=== PATIENT | female | born 1950 | race Caucasian/White ===

== ENCOUNTER → 2016-12-16 | Outpatient (CLI) | payer MEDICAID ==
[2016-12-16 14:07] LABS: ALT 45 U/L (9-52); AST 33 U/L (14-36)
== END | disposition home or self-care (01) ==
LOC: LABWHC1 13:20
PROVIDERS: ATTEND Podiatrist Foot & Ankle Surgery
DX: K74.60 Unspecified cirrhosis of liver (principal)
CPT/HCPCS: 36415; 84450; 84460

== ENCOUNTER → 2016-12-27 | Outpatient (CLI) | payer MEDICAID ==
--- NOTE | 2016-12-27 22:56 | MR ---
EXAMINATION TYPE: MR knee RT wo con DATE OF EXAM: 12/27/2016 10:01 PM COMPARISON: Outside right knee x-ray December 06, 2016. HISTORY: Knee pain with swelling and locking for several years TECHNIQUE: Multiplanar, multisequence images of the knee is performed without IV contrast. FINDINGS: MEDIAL MENISCUS: Anterior and posterior horns are intact without tear. LATERAL MENISCUS: Focus of increased signal inferiorly posterior horn of medial meniscus appears to e xtend to articular surface seen best coronal image 22. There is marked deformity with abnormal signal anterior horn of lateral meniscus consistent with complex full-thickness tear. Some lateral extrusio n of lateral meniscus is present. CRUCIATE LIGAMENTS: The anterior and posterior cruciate ligaments are intact. Intermediate signal is seen in distal anterior cruciate ligament near its tibial attachment. COLLATERAL LIGAMENTS: The medial collateral ligament and lateral collateral ligament complex are inta ct and unremarkable. EXTENSOR MECHANISM: Visualized quadriceps and patellar tendons are intact. EFFUSION: There are small to moderate suprapatellar joint effusion extending laterally. POPLITEAL CYST: There is a small to moderate size popliteal/villanueva cyst somewhat ill-defined suggestin g leak measuring 4.8 cm on long axis on sagittal image 9. TRICOMPARTMENT SPACES: There is mild to moderate tricompartment joint space loss and mild tricompartm ent joint space spurring. CARTILAGE: There is chondromalacia patella with near full-thickness cartilaginous loss along the cinthya rity of posterior patellar pole. Some full-thickness loss along lateral patellar pole is suspected in feriorly. Fissuring of articular cartilage lateral and medial tibiofemoral compartments is also prese nt. BONE MARROW SIGNAL: There is heterogeneous increased T2 signal involving the posterior patella at se veral levels. Suspect heterogeneous increased signal seen in the posterior distal femoral metaphysis as well as in the medial femoral condyle where there is low T1 signal suggesting osteochondral injury that measures 11 mm in AP diameter on sagittal image 9. More focal increased signal is seen in the posterior lateral tibial plateau with diminished T1 signal . Additional areas of involvement in the fibular head are identified. OTHER: No additional significant abnormality is appreciated. IMPRESSION: 1. Complex full-thickness tear anterior horn of lateral meniscus. 2. Additional more focal full-thickness tear posterior horn of lateral meniscus. 3. Fairly moderate tricompartment degenerative changes with tricompartment cartilaginous loss. Full-t hickness chondromalacia patella is present. Osteochondral injury distal medial femoral condyle is not ed. 4. Focus of significant osseous contusion and injury or bone marrow edema in the posterior lateral ti bial plateau and fibular head. 5. Small to moderate suprapatellar joint effusion. 6. Small to moderate size leaking popliteal cyst.
== END | disposition home or self-care (01) ==
LOC: RADMRIMAIN 20:59
PROVIDERS: ATTEND Orthopaedic Surgery
DX: S83.271A Complex tear of lateral meniscus, current injury, right knee, initial encounter (principal); M17.11 Unilateral primary osteoarthritis, right knee; M71.21 Synovial cyst of popliteal space [Baker], right knee

== ENCOUNTER → 2017-02-06 | Outpatient (CLI) | payer MEDICAID ==
[2017-02-06 12:22] LABS: ALT 41 U/L (9-52); AST 28 U/L (14-36)
== END | disposition home or self-care (01) ==
LOC: LABWHC1 11:55
PROVIDERS: ATTEND Podiatrist Foot & Ankle Surgery
DX: K74.60 Unspecified cirrhosis of liver (principal)
CPT/HCPCS: 36415; 84450; 84460

== ENCOUNTER 2017-02-09 06:28 | Day surgery (SDC) | payer MEDICAID ==
[2017-02-07 16:09] VITALS: BMI 29.9
--- NOTE | 2017-02-08 15:33 | HP ---
DATE OF ADMISSION: Jennifer Curry is a 66-year-old patient seen with progressive right knee pain. After having options regarding treatment discussed, she elected to proceed with right knee arthroscopy. Consent regarding the procedure was obtained. Medical clearance was provided Dr. Gary Mosquera. Past medical history is hypertension and emphysema. Past surgical history is appendectomy, total abdominal hysterectomy, cholecystectomy, sinus surgery. Daily medications are: 1. Lisinopril. 2. Xanax. ALLERGIES: None reported. SOCIAL HISTORY: Patient denies current tobacco use. Physical evaluation of the right knee: Range of motion is 0 to 120 degrees. There is tenderness along the lateral joint line. There is a positive lateral Kinsey's. Ligaments are stable. Hip rotation is without pain. Distal neurovascular exam is intact. Right knee radiographs revealed moderate lateral compartment osteoarthritis. An MRI of the right knee revealed a lateral meniscal tear as well as osteoarthritis and joint effusion. IMPRESSION: Internal derangement of right knee with meniscal tear. PLAN: Right knee arthroscopy with partial meniscectomy and debridement.
[~2017-02-09 06:28] MED LIST: DEXAMETHASONE SOD PHOSPHATE 10 MG/ML 1 ML VIAL IV ONE; HYDROmorphone 1 MG/ML 1 ML SYRINGE IVP PRN; LACTATED RINGERS 1,000 ML IV SCH; LIDOCAINE 1% 20 ML VIAL (10MG/ML) FOR IV START INTRADERMA PRN; MIDAZOLAM 2 MG/2 ML VIAL IV PRN; SCOPOLAMINE 1.5MG/72HR PATCH TRANSDERM ONE
[2017-02-09 06:52] VITALS: RESP 16
[2017-02-09] MEDS: ONDANSETRON 4 MG/2 ML VIAL IVP ONE ×2 (07:00→09:31)
[2017-02-09] MEDS ORDERED: BUPIVACAIN-EPI 0.25%-1:200,000 30 ML VIAL INTRAARTIC ONE (07:26)
[2017-02-09] MEDS ORDERED: LIDOCAINE 1% INJ 10MG/ML (20 ML MDV) ONE (07:26)
[2017-02-09] MEDS ORDERED: fentaNYL (PF) 50 MCG/ML 2 ML AMP ONE (07:26)
[2017-02-09] MEDS ORDERED: MIDAZOLAM 2 MG/2 ML VIAL ONE (07:26)
[2017-02-09] MEDS ORDERED: SUCCINYLCHOLINE CHLORIDE 100 MG/5 ML SYR IV ONE (07:26)
[2017-02-09] MEDS ORDERED: PROPOFOL 10 MG/ML 20 ML VIAL IV ONE (07:26)
[2017-02-09] MEDS: ceFAZolin 2 GM in SODIUM CHLORIDE 0.9% 100 ML IVPB ONE ×2 (07:39→07:40)
[2017-02-09 08:34] VITALS: TEMP 97.6
--- NOTE | 2017-02-09 08:41 | P.OP ---
Date of Procedure: 02/09/17 Preoperative Diagnosis: Internal derangement right knee Postoperative Diagnosis: 1. Tear medial and lateral meniscus right knee 2. Grade 2/3 chondromalacia medial femoral condyle right knee 3. Grade 2 chondral malacia lateral femoral condyle right knee 4. Grade 4 chondromalacia lateral tibial plateau right knee 5. Grade 3 chondromalacia patella right knee 6. Reactive synovitis medial and suprapatellar compartments right knee Procedure(s) Performed: 1. Arthroscopic partial medial and lateral meniscectomy right knee 2. Arthroscopic chondroplasty medial femoral condyle right knee 3. Arthroscopic chondroplasty lateral femoral condyle right knee 4. Arthroscopic chondroplasty patella right knee 5. Arthroscopic partial synovectomy medial and suprapatellar compartments right knee Anesthesia: TERAA, local Surgeon: Isaac Casas Estimated Blood Loss (ml): 10 Pathology: none sent Condition: stable Disposition: PACU Indications for Procedure: 66-year-old patient seen with progressive right knee pain. After having treatment options discussed, she elected to proceed with right knee arthroscopy. Operative Findings: See description of procedure Description of Procedure: Patient was taken to the operative suite. Patient underwent a general anesthetic by the department of anesthesia. Patient was given preoperative antibiotics. The right lower extremity was placed in a well-padded arthroscopic leg shafer. The right leg was prepped and draped in the normal sterile orthopedic fashion. A lateral parapatellar and suprapatellar incision was made. Trochars were inserted. Arthroscopy was initiated. Suprapatellar pouch revealed thick reactive synovitis. The patellofemoral joint appeared to articulate congruently. There was grade 3 chondromalacia with osteochondral tears present. The scope was guided into the medial gutter. No loose bodies or plica were identified. The scope was then guided into the medial compartment. A medial parapatellar incision was made. Trocar inserted followed by probe. There was a radial tear posterior horn medial meniscus. Grade 3 chondromalacia medial femoral condyle with some osteochondral tears. Reactive synovitis anteriorly. A partial medial meniscectomy was performed down to stable tissue. I performed a chondroplasty of the medial femoral condyle and partial synovectomy. The residual meniscus was found to be stable as was the residual osteochondral surface of medial femoral condyle. Scope and probe were then guided into the intercondylar notch. Cruciates were identified, probed and found to be stable. The scope and probe were then guided into lateral compartment. There was a tear involving the anterior horn and midbody medial meniscus. There were grade 2 chondromalacia changes of the lateral femoral condyle and grade 4, she changes of the tibial plateau with an area of bony exposure. No synovitis or loose bodies. A partial lateral meniscectomy was performed on a stable tissue. I performed a chondroplasty lateral femoral condyle down to stable tissue. The residual meniscus was probed and found to be stable as was the residual osteochondral surface lateral femoral condyle. The scope was in guided back into the suprapatellar compartment. A motorized shaver was introduced into the super patellar compartment. I debrided some piecemeal fragments of meniscus. I performed a chondroplasty of patella. I performed a partial synovectomy. Shaver was removed. I took one more look around the entire knee, no residual debris. Instruments were now removed from the joint. The joint was infiltrated with .25 % Marcaine. Steri-Strips were applied to the portal sites. Sterile dressings were applied. The patient was placed into a SOL hose. No tourniquet was utilized. The patient was awakened, transferred to a bed and taken to recovery stable satisfactory condition.
[2017-02-09 11:10] VITALS: BP 160/80; PULSE 59
== END 2017-02-09 11:37 | disposition home or self-care (01) ==
LOC: OR 06:28
PROVIDERS: ATTEND Orthopaedic Surgery
DX: M23.241 Derangement of anterior horn of lateral meniscus due to old tear or injury, right knee (principal); M23.221 Derangement of posterior horn of medial meniscus due to old tear or injury, right knee; M22.41 Chondromalacia patellae, right knee; M65.861 Other synovitis and tenosynovitis, right lower leg; I10 Essential (primary) hypertension; J44.9 Chronic obstructive pulmonary disease, unspecified; J45.909 Unspecified asthma, uncomplicated; K21.9 Gastro-esophageal reflux disease without esophagitis; Z79.899 Other long term (current) drug therapy
CPT/HCPCS: 29880; J2250; J1100; J0690; J2405; J2001; J3010; J1170; J0330; J2704

== ENCOUNTER 2017-02-27 08:51 | Day surgery (SDC) | payer MEDICAID ==
[2017-02-22 11:33] VITALS: BMI 29.7
[~2017-02-27 08:51] MED LIST changes: +HEPARIN SODIUM,PORCINE 5,000 UNIT/ML 1 ML VIAL SQ ONE; -HYDROmorphone 1 MG/ML 1 ML SYRINGE IVP PRN; -LIDOCAINE 1% 20 ML VIAL (10MG/ML) FOR IV START INTRADERMA PRN; +ONDANSETRON 4 MG/2 ML VIAL IVP ONE; -SCOPOLAMINE 1.5MG/72HR PATCH TRANSDERM ONE; +ceFAZolin 2 GM in SODIUM CHLORIDE 0.9% 100 ML IVPB ONE
[2017-02-27 09:25] VITALS: RESP 16
[2017-02-27] MEDS ORDERED: LIDOCAINE 1% 20 ML VIAL (10MG/ML) FOR IV START INTRADERMA ONE (09:31)
[2017-02-27] MEDS ORDERED: SCOPOLAMINE 1.5MG/72HR PATCH TRANSDERM ONE (10:40)
[2017-02-27] MEDS ORDERED: LIDOCAINE 1% INJ 10MG/ML (20 ML MDV) ONE (10:49)
[2017-02-27] MEDS ORDERED: fentaNYL (PF) 50 MCG/ML 2 ML AMP ONE (10:49)
[2017-02-27] MEDS ORDERED: GLYCOPYRROLATE 0.2 MG/ML 2 ML VIAL ONE (10:49)
[2017-02-27] MEDS ORDERED: PROPOFOL 10 MG/ML 20 ML VIAL IV ONE (10:49)
[2017-02-27] MEDS ORDERED: KETOROLAC 30 MG/ML 1 ML VIAL ONE (10:49)
[2017-02-27] MEDS ORDERED: VECURONIUM 10 MG VIAL IV ONE (10:49)
[2017-02-27] MEDS ORDERED: MIDAZOLAM 2 MG/2 ML VIAL ONE (10:49)
[2017-02-27] MEDS ORDERED: SUCCINYLCHOLINE CHLORIDE 100 MG/5 ML SYR IV ONE (10:49)
[2017-02-27] MEDS ORDERED: NEOSTIGMINE 1 MG/ML 10 ML VIAL ONE (10:49)
--- NOTE | 2017-02-27 10:52 | P.GSHP ---
History of Present Illness H&P Date: 02/27/17 Chief Complaint: Incisional hernia Patient here today for incisional hernia repair. She has had a previous cholecystectomy. She has a bulge now above the umbilicus with some generalized laxity of the abdominal wall at the site of the umbilicus. Mild abdominal pain at times at that location. No nausea or vomiting. No change in bowel habits. Past Medical History Past Medical History: GERD/Reflux, Hypertension, Osteoarthritis (OA) Additional Past Medical History / Comment(s): emphysema History of Any Multi-Drug Resistant Organisms: None Reported Past Surgical History: Appendectomy, Bladder Surgery, Cholecystectomy, Hernia Repair, Orthopedic Surgery Additional Past Surgical History / Comment(s): RT KNEE ARTHROSCOPY 02-09-17, corrective eye surg, sinus surg, jaw surg, foot surg. Past Anesthesia/Blood Transfusion Reactions: Motion Sickness, Postoperative Nausea & Vomiting (PONV) Past Psychological History: No Psychological Hx Reported Smoking Status: Never smoker Past Alcohol Use History: None Reported Past Drug Use History: None Reported - Past Family History Mother Family Medical History: Diabetes Mellitus Medications and Allergies Home Medications Medication Instructions Recorded Confirmed Type Albuterol Inhaler [Ventolin Hfa 1 - 2 puff INHALATION Q4H PRN 06/30/15 02/27/17 History Inhaler] Calcium Carbonate/Vitamin D3 1 each PO DAILY 06/30/15 02/27/17 History [Calcium 600-Vit D3 400 Tablet] Multivitamins, Thera [Multivitamin 1 each PO DAILY 06/30/15 02/27/17 History (formulary)] Lisinopril-Hctz 20-12.5 mg 1 tab PO HS 02/07/17 02/27/17 History [Zestoretic 20-12.5] Terbinafine [LamISIL] 250 mg PO DAILY 02/07/17 02/27/17 History ALPRAZolam [Xanax] 0.25 mg PO Q8HR PRN 02/08/17 02/27/17 History Allergies Allergy/AdvReac Type Severity Reaction Status Date / Time No Known Allergies Allergy Verified 02/22/17 11:28 Surgical - Exam Vital Signs Temp Pulse Resp BP Pulse Ox 97.2 F L 66 16 180/91 94 L 02/27/17 09:19 02/27/17 09:19 02/27/17 09:19 02/27/17 09:19 02/27/17 09:19 Physical exam: General: Well-developed, well-nourished HEENT: Normocephalic, sclerae nonicteric Abdomen: Nontender, nondistended, small infra umbilical incision noted, reducible hernia present just above the umbilicus with diastases Extremities: No edema Neuro: Alert and oriented Assessment and Plan (1) Incisional hernia Narrative/Plan: Will proceed with operative repair at this time. The patient I discussed the options of open versus laparoscopic approach. Given the generalized laxity and the suspicion that there may be other fascial defects we decided to proceed with a laparoscopic approach. The da Beata robot will be utilized in this case to assist with closure and suturing. The risks of bleeding, infection, recurrence, pain, mesh-related complications, bowel injury were discussed. She understands and wishes to proceed. Status: Acute
[2017-02-27] MEDS ORDERED: BUPIVACAIN-EPI 0.25%-1:200,000 30 ML VIAL SQ ONE ×2 (11:16)
[2017-02-27] MEDS ORDERED: HYDROcodone/APAP 5-325MG 1 EACH TAB PO PRN (13:07)
[2017-02-27] MEDS ORDERED: HYDROmorphone 1 MG/ML 1 ML SYRINGE IVP PRN (13:07)
[2017-02-27] MEDS ORDERED: NALOXONE 0.4 MG/ML 1 ML VIAL IV PRN (13:07)
[2017-02-27 13:17] VITALS: TEMP 98.2
--- NOTE | 2017-02-27 13:25 | P.PCN ---
Date of Procedure: 02/27/17 Procedure(s) Performed: PREOPERATIVE DIAGNOSIS: Incisional hernia POSTOPERATIVE DIAGNOSIS: Same PROCEDURE: Laparoscopic repair incisional hernia with da Beata robotic assistance with mesh SURGEON: Yojana EBL: Macrina Aggarwal ANESTHESIA: Gen. COMPLICATIONS: None OPERATIVE PROCEDURE: Patient was placed on the operating room table in the supine position. Patient was then placed under general anesthesia. The abdomen was prepped and draped in usual sterile fashion. A 5 mm optical trocar was used to enter the abdominal cavity in the left subcostal location and laterally. Insufflation took place fully to 15 mm of mercury. At that point a 12 mm trocar was placed laterally in the mid abdomen. An 8 mm trocar was placed in the left lower quadrant. The initial 5 was then switched to an 8 mm trocar as well. All of these were placed under direct visualization. The trochars were placed so that the neutral center of the trocar was within the abdominal wall. The da Beata robot was then docked after placing the patient in a slight left decubitus position. I then left the bedside and moved to the da Beata console. The patient's hernia was inspected. In this particular case the patient had 2 defects in a [id number] fashion. Each of these defects was about 2-3 cm in diameter. I removed some of the fatty tissue of the peritoneum and preperitoneal space and swept this cephalad. This included some of the fat that was present within the hernia itself. This also mobilized the falciform ligament. Once I had adequate visualization of the fascia I reapproximated the 2 defects horizontally using a running 12 inch O v lock suture. An 11 cm circular mesh was then utilized. This was a ventral light ST mesh. This was sutured circumferentially using 2-0 V lock sutures. This was performed in a running fashion using 3 separate sutures. The middle portion of the mesh was also sutured to the abdominal wall. This provided excellent coverage of our fascial closure. We then switched to a traditional laparoscopic approach. The 4 needles were removed at that point. The defect at the 12 mm trocar site was closed using an 0 Vicryl suture and the Morro Zendejas technique. The skin at all 3 sites were closed using interrupted 4-0 Monocryl sutures. Steri-Strips and sterile dressings were applied. DISPOSITION: Stable to recovery room
[2017-02-27] MEDS: HYDROmorphone 1 MG/ML 1 ML SYRINGE IVP PRN ×2 (13:41→13:52)
[2017-02-27] MEDS ORDERED: HYDROcodone/APAP 5-325MG 1 EACH TAB PO ONE (14:34)
[2017-02-27 16:02] VITALS: BP 145/80; PULSE 59
== END 2017-02-27 16:46 | disposition home or self-care (01) ==
LOC: OR 08:51
PROVIDERS: ATTEND Surgery
DX: K43.2 Incisional hernia without obstruction or gangrene (principal); I10 Essential (primary) hypertension; J44.9 Chronic obstructive pulmonary disease, unspecified; J45.909 Unspecified asthma, uncomplicated; M19.90 Unspecified osteoarthritis, unspecified site; F41.9 Anxiety disorder, unspecified; Z79.899 Other long term (current) drug therapy
CPT/HCPCS: 49654; S2900

== ENCOUNTER → 2018-12-12 | Outpatient (CLI) | payer MEDICARE ==
--- NOTE | 2018-12-16 14:41 | MM ---
Reason for exam: screening (asymptomatic). Last mammogram was performed 6 years and 1 month ago. History: Patient is postmenopausal. MG 3D Screening Mammo W/Cad Bilateral CC and MLO view(s) were taken. Prior study comparison: November 08, 2012, bilateral digital screening mammo w/CAD. August 26, 2011, bilateral digital screening mammo w/CAD. The breast tissue is extremely dense which could obscure a lesion on mammography. No significant changes when compared with prior studies. ASSESSMENT: Benign, BI-RAD 2 RECOMMENDATION: Routine screening mammogram of both breasts in 1 year.
== END ==
LOC: RADMAMWWP 15:27
PROVIDERS: ATTEND Family Medicine
DX: Z12.31 Encounter for screening mammogram for malignant neoplasm of breast (principal)
CPT/HCPCS: 77063; 77067

== ENCOUNTER → 2020-05-01 | Outpatient (CLI) | payer MEDICARE ==
--- NOTE | 2020-05-05 11:52 | MM ---
Reason for exam: screening (asymptomatic). Last mammogram was performed 1 year and 5 months ago. History: Patient is postmenopausal. Physical Findings: A clinical breast exam by your physician is recommended on an annual basis and results should be correlated with mammographic findings. MG 3D Screening Mammo W/Cad Bilateral CC and MLO view(s) were taken. Prior study comparison: December 12, 2018, bilateral MG 3d screening mammo w/cad. The breast tissue is heterogeneously dense. This may lower the sensitivity of mammography. Lateral asymmetric density left CC view at a middle depth incompletely disperses on 3D. ASSESSMENT: Incomplete: need additional imaging evaluation, BI-RAD 0 RECOMMENDATION: Special view mammogram of the left breast. (3D) If lesion persists on supplemental views, image directed ultrasound is recommended. [facility] will attempt to contact patient to return for supplemental views and ultrasound if indicated.
== END | disposition home or self-care (01) ==
LOC: RADMAMWWP 15:08
PROVIDERS: ATTEND Family Medicine
DX: Z12.31 Encounter for screening mammogram for malignant neoplasm of breast (principal)
CPT/HCPCS: 77063; 77067

== ENCOUNTER → 2020-05-20 | Outpatient (CLI) | payer MEDICARE ==
--- NOTE | 2020-05-20 14:16 | MM ---
Reason for exam: additional evaluation requested from abnormal screening. Last mammogram was performed 1 month ago. History: Patient is postmenopausal. Physical Findings: Nurse did not find any significant physical abnormalities on exam. MG 3D Work Up W/Cad LT Spot compression CC and LM view(s) were taken of the left breast. Prior study comparison: May 01, 2020, bilateral MG 3d screening mammo w/cad. December 12, 2018, bilateral MG 3d screening mammo w/cad. There is no discrete abnormality including area of concern. These results were verbally communicated with the patient and result sheet given to the patient on 05/20/20. ASSESSMENT: Negative, BI-RAD 1 RECOMMENDATION: Return to routine screening mammogram schedule for both breasts.
== END | disposition home or self-care (01) ==
LOC: RADMAMWWP 13:32
PROVIDERS: ATTEND Family Medicine
DX: R92.8 Other abnormal and inconclusive findings on diagnostic imaging of breast (principal)
CPT/HCPCS: 77065; G0279; 77061

== ENCOUNTER → 2020-06-25 | Outpatient (CLI) | payer MEDICARE ==
--- NOTE | 2020-06-25 16:02 | US ---
EXAMINATION TYPE: US kidneys/renal and bladder DATE OF EXAM: 06/25/2020 COMPARISON: MRI 2012. CT 2011. CLINICAL HISTORY: N20.0 RENAL LITHIASIS. Intermittent abdomen pain x 2 months EXAM MEASUREMENTS: Right Kidney: 11.4 x 5.1 x 5.0 cm Left Kidney: 11.7 x 5.0 x 5.5 cm Right Kidney: 1.8 x 1.5 x 1.7cm hyperechoic area sup pole Left Kidney: 2 hypoechoic areas inferior pole measuring 1.8cm and 1.4cm, 2.9 x 1.9 x 2.0cm hyperechoi c area inferior pole Bladder: not fully distended Suboptimal evaluation of bladder due to poor distention. IMPRESSION: Fairly large hyperechoic lesions in both kidneys new from prior studies. Follow-up advise d. New solid masses need to be considered. Renal protocol contrast-enhanced CT or MRI follow-up recom mended.
== END | disposition home or self-care (01) ==
LOC: RADUSWWP 15:18
PROVIDERS: ATTEND Family Medicine
DX: N28.1 Cyst of kidney, acquired (principal)
CPT/HCPCS: 76770

== ENCOUNTER 2020-07-06 11:32 | Emergency (ER) | payer MEDICARE ==
[2020-07-06 11:37] VITALS: TEMP 97.8
[2020-07-06 12:24] LABS: Basophils # (A) 0.1 k/uL (0-0.2); Basophils % (A) 1 %; Eosinophils # (A) 0.2 k/uL (0-0.7); Eosinophils % (A) 3 %; HCT 45.3 % (34.0-46.0); HGB 14.8 gm/dL (11.4-16.0); Lymphocytes # (A) 2.3 k/uL (1.0-4.8); Lymphocytes % (A) 33 %; MCH 30.2 pg (25.0-35.0); MCHC 32.6 g/dL (31.0-37.0); MCV 92.6 fL (80.0-100.0); Monocytes # (A) 0.2 k/uL (0-1.0); Monocytes % (A) 3 %; Neutrophils % (A) 58 %; Platelet Count 218 k/uL (150-450); RBC 4.89 m/uL (3.80-5.40); RDW 13.1 % (11.5-15.5); WBC 6.9 k/uL (3.8-10.6)
[2020-07-06 12:44] LABS: Appearance,Urine Clear (Clear); Color,Urine Yellow
[2020-07-06 12:45] LABS: Glucose,Urine (UA) Negative (Negative); Protein,Urine 1+ (Negative); Specific Gravity,Urine 1.015 (1.001-1.035)
[2020-07-06 12:46] LABS: Bilirubin,Urine Negative (Negative); Blood,Urine Negative (Negative); Ketones,Urine Negative (Negative); Leukocyte Esterase,Urine Large (Negative); Nitrite,Urine Negative (Negative)
[2020-07-06 12:50] LABS: Bacteria,Urine Many /hpf; Hyaline Casts,Urine 5 /lpf (0-2); Mucus,Urine Many /hpf; RBC,Urine 5 /hpf (0-5); Squamous Epithelial Cell,Urine 18 /hpf (0-4); WBC,Urine 46 /hpf (0-5)
--- NOTE | 2020-07-06 12:56 | CT ---
EXAMINATION TYPE: CT abdomen pelvis wo con DATE OF EXAM: 07/06/2020 COMPARISON: 10/01/2012 HISTORY: Bilateral flank pain. CT DLP: 805.3 mGycm Examination of the solid and hollow viscera is limited given the lack of contrast. FINDINGS: LUNG BASES: No evidence for nodule. No evidence for infiltrate. LIVER/GB: The gallbladder is surgically absent. No space-occupying hepatic lesion. PANCREAS: No pancreatic mass identified. No inflammatory process seen. SPLEEN: No evidence for splenomegaly. No intrasplenic lesions seen. ADRENALS: No adrenal nodules identified. No evidence for thickening. KIDNEYS: Stable angiomyolipoma left kidney. Nonobstructing nephrolithiasis lower pole left kidney and midpole left kidney measuring up to 3 mm. No obstructing calculus is seen. No evidence for hydroneph rosis at this time. BOWEL: Appendix has a normal appearance. No evidence of bowel obstruction. No inflammatory process. Lymph nodes: No evidence for adenopathy greater than 1 cm. Abdominal aorta: Atheromatous changes seen. No evidence for aneurysm. Genital organs: No significant abnormality. Other: No significant abnormality. IMPRESSION: 1. Nonobstructing nephrolithiasis seen in left kidney. 2. Stable angiomyolipoma left kidney.
[2020-07-06] MEDS ORDERED: KETOROLAC 15 MG/ML 1 ML VIAL IVP STA (13:19)
[2020-07-06] MEDS ORDERED: ACET/COD 300 MG/30 MG STARTER PACK 6 TAB BTL PO STA (13:19)
[2020-07-06 13:28] LABS: ALT 28 U/L (4-34); AST 28 U/L (14-36); African American GFR (CKD) >90 (>60 ml/min/1.73 sqM); Albumin 4.2 g/dL (3.5-5.0); Alkaline Phosphatase 71 U/L (38-126); Anion Gap 9 mmol/L; Blood Urea Nitrogen 11 mg/dL (7-17); Calcium 9.7 mg/dL (8.4-10.2); Carbon Dioxide 29 mmol/L (22-30); Chloride 103 mmol/L (98-107); Glucose 99 mg/dL (74-99); Non-African American GFR(CKD) >90 (>60 ml/min/1.73 sqM); Potassium 3.1 mmol/L (3.5-5.1); Sodium 141 mmol/L (137-145); Total Protein 6.7 g/dL (6.3-8.2)
[2020-07-06] MEDS ORDERED: POTASSIUM CHLORIDE ER 20 MEQ TAB.ER PO STA (13:39)
--- NOTE | 2020-07-06 13:41 | ED ---
Abdominal Pain HPI <Oneil John - Last Filed: 07/06/20 13:47> - General Source: patient Mode of arrival: ambulatory Limitations: no limitations <Sonam Florentino - Last Filed: 07/06/20 17:30> - General Chief Complaint: Abdominal Pain Stated Complaint: kidney pain Time Seen by Provider: 07/06/20 11:43 - History of Present Illness Initial Comments: 69-year-old feel presenting today for chief complaint of bilateral mid back pain. Patient states that she's had back pain ever since she had diagnosis of a kidney mass she states she does not know much with the mass she states she was not told his cancerous or not but has an MRI scheduled in 5 days. Patient denies any hematuria. She denies any fevers denies unilateral pain. Patient denies a direct injury or trauma to the back denies a loss of bowel bladder control urinary retention. Patient states it feels like the pain is in her kidneys. She states the pain is actually been going on for 6 months. Patient denies any changes she states she just came today simply for pain management. Patient states that she knows what is going on and is outpatient follow-up. Patient denies any additional complaints denies abdominal pain chest pain angel rtness of breath or leg swelling. Remaining review of systems negative upon arrival patient does appear well nontoxic in no acute distress sitting up in a chair next to guest in room. (Sonam Florentino) - Related Data Home Medications Medication Instructions Recorded Confirmed Calcium Carbonate/Vitamin D3 1 each PO DAILY 06/30/15 07/06/20 [Calcium 600-Vit D3 400 Tablet] Multivitamins, Thera [Multivitamin 1 tab PO DAILY 06/30/15 07/06/20 (formulary)] Lisinopril-Hctz 20-12.5 mg 1 tab PO HS 02/07/17 07/06/20 [Zestoretic 20-12.5] Atorvastatin [Lipitor] 10 mg PO HS 07/06/20 07/06/20 Ferrous Sulfate [Feosol] 325 mg PO Q48H 07/06/20 07/06/20 Fluticasone Nasal [place] [Flonase 1 spray EA NOSTRIL DAILY 07/06/20 07/06/20 Nasal [place]] Ibuprofen 800 mg PO Q8H PRN 07/06/20 07/06/20 L.acidoph,Paracasei, B.lactis 1 each PO DAILY 07/06/20 07/06/20 [Probiotic] Loratadine [Claritin] 10 mg PO DAILY 07/06/20 07/06/20 Allergies Allergy/AdvReac Type Severity Reaction Status Date / Time No Known Allergies Allergy Verified 07/06/20 12:59 Review of Systems ROS Other: All systems not noted in ROS Statement are negative. <Oneil John - Last Filed: 07/06/20 13:47> ROS Other: All systems not noted in ROS Statement are negative. <Michelle Florentinomary Mirza - Last Filed: 07/06/20 17:30> ROS Statement: Those systems with pertinent positive or pertinent negative responses have been documented in the HPI. Past Medical History Past Medical History: GERD/Reflux, Hypertension, Osteoarthritis (OA) Additional Past Medical History / Comment(s): emphysema, lesion on kidneys. History of Any Multi-Drug Resistant Organisms: None Reported Past Surgical History: Appendectomy, Bladder Surgery, Cholecystectomy, Hernia Repair, Orthopedic Surgery Additional Past Surgical History / Comment(s): corrective eye surg., sinus surg., jaw surg., foot surg. Past Anesthesia/Blood Transfusion Reactions: Motion Sickness, Postoperative Nausea & Vomiting (PONV) Past Psychological History: No Psychological Hx Reported Smoking Status: Never smoker Past Alcohol Use History: None Reported Past Drug Use History: None Reported - Past Family History Mother Family Medical History: Diabetes Mellitus <MiteshrefugioMichelleSonam Hermes - Last Filed: 07/06/20 17:30> General Exam Limitations: no limitations <Michelle Florentinomary Mirza - Last Filed: 07/06/20 17:30> - General Exam Comments Initial Comments: General: The patient is awake and alert, in no distress, and does not appear acutely ill. Eye: Pupils are equal, round and reactive to light, extra-ocular movements are intact. No nystagmus. There is normal conjunctiva bilaterally. No signs of icterus. Cardiovascular: There is a regular rate and rhythm. No murmur, rub or gallop is appreciated. Respiratory: Lungs are clear to auscultation, respirations are non-labored, breath sounds are equal. No wheezes, stridor, rales, or rhonchi. Gastrointestinal: Soft, non-distended, non-tender abdomen without masses or organomegaly noted. There is no rebound or guarding present. No CVA tenderness. Musculoskeletal: Normal ROM, no tenderness. Strength 5/5. Sensation intact. R adial pulses equal bilaterally 2+. Neurological: A&O x 3. CN II-XII intact grossly, There are no obvious motor or sensory deficits. Coordination appears grossly intact. Speech is normal. Skin: Skin is warm and dry and no rashes or lesions are noted. Psychiatric: Cooperative, appropriate mood & affect, normal judgment. (Sonam Florentino) Course <Oneil John - Last Filed: 07/06/20 13:47> Vital Signs 07/06/20 07/06/20 11:33 13:30 Temperature 97.8 F Pulse Rate 63 86 Respiratory 18 16 Rate Blood Pressure 138/77 132/76 O2 Sat by Pulse 98 99 Oximetry - Reevaluation(s) Reevaluation #1: 07/06/20 13:47 PA supervision: I did proceed a [id number] evaluation the patient. She did present with complaints of abdominal discomfort. She did have a computed tomography scan which showed evidence of a angiolipoma kidney no evidence of kidney stones in the standard is evidence however of UTI and lab work. She also does demonstrate hypo-ketonemia with a potassium 3.1. She'll be given supplementation she is a keep her follow-up with her doctor as planned she is in agreement with this. (Oneil John) Medical Decision Making - Lab Data Result diagrams: 07/06/20 12:13 07/06/20 12:57 <Oneil John - Last Filed: 07/06/20 13:47> - Lab Data Result diagrams: 07/06/20 12:13 07/06/20 12:57 <Sonam Florentino - Last Filed: 07/06/20 17:30> - Lab Data Lab Results 07/06/20 07/06/20 07/06/20 Range/Units 12:13 12:13 12:57 WBC 6.9 (3.8-10.6) k/uL RBC 4.89 (3.80-5.40) m/uL Hgb 14.8 (11.4-16.0) gm/dL Hct 45.3 (34.0-46.0) % MCV 92.6 (80.0-100.0) fL MCH 30.2 (25.0-35.0) pg MCHC 32.6 (31.0-37.0) g/dL RDW 13.1 (11.5-15.5) % Plt Count 218 (150-450) k/uL Neutrophils % 58 % Lymphocytes % 33 % Monocytes % 3 % Eosinophils % 3 % Basophils % 1 % Neutrophils # 4.0 (1.3-7.7) k/uL Lymphocytes # 2.3 (1.0-4.8) k/uL Monocytes # 0.2 (0-1.0) k/uL Eosinophils # 0.2 (0-0.7) k/uL Basophils # 0.1 (0-0.2) k/uL Sodium 141 (137-145) mmol/L Potassium 3.1 L (3.5-5.1) mmol/L Chloride 103 (98-107) mmol/L Carbon Dioxide 29 (22-30) mmol/L Anion Gap 9 mmol/L BUN 11 (7-17) mg/dL Creatinine 0.43 L (0.52-1.04) mg/dL Est GFR (CKD-EPI)AfAm >90 (>60 ml/min/1.73 sqM) Est GFR (CKD-EPI)NonAf >90 (>60 ml/min/1.73 sqM) Glucose 99 (74-99) mg/dL Calcium 9.7 (8.4-10.2) mg/dL Total Bilirubin 1.0 (0.2-1.3) mg/dL AST 28 (14-36) U/L ALT 28 (4-34) U/L Alkaline Phosphatase 71 (38-126) U/L Total Protein 6.7 (6.3-8.2) g/dL Albumin 4.2 (3.5-5.0) g/dL Urine Color Yellow Urine Appearance Clear (Clear) Urine pH 6.0 (5.0-8.0) Ur Specific [place] 1.015 (1.001-1.035) Urine Protein 1+ H (Negative) Urine Glucose (UA) Negative (Negative) Urine Ketones Negative (Negative) Urine Blood Negative (Negative) Urine Nitrite Negative (Negative) Urine Bilirubin Negative (Negative) Urine Urobilinogen 2.0 (<2.0) mg/dL Ur Leukocyte Esterase Large (Negative) Urine RBC 5 (0-5) /hpf Urine WBC 46 H (0-5) /hpf Ur Squamous Epith Cells 18 H (0-4) /hpf Urine Bacteria Many H (None) /hpf Hyaline Casts 5 H (0-2) /lpf Urine Mucus Many H (None) /hpf Disposition <Oneli John - Last Filed: 07/06/20 13:47> Is patient prescribed a controlled substance at d/c from ED?: No Time of Disposition: 13:41 <Sonam Florentino - Last Filed: 07/06/20 17:30> Clinical Impression: Angiomyolipoma, Flank pain, Bacteria in urine Disposition: HOME SELF-CARE Condition: Good Instructions (If sedation given, give patient instructions): Flank Pain (ED) Additional Instructions: Please use medication as discussed. Please follow-up with family doctor in the next 2 days. Please return to emergency room if the symptoms increase or worsen or for any other concerns. Referrals: Gary Mosquera DO [Primary Care Provider] - 1-2 days
[2020-07-06 14:07] VITALS: BP 132/76; PULSE 86; RESP 16
== END 2020-07-06 14:07 | disposition home or self-care (01) ==
LOC: EC 11:32
DX: D17.71 Benign lipomatous neoplasm of kidney (principal); E78.5 Hyperlipidemia, unspecified; I10 Essential (primary) hypertension; M19.90 Unspecified osteoarthritis, unspecified site; J43.9 Emphysema, unspecified; Z79.51 Long term (current) use of inhaled steroids; Z79.899 Other long term (current) drug therapy
CPT/HCPCS: 36415; 80053; 85025; 81001; 74176; 99284; 96374; J1885

== ENCOUNTER 2020-07-17 20:17 | Emergency (ER) | payer MEDICARE ==
[2020-07-17] MEDS ORDERED: MORPHINE SULFATE 4 MG/ML SYRINGE IM STA (20:44)
--- NOTE | 2020-07-17 21:24 | ED ---
General Adult HPI - General Chief complaint: Back Pain/Injury Stated complaint: Back Pain Time Seen by Provider: 07/17/20 20:26 Source: patient, RN notes reviewed, old records reviewed Mode of arrival: ambulatory Limitations: no limitations - History of Present Illness Initial comments: 69-year-old female patient proceeded for chief complaint of pain control. Patient reports that she has been having chronic flank pain which has been getting worked up. His has been ongoing for the last 6 months. Patient was seen emergency department 11 days ago where she had a CAT scan which did not display any acute pathology. Patient reports that she was just at a MRI of her kidneys currently on her back is made the pain worse. She has a chest pain shortness of breath. Denies any acute complaints. Patient is just requesting pain control and does not want any further workup. Systemic: Pt denies fatigue, fever/chills, rash. Pt denies weakness, night sweats, weight loss. Neuro: Pt denies headache, visual disturbances, syncope or pre-syncope. HEENT: Pt denies ocular discharge or irritation, otalgia, rhinorrhea, pharyngitis or notable lymphadenopathy. Cardiopulmonary: Pt denies chest pain, SOB, heart palpitations, dyspnea on exertion. Abdominal/GI: Pt denies abdominal pain, n/v/d. : Pt denies dysuria, burning w/ urination, frequency/urgency. Denies new onset urinary or bowel incontinence. MSK: Pt denies myalgia, loss of strength or function in extremities. Neuro: Pt denies new onset weakness, paresthesias. - Related Data Home Medications Medication Instructions Recorded Confirmed Calcium Carbonate/Vitamin D3 1 each PO DAILY 06/30/15 07/06/20 [Calcium 600-Vit D3 400 Tablet] Multivitamins, Thera [Multivitamin 1 tab PO DAILY 06/30/15 07/06/20 (formulary)] Lisinopril-Hctz 20-12.5 mg 1 tab PO HS 02/07/17 07/06/20 [Zestoretic 20-12.5] Atorvastatin [Lipitor] 10 mg PO HS 07/06/20 07/06/20 Ferrous Sulfate [Feosol] 325 mg PO Q48H 07/06/20 07/06/20 Fluticasone Nasal [place] [Flonase 1 spray EA NOSTRIL DAILY 07/06/20 07/06/20 Nasal [place]] Ibuprofen 800 mg PO Q8H PRN 07/06/20 07/06/20 L.acidoph,Paracasei, B.lactis 1 each PO DAILY 07/06/20 07/06/20 [Probiotic] Loratadine [Claritin] 10 mg PO DAILY 07/06/20 07/06/20 Previous Rx's Medication Instructions Recorded Hydrocodone/Acetaminophen [[place] 1 each PO Q6HR PRN 3 Days #12 tab 07/17/20 5-325] Allergies Allergy/AdvReac Type Severity Reaction Status Date / Time No Known Allergies Allergy Verified 07/06/20 12:59 Review of Systems ROS Statement: Those systems with pertinent positive or pertinent negative responses have been documented in the HPI. ROS Other: All systems not noted in ROS Statement are negative. Past Medical History Past Medical History: GERD/Reflux, Hypertension, Osteoarthritis (OA) Additional Past Medical History / Comment(s): emphysema, lesion on kidneys. History of Any Multi-Drug Resistant Organisms: None Reported Past Surgical History: Appendectomy, Bladder Surgery, Cholecystectomy, Hernia Repair, Orthopedic Surgery Additional Past Surgical History / Comment(s): corrective eye surg., sinus surg., jaw surg., foot surg. Past Anesthesia/Blood Transfusion Reactions: Motion Sickness, Postoperative Nausea & Vomiting (PONV) Past Psychological History: No Psychological Hx Reported Smoking Status: Never smoker Past Alcohol Use History: None Reported Past Drug Use History: None Reported - Past Family History Mother Family Medical History: Diabetes Mellitus General Exam - General Exam Comments Initial Comments: Constitutional: NAD, AOX3, Pt has pleasant affect. HEENT: NC/AT, trachea midline, neck supple, no lymphadenopathy. External ears appear normal, without discharge. Mucous membranes moist. EOM intact. There is no scleral icterus. No pallor noted. Cardiopulmonary: RRR, no murmurs, rubs or gallops, no JVD noted. Lungs CTAB in anterior and posterior mondragon. No peripheral edema. Abdominal exam: Abdomen soft and non-distended. Abdomen non-tender to palpation in all 4 quadrants. Bowel sounds active in LLQ. No hepatosplenomegaly. No ecchymosis flanks mildly tender. Neuro: CN II-XII grossly intact. No nuchal rigidity. No raccon eyes, no mills sign, no hemotympanum. No cervical spinal tenderness. MSK: No posterior calf tenderness bilaterally, homans sign negative bilaterally. Posterior tibialis and radial pulse +2 bilaterally. Sensation intact in upper and lower extremities. Full active ROM in upper and lower extremities, 5/5 stregnth. Limitations: no limitations Course Vital Signs 07/17/20 20:17 Temperature 98.0 F Pulse Rate 76 Respiratory 16 Rate Blood Pressure 173/82 O2 Sat by Pulse 95 Oximetry Medical Decision Making - Medical Decision Making 69-year-old female presents ED for requested pain control for chronic flank pain. Patient pain well-controlled number to permanent patient's declining any other workup. Patient will be prescribed a short course of Ángel. Will turn urine any worsening symptoms. Csae discussed and pt seen by Dr. Richards. Disposition Clinical Impression: Chronic pain Disposition: HOME SELF-CARE Condition: Stable Instructions (If sedation given, give patient instructions): Flank Pain (ED) Additional Instructions: follow-up with primary care provider tomorrow. Return to ER if any worsening symptoms. Prescriptions: Hydrocodone/Acetaminophen [[place] 5-325] 1 each PO Q6HR PRN 3 Days #12 tab PRN Reason: Pain Is patient prescribed a controlled substance at d/c from ED?: Yes When asked, does pt state using other controlled substances?: No If prescribed controlled substance>3 days was MAPS reviewed?: Prescribed <3 Days If opioid is for acute pain is fill amount 7 days or less?: Yes If Rx opioid, was Start Talking consent form obtained?: Yes Referrals: Gary Mosquera DO [Primary Care Provider] - 1-2 days
[2020-07-17 21:46] VITALS: BP 159/80; PULSE 81; RESP 21; TEMP 98.6
== END 2020-07-17 21:45 | disposition home or self-care (01) ==
LOC: EC 20:17
DX: G89.29 Other chronic pain (principal); R10.9 Unspecified abdominal pain; I10 Essential (primary) hypertension; M54.9 Dorsalgia, unspecified; R07.9 Chest pain, unspecified; R06.02 Shortness of breath; Z90.49 Acquired absence of other specified parts of digestive tract; Z79.899 Other long term (current) drug therapy
CPT/HCPCS: 96374 ×2; 99283; 99284; 74183; J2270; A9585

== ENCOUNTER → 2020-07-17 | Outpatient (CLI) | payer MEDICARE ==
--- NOTE | 2020-07-18 05:37 | MR ---
EXAMINATION TYPE: MR kidney wo/w con DATE OF EXAM: 07/17/2020 COMPARISON: 07/06/2020 HISTORY: Mid back pain, abnormal CT CONTRAST: Standard multiplanar, multisequence MRI departmental protocol utilizing 9 mL intravenous Gadavist rene olinium contrast. The kidneys have normal size. There are left renal parapelvic cysts. There is a mixed signal mass inv olving the lower pole cortex left kidney. This measures 2.3 cm in diameter and measures larger than t he CT scan of 07/06/2020. There is decreased signal in the lesion on the out of phase images that sugg ests fat. Lesion has peripheral enhancement. There is no retroperitoneal adenopathy. Right kidney estefany ears normal without evidence of mass or obstruction. There is no ascites. Liver shows no focal defect. Spleen is intact. There is no pleural effusion. The re is no evidence of pancreatic mass. The bile ducts are not dilated. IMPRESSION: Sharply marginated mixed signal mass lower pole left kidney has features of angiomyolipoma. There is sufficient fat signal consistent with angiomyolipoma. Left renal parapelvic multiple cysts.
== END | disposition home or self-care (01) ==
LOC: RADMRIMAIN 19:26
PROVIDERS: ATTEND Family Medicine
DX: N28.1 Cyst of kidney, acquired (principal)
CPT/HCPCS: 74183; A9585

== ENCOUNTER → 2020-08-06 | Outpatient (CLI) | payer MEDICARE ==
[2020-08-06 14:36] LABS: Basophils # (A) 0.1 k/uL (0-0.2); Basophils % (A) 1 %; Eosinophils # (A) 0.3 k/uL (0-0.7); Eosinophils % (A) 3 %; HCT 48.8 % (34.0-46.0); HGB 15.6 gm/dL (11.4-16.0); Lymphocytes # (A) 2.7 k/uL (1.0-4.8); Lymphocytes % (A) 30 %; MCV 93.8 fL (80.0-100.0); Mean Platelet Volume 9.2; Monocytes # (A) 0.3 k/uL (0-1.0); Monocytes % (A) 4 %; Neutrophils # (A) 5.3 k/uL (1.3-7.7); Neutrophils % (A) 61 %; Platelet Count 232 k/uL (150-450); RBC 5.21 m/uL (3.80-5.40); RDW 12.8 % (11.5-15.5); WBC 8.7 k/uL (3.8-10.6)
[2020-08-06 14:38] LABS: African American GFR (CKD) >90 (>60 ml/min/1.73 sqM); Anion Gap 10 mmol/L; Blood Urea Nitrogen 16 mg/dL (7-17); Calcium 9.8 mg/dL (8.4-10.2); Carbon Dioxide 26 mmol/L (22-30); Chloride 103 mmol/L (98-107); Glucose 99 mg/dL (74-99); Non-African American GFR(CKD) >90 (>60 ml/min/1.73 sqM); Potassium 3.7 mmol/L (3.5-5.1); Sodium 139 mmol/L (137-145)
== END | disposition home or self-care (01) ==
LOC: LABPAT 13:13
PROVIDERS: ATTEND Urology
DX: Z01.818 Encounter for other preprocedural examination (principal); N20.0 Calculus of kidney; R31.29 Other microscopic hematuria; I10 Essential (primary) hypertension
CPT/HCPCS: 36415; 80048; 85025; 87086

== ENCOUNTER 2020-08-10 19:12 | Emergency (ER) | payer MEDICARE ==
[2020-08-10 19:17] VITALS: TEMP 97.2
[2020-08-10] MEDS ORDERED: SODIUM CHLORIDE 0.9% 1,000 ML IV STA ×2 (20:00)
[2020-08-10] MEDS ORDERED: MORPHINE SULFATE 4 MG/ML SYRINGE IV STA (20:00)
[2020-08-10] MEDS ORDERED: KETOROLAC 15 MG/ML 1 ML VIAL IVP STA (20:00)
[2020-08-10] MEDS ORDERED: ONDANSETRON 4 MG/2 ML VIAL IVP STA (20:01)
--- NOTE | 2020-08-10 20:06 | ED ---
Back Pain HPI - General Chief Complaint: Back Pain/Injury Stated Complaint: low back pain Time Seen by Provider: 08/10/20 19:21 Source: patient, RN notes reviewed, old records reviewed Limitations: no limitations - History of Present Illness Initial Comments: Patient is [id number] female who presents emergency room for lower back pain consistent with retained renal stones. Patient states that she is scheduled to have lithotripsy and stenting procedure by Dr. Fink on . She's been taking tramadol for pain. She states that she has been out of her [place]. Patient reports that she has no significant dysuria. Denies any recent vomiting but does feel somewhat nauseated. She's had a poor appetite. - Related Data Home Medications Medication Instructions Recorded Confirmed Calcium Carbonate/Vitamin D3 1 each PO DAILY 06/30/15 07/17/20 [Calcium 600-Vit D3 400 Tablet] Multivitamins, Thera [Multivitamin 1 tab PO DAILY 06/30/15 07/17/20 (formulary)] Lisinopril-Hctz 20-12.5 mg 1 tab PO HS 02/07/17 07/17/20 [Zestoretic 20-12.5] Atorvastatin [Lipitor] 10 mg PO HS 07/06/20 07/17/20 Ferrous Sulfate [Feosol] 325 mg PO Q48H 07/06/20 07/17/20 Fluticasone Nasal [place] [Flonase 1 spray EA NOSTRIL DAILY 07/06/20 07/17/20 Nasal [place]] Ibuprofen 800 mg PO Q8H PRN 07/06/20 07/17/20 L.acidoph,Paracasei, B.lactis 1 each PO DAILY 07/06/20 07/17/20 [Probiotic] Loratadine [Claritin] 10 mg PO DAILY 07/06/20 07/17/20 Previous Rx's Medication Instructions Recorded Hydrocodone/Acetaminophen [[place] 1 each PO Q6HR PRN 3 Days #12 tab 07/17/20 5-325] HYDROcodone/APAP 5-325MG [[place] 1 tab PO Q6HR PRN #10 tab 08/10/20 5-325] Ondansetron Odt [Zofran Odt] 4 mg PO Q8HR PRN #12 tab 08/10/20 Allergies Allergy/AdvReac Type Severity Reaction Status Date / Time No Known Allergies Allergy Verified 08/10/20 19:17 Review of Systems ROS Statement: Those systems with pertinent positive or pertinent negative responses have been documented in the HPI. ROS Other: All systems not noted in ROS Statement are negative. Past Medical History Past Medical History: GERD/Reflux, Hypertension, Osteoarthritis (OA) Additional Past Medical History / Comment(s): emphysema, lesion on kidneys. kidney stones. History of Any Multi-Drug Resistant Organisms: None Reported Past Surgical History: Appendectomy, Bladder Surgery, Cholecystectomy, Hernia Repair, Orthopedic Surgery Additional Past Surgical History / Comment(s): corrective eye surg., sinus surg., jaw surg., foot surg. Past Anesthesia/Blood Transfusion Reactions: Motion Sickness, Postoperative Nausea & Vomiting (PONV) Past Psychological History: No Psychological Hx Reported Smoking Status: Never smoker Past Alcohol Use History: None Reported Past Drug Use History: None Reported - Past Family History Mother Family Medical History: Diabetes Mellitus General Exam - General Exam Comments Initial Comments: 69-year-old female. Limitations: no limitations Head exam: Present: atraumatic, normocephalic, normal inspection Eye exam: Present: normal appearance, PERRL, EOMI. Absent: scleral icterus, conjunctival injection, periorbital swelling ENT exam: Present: normal exam, mucous membranes moist Neck exam: Present: normal inspection. Absent: tenderness, meningismus, lymphadenopathy Respiratory exam: Present: normal lung sounds bilaterally. Absent: respiratory distress, wheezes, rales, rhonchi, stridor Cardiovascular Exam: Present: regular rate, normal rhythm, normal heart sounds. Absent: systolic murmur, diastolic murmur, rubs, gallop, clicks GI/Abdominal exam: Present: soft, normal bowel sounds, other (Patient had left CVA tenderness.). Absent: distended, tenderness, guarding, rebound, rigid Extremities exam: Present: normal inspection, full ROM, normal capillary refill. Absent: tenderness, pedal edema, joint swelling, calf tenderness Back exam: Present: normal inspection Neurological exam: Present: alert, oriented X3, CN II-XII intact Psychiatric exam: Present: normal affect, normal mood Skin exam: Present: warm, dry, intact, normal color. Absent: rash Course Vital Signs 08/10/20 08/10/20 08/10/20 19:13 21:08 22:55 Temperature 97.2 F L Pulse Rate 80 74 64 Respiratory 18 18 16 Rate Blood Pressure 175/73 174/90 163/91 O2 Sat by Pulse 98 96 94 L Oximetry Medical Decision Making - Medical Decision Making 61-year-old female with history of kidney stones, for stenting procedure on with Dr. Baker presents with increased pain, and is out of [place]. He has been taking Toradol and Ultram for pain. Patient denies fever dysuria. Pat keri was treated for urinary tract infection not long ago. At this time labs reviewed and unremarkable. Kidney function stable. No signs of UTI. Patient KUB was unremarkable. Had multiple CTs and ultrasounds past month. Discussed avoiding assay Patient is agreeable plan. Patient was managed with her pain emergency department with IV analgesia. I discussed that showed Patient with a short course of pain medicine to bridge her until she has her follow-up with Dr. Fink. Patient states that this pain is consistent with flank pain she's been dealing with the past few weeks and is agreeable to this plan and will be discharged home. Discussed strict return parameters. - Lab Data Result diagrams: 08/10/20 20:30 08/10/20 20:30 Lab Results 08/10/20 08/10/20 08/10/20 Range/Units 20:30 20:30 20:30 WBC 8.1 (3.8-10.6) k/uL RBC 5.23 (3.80-5.40) m/uL Hgb 15.4 (11.4-16.0) gm/dL Hct 48.1 H (34.0-46.0) % MCV 92.0 (80.0-100.0) fL MCH 29.5 (25.0-35.0) pg MCHC 32.0 (31.0-37.0) g/dL RDW 12.7 (11.5-15.5) % Plt Count 271 (150-450) k/uL Neutrophils % 56 % Lymphocytes % 35 % Monocytes % 4 % Eosinophils % 2 % Basophils % 1 % Neutrophils # 4.5 (1.3-7.7) k/uL Lymphocytes # 2.8 (1.0-4.8) k/uL Monocytes # 0.4 (0-1.0) k/uL Eosinophils # 0.2 (0-0.7) k/uL Basophils # 0.1 (0-0.2) k/uL PT 10.5 (9.0-12.0) sec INR 1.0 (<1.2) APTT 21.6 L (22.0-30.0) sec Sodium (137-145) mmol/L Potassium (3.5-5.1) mmol/L Chloride (98-107) mmol/L Carbon Dioxide (22-30) mmol/L Anion Gap mmol/L BUN (7-17) mg/dL Creatinine (0.52-1.04) mg/dL Est GFR (CKD-EPI)AfAm (>60 ml/min/1.73 sqM) Est GFR (CKD-EPI)NonAf (>60 ml/min/1.73 sqM) Glucose (74-99) mg/dL Calcium (8.4-10.2) mg/dL Total Bilirubin (0.2-1.3) mg/dL AST (14-36) U/L ALT (4-34) U/L Alkaline Phosphatase (38-126) U/L Total Protein (6.3-8.2) g/dL Albumin (3.5-5.0) g/dL Amylase (30-110) U/L Lipase (23-300) U/L Urine Color Yellow Urine Appearance Clear (Clear) Urine pH 6.5 (5.0-8.0) Ur Specific [place] 1.017 (1.001-1.035) Urine Protein Trace H (Negative) Urine Glucose (UA) Negative (Negative) Urine Ketones Negative (Negative) Urine Blood Negative (Negative) Urine Nitrite Negative (Negative) Urine Bilirubin Negative (Negative) Urine Urobilinogen <2.0 (<2.0) mg/dL Ur Leukocyte Esterase Moderate H (Negative) Urine RBC 2 (0-5) /hpf Urine WBC 6 H (0-5) /hpf Ur Squamous Epith Cells 5 H (0-4) /hpf Urine Bacteria Rare H (None) /hpf Urine Mucus Many H (None) /hpf 08/10/20 Range/Units 20:30 WBC (3.8-10.6) k/uL RBC (3.80-5.40) m/uL Hgb (11.4-16.0) gm/dL Hct (34.0-46.0) % MCV (80.0-100.0) fL MCH (25.0-35.0) pg MCHC (31.0-37.0) g/dL RDW (11.5-15.5) % Plt Count (150-450) k/uL Neutrophils % % Lymphocytes % % Monocytes % % Eosinophils % % Basophils % % Neutrophils # (1.3-7.7) k/uL Lymphocytes # (1.0-4.8) k/uL Monocytes # (0-1.0) k/uL Eosinophils # (0-0.7) k/uL Basophils # (0-0.2) k/uL PT (9.0-12.0) sec INR (<1.2) APTT (22.0-30.0) sec Sodium 139 (137-145) mmol/L Potassium 3.5 (3.5-5.1) mmol/L Chloride 101 (98-107) mmol/L Carbon Dioxide 27 (22-30) mmol/L Anion Gap 11 mmol/L BUN 11 (7-17) mg/dL Creatinine 0.49 L (0.52-1.04) mg/dL Est GFR (CKD-EPI)AfAm >90 (>60 ml/min/1.73 sqM) Est GFR (CKD-EPI)NonAf >90 (>60 ml/min/1.73 sqM) Glucose 118 H (74-99) mg/dL Calcium 10.5 H (8.4-10.2) mg/dL Total Bilirubin 0.9 (0.2-1.3) mg/dL AST 30 (14-36) U/L ALT 31 (4-34) U/L Alkaline Phosphatase 69 (38-126) U/L Total Protein 7.4 (6.3-8.2) g/dL Albumin 4.8 (3.5-5.0) g/dL Amylase 38 (30-110) U/L Lipase 55 (23-300) U/L Urine Color Urine Appearance (Clear) Urine pH (5.0-8.0) Ur Specific [place] (1.001-1.035) Urine Protein (Negative) Urine Glucose (UA) (Negative) Urine Ketones (Negative) Urine Blood (Negative) Urine Nitrite (Negative) Urine Bilirubin (Negative) Urine Urobilinogen (<2.0) mg/dL Ur Leukocyte Esterase (Negative) Urine RBC (0-5) /hpf Urine WBC (0-5) /hpf Ur Squamous Epith Cells (0-4) /hpf Urine Bacteria (None) /hpf Urine Mucus (None) /hpf 08/10/20 22:51 EKG shows normal sinus rhythm minimal voltage criteria for LVH. Septal infarct Patient to repair ventricular rate of 67 bpm. Verbal 120 ms. Frustration is 96 ms. QT QTc is 480/507 ms. - Radiology Data Radiology results: report reviewed Nonacute abdomen. No change. Disposition Clinical Impression: Back pain, History of kidney stones Disposition: HOME SELF-CARE Condition: Good Instructions (If sedation given, give patient instructions): Acute Low Back Pain (ED) Additional Instructions: Please use medication as discussed. Please follow up with family doctor if symptoms have not improved over the next two days. Please return to the emergency room if your symptoms increase or worsen or for any other concerns. Prescriptions: HYDROcodone/APAP 5-325MG [[place] 5-325] 1 tab PO Q6HR PRN #10 tab PRN Reason: Pain Ondansetron Odt [Zofran Odt] 4 mg PO Q8HR PRN #12 tab PRN Reason: Nausea Is patient prescribed a controlled substance at d/c from ED?: Yes If prescribed controlled substance>3 days was MAPS reviewed?: Prescribed <3 Days If opioid is for acute pain is fill amount 7 days or less?: Yes If Rx opioid, was Start Talking consent form obtained?: Yes Referrals: Gary Mosquera DO [Primary Care Provider] - 1-2 days Time of Disposition: 22:30
[2020-08-10 20:39] LABS: Basophils # (A) 0.1 k/uL (0-0.2); Basophils % (A) 1 %; Eosinophils # (A) 0.2 k/uL (0-0.7); Eosinophils % (A) 2 %; HCT 48.1 % (34.0-46.0); HGB 15.4 gm/dL (11.4-16.0); Lymphocytes # (A) 2.8 k/uL (1.0-4.8); Lymphocytes % (A) 35 %; MCH 29.5 pg (25.0-35.0); Monocytes # (A) 0.4 k/uL (0-1.0); Monocytes % (A) 4 %; Neutrophils # (A) 4.5 k/uL (1.3-7.7); Neutrophils % (A) 56 %; Platelet Count 271 k/uL (150-450); RBC 5.23 m/uL (3.80-5.40); RDW 12.7 % (11.5-15.5); WBC 8.1 k/uL (3.8-10.6)
[2020-08-10 20:45] LABS: ALT 31 U/L (4-34); AST 30 U/L (14-36); African American GFR (CKD) >90 (>60 ml/min/1.73 sqM); Albumin 4.8 g/dL (3.5-5.0); Alkaline Phosphatase 69 U/L (38-126); Amylase 38 U/L (30-110); Anion Gap 11 mmol/L; Blood Urea Nitrogen 11 mg/dL (7-17); Calcium 10.5 mg/dL (8.4-10.2); Carbon Dioxide 27 mmol/L (22-30); Chloride 101 mmol/L (98-107); Glucose 118 mg/dL (74-99); Lipase 55 U/L (23-300); Non-African American GFR(CKD) >90 (>60 ml/min/1.73 sqM); Potassium 3.5 mmol/L (3.5-5.1); Sodium 139 mmol/L (137-145); Total Bilirubin 0.9 mg/dL (0.2-1.3); Total Protein 7.4 g/dL (6.3-8.2)
[2020-08-10 21:03] LABS: Prothrombin Time 10.5 sec (9.0-12.0)
--- NOTE | 2020-08-10 21:07 | XR ---
EXAMINATION TYPE: XR KUB DATE OF EXAM: 08/10/2020 COMPARISON: 07/07/2015 HISTORY: Low back pain TECHNIQUE: 2 views upright FINDINGS: There is no sign of intestinal obstruction or pneumoperitoneum. There are clips from cholec ystectomy. There is no evidence of a mass. Fecal pattern is normal. I see no definite calcifications over the kidneys. There is mild lumbar dextroscoliosis. IMPRESSION: Nonacute abdomen. No change.
[2020-08-10 21:14] LABS: Partial Thromboplastin Time 21.6 sec (22.0-30.0)
[2020-08-10 21:24] LABS: Appearance,Urine Clear (Clear); Bacteria,Urine Rare /hpf; Bilirubin,Urine Negative (Negative); Blood,Urine Negative (Negative); Color,Urine Yellow; Glucose,Urine (UA) Negative (Negative); Ketones,Urine Negative (Negative); Leukocyte Esterase,Urine Moderate (Negative); Mucus,Urine Many /hpf; Nitrite,Urine Negative (Negative); PH, Urine 6.5 (5.0-8.0); Protein,Urine Trace (Negative); RBC,Urine 2 /hpf (0-5); Specific Gravity,Urine 1.017 (1.001-1.035); Squamous Epithelial Cell,Urine 5 /hpf (0-4); Urobilinogen,Urine <2.0 mg/dL (<2.0); WBC,Urine 6 /hpf (0-5)
[2020-08-10] MEDS ORDERED: HYDROmorphone 1 MG/ML 1 ML SYRINGE IVP STA (22:14)
[2020-08-10 22:56] VITALS: BP 163/91; PULSE 64; RESP 16
== END 2020-08-10 22:57 | disposition home or self-care (01) ==
LOC: EC 19:12
DX: M54.5 Low back pain (principal); Z87.442 Personal history of urinary calculi; I10 Essential (primary) hypertension; J43.9 Emphysema, unspecified; Z79.899 Other long term (current) drug therapy; Z79.51 Long term (current) use of inhaled steroids
CPT/HCPCS: 36415; 93005; 80053; 82150; 83690; 85025; 85610; 85730; 81001; 74018; 99284; 96374; 96375 ×3; J2270; J2405; J1170; J1885

== ENCOUNTER → 2020-08-13 | Day surgery (SDC) | payer MEDICARE ==
--- NOTE | 2020-08-06 20:19 | P.GSHP ---
History of Present Illness H&P Date: 08/06/20 Chief Complaint: Flank pain The patient is a 65-year-old white female with a several month history of bilateral flank and upper abdominal discomfort, which increases with sitting. The pain is predominantly left-sided. 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 She denies any prior history of urolithiasis. - Constitutional Constitutional: Denies chills, Denies fever - Gastrointestinal Gastrointestinal: Denies nausea, Denies vomiting - Genitourinary (Female) Genitourinary: Reports flank pain, Denies dysuria, Denies hematuria Past Medical History Past Medical History: GERD/Reflux, Hypertension, Osteoarthritis (OA) Additional Past Medical History / Comment(s): emphysema, lesion on kidneys. History of Any Multi-Drug Resistant Organisms: None Reported Past Surgical History: Appendectomy, Bladder Surgery, Cholecystectomy, Hernia Repair, Orthopedic Surgery Additional Past Surgical History / Comment(s): corrective eye surg., sinus surg., jaw surg., foot surg. Past Anesthesia/Blood Transfusion Reactions: Motion Sickness, Postoperative Nausea & Vomiting (PONV) Past Psychological History: No Psychological Hx Reported Smoking Status: Never smoker Past Alcohol Use History: None Reported Past Drug Use History: None Reported - Past Family History Mother Family Medical History: Diabetes Mellitus Medications and Allergies Home Medications Medication Instructions Recorded Confirmed Type Calcium Carbonate/Vitamin D3 1 each PO DAILY 06/30/15 07/17/20 History [Calcium 600-Vit D3 400 Tablet] Multivitamins, Thera [Multivitamin 1 tab PO DAILY 06/30/15 07/17/20 History (formulary)] Lisinopril-Hctz 20-12.5 mg 1 tab PO HS 02/07/17 07/17/20 History [Zestoretic 20-12.5] Atorvastatin [Lipitor] 10 mg PO HS 07/06/20 07/17/20 History Ferrous Sulfate [Feosol] 325 mg PO Q48H 07/06/20 07/17/20 History Fluticasone Nasal [place] [Flonase 1 spray EA NOSTRIL DAILY 07/06/20 07/17/20 His tory Nasal [place]] Ibuprofen 800 mg PO Q8H PRN 07/06/20 07/17/20 History L.acidoph,Paracasei, B.lactis 1 each PO DAILY 07/06/20 07/17/20 History [Probiotic] Loratadine [Claritin] 10 mg PO DAILY 07/06/20 07/17/20 History Hydrocodone/Acetaminophen [[place] 1 each PO Q6HR PRN 3 Days #12 tab 07/17/20 Rx 5-325] Allergies Allergy/AdvReac Type Severity Reaction Status Date / Time No Known Allergies Allergy Verified 07/17/20 21:38 Surgical - Exam - General well developed, well nourished, no distress - Neck no masses, trachea midline - Respiratory normal respiratory effort, clear to auscultation - Cardiovascular Rhythm: regular Abnormal Heart Sounds: no systolic murmur, no diastolic murmur, no rub, no S3 Gallop, no S4 Gallop, no click, no other - Abdomen Abdomen: soft, non tender, no guarding, no rigid, no rebound - Psychiatric oriented to time, oriented to person, oriented to place, speech is normal, m efraín intact Results - Imaging CT scan - abdomen: report reviewed, image reviewed Assessment and Plan (1) Calculus of kidney Status: Acute Code(s): N20.0 - CALCULUS OF KIDNEY SNOMED Code(s): 32357929 Plan: Cystoscopy, left ureteroscopy with Holmium laser lithotripsy and/or stone basketing, left ureteral stent insertion. The procedure has been reviewed in detail with the patient. She is aware of potential risks, which include anesthesia, bleeding, infection, and ureteral injury. She was made aware of the fact that her pain may be musculoskeletal in origin, and thus may fail to improve following successful removal of her renal calculi.
[2020-08-12 12:30] VITALS: BMI 27.2
[~2020-08-13] MED LIST changes: +GLYCOPYRROLATE 0.2 MG/ML 2 ML VIAL ONE; -HEPARIN SODIUM,PORCINE 5,000 UNIT/ML 1 ML VIAL SQ ONE; +HYDROmorphone 0.5 MG/0.5 ML SYRINGE IVP PRN; +LIDOCAINE 1% (10MG/ML) FOR IV START INTRADERMA PRN; +LIDOCAINE 1% INJ 10MG/ML (20 ML MDV) ONE; -MIDAZOLAM 2 MG/2 ML VIAL IV PRN; +MIDAZOLAM 2 MG/2 ML VIAL ONE; +NEOSTIGMINE 1 MG/ML 10 ML VIAL ONE; -ONDANSETRON 4 MG/2 ML VIAL IVP ONE; +ONDANSETRON 4 MG/2 ML VIAL IVP PRN; +PROPOFOL 10 MG/ML 20 ML VIAL IV ONE; +ROCURONIUM BROMIDE 10 MG/ML 5 ML VIAL IV ONE; +SUCCINYLCHOLINE CHLORIDE 100 MG/5 ML SYR IV ONE; -ceFAZolin 2 GM in SODIUM CHLORIDE 0.9% 100 ML IVPB ONE; +fentaNYL (PF) 50 MCG/ML 2 ML AMP ONE; +hydrALAZINE HCL 20 MG/ML 1 ML VIAL IV ONE
[2020-08-13 12:37] VITALS: TEMP 96.9
--- NOTE | 2020-08-13 12:39 | P.OP ---
Date of Procedure: 08/13/20 Preoperative Diagnosis: Left renal calculi Postoperative Diagnosis: Same Procedure(s) Performed: Cystoscopy, left ureteroscopy with Holmium laser lithotripsy, left ureteral stent insertion Anesthesia: TERAA Surgeon: Nelson Baker Estimated Blood Loss (ml): 0 IV fluids (ml): 900 Pathology: none sent Condition: stable Disposition: PACU Indications for Procedure: The patient is a 65-year-old white female with a several month history of bilateral flank and upper abdominal discomfort, which increases with sitting. The pain is predominantly left-sided. 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 She denies any prior history of urolithiasis. Operative Findings: Small mid pole calculus. 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 Description of Procedure: The patient was taken to the operating room and placed in the dorsolithotomy position, with legs supported in Vinicio stirrups. The external genitalia was prepped and draped sterilely. The 30 lens was used to introduce the 21-[place] De cystoscopic sheath through the urethra and into the bladder under direct vision. The bladder was examined in its entirety. Both ureteral orifices were normal anatomic location and configuration, and clear urine effluxed from both. No tumors or foreign bodies were seen. A 0.038 inch Glidewire was passed through the cystoscope. The left ureteral orifice was cannulated, and the Glidewire was advanced up to the left renal pelvis. An 11/13-[place] ureteral access catheter was passed over the wire, up to the proximal ureter. The [place] flexible ureteroscope was passed through the ureteral access catheter sheath and advanced under direct vision into the left renal pelvis. Each calyx was examined. A 2 mm calculus was seen within a mid pole calyx. The irrigant flushed that calculus away and it could not subsequently be located. Within a lower pole calyx were multiple Willis's plaques. The 200 micron Holmium laser probe was passed through the ureteroscope, and lithotripsy was performed. All of the Willis's plaques, which measured up to 2-3 mm in size, were lasered and detached from the mucosa. Several additional Willis plaques were similarly treated with an adjacent calyx. A final inspection of each calyx revealed no residual calculi. The Glidewire was passed through the ureteral access catheter sheath, which was removed. The Glidewire was backloaded into the cystoscope, which was passed into the bladder. A 24 cm, 4.8-[place] double-J ureteral stent was placed over the wire. Proper stent positioning was verified fluoroscopically and endoscopically. The bladder was emptied and the cystoscope removed. The patient tolerated the procedure well and was taken to the recovery room in stable condition. [facility] [place] [facility] Report: Procedure Acuity: Elective Stone Size and Location: 3 mm, lower pole calyx Ureteral Dilation: No Ureteral Access Sheath Used: Yes Stone Sent for Analysis: No All Stones/Fragments Were Removed with a Basket: No Complications: No Preoperative Antibiotics Given: Yes Stent Placed: Yes If Stent Placed, Was String Left Attached: No If Stent Placed, When is it to be Removed: 1 week Discharge Medications: None
--- NOTE | 2020-08-13 12:42 | FL ---
EXAMINATION TYPE: FL guidance operating room DATE OF EXAM: 08/13/2020 CLINICAL HISTORY: Left-sided kidney stone. TECHNIQUE: Fluoroscopy. COMPARISON: Abdominal x-ray 3 days earlier.. FINDINGS: Fluoroscopic guidance was provided during lithotripsy procedure performed by Dr. Baker. A total of 11 seconds of fluoroscopic time was utilized during the procedure and two spot intraoperat marni images are acquired. Images acquired show advancement of guidewire and subsequent placement of a ureter stent into left-sided collecting system. IMPRESSION: As Above.
[2020-08-13 13:38] VITALS: BP 142/85; PULSE 110; RESP 16
== END | disposition home or self-care (01) ==
LOC: OR 09:04
PROVIDERS: ATTEND Urology
DX: N20.0 Calculus of kidney (principal); D17.71 Benign lipomatous neoplasm of kidney; I10 Essential (primary) hypertension; E78.5 Hyperlipidemia, unspecified; M19.90 Unspecified osteoarthritis, unspecified site; K21.9 Gastro-esophageal reflux disease without esophagitis; J43.9 Emphysema, unspecified; Z79.899 Other long term (current) drug therapy; Z90.49 Acquired absence of other specified parts of digestive tract; Z98.890 Other specified postprocedural states; Z83.3 Family history of diabetes mellitus
CPT/HCPCS: 52356; C2625; C1769; J2250; J0360; J1100; J2710; J2405; J0690; J2001; J3010; J0330; J2704

== ENCOUNTER 2020-08-29 13:10 | Emergency (ER) | payer MEDICARE ==
[2020-08-29] MEDS ORDERED: SODIUM CHLORIDE 0.9% 1,000 ML IV STA (13:51)
[2020-08-29] MEDS ORDERED: KETOROLAC 15 MG/ML 1 ML VIAL IVP STA (13:51)
[2020-08-29] MEDS ORDERED: PANTOPRAZOLE 40 MG/10 ML VIAL IVP STA (13:51)
[2020-08-29] MEDS ORDERED: METOCLOPRAMIDE 5 MG/ML 2 ML VIAL IVP STA (13:51)
--- NOTE | 2020-08-29 13:54 | ED ---
General Adult HPI - General Source: patient, RN notes reviewed Mode of arrival: ambulatory Limitations: no limitations <Rasta Ramos - Last Filed: 08/29/20 13:52> <Ye Hu - Last Filed: 08/29/20 18:10> - General Chief complaint: Back Pain/Injury Stated complaint: Back Pain Time Seen by Provider: 08/29/20 13:28 - History of Present Illness Initial comments: Patient is a pleasant 7-year-old female presenting to the emergency Department with left-sided kidney pain. Patient states she did have kidney stones removed around 2 and half weeks ago. Patient then had stent removed around 1 week ago. Patient had continued discomfort of the left flank/CVA region. Discomfort has been severe and persistent. Patient does have associated nausea. No fevers. No dysuria or hematuria. Patient does have history of similar symptoms previously associated with kidney stones. Patient has recently had ultrasound, computed tomography scan, and MRI. (Rasta Ramos) - Related Data Home Medications Medication Instructions Recorded Confirmed Calcium Carbonate/Vitamin D3 1 each PO DAILY 06/30/15 08/13/20 [Calcium 600-Vit D3 400 Tablet] Multivitamins, Thera [Multivitamin 1 tab PO DAILY 06/30/15 08/13/20 (formulary)] Lisinopril-Hctz 20-12.5 mg 1 tab PO QAM 02/07/17 08/13/20 [Zestoretic 20-12.5] Atorvastatin [Lipitor] 10 mg PO HS 07/06/20 08/13/20 Ferrous Sulfate [Feosol] 325 mg PO Q48H 07/06/20 08/13/20 Fluticasone Nasal [place] [Flonase 1 spray EA NOSTRIL DAILY 07/06/20 08/13/20 Nasal [place]] Ibuprofen 800 mg PO Q8H PRN 07/06/20 08/13/20 L.acidoph,Paracasei, B.lactis 1 each PO DAILY 07/06/20 08/13/20 [Probiotic] Loratadine [Claritin] 10 mg PO DAILY 07/06/20 08/13/20 Previous Rx's Medication Instructions Recorded HYDROcodone/APAP 5-325MG [[place] 1 tab PO Q6HR PRN #10 tab 08/10/20 5-325] Ondansetron Odt [Zofran Odt] 4 mg PO Q8HR PRN #12 tab 08/10/20 Allergies Allergy/AdvReac Type Severity Reaction Status Date / Time No Known Allergies Allergy Verified 08/29/20 13:18 Review of Systems ROS Other: All systems not noted in ROS Statement are negative. Constitutional: Denies: fever Eyes: Denies: eye pain ENT: Denies: ear pain Respiratory: Denies: cough Cardiovascular: Denies: chest pain Endocrine: Denies: fatigue Gastrointestinal: Reports: nausea Musculoskeletal: Reports: back pain (Left flank/CVA) <Rasta Ramos - Last Filed: 08/29/20 13:52> ROS Other: All systems not noted in ROS Statement are negative. <Ye Hu - Last Filed: 08/29/20 18:10> ROS Statement: Those systems with pertinent positive or pertinent negative responses have been documented in the HPI. Past Medical History Past Medical History: GERD/Reflux, Hypertension, Osteoarthritis (OA) Additional Past Medical History / Comment(s): emphysema, lesion on kidneys. kidney stones. History of Any Multi-Drug Resistant Organisms: None Reported Past Surgical History: Appendectomy, Bladder Surgery, Cholecystectomy, Hernia Repair, Orthopedic Surgery Additional Past Surgical History / Comment(s): corrective eye surg., sinus surg., jaw surg., foot surg. Past Anesthesia/Blood Transfusion Reactions: Motion Sickness, Postoperative Nausea & Vomiting (PONV) Past Psychological History: No Psychological Hx Reported Smoking Status: Never smoker Past Alcohol Use History: None Reported Past Drug Use History: None Reported - Past Family History Mother Family Medical History: Diabetes Mellitus <Rasta Ramos - Last Filed: 08/29/20 13:52> General Exam Limitations: no limitations General appearance: alert, in no apparent distress Head exam: Present: normocephalic Eye exam: Present: normal appearance Neck exam: Present: normal inspection Respiratory exam: Present: normal lung sounds bilaterally Cardiovascular Exam: Present: regular rate, normal rhythm Expanded Peripheral pulses: 2+: Dorsalis Pedis (R), Dorsalis Pedis (L) GI/Abdominal exam: Present: soft. Absent: distended, tenderness, guarding, rebound, rigid Extremities exam: Present: normal inspection Back exam: Present: CVA tenderness (L) Neurological exam: Present: alert Psychiatric exam: Present: normal affect, normal mood Skin exam: Present: normal color <Rasta Ramos - Last Filed: 08/29/20 13:52> Course <Ye Hu - Last Filed: 08/29/20 18:10> Vital Signs 08/29/20 08/29/20 13:14 18:00 Temperature 98.0 F 97.7 F Pulse Rate 73 72 Respiratory 16 17 Rate Blood Pressure 126/71 155/93 O2 Sat by Pulse 97 98 Oximetry - Reevaluation(s) Reevaluation #1: 08/29/20 16:55 Case, H&P and test results thus far were discussed with Dr. Crane (urology). He recommends obtaining a noncontrast CT abdomen/pelvis at this time for further evaluation. He has no further recommendations at this time. 08/29/20 17:45 CT abdomen/pelvis report was discussed with Dr. Crane (urology). He agrees with plan to discharge the patient home, and he agrees that the patient does not have any findings requiring admission at this time. 08/29/20 18:00 Patient states that her pain has improved with ED treatment, and she denies development of any new symptoms while in the ED. Patient and daughter are aware of the patient's test results and my discussion with Dr. Crane as above. Patient feels comfortable going home with her daughter at this time. She was counseled about flank pain, and she was clearly explained return and follow-up instructions. She feels comfortable with this plan. (Ye Hu) Medical Decision Making - Lab Data Result diagrams: 08/29/20 14:06 08/29/20 14:06 - Radiology Data Radiology results: report reviewed (Renal ultrasound report: Small cortical cyst in the lower pole of left kidney, bilateral renal masses consistent with angiomyolipoma; CT abdomen/pelvis without contrast report: Nonobstructing left renal calculi, left renal angiomyolipoma, no change, no acute abnormality of the abdomen and pelvis) <Ye Hu - Last Filed: 08/29/20 18:10> - Medical Decision Making Patient was endorsed to me by Dr. Ramos (secondary to shift change) with the patient's renal ultrasound still pending. Patient's labs, renal ultrasound report and CT abdomen/pelvis report are all fairly unremarkable, and do not provide a definite explanation for the patient's pain. Patient is afebrile and without leukocytosis or UA findings of infection. Case was discussed with Dr. Crane (urology), and he agreed with plan to discharge the patient home. (Ye Hu) - Lab Data Lab Results 08/29/20 08/29/20 08/29/20 Range/Units 14:06 14:06 14:06 WBC 9.6 (3.8-10.6) k/uL RBC 4.82 (3.80-5.40) m/uL Hgb 15.3 (11.4-16.0) gm/dL Hct 46.0 (34.0-46.0) % MCV 95.5 (80.0-100.0) fL MCH 31.7 (25.0-35.0) pg MCHC 33.2 (31.0-37.0) g/dL RDW 12.8 (11.5-15.5) % Plt Count 256 (150-450) k/uL Neutrophils % 75 % Lymphocytes % 19 % Monocytes % 3 % Eosinophils % 2 % Basophils % 1 % Neutrophils # 7.2 (1.3-7.7) k/uL Lymphocytes # 1.8 (1.0-4.8) k/uL Monocytes # 0.3 (0-1.0) k/uL Eosinophils # 0.1 (0-0.7) k/uL Basophils # 0.1 (0-0.2) k/uL PT 10.5 (9.0-12.0) sec INR 1.0 (<1.2) APTT 21.2 L (22.0-30.0) sec Sodium (137-145) mmol/L Potassium (3.5-5.1) mmol/L Chloride (98-107) mmol/L Carbon Dioxide (22-30) mmol/L Anion Gap mmol/L BUN (7-17) mg/dL Creatinine (0.52-1.04) mg/dL Est GFR (CKD-EPI)AfAm (>60 ml/min/1.73 sqM) Est GFR (CKD-EPI)NonAf (>60 ml/min/1.73 sqM) Glucose (74-99) mg/dL Calcium (8.4-10.2) mg/dL Total Bilirubin (0.2-1.3) mg/dL AST (14-36) U/L ALT (4-34) U/L Alkaline Phosphatase (38-126) U/L Total Protein (6.3-8.2) g/dL Albumin (3.5-5.0) g/dL Amylase (30-110) U/L Lipase (23-300) U/L Urine Color Yellow Urine Appearance Cloudy H (Clear) Urine pH 6.0 (5.0-8.0) Ur Specific [place] 1.030 (1.001-1.035) Urine Protein Trace H (Negative) Urine Glucose (UA) Negative (Negative) Urine Ketones Negative (Negative) Urine Blood Negative (Negative) Urine Nitrite Negative (Negative) Urine Bilirubin Negative (Negative) Urine Urobilinogen 6.0 (<2.0) mg/dL Ur Leukocyte Esterase Trace H (Negative) Urine RBC 2 (0-5) /hpf Urine WBC 2 (0-5) /hpf Ur Squamous Epith Cells 4 (0-4) /hpf Calcium Oxalate Crystal Moderate H (None) /hpf Hyaline Casts 1 (0-2) /lpf Urine Mucus Rare H (None) /hpf 08/29/20 Range/Units 14:06 WBC (3.8-10.6) k/uL RBC (3.80-5.40) m/uL Hgb (11.4-16.0) gm/dL Hct (34.0-46.0) % MCV (80.0-100.0) fL MCH (25.0-35.0) pg MCHC (31.0-37.0) g/dL RDW (11.5-15.5) % Plt Count (150-450) k/uL Neutrophils % % Lymphocytes % % Monocytes % % Eosinophils % % Basophils % % Neutrophils # (1.3-7.7) k/uL Lymphocytes # (1.0-4.8) k/uL Monocytes # (0-1.0) k/uL Eosinophils # (0-0.7) k/uL Basophils # (0-0.2) k/uL PT (9.0-12.0) sec INR (<1.2) APTT (22.0-30.0) sec Sodium 138 (137-145) mmol/L Potassium 3.5 (3.5-5.1) mmol/L Chloride 102 (98-107) mmol/L Carbon Dioxide 28 (22-30) mmol/L Anion Gap 8 mmol/L BUN 14 (7-17) mg/dL Creatinine 0.50 L (0.52-1.04) mg/dL Est GFR (CKD-EPI)AfAm >90 (>60 ml/min/1.73 sqM) Est GFR (CKD-EPI)NonAf >90 (>60 ml/min/1.73 sqM) Glucose 124 H (74-99) mg/dL Calcium 9.9 (8.4-10.2) mg/dL Total Bilirubin 0.7 (0.2-1.3) mg/dL AST 29 (14-36) U/L ALT 29 (4-34) U/L Alkaline Phosphatase 65 (38-126) U/L Total Protein 6.7 (6.3-8.2) g/dL Albumin 4.2 (3.5-5.0) g/dL Amylase 39 (30-110) U/L Lipase 58 (23-300) U/L Urine Color Urine Appearance (Clear) Urine pH (5.0-8.0) Ur Specific [place] (1.001-1.035) Urine Protein (Negative) Urine Glucose (UA) (Negative) Urine Ketones (Negative) Urine Blood (Negative) Urine Nitrite (Negative) Urine Bilirubin (Negative) Urine Urobilinogen (<2.0) mg/dL Ur Leukocyte Esterase (Negative) Urine RBC (0-5) /hpf Urine WBC (0-5) /hpf Ur Squamous Epith Cells (0-4) /hpf Calcium Oxalate Crystal (None) /hpf Hyaline Casts (0-2) /lpf Urine Mucus (None) /hpf Disposition <Rasta Ramos - Last Filed: 08/29/20 13:52> Is patient prescribed a controlled substance at d/c from ED?: No Time of Disposition: 18:06 <Ye Hu - Last Filed: 08/29/20 18:10> Clinical Impression: Left flank pain Disposition: HOME SELF-CARE Condition: Stable Instructions (If sedation given, give patient instructions): Flank Pain (ED) Additional Instructions: Return to the ER immediately should you develop new or worsening pain, a fever, vomiting, shortness of breath, feeling dizzy or faint, or new or worsening symptoms. Follow up closely with your primary care provider, as well as your urologist. Referrals: Gary Mosquera DO [Primary Care Provider] - 1-2 days Nelson Baker MD [STAFF PHYSICIAN] - 1-2 days
--- NOTE | 2020-08-29 14:32 | XR ---
EXAMINATION TYPE: XR KUB DATE OF EXAM: 08/29/2020 COMPARISON: 08/10/2020 HISTORY: Abdominal pain TECHNIQUE: Single view upright FINDINGS: There is no sign of intestinal obstruction or pneumoperitoneum. Fecal pattern is normal. Th ere is mild lumbar dextroscoliosis. There are clips from cholecystectomy. Lung bases are clear. There is no evidence of a mass. There are no calcifications over the kidneys. IMPRESSION: Nonacute abdomen. No change.
[2020-08-29 14:40] LABS: Basophils # (A) 0.1 k/uL (0-0.2); Basophils % (A) 1 %; Eosinophils # (A) 0.1 k/uL (0-0.7); Eosinophils % (A) 2 %; HGB 15.3 gm/dL (11.4-16.0); Lymphocytes # (A) 1.8 k/uL (1.0-4.8); Lymphocytes % (A) 19 %; MCH 31.7 pg (25.0-35.0); MCHC 33.2 g/dL (31.0-37.0); MCV 95.5 fL (80.0-100.0); Mean Platelet Volume 8.9; Monocytes # (A) 0.3 k/uL (0-1.0); Monocytes % (A) 3 %; Neutrophils # (A) 7.2 k/uL (1.3-7.7); Neutrophils % (A) 75 %; Platelet Count 256 k/uL (150-450); RBC 4.82 m/uL (3.80-5.40); RDW 12.8 % (11.5-15.5); WBC 9.6 k/uL (3.8-10.6)
[2020-08-29 14:48] LABS: Appearance,Urine Cloudy (Clear); Bilirubin,Urine Negative (Negative); Blood,Urine Negative (Negative); Calcium Oxalate Crystals,Urine Moderate /hpf; Color,Urine Yellow; Glucose,Urine (UA) Negative (Negative); Hyaline Casts,Urine 1 /lpf (0-2); Ketones,Urine Negative (Negative); Leukocyte Esterase,Urine Trace (Negative); Mucus,Urine Rare /hpf; Nitrite,Urine Negative (Negative); Protein,Urine Trace (Negative); RBC,Urine 2 /hpf (0-5); Squamous Epithelial Cell,Urine 4 /hpf (0-4); WBC,Urine 2 /hpf (0-5)
[2020-08-29 14:59] LABS: Partial Thromboplastin Time 21.2 sec (22.0-30.0); Prothrombin Time 10.5 sec (9.0-12.0)
[2020-08-29 15:01] LABS: ALT 29 U/L (4-34); AST 29 U/L (14-36); African American GFR (CKD) >90 (>60 ml/min/1.73 sqM); Albumin 4.2 g/dL (3.5-5.0); Alkaline Phosphatase 65 U/L (38-126); Amylase 39 U/L (30-110); Anion Gap 8 mmol/L; Blood Urea Nitrogen 14 mg/dL (7-17); Calcium 9.9 mg/dL (8.4-10.2); Carbon Dioxide 28 mmol/L (22-30); Chloride 102 mmol/L (98-107); Glucose 124 mg/dL (74-99); Non-African American GFR(CKD) >90 (>60 ml/min/1.73 sqM); Potassium 3.5 mmol/L (3.5-5.1); Sodium 138 mmol/L (137-145); Total Bilirubin 0.7 mg/dL (0.2-1.3); Total Protein 6.7 g/dL (6.3-8.2)
[2020-08-29] MEDS ORDERED: HYDROmorphone 0.5 MG/0.5 ML SYRINGE IVP STA ×2 (15:21→18:10)
--- NOTE | 2020-08-29 16:24 | US ---
EXAMINATION TYPE: US kidneys/renal and bladder DATE OF EXAM: 08/29/2020 COMPARISON: US, CT, & MRI CLINICAL HISTORY: Renal colic. patient states recent stone removal from left kidney. EXAM MEASUREMENTS: Right Kidney: 12.3 x 4.4 x 5.8 cm Left Kidney: 12.6 x 5.6 x 5.2 cm Right Kidney: upper/medial echogenic lesion measures 1.6 x 1.9 x 2.1 cm Left Kidney: lower pole echogenic lesion measures 2.9 x 2.3 x 3.2 cm. Two parapelvic cysts. Bladder: not well distended Bilateral Jets seen: No IMPRESSION: There are small cortical cyst lower pole left kidney. There is hyperechoic solid 2.8 cm x 3 cm mass which is somewhat exophytic on the lower pole left kidney. This is is consistent with he omyolipoma that is suggested by the CT scan of 07/06/2020. This mass has increased in size from 2 cm t o 3 cm compared to old exam. The mass contains fat on the recent CT scan. There is solid 2 x 1.6 cm mass upper pole right kidney also consistent with angiomyolipoma that is in creased compared to old CT scan as well. Bladder not well evaluated on this exam. No evidence of bladder mass.
--- NOTE | 2020-08-29 17:26 | CT ---
EXAMINATION TYPE: CT abdomen pelvis wo con DATE OF EXAM: 08/29/2020 COMPARISON: 07/06/2020 HISTORY: FLANK PAIN CT DLP: 704.7 mGycm Automated exposure control for dose reduction was used. Lung bases are clear of infiltrate. There is no pleural effusion. Liver spleen stomach pancreas appea r normal. Bile ducts are not dilated. There are clips from cholecystectomy. There is no adrenal mass. Kidneys have normal size. There are left renal parapelvic cysts. There is 2 cm fat-containing mass posterior medial left kidney consistent with angiomyolipoma. There is no hydronephrosis. There is no retroperitoneal adenopathy. Bladder distends smoothly. There is no inguinal hernia. There is no free fluid in the pelvis. There is no mesenteric edema. There is no ascites or free air. There is no bowel obstruction. There a re 2 calculi lower pole left kidney that measure up to 3 mm. Lumbar vertebra show multilevel spondylotic changes. There is no compression fracture. The bony pelvi s is intact. Hip joints are intact. IMPRESSION: Nonobstructing left renal calculi. Left renal angiomyolipoma. No change. Appendix not seen. No sign of appendicitis. No acute abnormality of the abdomen pelvis.
[2020-08-29] MEDS ORDERED: ACET/COD 300 MG/30 MG STARTER PACK 6 TAB BTL PO STA (18:00)
[2020-08-29 18:01] VITALS: BP 155/93; PULSE 72; RESP 17; TEMP 97.7
== END 2020-08-29 18:55 | disposition home or self-care (01) ==
LOC: EC 13:10
DX: R10.9 Unspecified abdominal pain (principal); R11.0 Nausea; I10 Essential (primary) hypertension; M19.90 Unspecified osteoarthritis, unspecified site; Z79.899 Other long term (current) drug therapy; Z90.49 Acquired absence of other specified parts of digestive tract
CPT/HCPCS: 36415; 80053; 82150; 83690; 85025; 85610; 85730; 81001; 74018; 76770; 74176; 99284; 96374; 96375 ×3; 96376; 96361 ×4; J2765; J1885; C9113; J1170

== ENCOUNTER 2020-09-03 15:49 | Emergency (ER) | payer MEDICARE ==
[2020-09-03 16:16] VITALS: PULSE 69; RESP 18
[2020-09-03] MEDS ORDERED: KETOROLAC 15 MG/ML 1 ML VIAL IVP STA (17:05)
[2020-09-03] MEDS ORDERED: SODIUM CHLORIDE 0.9% 1,000 ML IV STA (17:05)
[2020-09-03] MEDS ORDERED: ONDANSETRON 4 MG/2 ML VIAL IVP STA (17:05)
[2020-09-03 17:25] LABS: Basophils # (A) 0.1 k/uL (0-0.2); Basophils % (A) 1 %; Eosinophils # (A) 0.1 k/uL (0-0.7); Eosinophils % (A) 2 %; HCT 44.4 % (34.0-46.0); HGB 14.9 gm/dL (11.4-16.0); Lymphocytes % (A) 30 %; MCH 31.8 pg (25.0-35.0); MCHC 33.4 g/dL (31.0-37.0); Mean Platelet Volume 9.2; Monocytes # (A) 0.3 k/uL (0-1.0); Monocytes % (A) 4 %; Neutrophils # (A) 4.1 k/uL (1.3-7.7); Neutrophils % (A) 62 %; Platelet Count 208 k/uL (150-450); RBC 4.68 m/uL (3.80-5.40); RDW 12.7 % (11.5-15.5); WBC 6.7 k/uL (3.8-10.6)
[2020-09-03 17:36] LABS: ALT 29 U/L (4-34); AST 38 U/L (14-36); African American GFR (CKD) >90 (>60 ml/min/1.73 sqM); Albumin 4.3 g/dL (3.5-5.0); Alkaline Phosphatase 52 U/L (38-126); Amylase <30 U/L (30-110); Anion Gap 10 mmol/L; Appearance,Urine Cloudy (Clear); Bilirubin,Urine Negative (Negative); Blood Urea Nitrogen 13 mg/dL (7-17); Blood,Urine Negative (Negative); Calcium 9.6 mg/dL (8.4-10.2); Carbon Dioxide 24 mmol/L (22-30); Chloride 104 mmol/L (98-107); Color,Urine Yellow; Glucose 90 mg/dL (74-99); Glucose,Urine (UA) Negative (Negative); Hyaline Casts,Urine 4 /lpf (0-2); Ketones,Urine 3+ (Negative); Leukocyte Esterase,Urine Small (Negative); Lipase 43 U/L (23-300); Mucus,Urine Few /hpf; Nitrite,Urine Negative (Negative); Non-African American GFR(CKD) >90 (>60 ml/min/1.73 sqM); PH, Urine 6.5 (5.0-8.0); Protein,Urine Trace (Negative); RBC,Urine 1 /hpf (0-5); Sodium 138 mmol/L (137-145); Squamous Epithelial Cell,Urine 6 /hpf (0-4); Total Bilirubin 1.2 mg/dL (0.2-1.3); Total Protein 6.9 g/dL (6.3-8.2); Urobilinogen,Urine <2.0 mg/dL (<2.0); WBC,Urine 12 /hpf (0-5)
[2020-09-03 17:41] LABS: Potassium 4.6 mmol/L (3.5-5.1)
[2020-09-03] MEDS ORDERED: HYDROmorphone 0.5 MG/0.5 ML SYRINGE IVP STA (18:02)
[2020-09-03] MEDS ORDERED: FAMOTIDINE 20 MG/2 ML VIAL IV STA (18:03)
--- NOTE | 2020-09-03 18:07 | ED ---
General Adult HPI <AlvaroOneil - Last Filed: 09/03/20 18:54> - General Source: patient, RN notes reviewed Mode of arrival: ambulatory Limitations: no limitations <Darrell Mckeon - Last Filed: 09/03/20 19:02> - General Chief complaint: Abdominal Pain Stated complaint: Abd Pain Time Seen by Provider: 09/03/20 16:22 - History of Present Illness Initial comments: 69-year-old female with a past medical history of GERD, hypertension, COPD, kidney stones presents to the emergency room for a chief complaint of abdominal pain 2 months. Patient reports this pain has been constant and consistent for 2 months. States it is more in the upper abdomen and right side of the abdomen. Patient has a history of cholecystectomy. Patient admits to nausea, denies vomiting or diarrhea. Denies melena or hematochezia Patient has no other complaints at this time including shortness of breath, chest pain, vomiting, headache, or visual changes. (Darrell Mckeon) - Related Data Home Medications Medication Instructions Recorded Confirmed Lisinopril-Hctz 20-12.5 mg 1 tab PO QAM 02/07/17 09/03/20 [Zestoretic 20-12.5] Atorvastatin [Lipitor] 10 mg PO HS 07/06/20 09/03/20 Allergies Allergy/AdvReac Type Severity Reaction Status Date / Time No Known Allergies Allergy Verified 09/03/20 17:40 Review of Systems ROS Other: All systems not noted in ROS Statement are negative. <Oneil John - Last Filed: 09/03/20 18:54> ROS Other: All systems not noted in ROS Statement are negative. <Darrell Mckeon - Last Filed: 09/03/20 19:02> ROS Statement: Those systems with pertinent positive or pertinent negative responses have been documented in the HPI. Past Medical History Past Medical History: COPD, GERD/Reflux, Hypertension, Osteoarthritis (OA) Additional Past Medical History / Comment(s): emphysema, lesion on kidneys. ki dney stones. History of Any Multi-Drug Resistant Organisms: None Reported Past Surgical History: Appendectomy, Bladder Surgery, Cholecystectomy, Hernia Repair, Orthopedic Surgery Additional Past Surgical History / Comment(s): corrective eye surg., sinus surg., jaw surg., foot surg. Past Anesthesia/Blood Transfusion Reactions: Motion Sickness, Postoperative Nausea & Vomiting (PONV) Past Psychological History: No Psychological Hx Reported Smoking Status: Never smoker Past Alcohol Use History: None Reported Past Drug Use History: None Reported - Past Family History Mother Family Medical History: Diabetes Mellitus <Darrell Mckeon - Last Filed: 09/03/20 19:02> General Exam Limitations: no limitations General appearance: alert, in no apparent distress Head exam: Present: atraumatic, normocephalic, normal inspection Eye exam: Present: normal appearance, PERRL, EOMI. Absent: scleral icterus, conjunctival injection, periorbital swelling ENT exam: Present: normal exam, mucous membranes moist Neck exam: Present: normal inspection, full ROM. Absent: tenderness, meningismus, lymphadenopathy Respiratory exam: Present: normal lung sounds bilaterally. Absent: respiratory distress, wheezes, rales, rhonchi, stridor Cardiovascular Exam: Present: regular rate, normal rhythm, normal heart sounds. Absent: systolic murmur, diastolic murmur, rubs, gallop, clicks GI/Abdominal exam: Present: soft, tenderness (Mild epigastric and right upper quadrant tenderness.), normal bowel sounds. Absent: distended, guarding, rebound, rigid Neurological exam: Present: alert <Darrell Mckeon - Last Filed: 09/03/20 19:02> Course <Oneil John - Last Filed: 09/03/20 18:54> Vital Signs 09/03/20 16:14 Temperature 98.1 F Pulse Rate 69 Respiratory 18 Rate Blood Pressure 133/65 O2 Sat by Pulse 99 Oximetry - Reevaluation(s) Reevaluation #1: 09/03/20 18:55 PA supervision: I did personally evaluate this case patient will be discharged to keep follow-up as planned. (Oneil John) Medical Decision Making - Lab Data Result diagrams: 09/03/20 17:17 09/03/20 17:17 <Oneil John - Last Filed: 09/03/20 18:54> - Lab Data Result diagrams: 09/03/20 17:17 09/03/20 17:17 <Darrell Mckeon - Last Filed: 09/03/20 19:02> - Medical Decision Making CT abdomen and pelvis without contrast performed 2 days ago shows a nonobstructing left renal calculi with renal angiomyolipoma, no change. Appendix is not seen but there is no sign of appendicitis. No acute abnormality of the abdomen or pelvis. Today patient is presented for abdominal pain 2 months. vitals are stable. Patient is afebrile. She does have mild epigastric and right upper quadrant tenderness. No significant lower abdominal tenderness. She does have a history of cholecystectomy. CBC CMP is unremarkable. Amylase and lipase are normal. Urinalysis does show 3+ ketones, patient was given fluids. Patient has an appointment with Dr. Delatorre in 4 days. Patient was given pain medication and had significant improvement in pain. She will be discharged home to follow up with her surgeon at her scheduled appointment as this pain has been persistent for 2 months. She will return here for any worsening symptoms. (Darrell Mckeon) - Lab Data Lab Results 09/03/20 09/03/20 09/03/20 Range/Units 17:17 17:17 17:17 WBC 6.7 (3.8-10.6) k/uL RBC 4.68 (3.80-5.40) m/uL Hgb 14.9 (11.4-16.0) gm/dL Hct 44.4 (34.0-46.0) % MCV 95.0 (80.0-100.0) fL MCH 31.8 (25.0-35.0) pg MCHC 33.4 (31.0-37.0) g/dL RDW 12.7 (11.5-15.5) % Plt Count 208 (150-450) k/uL Neutrophils % 62 % Lymphocytes % 30 % Monocytes % 4 % Eosinophils % 2 % Basophils % 1 % Neutrophils # 4.1 (1.3-7.7) k/uL Lymphocytes # 2.0 (1.0-4.8) k/uL Monocytes # 0.3 (0-1.0) k/uL Eosinophils # 0.1 (0-0.7) k/uL Basophils # 0.1 (0-0.2) k/uL Sodium 138 (137-145) mmol/L Potassium 4.6 (3.5-5.1) mmol/L Chloride 104 (98-107) mmol/L Carbon Dioxide 24 (22-30) mmol/L Anion Gap 10 mmol/L BUN 13 (7-17) mg/dL Creatinine 0.43 L (0.52-1.04) mg/dL Est GFR (CKD-EPI)AfAm >90 (>60 ml/min/1.73 sqM) Est GFR (CKD-EPI)NonAf >90 (>60 ml/min/1.73 sqM) Glucose 90 (74-99) mg/dL Calcium 9.6 (8.4-10.2) mg/dL Total Bilirubin 1.2 (0.2-1.3) mg/dL AST 38 H (14-36) U/L ALT 29 (4-34) U/L Alkaline Phosphatase 52 (38-126) U/L Total Protein 6.9 (6.3-8.2) g/dL Albumin 4.3 (3.5-5.0) g/dL Amylase <30 L (30-110) U/L Lipase 43 (23-300) U/L Urine Color Yellow Urine Appearance Cloudy H (Clear) Urine pH 6.5 (5.0-8.0) Ur Specific [place] 1.020 (1.001-1.035) Urine Protein Trace H (Negative) Urine Glucose (UA) Negative (Negative) Urine Ketones 3+ H (Negative) Urine Blood Negative (Negative) Urine Nitrite Negative (Negative) Urine Bilirubin Negative (Negative) Urine Urobilinogen <2.0 (<2.0) mg/dL Ur Leukocyte Esterase Small H (Negative) Urine RBC 1 (0-5) /hpf Urine WBC 12 H (0-5) /hpf Ur Squamous Epith Cells 6 H (0-4) /hpf Hyaline Casts 4 H (0-2) /lpf Urine Mucus Few H (None) /hpf Disposition <Oneil John - Last Filed: 09/03/20 18:54> Is patient prescribed a controlled substance at d/c from ED?: No Time of Disposition: 19:00 <Darrell Mckeon - Last Filed: 09/03/20 19:02> Clinical Impression: Abdominal pain Disposition: HOME SELF-CARE Condition: Good Instructions (If sedation given, give patient instructions): Abdominal Pain (ED) Additional Instructions: Please follow up with your surgeon in 1-2 days. Return to the emergency room for any worsening symptoms or fevers. Referrals: Gary Mosquera DO [Primary Care Provider] - 1-2 days Ryan Delatorre MD [STAFF PHYSICIAN] - 1-2 days
[2020-09-03] MEDS ORDERED: ACET/COD 300 MG/30 MG STARTER PACK 6 TAB BTL PO STA (19:17)
[2020-09-03 19:18] VITALS: BP 135/71; TEMP 98.4
== END 2020-09-03 19:25 | disposition home or self-care (01) ==
LOC: EC 15:49
DX: R10.11 Right upper quadrant pain (principal); R10.13 Epigastric pain; R11.0 Nausea; I10 Essential (primary) hypertension; Z79.899 Other long term (current) drug therapy; Z90.49 Acquired absence of other specified parts of digestive tract
CPT/HCPCS: 36415; 80053; 82150; 83690; 85025; 81001; 87086; 99284; 96374; 96375 ×3; 96361; J2405; J1885; J1170

== ENCOUNTER 2020-09-09 21:07 | Emergency (ER) | payer MEDICARE ==
[2020-09-09] MEDS ORDERED: MORPHINE SULFATE 4 MG/ML SYRINGE IV STA (21:53)
[2020-09-09] MEDS ORDERED: ONDANSETRON 4 MG/2 ML VIAL IVP STA (21:53)
[2020-09-09] MEDS ORDERED: SODIUM CHLORIDE 0.9% 1,000 ML IV STA (21:53)
--- NOTE | 2020-09-09 22:22 | ED ---
Abdominal Pain HPI - General Chief Complaint: Abdominal Pain Stated Complaint: back & abd pain Time Seen by Provider: 09/09/20 21:25 Source: patient, family Mode of arrival: ambulatory Limitations: no limitations - History of Present Illness Initial Comments: 69-year-old female patient presents to the emergency department today for evaluation of upper abdominal pain. Patient states the pain has been going on for the last 2 months. Patient states she has pain on a daily basis and never resolves. Patient states she feels like the pain is getting worse. States his been a long-time stitches had a normal bowel movement. States she did take stool softeners and give herself an enema today and got very minimal output. She denies any fever or chills. States that she has had some nausea and no vomiting. States she has been able to eat and drink. She has been in the emergency department several times for this. She has had KUB abdomen, CT of the abdomen, ultrasound of the abdomen which of all been nondiagnostic for her pain. She did see Dr. Delatorre on Monday and has a colonoscopy scheduled for 10/01/20. Patient does report multiple hernia repairs in the past no other abdominal surgeries. States that she has a few episodes of chest pain. Has history of HTN. Patient denies any recent rash, cough, shortness of breath, back pain, numbness, tingling, dizziness, weakness, hematuria, dysuria, urinary urgency, urinary frequency, headache, visual changes, or any other complaints. - Related Data Home Medications Medication Instructions Recorded Confirmed Lisinopril-Hctz 20-12.5 mg 1 tab PO HS 02/07/17 09/09/20 [Zestoretic 20-12.5] Atorvastatin [Lipitor] 10 mg PO DAILY 07/06/20 09/09/20 Multivitamins, Thera [Multivitamin 1 tab PO DAILY 09/09/20 09/09/20 (formulary)] Allergies Allergy/AdvReac Type Severity Reaction Status Date / Time No Known Allergies Allergy Verified 09/09/20 21:50 Review of Systems ROS Statement: Those systems with pertinent positive or pertinent negative responses have been documented in the HPI. ROS Other: All systems not noted in ROS Statement are negative. Past Medical History Past Medical History: COPD, GERD/Reflux, Hypertension, Osteoarthritis (OA) Additional Past Medical History / Comment(s): emphysema, lesion on kidneys. kidney stones. History of Any Multi-Drug Resistant Organisms: None Reported Past Surgical History: Appendectomy, Bladder Surgery, Cholecystectomy, Hernia Repair, Orthopedic Surgery Additional Past Surgical History / Comment(s): corrective eye surg., sinus surg., jaw surg., foot surg. Past Anesthesia/Blood Transfusion Reactions: Motion Sickness, Postoperative Nausea & Vomiting (PONV) Past Psychological History: No Psychological Hx Reported Smoking Status: Never smoker Past Alcohol Use History: None Reported Past Drug Use History: None Reported - Past Family History Mother Family Medical History: Diabetes Mellitus General Exam Limitations: no limitations General appearance: alert, in no apparent distress, other (This is a well-d eveloped, well-nourished adult female patient in no acute distress. Vital signs upon presentation are temperature 98.1F, pulse 100, respirations 20, blood pressure 143/82, pulse ox 99% on room air.) Eye exam: Present: normal appearance, PERRL, EOMI. Absent: scleral icterus, conjunctival injection, periorbital swelling ENT exam: Present: normal exam, normal oropharynx, mucous membranes moist Respiratory exam: Present: normal lung sounds bilaterally. Absent: respiratory distress, wheezes, rales, rhonchi, stridor Cardiovascular Exam: Present: regular rate, normal rhythm, normal heart sounds. Absent: systolic murmur, diastolic murmur, rubs, gallop, clicks GI/Abdominal exam: Present: soft, tenderness (Upper abdominal ), normal bowel sounds. Absent: distended, guarding, rebound, rigid Neurological exam: Present: alert, oriented X3, CN II-XII intact Psychiatric exam: Present: normal affect, normal mood Skin exam: Present: warm, dry, intact, normal color. Absent: rash Course Vital Signs 09/09/20 09/09/20 09/09/20 21:10 22:41 23:58 Temperature 98.1 F 97.7 F 97.8 F Pulse Rate 100 80 72 Respiratory 20 19 19 Rate Blood Pressure 143/82 142/72 143/71 O2 Sat by Pulse 99 95 96 Oximetry Medical Decision Making - Medical Decision Making 69-year-old female patient presents to the emergency department today for evaluation of upper abdominal pain. Pain has been present for the last couple of months. She has had computed tomography scan, x-rays, ultrasound, and has been evaluated by her general surgeon. She does have a colonoscopy coming up on October 01. Physical examination did reveal upper abdominal tenderness. Labs reviewed and did reveal decreased potassium at 3.3. Remainder of labs are unremarkable. KUB x-ray was unremarkable. Patient was given IV fluids, pain medication. Upon reevaluation she is resting comfortably in bed. She will be discharged at this time to follow-up with her general surgeon and primary care physician as discussed. She does have tramadol at home, states this does not work, she is urged to discuss pain management with her primary care physician. Return parameters were discussed in detail. She verbalizes understanding and agrees with this plan. - Lab Data Result diagrams: 09/09/20 22:02 09/09/20 22:02 Lab Results 09/09/20 09/09/20 09/09/20 Range/Units 22:02 22:02 22:02 WBC 8.0 (3.8-10.6) k/uL RBC 4.97 (3.80-5.40) m/uL Hgb 15.9 (11.4-16.0) gm/dL Hct 47.6 H (34.0-46.0) % MCV 95.6 (80.0-100.0) fL MCH 31.9 (25.0-35.0) pg MCHC 33.4 (31.0-37.0) g/dL RDW 13.1 (11.5-15.5) % Plt Count 232 (150-450) k/uL Neutrophils % 66 % Lymphocytes % 26 % Monocytes % 4 % Eosinophils % 2 % Basophils % 1 % Neutrophils # 5.3 (1.3-7.7) k/uL Lymphocytes # 2.1 (1.0-4.8) k/uL Monocytes # 0.3 (0-1.0) k/uL Eosinophils # 0.1 (0-0.7) k/uL Basophils # 0.1 (0-0.2) k/uL Sodium 137 (137-145) mmol/L Potassium 3.3 L (3.5-5.1) mmol/L Chloride 100 (98-107) mmol/L Carbon Dioxide 29 (22-30) mmol/L Anion Gap 8 mmol/L BUN 13 (7-17) mg/dL Creatinine 0.52 (0.52-1.04) mg/dL Est GFR (CKD-EPI)AfAm >90 (>60 ml/min/1.73 sqM) Est GFR (CKD-EPI)NonAf >90 (>60 ml/min/1.73 sqM) Glucose 125 H (74-99) mg/dL Plasma Lactic Acid Papito (0.7-2.0) mmol/L Calcium 10.5 H (8.4-10.2) mg/dL Total Bilirubin 1.2 (0.2-1.3) mg/dL AST 32 (14-36) U/L ALT 26 (4-34) U/L Alkaline Phosphatase 66 (38-126) U/L Troponin I (0.000-0.034) ng/mL Total Protein 7.4 (6.3-8.2) g/dL Albumin 4.6 (3.5-5.0) g/dL Amylase 38 (30-110) U/L Lipase 65 (23-300) U/L Urine Color Yellow Urine Appearance Clear (Clear) Urine pH 7.0 (5.0-8.0) Ur Specific [place] 1.007 (1.001-1.035) Urine Protein Negative (Negative) Urine Glucose (UA) Negative (Negative) Urine Ketones 1+ H (Negative) Urine Blood Negative (Negative) Urine Nitrite Negative (Negative) Urine Bilirubin Negative (Negative) Urine Urobilinogen <2.0 (<2.0) mg/dL Ur Leukocyte Esterase Negative (Negative) 09/09/20 09/09/20 Range/Units 22:02 22:02 WBC (3.8-10.6) k/uL RBC (3.80-5.40) m/uL Hgb (11.4-16.0) gm/dL Hct (34.0-46.0) % MCV (80.0-100.0) fL MCH (25.0-35.0) pg MCHC (31.0-37.0) g/dL RDW (11.5-15.5) % Plt Count (150-450) k/uL Neutrophils % % Lymphocytes % % Monocytes % % Eosinophils % % Basophils % % Neutrophils # (1.3-7.7) k/uL Lymphocytes # (1.0-4.8) k/uL Monocytes # (0-1.0) k/uL Eosinophils # (0-0.7) k/uL Basophils # (0-0.2) k/uL Sodium (137-145) mmol/L Potassium (3.5-5.1) mmol/L Chloride (98-107) mmol/L Carbon Dioxide (22-30) mmol/L Anion Gap mmol/L BUN (7-17) mg/dL Creatinine (0.52-1.04) mg/dL Est GFR (CKD-EPI)AfAm (>60 ml/min/1.73 sqM) Est GFR (CKD-EPI)NonAf (>60 ml/min/1.73 sqM) Glucose (74-99) mg/dL Plasma Lactic Acid Papito 1.9 (0.7-2.0) mmol/L Calcium (8.4-10.2) mg/dL Total Bilirubin (0.2-1.3) mg/dL AST (14-36) U/L ALT (4-34) U/L Alkaline Phosphatase (38-126) U/L Troponin I <0.012 (0.000-0.034) ng/mL Total Protein (6.3-8.2) g/dL Albumin (3.5-5.0) g/dL Amylase (30-110) U/L Lipase (23-300) U/L Urine Color Urine Appearance (Clear) Urine pH (5.0-8.0) Ur Specific [place] (1.001-1.035) Urine Protein (Negative) Urine Glucose (UA) (Negative) Urine Ketones (Negative) Urine Blood (Negative) Urine Nitrite (Negative) Urine Bilirubin (Negative) Urine Urobilinogen (<2.0) mg/dL Ur Leukocyte Esterase (Negative) - EKG Data -: EKG Interpreted by Tx EKG Comments: EKG obtained at 2206 shows normal sinus rhythm with a ventricular rate of 76, ID interval 128, QRS duration 94, QT 390, QTC 438. No evidence of ST elevation or depression. - Radiology Data Radiology results: report reviewed, image reviewed 2 views of the abdomen are obtained. Report reviewed in its entirety. Impression by Dr. Skaggs shows nonacute abdomen. No adverse change. Disposition Clinical Impression: Abdominal pain Disposition: HOME SELF-CARE Condition: Good Instructions (If sedation given, give patient instructions): Abdominal Pain (ED) Additional Instructions: Follow-up with your primary care physician for recheck in 1-2 days. Follow up with your general surgeon as you have planned. Discuss pain medication switch with your primary care doctor. Return to the emergency department immediately for any new, worsening, or concerning symptoms. Is patient prescribed a controlled substance at d/c from ED?: No Referrals: Gary Mosquera DO [Primary Care Provider] - 1-2 days Ryan Delatorre MD [STAFF PHYSICIAN] - 1-2 days Time of Disposition: 23:53
[2020-09-09 22:27] LABS: Basophils # (A) 0.1 k/uL (0-0.2); Basophils % (A) 1 %; Eosinophils # (A) 0.1 k/uL (0-0.7); Eosinophils % (A) 2 %; HCT 47.6 % (34.0-46.0); HGB 15.9 gm/dL (11.4-16.0); Lymphocytes # (A) 2.1 k/uL (1.0-4.8); Lymphocytes % (A) 26 %; MCH 31.9 pg (25.0-35.0); MCHC 33.4 g/dL (31.0-37.0); MCV 95.6 fL (80.0-100.0); Mean Platelet Volume 9.1; Monocytes # (A) 0.3 k/uL (0-1.0); Monocytes % (A) 4 %; Neutrophils # (A) 5.3 k/uL (1.3-7.7); Neutrophils % (A) 66 %; Platelet Count 232 k/uL (150-450); RBC 4.97 m/uL (3.80-5.40); RDW 13.1 % (11.5-15.5)
--- NOTE | 2020-09-09 22:38 | XR ---
EXAMINATION TYPE: XR KUB DATE OF EXAM: 09/09/2020 COMPARISON: 08/29/2020 HISTORY: Abdominal pain TECHNIQUE: 2 views FINDINGS: 2 views upright show no sign of intestinal obstruction or pneumoperitoneum. Fecal pattern i s normal. There is mild thoracolumbar dextroscoliosis. Lung bases are clear. There are clips from cho lecystectomy. There are no definite calcifications over the kidneys. Bowel gas pattern appears normal . IMPRESSION: Nonacute abdomen. No adverse change.
[2020-09-09 22:44] LABS: ALT 26 U/L (4-34); AST 32 U/L (14-36); African American GFR (CKD) >90 (>60 ml/min/1.73 sqM); Albumin 4.6 g/dL (3.5-5.0); Alkaline Phosphatase 66 U/L (38-126); Amylase 38 U/L (30-110); Anion Gap 8 mmol/L; Blood Urea Nitrogen 13 mg/dL (7-17); Calcium 10.5 mg/dL (8.4-10.2); Carbon Dioxide 29 mmol/L (22-30); Chloride 100 mmol/L (98-107); Glucose 125 mg/dL (74-99); Non-African American GFR(CKD) >90 (>60 ml/min/1.73 sqM); Potassium 3.3 mmol/L (3.5-5.1); Sodium 137 mmol/L (137-145); Total Bilirubin 1.2 mg/dL (0.2-1.3); Total Protein 7.4 g/dL (6.3-8.2)
[2020-09-09 22:45] VITALS: RESP 19
[2020-09-09 23:41] LABS: Appearance,Urine Clear (Clear); Bilirubin,Urine Negative (Negative); Blood,Urine Negative (Negative); Color,Urine Yellow; Glucose,Urine (UA) Negative (Negative); Ketones,Urine 1+ (Negative); Leukocyte Esterase,Urine Negative (Negative); Nitrite,Urine Negative (Negative); Protein,Urine Negative (Negative); Specific Gravity,Urine 1.007 (1.001-1.035); Urobilinogen,Urine <2.0 mg/dL (<2.0)
[2020-09-09] MEDS ORDERED: POTASSIUM CHLORIDE ER 20 MEQ TAB.ER PO STA (23:52)
[2020-09-09] MEDS ORDERED: MORPHINE SULFATE 4 MG/ML SYRINGE IVP STA (23:52)
[2020-09-10 00:10] VITALS: BP 143/71; PULSE 72; TEMP 97.8
== END 2020-09-10 00:08 | disposition home or self-care (01) ==
LOC: EC 21:07
DX: R10.10 Upper abdominal pain, unspecified (principal); R07.9 Chest pain, unspecified; R11.0 Nausea; I10 Essential (primary) hypertension; Z79.899 Other long term (current) drug therapy; Z90.49 Acquired absence of other specified parts of digestive tract; Z90.89 Acquired absence of other organs
CPT/HCPCS: 36415; 93005; 80053; 82150; 83605; 83690; 84484; 85025; 81003; 74018; 99284; 96374; 96375; 96376; 96361; J2270 ×2; J2405

== ENCOUNTER 2020-09-15 01:30 | Emergency (ER) | payer MEDICARE ==
[2020-09-15 01:40] VITALS: BP 131/84; PULSE 70; RESP 18; TEMP 97.6
[2020-09-15] MEDS ORDERED: CYCLOBENZAPRINE 10MG STARTER 3 TAB BTL PO STA (01:51)
[2020-09-15] MEDS ORDERED: LIDOCAINE 5% PATCH TOPICAL STA (01:51)
[2020-09-15] MEDS ORDERED: KETOROLAC 15 MG/ML 1 ML VIAL IM STA (01:51)
--- NOTE | 2020-09-15 01:53 | ED ---
Back Pain HPI - General Chief Complaint: Back Pain/Injury Stated Complaint: Back pain Time Seen by Provider: 09/15/20 01:44 Source: patient Limitations: no limitations - History of Present Illness Initial Comments: 69-year-old female patient presents to the emergency department today for evaluation of mid lower back pain. Patient states that she has chronic low back pain but the pain started to worsen over the last day or 2. Denies any injury or increase in physical activity. Patient states today she started to have some tingling in the bilateral great toes. Patient states this is new for her. Denies any alleviating factors. Denies any saddle anesthesia or loss of bowel or bladder control. States she is able to ambulate. Denies any abdominal pain. Denies nausea or vomiting. States she did take a Neversink around 7 PM this evening, states it has not helped. States she did apply muscle rub which also did not help. Denies taking any other medications for her symptoms. Denies any hematuria, dysuria, urinary frequency, urinary urgency. - Related Data Home Medications Medication Instructions Recorded Confirmed Lisinopril-Hctz 20-12.5 mg 1 tab PO HS 02/07/17 09/09/20 [Zestoretic 20-12.5] Atorvastatin [Lipitor] 10 mg PO DAILY 07/06/20 09/09/20 Multivitamins, Thera [Multivitamin 1 tab PO DAILY 09/09/20 09/09/20 (formulary)] Previous Rx's Medication Instructions Recorded Cyclobenzaprine [Flexeril] 10 mg PO TID #15 tab 09/15/20 Ibuprofen [Motrin] 600 mg PO Q8HR PRN #30 tab 09/15/20 Lidocaine 5% Patch [Lidoderm] 1 patch TOPICAL DAILY #30 patch 09/15/20 Allergies Allergy/AdvReac Type Severity Reaction Status Date / Time No Known Allergies Allergy Verified 09/15/20 01:40 Review of Systems ROS Statement: Those systems with pertinent positive or pertinent negative responses have been documented in the HPI. ROS Other: All systems not noted in ROS Statement are negative. Past Medical History Past Medical History: COPD, GERD/Reflux, Hypertension, Osteoarthritis (OA) Additional Past Medical History / Comment(s): emphysema, lesion on kidneys. kidney stones. History of Any Multi-Drug Resistant Organisms: None Reported Past Surgical History: Appendectomy, Bladder Surgery, Cholecystectomy, Hernia Repair, Orthopedic Surgery Additional Past Surgical History / Comment(s): corrective eye surg., sinus surg., jaw surg., foot surg. Past Anesthesia/Blood Transfusion Reactions: Motion Sickness, Postoperative Nausea & Vomiting (PONV) Past Psychological History: No Psychological Hx Reported Smoking Status: Never smoker Past Alcohol Use History: None Reported Past Drug Use History: None Reported - Past Family History Mother Family Medical History: Diabetes Mellitus General Exam Limitations: no limitations General appearance: alert, in no apparent distress, other (This is a well d eveloped, well nourished adult female patient, in no acute distress. Vital signs upon presentation are Tempertaure 97.6F well pulse 70, respirations 18, blood pressure 131/84, pulse ox 99% on room air.) ENT exam: Present: normal exam, normal oropharynx, mucous membranes moist Respiratory exam: Present: normal lung sounds bilaterally. Absent: respiratory distress, wheezes, rales, rhonchi, stridor Cardiovascular Exam: Present: regular rate, normal rhythm, normal heart sounds. Absent: systolic murmur, diastolic murmur, rubs, gallop, clicks GI/Abdominal exam: Present: soft, normal bowel sounds. Absent: distended, tenderness, guarding, rebound, rigid Extremities exam: Present: normal inspection, full ROM, normal capillary refill, other (skin to the lower extremities is pink, warm, dry. Cap refills less than 3 seconds. Pedal and posttibial pulses are 2+ and equal bilaterally.). Absent: tenderness, pedal edema, joint swelling, calf tenderness Back exam: Present: normal inspection. Absent: paraspinal tenderness, vertebral tenderness Neurological exam: Present: alert, oriented X3, CN II-XII intact, other (strength in all 4 extremities is 5/5.) Psychiatric exam: Present: normal affect, normal mood Skin exam: Present: warm, dry, intact, normal color. Absent: rash Course Vital Signs 09/15/20 01:35 Temperature 97.6 F Pulse Rate 70 Respiratory 18 Rate Blood Pressure 131/84 O2 Sat by Pulse 99 Oximetry Medical Decision Making - Medical Decision Making 69-year-old female patient presents to the emergency department today reporting acute on chronic low back pain. Worsening over the last couple of days. New- onset tingling to the bilateral great toes. Physical examination is unremarkable. She is neurologically intact with no focal deficits. She has no concerning symptoms for cauda equina. She did take a Neversink tonight at 7 PM. We'll add an anti-inflammatory medication, Lidoderm patch, and muscle relaxer. She'll be discharged follow up with her primary care physician for recheck in 1- 2 days. She is instructed to follow-up with back specialty if her symptoms do not improve. Return parameters were discussed in detail. She verbalizes understanding and agrees with this plan. Disposition Clinical Impression: Acute exacerbation of chronic low back pain Disposition: HOME SELF-CARE Condition: Good Instructions (If sedation given, give patient instructions): Acute Low Back Pain (ED), Chronic Back Pain (DC) Additional Instructions: Take muscle relaxer as soon as you get home. Take medications as directed. Follow up with the primary care physician for recheck in 1-2 days. Follow up with back specialist for further evaluation of your pain. Return to the emergency room immediately for any new, worsening, or concerning symptoms. Prescriptions: Cyclobenzaprine [Flexeril] 10 mg PO TID #15 tab Lidocaine 5% Patch [Lidoderm] 1 patch TOPICAL DAILY #30 patch Ibuprofen [Motrin] 600 mg PO Q8HR PRN #30 tab PRN Reason: Pain Is patient prescribed a controlled substance at d/c from ED?: No Referrals: Gary Mosquera DO [Primary Care Provider] - 1-2 days Jan Gavin DO [Doctor of Osteopathic Medicine] - 1-2 days Time of Disposition: 01:53
== END 2020-09-15 02:02 | disposition home or self-care (01) ==
LOC: EC 01:30
DX: G89.29 Other chronic pain (principal); M54.5 Low back pain; R20.2 Paresthesia of skin; I10 Essential (primary) hypertension; Z79.899 Other long term (current) drug therapy; Z87.442 Personal history of urinary calculi
CPT/HCPCS: 99283 ×2; 96372 ×2; J1885

== ENCOUNTER 2020-09-23 17:28 | Observation (INO) | payer MEDICARE ==
--- NOTE | 2020-09-23 17:58 | ED ---
Recheck HPI - General Chief Complaint: Chest Pain Stated Complaint: ABD AND CHEST PAIN Time Seen by Provider: 09/23/20 17:46 Source: patient, RN notes reviewed, old records reviewed Mode of arrival: ambulatory Limitations: no limitations - History of Present Illness Initial Comments: this is a 61-year-old female presents today for evaluation regards to concern for heart some chest discomfort weakness shortness of breathoverall does not feeling well. She had no swelling but again she has no shortness of breath today feels like her respiratory rate is increased normal. No travel history no sick contacts symptoms began this morning after patient awoke.isn't does have history of COPD high blood pressure MD Complaint: other (shortness of breath weakness not feeling well) -: hour(s) Returns Today for: persistent/worsening pain related to initial visit, other (overall not feeling well) Symptoms Since Prior Visit: worsening pain Associated Symptoms: none - Related Data Home Medications Medication Instructions Recorded Confirmed Lisinopril-Hctz 20-12.5 mg 1 tab PO HS 02/07/17 09/09/20 [Zestoretic 20-12.5] Atorvastatin [Lipitor] 10 mg PO DAILY 07/06/20 09/09/20 Multivitamins, Thera [Multivitamin 1 tab PO DAILY 09/09/20 09/09/20 (formulary)] Previous Rx's Medication Instructions Recorded Cyclobenzaprine [Flexeril] 10 mg PO TID #15 tab 09/15/20 Ibuprofen [Motrin] 600 mg PO Q8HR PRN #30 tab 09/15/20 Lidocaine 5% Patch [Lidoderm] 1 patch TOPICAL DAILY #30 patch 09/15/20 Allergies Allergy/AdvReac Type Severity Reaction Status Date / Time No Known Allergies Allergy Verified 09/23/20 17:36 Review of Systems ROS Statement: Those systems with pertinent positive or pertinent negative responses have been documented in the HPI. ROS Other: All systems not noted in ROS Statement are negative. Past Medical History Past Medical History: COPD, GERD/Reflux, Hypertension, Osteoarthritis (OA) Additional Past Medical History / Comment(s): emphysema, lesion on kidneys. kidney stones. History of Any Multi-Drug Resistant Organisms: None Reported Past Surgical History: Appendectomy, Bladder Surgery, Cholecystectomy, Hernia Repair, Orthopedic Surgery Additional Past Surgical History / Comment(s): corrective eye surg., sinus surg., jaw surg., foot surg. Past Anesthesia/Blood Transfusion Reactions: Motion Sickness, Postoperative Nausea & Vomiting (PONV) Past Psychological History: No Psychological Hx Reported Smoking Status: Never smoker Past Alcohol Use History: None Reported Past Drug Use History: None Reported - Past Family History Mother Family Medical History: Diabetes Mellitus General Exam Limitations: no limitations General appearance: alert, in no apparent distress Head exam: Present: atraumatic, normocephalic, normal inspection Eye exam: Present: normal appearance, PERRL, EOMI. Absent: scleral icterus, conjunctival injection, periorbital swelling ENT exam: Present: normal exam, mucous membranes moist Neck exam: Present: normal inspection. Absent: tenderness, meningismus, lymphadenopathy Respiratory exam: Present: normal lung sounds bilaterally. Absent: respiratory distress, wheezes, rales, rhonchi, stridor Cardiovascular Exam: Present: regular rate, normal rhythm, normal heart sounds. Absent: systolic murmur, diastolic murmur, rubs, gallop, clicks GI/Abdominal exam: Present: soft, normal bowel sounds. Absent: distended, tenderness, guarding, rebound, rigid Extremities exam: Present: normal inspection, full ROM, normal capillary refill. Absent: tenderness, pedal edema, joint swelling, calf tenderness Back exam: Present: normal inspection Neurological exam: Present: alert, oriented X3, CN II-XII intact Psychiatric exam: Present: normal affect, normal mood Skin exam: Present: warm, dry, intact, normal color. Absent: rash Course Vital Signs 09/23/20 17:36 Temperature 97.9 F Pulse Rate 98 Respiratory 18 Rate Blood Pressure 135/93 O2 Sat by Pulse 99 Oximetry - Reevaluation(s) Reevaluation #1: 09/23/20 19:15 medical records reviewed Reevaluation #2: 09/23/20 19:15 no change in symptoms Reevaluation #3: 09/23/20 19:15 patient informed of results, questions answered - Consultations Consultation #1: spoke with Dr. Mosquera regarding admission he agrees to admit Medical Decision Making - Medical Decision Making 61 female high blood pressure COPD history with shortness of breath. Patient feels not well some chest pain or shortness of breath patient be admitted for cardiac observation - Lab Data Result diagrams: 09/23/20 18:40 Lab Results 09/23/20 Range/Units 18:40 WBC 5.7 (3.8-10.6) k/uL RBC 4.89 (3.80-5.40) m/uL Hgb 15.3 (11.4-16.0) gm/dL Hct 46.5 H (34.0-46.0) % MCV 95.1 (80.0-100.0) fL MCH 31.3 (25.0-35.0) pg MCHC 32.9 (31.0-37.0) g/dL RDW 12.5 (11.5-15.5) % Plt Count 188 (150-450) k/uL Neutrophils % 63 % Lymphocytes % 28 % Monocytes % 5 % Eosinophils % 2 % Basophils % 1 % Neutrophils # 3.6 (1.3-7.7) k/uL Lymphocytes # 1.6 (1.0-4.8) k/uL Monocytes # 0.3 (0-1.0) k/uL Eosinophils # 0.1 (0-0.7) k/uL Basophils # 0.1 (0-0.2) k/uL - EKG Data -: EKG Interpreted by Me (EKG shows sinus rhythm 85 [place] 1:30 QRS 92 QTC 418) When compared to previous EKG there are: no significant change, changes noted (EKG showssinus rhythm 77. 140 QRS 94 QTC 549) - Radiology Data Radiology results: report reviewed (chest x-rays negative for acute disease), image reviewed Disposition Clinical Impression: Chest pain Disposition: ADMITTED IP TO THIS [facility] Condition: Undetermined Instructions (If sedation given, give patient instructions): Chest Pain (ED) Is patient prescribed a controlled substance at d/c from ED?: No Referrals: Gary Mosquera DO [Primary Care Provider] - 1-2 days
[2020-09-23] MEDS ORDERED: SODIUM CHLORIDE 0.9% 1,000 ML IV STA (18:32)
[2020-09-23 18:48] LABS: Basophils # (A) 0.1 k/uL (0-0.2); Basophils % (A) 1 %; Eosinophils # (A) 0.1 k/uL (0-0.7); Eosinophils % (A) 2 %; HCT 46.5 % (34.0-46.0); HGB 15.3 gm/dL (11.4-16.0); Lymphocytes # (A) 1.6 k/uL (1.0-4.8); Lymphocytes % (A) 28 %; MCH 31.3 pg (25.0-35.0); MCHC 32.9 g/dL (31.0-37.0); MCV 95.1 fL (80.0-100.0); Mean Platelet Volume 9.6; Monocytes # (A) 0.3 k/uL (0-1.0); Monocytes % (A) 5 %; Neutrophils # (A) 3.6 k/uL (1.3-7.7); Neutrophils % (A) 63 %; Platelet Count 188 k/uL (150-450); RBC 4.89 m/uL (3.80-5.40); RDW 12.5 % (11.5-15.5); WBC 5.7 k/uL (3.8-10.6)
[2020-09-23 19:11] LABS: ALT 29 U/L (4-34); AST 28 U/L (14-36); African American GFR (CKD) >90 (>60 ml/min/1.73 sqM); Albumin 4.2 g/dL (3.5-5.0); Alkaline Phosphatase 78 U/L (38-126); Anion Gap 8 mmol/L; C Reactive Protein 5.8 mg/L (<10.0); Calcium 10.2 mg/dL (8.4-10.2); Carbon Dioxide 26 mmol/L (22-30); Chloride 100 mmol/L (98-107); Creatine Kinase 44 U/L (30-135); Glucose 146 mg/dL (74-99); Magnesium 1.5 mg/dL (1.6-2.3); Non-African American GFR(CKD) >90 (>60 ml/min/1.73 sqM); Phosphorus 2.4 mg/dL (2.5-4.5); Potassium 3.2 mmol/L (3.5-5.1); Sodium 134 mmol/L (137-145); Total Protein 6.8 g/dL (6.3-8.2)
[2020-09-23 19:12] LABS: Partial Thromboplastin Time 21.4 sec (22.0-30.0); Prothrombin Time 10.3 sec (9.0-12.0)
[2020-09-23] MEDS ORDERED: NITROGLYCERIN SL TABS 0.4 MG TAB SUBLINGUAL PRN (19:12)
[2020-09-23] MEDS ORDERED: ASPIRIN 81 MG PO STA (19:12)
[2020-09-23] MEDS ORDERED: HEPARIN SODIUM,PORCINE 5,000 UNIT/ML 1 ML VIAL IV PRN (19:12)
[2020-09-23] MEDS ORDERED: HEPARIN SODIUM,PORCINE 5,000 UNIT/ML 1 ML VIAL IV ONE (19:12)
--- NOTE | 2020-09-23 19:13 | XR ---
EXAMINATION TYPE: XR chest 2V DATE OF EXAM: 09/23/2020 COMPARISON: 11/24/2014 INDICATION: Weakness short of breath TECHNIQUE: Frontal and lateral views of the chest are obtained. FINDINGS: The heart size is normal. The pulmonary vasculature is normal. The lungs are clear. IMPRESSION: 1. No acute pulmonary process.
[2020-09-23] MEDS ORDERED: HEPARIN SOD,PORK IN 0.45% NACL 25,000 UNIT in 0.45% NACL 1 250ML.BAG IV SCH (19:15)
[2020-09-23 19:30] LABS: Blood Urea Nitrogen 9 mg/dL (7-17)
[2020-09-23] MEDS ORDERED: MORPHINE SULFATE 4 MG/ML SYRINGE IVP STA (20:22)
[2020-09-23] MEDS ORDERED: MAGNESIUM OXIDE 400 MG TAB PO STA (20:22)
[2020-09-23] MEDS ORDERED: MORPHINE SULFATE 4 MG/ML SYRINGE IVP PRN (20:22)
[2020-09-23] MEDS ORDERED: POTASSIUM BICARBONATE/CIT AC 20 MEQ TABLET.EFF PO ONE (20:22)
[2020-09-23] MEDS ORDERED: MAGNESIUM SULFATE-D5W PMX 1 GM in DEXTROSE/WATER 1 100ML.BAG IVPB ONE (20:22)
[2020-09-23 20:34] LABS: Appearance,Urine Cloudy (Clear); Bilirubin,Urine Negative (Negative); Blood,Urine Negative (Negative); Color,Urine Yellow; Glucose,Urine (UA) Negative (Negative); Hyaline Casts,Urine 1 /lpf (0-2); Ketones,Urine 3+ (Negative); Leukocyte Esterase,Urine Large (Negative); Mucus,Urine Rare /hpf; Nitrite,Urine Negative (Negative); PH, Urine 6.5 (5.0-8.0); Protein,Urine Negative (Negative); RBC,Urine 2 /hpf (0-5); Specific Gravity,Urine 1.014 (1.001-1.035); Squamous Epithelial Cell,Urine 7 /hpf (0-4); Urobilinogen,Urine <2.0 mg/dL (<2.0); WBC,Urine 13 /hpf (0-5)
[2020-09-23] MEDS: METOPROLOL TARTRATE 25 MG TAB PO SCH (21:10)
[2020-09-23] MEDS ORDERED: CYCLOBENZAPRINE 10 MG TAB PO PRN (22:01)
[2020-09-23] MEDS ORDERED: LIDOCAINE 5% PATCH TOPICAL PRN (22:01)
[2020-09-23] MEDS: DOCUSATE 100 MG CAP PO SCH (22:22)
[2020-09-24 07:34] LABS: Mean Platelet Volume 9.4; Platelet Count 164 k/uL (150-450)
[2020-09-24 07:55] LABS: Cholesterol 141 mg/dL (<200); HDL Cholesterol 49 mg/dL (40-60); LDL Cholesterol,Calculated 70 mg/dL (0-99); Triglycerides 111 mg/dL (<150)
[2020-09-24] MEDS ORDERED: KETOROLAC 15 MG/ML 1 ML VIAL IVP SCH (08:00)
[2020-09-24] MEDS: METOPROLOL TARTRATE 25 MG TAB PO SCH ×2 (09:06→23:58)
[2020-09-24] MEDS: DOCUSATE 100 MG CAP PO SCH ×2 (09:06→23:57)
[2020-09-24] MEDS: LISINOPRIL-HCTZ 20-12.5 MG 1 EACH TAB PO SCH (09:07)
[2020-09-24] MEDS: NITROFURANTOIN MONOHYD/M-CRYST 100 MG CAP PO SCH ×2 (09:07→23:59)
[2020-09-24] MEDS: ASPIRIN 325 MG TAB PO SCH (09:07)
--- NOTE | 2020-09-24 11:47 | CONS ---
CONSULTATION This lady has hypertension and hyperlipidemia with recently hospitalized with multiple abdominal pain and had extensive workup. She is supposed to have a colonoscopy shortly. She comes into the hospital complaining of sharp chest pain lasting a few seconds on and off, made her concerned and then her focus is entirely on the abdominal pain which she seems to have mild soreness. Troponins are normal. EKG is unremarkable. She is resting comfortably. Quality of her symptoms is quite atypical. Physical exam was also unremarkable. There was no objective findings in the abdomen examination as well. I am recommending that we will obtain echocardiogram, increase activity and discharge her and I will see her in the office in 2 weeks and perform a stress test as an outpatient. She is asymptomatic at the time of my evaluation, resting comfortably. PAST MEDICAL HISTORY: 1. Hypertension. 2. History of hyperlipidemia. 3. Recent extensive workup for what seems to be abdominal pain by Dr. Dial and she is scheduled to have a colonoscopy apparently. PHYSICAL EXAMINATION: On examination, blood pressure is 136/70, pulse rate is 70 per minute, regular. HEENT: Unremarkable. Fundus was not examined by me. NECK: Supple. No JVD. I do not hear a carotid bruit. There is no thyromegaly. HEART: Exam reveals S1, S2 heard normally. No rub, murmur or gallop. LUNGS: Clear. ABDOMEN: Soft, nontender. LOWER EXTREMITIES: Reveal normal pulses. No edema. CENTRAL NERVOUS SYSTEM: Normal. EKG revealed sinus mechanism, voltage criteria for LVH. Nonspecific ST-T changes. I reviewed previous EKGs also. These are not new findings. LABORATORY DATA: Revealed unremarkable troponins. IMPRESSION: 1. Atypical chest pain. 2. Abdominal pain, which seems to have resolved. 3. Hypertension. 4. Hyperlipidemia. RECOMMENDATIONS: From a cardiac standpoint, no intervention necessary, she can increase activity and discharge the patient. I will see her in the office in 2 weeks and perform an outpatient stress test. The patient is scheduled to have a colonoscopy by Dr. Dial and there is no contraindication for this. I discussed my thoughts in detail with the patient and also spoke to Dr. Gary Mosquera. Thank you very much for the consult. MMODL / IJN: [id number] /
[2020-09-24 12:17] VITALS: BMI 24.9
--- NOTE | 2020-09-24 12:18 | ECHOF ---
Referral Reason:chest pain MEASUREMENTS -------- HEIGHT: 170.2 cm WEIGHT: 72.1 kg BP: 143/84 RVIDd: 2.7 cm (< 3.3) IVSd: 1.3 cm (0.6 - 1.1) LVIDd: 3.9 cm (3.9 - 5.3) LVPWd: 1.3 cm (0.6 - 1.1) IVSs: 1.6 cm LVIDs: 2.8 cm LVPWs: 1.8 cm LAESV Index (A-L): 44.37 ml/m Ao Diam: 3.0 cm (2.0 - 3.7) AV Cusp: 2.2 cm (1.5 - 2.6) MV EXCURSION: 16.901 mm (> 18.000) MV EF SLOPE: 59 mm/s (70 - 150) EPSS: 1.1 cm MV E Jamie: 0.43 m/s MV DecT: 221 ms MV A Jamie: 0.76 m/s MV E/A Ratio: 0.56 AR PHT: 764 ms RAP: 5.00 mmHg RVSP: 30.75 mmHg FINDINGS -------- Sinus rhythm. This was a technically adequate study. The left ventricular size is normal. There is mild concentric left ventricular hypertrophy. Overa ll left ventricular systolic function is normal with, an EF between 55 - 60 %. The diastolic fillin g pattern is normal for the age of the patient {E/E'}. The right ventricle is normal in size. LA is severely dilated >40 ml/m2 The right atrial size is normal. Interatrial and interventricular septum intact. The aortic valve is trileaflet and appears structurally normal. Trace to mild aortic regurgitation. There is no evidence of aortic stenosis. Moderate mitral regurgitation is present. Mild tricuspid regurgitation present. There is borderline pulmonary artery hypertension. The righ t ventricular systolic pressure, as measured by Doppler, is 30.75mmHg. Trace/mild (physiologic) pulmonic regurgitation. The aortic root size is normal. IVC Not well visulized. There is no pericardial effusion. CONCLUSIONS -------- 1. The left ventricular size is normal. 2. There is mild concentric left ventricular hypertrophy. 3. LA is severely dilated >40 ml/m2 4. Trace to mild aortic regurgitation. 5. Moderate mitral regurgitation is present. 6. Mild tricuspid regurgitation present. 7. There is borderline pulmonary artery hypertension. 8. The right ventricular systolic pressure, as measured by Doppler, is 30.75mmHg. 9. Trace/mild (physiologic) pulmonic regurgitation. PAN DUMPER: Bee Riddle RDCS
[2020-09-24] MEDS: KETOROLAC 15 MG/ML 1 ML VIAL IVP PRN ×2 (17:31→23:59)
--- NOTE | 2020-09-24 20:59 | P.HPIM ---
History of Present Illness H&P Date: 09/24/20 This is a pleasant 69-year-old white female who was admitted to the emergency department last evening with acute atypical chest pain. Patient has been suffering for bilateral little over a month since having acute kidney stones. She was treated by urology and followed up until kidney stones were clear she is underwent extensive testing by Dr. Dial of surgical services had multiple tests and lab work which have been unremarkable. She is scheduled for a colonoscopy next for further evaluation of her colon. Her chest pain is under investigation by cardiology today but so far serial EKGs and enzymes are unremarkable and her pain seems to be more centered in the upper gastric area. Review of Systems GENERAL: Patient denies fever. Denies chills. EYES: Denies blurred vision. Denies vision changes. Denies eye pain. EARS, NOSE, MOUTH, & THROAT: Denies headache. Denies sore throat. Denies ear pain. RESPIRATORY: Denies cough. Denies shortness of breath. Denies sputum production. Denies hemoptysis. CARDIOVASCULAR: chest pain and pressure. Denies palpitations. Denies arrhythmias. Pain causes no diaphoresis or nausea. GASTROINTESTINAL: Patient has abdominal pain. Denies diarrhea. Denies constipation. Denies nausea. Denies vomiting. Denies heartburn. Denies blood in the stool. GENITOURINARY: Denies urinary frequency. Denies burning. Denies dysuria. Denies cloudy urine. Denies blood in the urine. She has had recent kidney stones MUSCULOSKELETAL: Denies myalgias. Denies joint swelling. Denies decreased range of motion beyond patients baseline. INTEGUMENTARY: Denies pruitis. Denies rash. PSYCHIATRIC: Denies suicidal or homicial ideations. ENDOCRINE: Denies weight change. Denies polydipsia. Denies polyuria. HEMATOLOGIC: Denies bleeding disorders. Past Medical History Past Medical History: COPD, GERD/Reflux, Hypertension, Osteoarthritis (OA) Additional Past Medical History / Comment(s): emphysema, lesion on kidneys. kidney stones. History of Any Multi-Drug Resistant Organisms: None Reported Past Surgical History: Appendectomy, Bladder Surgery, Cholecystectomy, Hernia Repair, Orthopedic Surgery Additional Past Surgical History / Comment(s): corrective eye surg., sinus s urg., jaw surg., foot surg. Past Anesthesia/Blood Transfusion Reactions: Motion Sickness, Postoperative Nausea & Vomiting (PONV) Past Psychological History: No Psychological Hx Reported Smoking Status: Never smoker Past Alcohol Use History: None Reported Past Drug Use History: None Reported - Past Family History Mother Family Medical History: Diabetes Mellitus Medications and Allergies Home Medications Medication Instructions Recorded Confirmed Type Lisinopril-Hctz 20-12.5 mg 1 tab PO DAILY 02/07/17 09/23/20 History [Zestoretic 20-12.5] Atorvastatin [Lipitor] 10 mg PO HS 07/06/20 09/23/20 History Multivitamins, Thera [Multivitamin 1 tab PO DAILY 09/09/20 09/23/20 History (formulary)] Ibuprofen [Motrin] 600 mg PO Q8HR PRN #30 tab 09/15/20 09/23/20 Rx Cyclobenzaprine [Flexeril] 10 mg PO TID PRN 09/23/20 09/23/20 History Lidocaine 5% Patch [Lidoderm] 1 patch TRANSDERM DAILY PRN 09/23/20 09/23/20 History Nitrofurantoin Monohyd/M-Cryst 100 mg PO BID 09/23/20 09/23/20 History [Macrobid] Allergies Allergy/AdvReac Type Severity Reaction Status Date / Time No Known Allergies Allergy Verified 09/23/20 20:02 Physical Exam Osteopathic Statement: *. No significant issues noted on an osteopathic structural exam other than those noted in the History and Physical/Consult. Vitals: Vital Signs Temp Pulse Pulse Resp BP BP Pulse Ox 09/24/20 09:00 76 18 09/24/20 08:57 97.9 F 76 18 120/79 97 09/24/20 04:15 98 F 63 16 143/84 95 09/23/20 23:00 149/84 09/23/20 21:10 98 F 86 19 173/90 99 09/23/20 19:38 81 18 153/104 98 09/23/20 17:36 97.9 F 98 18 135/93 99 Intake and Output 09/24/20 09/24/20 09/24/20 06:59 14:59 22:59 Intake Total 50.343 289.766 Balance 50.343 289.766 Intake: Intake, IV Titration 50.343 49.766 Amount Heparin Sod,Pork in 0.45% 50.343 49.766 NaCl 25,000 unit In 0.45 % NaCl 1 250ml.bag @ 12 UNITS/KG/HR 8.655 mls/hr IV .Q24H [facility] Rx#: [id number] Oral 240 Other: Voiding Method Toilet Toilet # Voids 1 1 Weight 72.121 kg GENERAL: This is a -the [age] year-old in no apparent distress at the time of examination. Pleasant and cooperative. HEENT: Head is atraumatic, normocephalic. Pupils are equal, round, and reactive to light. Sclerae anicteric. Conjunctivae are clear. Mucus membranes of the mouth are moist. Neck is supple. RESPIRATORY: Clear to auscultation. No wheezes, rales, or rhonchi. No use of accessory muscles. Patient maintaining oxygen saturation greater than 92%. No c hest wall tenderness is noted on palpation or with deep breathing. CARDIOVASCULAR: Regular rate and rhythm. S1 and S2 noted. No systolic or diastolic murmur auscultated. No JVD noted. No S3 or S4 noted. GASTROINTESTINAL: No distention noted. Abdomen soft and round. Normal active bowel sounds auscultated x 4 quadrants. pain or tenderness noted upon palpation in the upper midepigastric area no rebound rigidity or guarding is noted.. INTEGUMENTARY: No cyanosis. No jaundice. No rashes noted. No cellulitis noted. EXTREMITIES: 2+ peripheral pulses. No evidence of peripheral edema. No calf tenderness noted. NEUROLOGIC: Cranial nerves II-XII intact. PSYCHIATRIC: Awake, alert, and oriented X 3. Appropriate affect. Intact judgement and insight. Results CBC & Chem 7: 09/24/20 06:53 09/23/20 18:40 Labs: Abnormal Lab Results - Last 24 Hours (Table) 09/23/20 09/23/20 09/23/20 Range/Units 18:40 18:40 18:40 Hct 46.5 H (34.0-46.0) % APTT 21.4 L (22.0-30.0) sec Sodium 134 L (137-145) mmol/L Potassium 3.2 L (3.5-5.1) mmol/L Creatinine 0.48 L (0.52-1.04) mg/dL Glucose 146 H (74-99) mg/dL Phosphorus 2.4 L (2.5-4.5) mg/dL Magnesium 1.5 L (1.6-2.3) mg/dL Urine Appearance (Clear) Urine Ketones (Negative) Ur Leukocyte Esterase (Negative) Urine WBC (0-5) /hpf Ur Squamous Epith Cells (0-4) /hpf Urine Mucus (None) /hpf 09/23/20 09/24/20 09/24/20 Range/Units 18:42 00:53 06:53 Hct (34.0-46.0) % APTT 52.9 H 46.2 H (22.0-30.0) sec Sodium (137-145) mmol/L Potassium (3.5-5.1) mmol/L Creatinine (0.52-1.04) mg/dL Glucose (74-99) mg/dL Phosphorus (2.5-4.5) mg/dL Magnesium (1.6-2.3) mg/dL Urine Appearance Cloudy H (Clear) Urine Ketones 3+ H (Negative) Ur Leukocyte Esterase Large H (Negative) Urine WBC 13 H (0-5) /hpf Ur Squamous Epith Cells 7 H (0-4) /hpf Urine Mucus Rare H (None) /hpf Microbiology - Last 24 Hours (Table) 09/23/20 18:42 Urine Culture - Preliminary Urine,Voided Thrombosis Risk Factor Assmnt - Choose All That Apply Each Factor Represents 1 point: Abnormal pulmonary function (COPD) Each Risk Factor Represents 2 Points: Age 61-74 years Other congenital or acquired thrombophilia - If yes, enter type in comment: No Thrombosis Risk Factor Assessment Total Risk Factor Score: 3 Thrombosis Risk Factor Assessment Level: Moderate Risk Assessment and Plan (1) Chest pain Current Visit: Yes Status: Acute Code(s): R07.9 - CHEST PAIN, UNSPECIFIED SNOMED Code(s): 16378017 (2) Calculus of kidney Current Visit: No Status: Acute Code(s): N20.0 - CALCULUS OF KIDNEY SNOMED Code(s): 08771450 Plan: Plan patient will undergo an echocardiogram and cardiac evaluation she is currently under investigation for the past month by urology and surgical services the condition of her abdomen is very stable at this time without any new changes. She will await colonoscopy in 1 week. If echocardiogram is n egative and cleared by surgery she could be discharged tomorrow morning with outpatient follow-ups for stress test and colonoscopy.
[2020-09-24] MEDS ORDERED: ATORVASTATIN 10 MG TAB PO SCH (21:00)
[2020-09-25 07:23] LABS: Mean Platelet Volume 9.9; Platelet Count 181 k/uL (150-450)
[2020-09-25 08:02] LABS: African American GFR (CKD) >90 (>60 ml/min/1.73 sqM); Anion Gap 8 mmol/L; Blood Urea Nitrogen 10 mg/dL (7-17); Calcium 9.7 mg/dL (8.4-10.2); Carbon Dioxide 26 mmol/L (22-30); Chloride 102 mmol/L (98-107); Glucose 119 mg/dL (74-99); Magnesium 1.5 mg/dL (1.6-2.3); Non-African American GFR(CKD) >90 (>60 ml/min/1.73 sqM); Potassium 3.7 mmol/L (3.5-5.1); Sodium 136 mmol/L (137-145)
[2020-09-25] MEDS ORDERED: Magnesium Replacement Protocol 1 EACH MISC MISCELLANE PRN (08:39)
[2020-09-25 08:41] VITALS: BP 137/84; PULSE 63; RESP 20; TEMP 97.7
[2020-09-25] MEDS: METOPROLOL TARTRATE 25 MG TAB PO SCH (08:54)
[2020-09-25] MEDS: DOCUSATE 100 MG CAP PO SCH (08:54)
[2020-09-25] MEDS: LISINOPRIL-HCTZ 20-12.5 MG 1 EACH TAB PO SCH (08:54)
[2020-09-25] MEDS: ASPIRIN 325 MG TAB PO SCH (08:54)
[2020-09-25] MEDS: NITROFURANTOIN MONOHYD/M-CRYST 100 MG CAP PO SCH (08:54)
[2020-09-25] MEDS: KETOROLAC 15 MG/ML 1 ML VIAL IVP PRN (09:09)
[2020-09-25] MEDS: MAGNESIUM SULFATE-D5W PMX 1 GM in DEXTROSE/WATER 1 100ML.BAG IVPB SCH ×2 (09:12→10:25)
--- NOTE | 2020-09-25 14:06 | P.DS ---
Providers Date of admission: 09/23/20 19:12 Expected date of discharge: 09/25/20 Attending physician: Gary Mosquera Consults: 09/23/20 19:12 Consult Physician Urgent Consulting Provider: Ritika Robertson Consult Reason/Comments: cp Do you want consulting provider notified?: Yes Primary care physician: Gary Mosquera [facility] Course: Final Diagnoses: (1) Chest pain Current Visit: Yes Status: Acute Code(s): R07.9 - CHEST PAIN, UNSPECIFIED SNOMED Code(s): 23170093 (2) Calculus of kidney Current Visit: No Status: Acute Code(s): N20.0 - CALCULUS OF KIDNEY SNOMED Code(s): 90616289 (3) moderate mitral regurgitation (4) borderline pulmonary hypertension (5) hypertension Hospital course:This is a pleasant 69-year-old white female who was admitted to the emergency department last evening with acute atypical chest pain. Patient has been suffering for bilateral little over a month since having acute kidney stones. She was treated by urology and followed up until kidney stones were clear she is underwent extensive testing by Dr. Dial of surgical services had multiple tests and lab work which have been unremarkable. She is scheduled for a colonoscopy next for further evaluation of her colon. Her chest pain is under investigation by cardiology today but so far serial EKGs and enzymes are unremarkable and her pain seems to be more centered in the upper gastric area. Evaluated by cardiology, completed echo reporting normal LV function, EF 55-60%, moderate mitral regurgitation, borderline pulmonary artery hypertension. Significant clinical improvement. Cleared by cardiology for discharge, recommending outpatient stress test. Previously Scheduled for colonoscopy next week. Patient will be discharged home today in a stable condition with guarded prognosis. The impression and plan of care has been dictated as directed. : I performed a history and examination of this patient, discussed the same with the dictator. I agree with the dictator's note ,documented as a scribe. Any additional findings or plans will be noted. Patient Condition at Discharge: Stable Plan - Discharge Summary Discharge Rx Participant: No New Discharge Prescriptions: New Docusate [Colace] 100 mg PO BID cap Continue Lisinopril-Hctz 20-12.5 mg [Zestoretic 20-12.5] 1 tab PO DAILY Atorvastatin [Lipitor] 10 mg PO HS Multivitamins, Thera [Multivitamin (formulary)] 1 tab PO DAILY Ibuprofen [Motrin] 600 mg PO Q8HR PRN #30 tab PRN Reason: Pain Nitrofurantoin Monohyd/M-Cryst [Macrobid] 100 mg PO BID Lidocaine 5% Patch [Lidoderm 5% Patch] 1 patch TRANSDERM DAILY PRN PRN Reason: Pain Changed Cyclobenzaprine [Flexeril] 10 mg PO HS PRN #30 tab PRN Reason: Muscle Spasm Discharge Medication List Lisinopril-Hctz 20-12.5 mg [Zestoretic 20-12.5] 1 tab PO DAILY 02/07/17 [History] Atorvastatin [Lipitor] 10 mg PO HS 07/06/20 [History] Multivitamins, Thera [Multivitamin (formulary)] 1 tab PO DAILY 09/09/20 [History] Ibuprofen [Motrin] 600 mg PO Q8HR PRN #30 tab 09/15/20 [Rx] Lidocaine 5% Patch [Lidoderm 5% Patch] 1 patch TRANSDERM DAILY PRN 09/23/20 [History] Nitrofurantoin Monohyd/M-Cryst [Macrobid] 100 mg PO BID 09/23/20 [History] Cyclobenzaprine [Flexeril] 10 mg PO HS PRN #30 tab 09/25/20 [Rx] Docusate [Colace] 100 mg PO BID cap 09/25/20 [Rx] Follow up Appointment(s)/Referral(s): Dilia Choi MD [STAFF PHYSICIAN] - 2 Weeks (Office will call with appointment date and time) Gary Mosquera DO [Primary Care Provider] - 09/29/20 11:20 am Ambulatory/Diagnostic Orders: Complete Blood Count w/diff [LAB.AMB] Time Frame: 3 Days, Location: None Selected Patient Instructions/Handouts: Chest Pain (ED), Urinary Tract Infection in [place] (DC), Heart Healthy Diet (DC)
== END 2020-09-25 12:21 ==
LOC: EC 17:28 → 3NCARDOBS 19:12
PROVIDERS: ADMIT Family Medicine; ATTEND Family Medicine
DX: R07.89 Other chest pain (principal); R53.1 Weakness; N20.0 Calculus of kidney; R10.9 Unspecified abdominal pain; I34.0 Nonrheumatic mitral (valve) insufficiency; I27.20 Pulmonary hypertension, unspecified; I10 Essential (primary) hypertension; K21.9 Gastro-esophageal reflux disease without esophagitis; M19.90 Unspecified osteoarthritis, unspecified site; J43.9 Emphysema, unspecified; N28.9 Disorder of kidney and ureter, unspecified; E78.5 Hyperlipidemia, unspecified; R94.31 Abnormal electrocardiogram [ECG] [EKG]; Z79.899 Other long term (current) drug therapy; Z79.1 Long term (current) use of non-steroidal anti-inflammatories (NSAID); Z87.442 Personal history of urinary calculi; Z90.49 Acquired absence of other specified parts of digestive tract; Z98.890 Other specified postprocedural states; Z87.19 Personal history of other diseases of the digestive system; Z87.898 Personal history of other specified conditions; Z91.89 Other specified personal risk factors, not elsewhere classified; Z83.3 Family history of diabetes mellitus
CPT/HCPCS: 93005 ×2; 96366 ×3; 96368; 96376 ×3; 96365; 96375; 99285; 36415; 93306; 83880; 80061; 80053; 80048; 82550; 83735 ×2; 84100; 84484 ×2; 85025; 85049 ×2; 85610; 85730 ×2; 86140; 81001; 87086; 71046; G0378 ×3; J2270; J1644 ×2; J3475 ×2; J1885 ×2

== ENCOUNTER → 2020-09-28 | Outpatient (CLI) | payer MEDICARE ==
[2020-09-28 13:17] LABS: HCT 45.3 % (34.0-46.0); HGB 15.1 gm/dL (11.4-16.0); MCH 31.5 pg (25.0-35.0); MCHC 33.4 g/dL (31.0-37.0); MCV 94.4 fL (80.0-100.0); Platelet Count 214 k/uL (150-450); RDW 12.7 % (11.5-15.5)
== END | disposition home or self-care (01) ==
LOC: LABWHC1 10:43
PROVIDERS: ATTEND Nurse Practitioner
DX: R07.9 Chest pain, unspecified (principal)
CPT/HCPCS: 36415; 85027

== ENCOUNTER 2020-10-01 08:28 | Day surgery (SDC) | payer MEDICARE ==
[2020-09-29 14:39] VITALS: BMI 24.9
[~2020-10-01 08:28] MED LIST changes: -DEXAMETHASONE SOD PHOSPHATE 10 MG/ML 1 ML VIAL IV ONE; -GLYCOPYRROLATE 0.2 MG/ML 2 ML VIAL ONE; -HYDROmorphone 0.5 MG/0.5 ML SYRINGE IVP PRN; -LIDOCAINE 1% (10MG/ML) FOR IV START INTRADERMA PRN; -LIDOCAINE 1% INJ 10MG/ML (20 ML MDV) ONE; -MIDAZOLAM 2 MG/2 ML VIAL ONE; -NEOSTIGMINE 1 MG/ML 10 ML VIAL ONE; -ONDANSETRON 4 MG/2 ML VIAL IVP PRN; -PROPOFOL 10 MG/ML 20 ML VIAL IV ONE; -ROCURONIUM BROMIDE 10 MG/ML 5 ML VIAL IV ONE; -SUCCINYLCHOLINE CHLORIDE 100 MG/5 ML SYR IV ONE; -fentaNYL (PF) 50 MCG/ML 2 ML AMP ONE; -hydrALAZINE HCL 20 MG/ML 1 ML VIAL IV ONE
[2020-10-01 09:02] VITALS: TEMP 97.2
[2020-10-01] MEDS ORDERED: ONDANSETRON 4 MG/2 ML VIAL ONE (09:17)
[2020-10-01] MEDS ORDERED: PROPOFOL 10 MG/ML 20 ML VIAL IV ONE (09:27)
--- NOTE | 2020-10-01 09:30 | P.GSHP ---
History of Present Illness H&P Date: 10/01/20 Chief Complaint: Constipation This a 61-year-old female with historyof constipation. Patient's today for colonoscopy. Past Medical History Past Medical History: COPD, GERD/Reflux, Hyperlipidemia, Hypertension, Osteoarthritis (OA) Additional Past Medical History / Comment(s): emphysema, lesion on left kidney. kidney stones, constipation, History of Any Multi-Drug Resistant Organisms: None Reported Past Surgical History: Appendectomy, Bladder Surgery, Cholecystectomy, Hernia Repair, Orthopedic Surgery Additional Past Surgical History / Comment(s): corrective eye surgery., sinus surgery., jaw surg., bladder suspendion, lithotripsy, surgery for hammetoe deya feet Past Anesthesia/Blood Transfusion Reactions: Postoperative Nausea & Vomiting (PONV) Smoking Status: Never smoker - Past Family History Mother Family Medical History: Cancer Medications and Allergies Home Medications Medication Instructions Recorded Confirmed Type Lisinopril-Hctz 20-12.5 mg 1 tab PO DAILY 02/07/17 09/29/20 History [Zestoretic 20-12.5] Atorvastatin [Lipitor] 10 mg PO HS 07/06/20 09/29/20 History Multivitamins, Thera [Multivitamin 1 tab PO DAILY 09/09/20 09/29/20 History (formulary)] Ibuprofen [Motrin] 600 mg PO Q8HR PRN #30 tab 09/15/20 09/29/20 Rx Lidocaine 5% Patch [Lidoderm 5% 1 patch TRANSDERM DAILY PRN 09/23/20 09/29/20 History Patch] Cyclobenzaprine [Flexeril] 10 mg PO HS PRN #30 tab 09/25/20 09/29/20 Rx Docusate [Colace] 100 mg PO BID cap 09/25/20 09/29/20 Rx Allergies Allergy/AdvReac Type Severity Reaction Status Date / Time No Known Allergies Allergy Verified 10/01/20 08:53 Surgical - Exam Vital Signs Temp Pulse Resp BP Pulse Ox 97.2 F L 110 H 16 138/86 96 10/01/20 09:01 10/01/20 09:01 10/01/20 09:01 10/01/20 09:01 10/01/20 09:01 - General well developed, well nourished, no distress - Eyes PERRL - ENT normal pinna - Neck no masses - Respiratory normal expansion - Cardiovascular Rhythm: regular - Abdomen Abdomen: soft, non tender Assessment and Plan Assessment: History of constipation we will perform colonoscopy.
--- NOTE | 2020-10-01 09:47 | P.OP ---
Date of Procedure: 10/01/20 Preoperative Diagnosis: Constipation Postoperative Diagnosis: Tortuous colon Procedure(s) Performed: Colonoscopy Anesthesia: MAC Surgeon: Ryan Delatorre Pathology: none sent Condition: stable Disposition: PACU Description of Procedure: Patient's placed on the endoscopy table lateral position. She received IV sedation. Digital rectal exam was performed which revealed no abnormalities. Flexible colonoscope was placed in the patient's anus passed throughout the colon. The colonoscope could not be advanced into the right colon secondary to tortuosity valve. At this point scope withdrawn the transverse colon, descending colon and sigmoid colon appeared normal. Scope summer back the rectum and this appeared normal scope was withdrawn for patient. Patient was scheduled for a barium enema to evaluate the right colon.
[2020-10-01 10:26] VITALS: BP 137/88; PULSE 83; RESP 16
--- NOTE | 2020-10-01 12:05 | FL ---
EXAMINATION TYPE: FL barium enema w air contrast DATE OF EXAM: 10/01/2020 COMPARISON: CT abdomen and pelvis August 29, 2020. Abdominal x-ray September 09, 2020 HISTORY: Constipation and weight loss. Failed colonoscopy. TECHNIQUE: A double contrast barium enema study is attempted. 10 spot images saved to PACS. A total 2 minutes 32 seconds fluoroscopic time. FINDINGS: Electrical Continuity Inspector view of the abdomen redemonstrates cholecystectomy clips. Some gas prominent colonic loops particularly in the right abdomen noted consistent with history of recent attempted colonoscop y. Underlying scoliosis redemonstrated. Tip is inflated into rectum. Balloon is inflated. There is good flow of contrast initially. There is than stasis with inability to pass more contrast in the distal transverse colon level due to marked p roximal colonic air. At this point exam had to be terminated. Markedly redundant transverse colon is noted. IMPRESSION: Unsuccessful attempted double contrast barium enema due to air lock or remnant prominent air in the proximal colon. Nondiagnostic. Advise repeat enema and/or CT colonoscopy in 1 week time.
== END 2020-10-01 10:29 | disposition home or self-care (01) ==
LOC: ORWHC2ENDO 08:28
PROVIDERS: ATTEND Surgery
DX: Q43.8 Other specified congenital malformations of intestine (principal); K21.9 Gastro-esophageal reflux disease without esophagitis; E78.5 Hyperlipidemia, unspecified; I10 Essential (primary) hypertension; M19.90 Unspecified osteoarthritis, unspecified site; J43.9 Emphysema, unspecified; N28.9 Disorder of kidney and ureter, unspecified; Z87.442 Personal history of urinary calculi; Z90.49 Acquired absence of other specified parts of digestive tract; Z98.890 Other specified postprocedural states; Z87.19 Personal history of other diseases of the digestive system; Z87.39 Personal history of other diseases of the musculoskeletal system and connective tissue; Z91.89 Other specified personal risk factors, not elsewhere classified; Z79.899 Other long term (current) drug therapy; Z79.1 Long term (current) use of non-steroidal anti-inflammatories (NSAID); Z80.9 Family history of malignant neoplasm, unspecified
CPT/HCPCS: 74280; 45378; J2405; J2704

== ENCOUNTER → 2020-10-07 | Outpatient (CLI) | payer MEDICARE ==
--- NOTE | 2020-10-07 22:18 | CT ---
EXAMINATION TYPE: CT abdomen pelvis w con DATE OF EXAM: 10/07/2020 COMPARISON: 08/29/2020, 07/06/2020 INDICATION: Abdominal pain post colostomy. DLP: 593.5 mGycm, Automated exposure control for dose reduction was used. CONTRAST: 80ml mL of Isovue 300. Study performed with Oral Contrast TECHNIQUE: Axial images were obtained from above the diaphragm to the pubic rami in the axial plane a t 5 mm thick sections. Reconstructed images are reviewed on the computer in the coronal plane. FINDINGS: Limited CT sections are obtained the lung bases. The lung bases are clear. CT ABDOMEN: Liver: Normal Spleen: Normal Pancreas: There is some mild fullness within the posterior body of the tail of the pancreas. Series 3 image 18. This area appears similar to the comparison study monitoring is recommended this measures 1.3 x 2.6 cm and is better visualized postcontrast. Adrenal glands: The adrenal glands are normal. Gallbladder: Normal Kidneys: There is a heterogenous mass on the posterior medial mid left kidney measuring 2.6 cm in siz e. This appears stable. No hydronephrosis is present. Scattered small cortical renal cysts are pres ent. 0.3 cm calcifications in the anterior inferior left kidney. Aorta: Normal Inferior vena cava: Normal. CT PELVIS: Loops of bowel within the abdomen and pelvis are normal. There are loops of bowel which are incom pletely distended or lack oral contrast limiting their evaluation. Appendix: Normal as visualized. Urinary bladder: Decompressed with limited evaluation Genitourinary structures: Uterus and ovaries are not identified. Osseous structures: Small sclerotic areas in the posterior left sacral ala could be a small bone raul nd. Facet degenerative changes are present within the lower lumbar spine. IMPRESSIONS: 1. Low density heterogenous mass posterior medial left kidney may be an angiomyolipoma. 2. A slightly hypodense mass within the posterior tail of pancreas is not excluded. However, stabilit y from the recent comparison suggests this a benign process.
== END | disposition home or self-care (01) ==
LOC: RADCTMAIN 12:55
PROVIDERS: ATTEND Surgery
DX: N28.89 Other specified disorders of kidney and ureter (principal)
CPT/HCPCS: 82565; 84520; 74177; 36415; Q9967

== ENCOUNTER 2020-10-23 07:05 | Day surgery (SDC) | payer MEDICARE ==
[2020-10-19 15:54] VITALS: BMI 23.9
[~2020-10-23 07:05] MED LIST changes: +LIDOCAINE 1% (10MG/ML) FOR IV START INTRADERMA PRN
[2020-10-23 07:37] VITALS: RESP 16; TEMP 97.9
[2020-10-23] MEDS ORDERED: ONDANSETRON 4 MG/2 ML VIAL ONE (07:45)
[2020-10-23] MEDS ORDERED: ONDANSETRON 4 MG/2 ML VIAL IVP ONE (07:48)
[2020-10-23] MEDS ORDERED: PROPOFOL 10 MG/ML 20 ML VIAL IV ONE (08:00)
[2020-10-23] MEDS ORDERED: LIDOCAINE 1% INJ 10MG/ML (20 ML MDV) ONE (08:00)
--- NOTE | 2020-10-23 08:15 | P.GSHP ---
History of Present Illness H&P Date: 10/23/20 Chief Complaint: Gastritis This is a 61-year-old female who's had complaints of epigastric abdominal pain. Patient to evaluate for gastritis. Past Medical History Past Medical History: Chest Pain / Angina, COPD, GERD/Reflux, Hypertension, Osteoarthritis (OA) Additional Past Medical History / Comment(s): emphysema, lesion on kidneys. kidney stones, recent inpt r/t chest pain History of Any Multi-Drug Resistant Organisms: None Reported Past Surgical History: Appendectomy, Bladder Surgery, Cholecystectomy, Hernia Repair, Orthopedic Surgery Additional Past Surgical History / Comment(s): corrective eye surg., sinus surg., jaw surg., foot surg. rt knee surgery meniscus repair, rt shoulder rotator cuff repair Past Anesthesia/Blood Transfusion Reactions: Motion Sickness, Postoperative Nausea & Vomiting (PONV) Smoking Status: Never smoker - Past Family History Mother Family Medical History: Cancer Medications and Allergies Home Medications Medication Instructions Recorded Confirmed Type Lisinopril-Hctz 20-12.5 mg 1 tab PO DAILY 02/07/17 10/23/20 History [Zestoretic 20-12.5] Atorvastatin [Lipitor] 10 mg PO HS 07/06/20 10/23/20 History Multivitamins, Thera [Multivitamin 1 tab PO DAILY 09/09/20 10/23/20 History (formulary)] Ibuprofen [Motrin] 600 mg PO Q8HR PRN #30 tab 09/15/20 10/23/20 Rx Lidocaine 5% Patch [Lidoderm 5% 1 patch TRANSDERM DAILY PRN 09/23/20 10/23/20 History Patch] Cyclobenzaprine [Flexeril] 10 mg PO HS PRN #30 tab 09/25/20 10/23/20 Rx Docusate [Colace] 100 mg PO BID PRN 10/19/20 10/23/20 History Allergies Allergy/AdvReac Type Severity Reaction Status Date / Time No Known Allergies Allergy Verified 10/19/20 15:46 Surgical - Exam Vital Signs Temp Pulse Resp BP Pulse Ox 97.9 F 104 H 16 147/87 97 10/23/20 07:32 10/23/20 07:32 10/23/20 07:32 10/23/20 07:32 10/23/20 07:32 - General well developed, well nourished, no distress - Eyes PERRL - ENT normal pinna - Neck no masses - Respiratory normal expansion - Cardiovascular Rhythm: regular - Abdomen Abdomen: soft, non tender Assessment and Plan Assessment: Epigastric abdominal pain. We'll perform EGD to evaluate for gastritis.
--- NOTE | 2020-10-23 08:18 | P.OP ---
Date of Procedure: 10/23/20 Preoperative Diagnosis: Epigastric dull pain Postoperative Diagnosis: Antral gastritis Procedure(s) Performed: EGD Anesthesia: MAC Surgeon: Ryan Dealtorre Pathology: other (Antrum) Condition: stable Disposition: PACU Description of Procedure: Patient's placed on the endoscopy table in the lateral position. She received IV sedation. The gastroscope placed oropharynx passed in the esophagus and stomach. Scope some placed pylorus. The first and second portion of duodenum appeared normal. Scope summer back the antrum and this was mildly inflamed. A biopsies performed. Scope was retroflexed and remainder the stomach appeared normal. The GE junction was at 440 cms. The distal esophagus. Per the proximal esophagus.. There is no evidence of a significant hiatal hernia. Scope was withdrawn for patient.
[2020-10-23 08:36] VITALS: BP 153/84; PULSE 89
== END 2020-10-23 08:42 | disposition home or self-care (01) ==
LOC: ORWHC2ENDO 07:05
PROVIDERS: ATTEND Surgery
DX: K29.50 Unspecified chronic gastritis without bleeding (principal); K21.9 Gastro-esophageal reflux disease without esophagitis; I10 Essential (primary) hypertension; J44.9 Chronic obstructive pulmonary disease, unspecified; M19.90 Unspecified osteoarthritis, unspecified site; Z79.899 Other long term (current) drug therapy; Z79.1 Long term (current) use of non-steroidal anti-inflammatories (NSAID); Z87.442 Personal history of urinary calculi; Z90.49 Acquired absence of other specified parts of digestive tract; Z98.890 Other specified postprocedural states; Z80.9 Family history of malignant neoplasm, unspecified
CPT/HCPCS: 88305; 43239; J2405; J2001; J2704

== ENCOUNTER → 2020-11-05 | Outpatient (CLI) | payer MEDICARE ==
--- NOTE | 2020-11-05 09:30 | XR ---
EXAMINATION TYPE: XR thoracic spine complete DATE OF EXAM: 11/05/2020 CLINICAL HISTORY: Mid back pain for a few months. TECHNIQUE: Frontal, lateral, and swimmer's view of thoracic spine are obtained. COMPARISON: Prior chest x-ray September 23, 2020 FINDINGS: Thoracic spine redemonstrates levoconvex scoliosis centered lower thoracic spine with strai ghtening of spine on bilateral images. Vertebral body heights remain preserved. Mild to moderate dis c space narrowing at approximately T7-T8 and T8-T9 level with moderate spurring is noted. Visualize d ribs are intact. IMPRESSION: As above.
== END | disposition home or self-care (01) ==
LOC: RADXRMAIN 08:55
PROVIDERS: ATTEND Family Medicine
DX: M48.04 Spinal stenosis, thoracic region (principal)
CPT/HCPCS: 72072

== ENCOUNTER 2020-11-26 15:42 | Emergency (ER) | payer MEDICARE ==
[2020-11-26 15:57] VITALS: TEMP 97.9
[2020-11-26] MEDS ORDERED: SODIUM CHLORIDE 0.9% 500 ML 500 ML IV ONE (16:21)
[2020-11-26] MEDS ORDERED: SODIUM CHLORIDE 0.9% 1,000 ML IV SCH (16:30)
[2020-11-26 17:08] LABS: Basophils # (A) 0.1 k/uL (0-0.2); Basophils % (A) 1 %; Eosinophils # (A) 0.2 k/uL (0-0.7); Eosinophils % (A) 2 %; HCT 43.3 % (34.0-46.0); HGB 15.2 gm/dL (11.4-16.0); Lymphocytes % (A) 23 %; MCH 32.9 pg (25.0-35.0); MCHC 35.1 g/dL (31.0-37.0); MCV 93.6 fL (80.0-100.0); Mean Platelet Volume 8.7; Monocytes # (A) 0.4 k/uL (0-1.0); Monocytes % (A) 5 %; Neutrophils # (A) 6.2 k/uL (1.3-7.7); Neutrophils % (A) 69 %; Platelet Count 259 k/uL (150-450); RBC 4.62 m/uL (3.80-5.40); RDW 12.3 % (11.5-15.5)
[2020-11-26 17:24] LABS: ALT 38 U/L (4-34); AST 30 U/L (14-36); African American GFR (CKD) >90 (>60 ml/min/1.73 sqM); Albumin 4.1 g/dL (3.5-5.0); Alkaline Phosphatase 82 U/L (38-126); Amylase 45 U/L (30-110); Anion Gap 10 mmol/L; Blood Urea Nitrogen 17 mg/dL (7-17); Calcium 10.4 mg/dL (8.4-10.2); Carbon Dioxide 26 mmol/L (22-30); Chloride 100 mmol/L (98-107); Glucose 114 mg/dL (74-99); Lipase 94 U/L (23-300); Non-African American GFR(CKD) >90 (>60 ml/min/1.73 sqM); Potassium 3.4 mmol/L (3.5-5.1); Sodium 136 mmol/L (137-145); Total Bilirubin 0.7 mg/dL (0.2-1.3); Total Protein 6.9 g/dL (6.3-8.2)
[2020-11-26 17:25] LABS: Appearance,Urine Cloudy (Clear); Bacteria,Urine Rare /hpf; Bilirubin,Urine Negative (Negative); Blood,Urine Negative (Negative); Color,Urine Yellow; Glucose,Urine (UA) Negative (Negative); Hyaline Casts,Urine 1 /lpf (0-2); Ketones,Urine Negative (Negative); Leukocyte Esterase,Urine Large (Negative); Mucus,Urine Few /hpf; Nitrite,Urine Negative (Negative); PH, Urine 6.5 (5.0-8.0); Protein,Urine Trace (Negative); Specific Gravity,Urine 1.019 (1.001-1.035); Squamous Epithelial Cell,Urine 6 /hpf (0-4); Urobilinogen,Urine <2.0 mg/dL (<2.0); WBC,Urine 35 /hpf (0-5)
[2020-11-26] MEDS ORDERED: cefTRIAXone IN SWFI 1,000 MG/10 ML SYRINGE IVP STA (17:35)
--- NOTE | 2020-11-26 18:03 | ED ---
Abdominal Pain HPI - General Source: patient Mode of arrival: ambulatory Limitations: no limitations <Sonam Florentino - Last Filed: 11/26/20 18:54> <Sherita Villanueva - Last Filed: 11/27/20 00:02> - General Chief Complaint: Abdominal Pain Stated Complaint: back/side Time Seen by Provider: 11/26/20 16:02 - History of Present Illness Initial Comments: 70-year-old female presenting today for chief complaint of right upper quadrant abdominal pain patient has previous cholecystectomy but states she has had right side/upper quadrant dull pain x 2 days. She states is sharp in nature coming going. She states that she is not sure if it is her lung or her abdomen. She denies vomiting diarrhea she states she has some nausea she denies chest pain or shortness of breath. Patient denies fevers. Patient states she has had some pain in the back. She denies urinary symptoms, hematuria. Patient denies chest pressure. Pt denies epigastric pain, bloody or dark stools. overall patient is very poor at describing symptoms--even with prompting. Patient denies additional complaints. (Sonam Florentino) - Related Data Home Medications Medication Instructions Recorded Confirmed Lisinopril-Hctz 20-12.5 mg 1 tab PO DAILY 02/07/17 11/26/20 [Zestoretic 20-12.5] Atorvastatin [Lipitor] 10 mg PO HS 07/06/20 11/26/20 Allergies Allergy/AdvReac Type Severity Reaction Status Date / Time No Known Allergies Allergy Verified 11/26/20 17:35 Review of Systems ROS Other: All systems not noted in ROS Statement are negative. <Sonam Florentino - Last Filed: 11/26/20 18:54> ROS Other: All systems not noted in ROS Statement are negative. <Sherita Villanueva - Last Filed: 11/27/20 00:02> ROS Statement: Those systems with pertinent positive or pertinent negative responses have been documented in the HPI. Past Medical History Past Medical History: Chest Pain / Angina, COPD, GERD/Reflux, Hypertension, Osteoarthritis (OA) Additional Past Medical History / Comment(s): emphysema, lesion on kidneys. kidney stones, recent inpt r/t chest pain History of Any Multi-Drug Resistant Organisms: None Reported Past Surgical History: Appendectomy, Bladder Surgery, Cholecystectomy, Hernia Repair, Orthopedic Surgery Additional Past Surgical History / Comment(s): corrective eye surg., sinus surg., jaw surg., foot surg. rt knee surgery meniscus repair, rt shoulder rotator cuff repair Past Anesthesia/Blood Transfusion Reactions: Motion Sickness, Postoperative Nausea & Vomiting (PONV) Past Psychological History: No Psychological Hx Reported Smoking Status: Never smoker Past Alcohol Use History: None Reported Past Drug Use History: None Reported - Past Family History Mother Family Medical History: Cancer <Sonam Florentino - Last Filed: 11/26/20 18:54> General Exam Limitations: no limitations <Sonam Florentino - Last Filed: 11/26/20 18:54> Course Vital Signs 11/26/20 11/26/20 11/26/20 15:55 18:53 21:27 Temperature 97.9 F 97.9 F Pulse Rate 96 88 82 Respiratory 20 14 18 Rate Blood Pressure 116/73 110/68 142/93 O2 Sat by Pulse 99 98 97 Oximetry Medical Decision Making - Lab Data Result diagrams: 11/26/20 16:33 11/26/20 16:33 <Sonam Florentino - Last Filed: 11/26/20 18:54> - Lab Data Result diagrams: 11/26/20 16:33 11/26/20 16:33 - Radiology Data Radiology results: report reviewed, image reviewed <Sherita Villanueva - Last Filed: 11/27/20 00:02> - Medical Decision Making 70-year-old female patient presented to the emergency department today for evaluation of right upper quadrant abdominal/right rib pain. Physical examination did reveal some tenderness over the area. I did receive this p atient has a handoff from Sonam Florentino PA-c to follow up on CT scans. I did review the scans. There is evidence for pancreatic tail thickening that was also present on a previous CT. I did discuss these findings with the patient, she was not aware of these changes. We did discuss possibilities of pancreatic cancer that she needs to follow-up with the GI specialist for further evaluation and possible MRI. She is given pain medication for home. She is instructed to follow-up with her primary care physician for recheck in 1-2 days. Return parameters were discussed in detail. She verbalizes understanding and agrees with this plan. (Sherita Villanueva) - Lab Data Lab Results 11/26/20 11/26/20 11/26/20 Range/Units 16:33 16:33 16:33 WBC 9.0 (3.8-10.6) k/uL RBC 4.62 (3.80-5.40) m/uL Hgb 15.2 (11.4-16.0) gm/dL Hct 43.3 (34.0-46.0) % MCV 93.6 (80.0-100.0) fL MCH 32.9 (25.0-35.0) pg MCHC 35.1 (31.0-37.0) g/dL RDW 12.3 (11.5-15.5) % Plt Count 259 (150-450) k/uL MPV 8.7 Neutrophils % 69 % Lymphocytes % 23 % Monocytes % 5 % Eosinophils % 2 % Basophils % 1 % Neutrophils # 6.2 (1.3-7.7) k/uL Lymphocytes # 2.0 (1.0-4.8) k/uL Monocytes # 0.4 (0-1.0) k/uL Eosinophils # 0.2 (0-0.7) k/uL Basophils # 0.1 (0-0.2) k/uL PT (9.0-12.0) sec INR (<1.2) APTT (22.0-30.0) sec D-Dimer (<0.60) mg/L FEU Sodium 136 L (137-145) mmol/L Potassium 3.4 L (3.5-5.1) mmol/L Chloride 100 (98-107) mmol/L Carbon Dioxide 26 (22-30) mmol/L Anion Gap 10 mmol/L BUN 17 (7-17) mg/dL Creatinine 0.47 L (0.52-1.04) mg/dL Est GFR (CKD-EPI)AfAm >90 (>60 ml/min/1.73 sqM) Est GFR (CKD-EPI)NonAf >90 (>60 ml/min/1.73 sqM) Glucose 114 H (74-99) mg/dL Plasma Lactic Acid Papito (0.7-2.0) mmol/L Calcium 10.4 H (8.4-10.2) mg/dL Total Bilirubin 0.7 (0.2-1.3) mg/dL AST 30 (14-36) U/L ALT 38 H (4-34) U/L Alkaline Phosphatase 82 (38-126) U/L Troponin I (0.000-0.034) ng/mL Total Protein 6.9 (6.3-8.2) g/dL Albumin 4.1 (3.5-5.0) g/dL Amylase 45 (30-110) U/L Lipase 94 (23-300) U/L Urine Color Yellow Urine Appearance Cloudy H (Clear) Urine pH 6.5 (5.0-8.0) Ur Specific [place] 1.019 (1.001-1.035) Urine Protein Trace H (Negative) Urine Glucose (UA) Negative (Negative) Urine Ketones Negative (Negative) Urine Blood Negative (Negative) Urine Nitrite Negative (Negative) Urine Bilirubin Negative (Negative) Urine Urobilinogen <2.0 (<2.0) mg/dL Ur Leukocyte Esterase Large H (Negative) Urine WBC 35 H (0-5) /hpf Ur Squamous Epith Cells 6 H (0-4) /hpf Urine Bacteria Rare H (None) /hpf Hyaline Casts 1 (0-2) /lpf Urine Mucus Few H (None) /hpf 11/26/20 11/26/20 11/26/20 Range/Units 16:33 16:33 17:54 WBC (3.8-10.6) k/uL RBC (3.80-5.40) m/uL Hgb (11.4-16.0) gm/dL Hct (34.0-46.0) % MCV (80.0-100.0) fL MCH (25.0-35.0) pg MCHC (31.0-37.0) g/dL RDW (11.5-15.5) % Plt Count (150-450) k/uL MPV Neutrophils % % Lymphocytes % % Monocytes % % Eosinophils % % Basophils % % Neutrophils # (1.3-7.7) k/uL Lymphocytes # (1.0-4.8) k/uL Monocytes # (0-1.0) k/uL Eosinophils # (0-0.7) k/uL Basophils # (0-0.2) k/uL PT 10.7 (9.0-12.0) sec INR 1.0 (<1.2) APTT 19.3 L (22.0-30.0) sec D-Dimer 0.84 H (<0.60) mg/L FEU Sodium (137-145) mmol/L Potassium (3.5-5.1) mmol/L Chloride (98-107) mmol/L Carbon Dioxide (22-30) mmol/L Anion Gap mmol/L BUN (7-17) mg/dL Creatinine (0.52-1.04) mg/dL Est GFR (CKD-EPI)AfAm (>60 ml/min/1.73 sqM) Est GFR (CKD-EPI)NonAf (>60 ml/min/1.73 sqM) Glucose (74-99) mg/dL Plasma Lactic Acid Papito 1.6 (0.7-2.0) mmol/L Calcium (8.4-10.2) mg/dL Total Bilirubin (0.2-1.3) mg/dL AST (14-36) U/L ALT (4-34) U/L Alkaline Phosphatase (38-126) U/L Troponin I <0.012 (0.000-0.034) ng/mL Total Protein (6.3-8.2) g/dL Albumin (3.5-5.0) g/dL Amylase (30-110) U/L Lipase (23-300) U/L Urine Color Urine Appearance (Clear) Urine pH (5.0-8.0) Ur Specific [place] (1.001-1.035) Urine Protein (Negative) Urine Glucose (UA) (Negative) Urine Ketones (Negative) Urine Blood (Negative) Urine Nitrite (Negative) Urine Bilirubin (Negative) Urine Urobilinogen (<2.0) mg/dL Ur Leukocyte Esterase (Negative) Urine WBC (0-5) /hpf Ur Squamous Epith Cells (0-4) /hpf Urine Bacteria (None) /hpf Hyaline Casts (0-2) /lpf Urine Mucus (None) /hpf - Radiology Data Two-view x-ray of the chest is obtained. Report was reviewed in its entirety. Impression by Dr. Newton Wasserman shows no acute process per CT angiography of the chest was obtained for pulmonary embolism. Report was reviewed in its entirety. Impression by Dr. Skaggs shows negative for pulmonary embolus some other acute thoracic process. Coronary calcifications noted. CT abdomen and pelvis with contrast was obtained. Report was reviewed in its entirety. Impression by Dr. Newton Wasserman shows pink-red detail abdomen amount he has discussed. Otherwise stable CT abdomen and pelvis with contrast. Compared to the 10/07/2020 CT. (Sherita Villanueva) Disposition <[email or web address] L - Last Filed: 11/26/20 18:54> Is patient prescribed a controlled substance at d/c from ED?: No Time of Disposition: 21:04 <Sherita Villanueva - Last Filed: 11/27/20 00:02> Clinical Impression: Abdominal pain Narrative: Pancreatic tail thickening (Sherita Villanueva) Disposition: HOME SELF-CARE Condition: Good Instructions (If sedation given, give patient instructions): Abdominal Pain (ED) Additional Instructions: Follow-up with the GI specialist for further evaluation of her abnormal CT of the pancreas. Follow-up with her primary care physician for recheck in 1-2 days, discuss further pain medication. Return to the emergency department for any new, worsening, or concerning symptoms. Referrals: Gary Mosquera DO [Primary Care Provider] - 1-2 days
--- NOTE | 2020-11-26 18:12 | XR ---
EXAMINATION: XR chest 2V DATE AND TIME: 11/26/2020 5:59 PM CLINICAL INDICATION: PHH; right rib pain TECHNIQUE: Departmental protocol COMPARISON: 09/23/2020 FINDINGS: The lungs are clear. The pleural spaces are negative. The cardiac silhouette is not enlarged. The remainder of the mediastinal silhouette is unremarkable. The skeletal structures and soft tissues are negative for acute findings. Specifically, the right rib s are radiographically negative. IMPRESSION: NO ACUTE PROCESS.
[2020-11-26 18:32] LABS: Prothrombin Time 10.7 sec (9.0-12.0)
[2020-11-26 18:35] LABS: Partial Thromboplastin Time 19.3 sec (22.0-30.0)
[2020-11-26 18:37] LABS: D-Dimer 0.84 mg/L FEU (<0.60)
--- NOTE | 2020-11-26 20:26 | CT ---
EXAMINATION TYPE: CT chest angio for PE DATE OF EXAM: 11/26/2020 COMPARISON: Chest x-ray 11/26/2020 HISTORY: ELEVATED D-DIMER, EPIGASTRIC PAIN CT DLP: 239.2 mGycm Automated exposure control for dose reduction was used. CONTRAST: CT Chest for pulmonary embolism performed with with IV Contrast, patient injected with 100 mL of Isovue 300. FINDINGS: LUNGS: The lungs are grossly clear, there is no concerning parenchymal mass or nodule identified. T here is no pleural effusion or pneumothorax seen. The tracheobronchial tree is patent. MEDIASTINUM: There is satisfactory enhancement of the pulmonary artery and its branches, there is no CT evidence for pulmonary embolism. The aorta is negative for acute findings. There are no greater th an 1 cm hilar or mediastinal lymph nodes. No pericardial effusion or cardiomegaly, but coronary calci fications are noted. OTHER: No additional significant abnormality is seen. The skeletal structures are unremarkable. IMPRESSION: 1. Negative for pulmonary embolism or other acute thoracic process. 2. Coronary calcifications noted.
--- NOTE | 2020-11-26 20:33 | CT ---
EXAMINATION TYPE: CT abdomen pelvis w con DATE OF EXAM: 11/26/2020 COMPARISON: 10/07/2020 HISTORY: ELEVATED D-DIMER, EPIGASTRIC PAIN CT DLP: 803 mGycm Automated exposure control for dose reduction was used. TECHNIQUE: Helical acquisition of images was performed from the lung bases through the pelvis. CONTRAST: Performed without Oral Contrast and with IV Contrast, patient injected with 100 mL of Isovu e 300. FINDINGS: LUNG BASES: No significant abnormality is appreciated. LIVER/GB: No significant abnormality is appreciated. PANCREAS: The previously seen pancreatic tail hypodensity is more prominent on the current study, maura suring approximately 3 cm mean diameter, with associated mild indistinctness on the present study, bennett ggesting an element of pancreatitis may be present. In any case, would recommend further evaluation w ith pancreatic protocol abdominal MRI and MRCP without and with contrast. SPLEEN: No significant abnormality is seen. ADRENALS: No significant abnormality is seen. 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 RETROPERITONEAL ADENOPATHY: None visualized REPRODUCTIVE ORGANS: No significant abnormality is seen URINARY BLADDER: No significant abnormality is seen. PELVIC ADENOPATHY: None visualized. OSSEOUS STRUCTURES: No significant abnormality is seen. BOWEL: No significant abnormality is seen. OTHER: No acute vascular findings. IMPRESSION: 1. PANCREATIC TAIL ABNORMALITY DISCUSSED. 2. OTHERWISE STABLE CT ABDOMEN AND PELVIS WITH CONTRAST. COMPARED TO THE 10/07/2020 CT.
[2020-11-26] MEDS ORDERED: ONDANSETRON 4 MG/2 ML VIAL IVP STA (21:02)
[2020-11-26] MEDS ORDERED: MORPHINE SULFATE 4 MG/ML SYRINGE IVP STA (21:02)
[2020-11-26] MEDS ORDERED: ACET/COD 300 MG/30 MG STARTER PACK 6 TAB BTL PO STA (21:02)
[2020-11-26 21:37] VITALS: BP 142/93; PULSE 82; RESP 18
== END 2020-11-26 21:35 | disposition home or self-care (01) ==
LOC: EC 15:42
DX: R10.11 Right upper quadrant pain (principal); R11.0 Nausea; I10 Essential (primary) hypertension; Z79.899 Other long term (current) drug therapy; Z90.49 Acquired absence of other specified parts of digestive tract
CPT/HCPCS: 36415; 93005; 85379; 80053; 82150; 83605; 83690; 84484; 85025; 85610; 85730; 81001; 87086; 87077; 87186; 71046; 71275; 74177; 99285; 96374; 96375 ×2; 96361 ×4; J2270; J2405; J0696; Q9967

== ENCOUNTER → 2020-12-01 | Outpatient (CLI) | payer MEDICARE ==
--- NOTE | 2020-12-01 18:11 | NM ---
EXAMINATION TYPE: NM bone scan whole body DATE OF EXAM: 12/01/2020 COMPARISON: Correlation CT abdomen and pelvis 11/26/2020 HISTORY: 70-year-old female M54.14, thoracic radiculopathy, mid spine pain. TECHNIQUE: Delayed whole-body scanning was performed following the injection of 23.8 mCi Tc 99m MDP. Images acquired 3 hours post injection. FINDINGS: Scattered degenerative tracer activity is noted at the shoulders and sternoclavicular joints. Additio nal degenerative tracer activity involving the posterior elements of the mid to lower thoracic spine and also towards the right within the lower lumbar spine. There is dextroconvex curvature of the lumb ar spine. Some urine contamination is noted. Some degenerative change at the left mid foot and latera l compartment of the right knee. No suspicious distribution of tracer to suggest osseous metastatic d isease. IMPRESSION: Scattered degenerative tracer activity as above. There is a dextroconvex scoliosis of the lumbar spin e.
== END | disposition home or self-care (01) ==
LOC: RADNMMAIN 10:33
PROVIDERS: ATTEND Family Medicine
DX: M47.24 Other spondylosis with radiculopathy, thoracic region (principal); M47.816 Spondylosis without myelopathy or radiculopathy, lumbar region; M19.012 Primary osteoarthritis, left shoulder; M19.011 Primary osteoarthritis, right shoulder; M17.11 Unilateral primary osteoarthritis, right knee; M19.072 Primary osteoarthritis, left ankle and foot; M41.86 Other forms of scoliosis, lumbar region
CPT/HCPCS: 78306; A9503

== ENCOUNTER 2021-02-04 12:44 | Emergency (ER) | payer MEDICARE ==
[2021-02-04 13:13] VITALS: RESP 18; TEMP 98.1
--- NOTE | 2021-02-04 14:25 | ED ---
Abdominal Pain HPI - General Chief Complaint: Abdominal Pain Stated Complaint: elevated liver enzymes Time Seen by Provider: 02/04/21 14:13 Source: patient Mode of arrival: ambulatory Limitations: no limitations - History of Present Illness Initial Comments: 70-year-old female with history of HTN and previous cholecystectomy presenting today for chief complaint of right upper quadrant abdominal pain 1 year and jaundice x 2 days. Patient states that since Monday she has noticed that her skin color has changed. She has had right sided/epigastric of bowel pain for the past year she states is sharp and intermittent are present nearly all the time. She denies any associated nausea vomiting she denies fevers diarrhea she denies alcohol abuse she does a known hepatitis she denies IV drug use. Patient states that she does have some issues with a potassium. She states that since this summer she has lost over 60 pounds. Patietn states the day her daughter noticed the skin change on Monday she went to PCP and has elevated liver enzymes. Patient was told today to come to the ER for further evaluation. patient has no additional complaints. Upon arrival she is obviously jaundice. - Related Data Home Medications Medication Instructions Recorded Confirmed Lisinopril-Hctz 20-12.5 mg 1 tab PO DAILY 02/07/17 02/04/21 [Zestoretic 20-12.5] Atorvastatin [Lipitor] 10 mg PO HS 07/06/20 02/04/21 Lipase/Protease/Amylase [Tenzin Gusman 6,000 units PO DAILY PRN 02/04/21 02/04/21 6,000 Units Capsule] Lipase/Protease/Amylase [Tenzin Gusman 12,000 units PO AC-TID 02/04/21 02/04/21 6,000 Units Capsule] Mirtazapine 7.5 mg PO HS 02/04/21 02/04/21 Potassium Chloride [Klor-Con 20] 20 meq PO DAILY 02/04/21 02/04/21 Allergies Allergy/AdvReac Type Severity Reaction Status Date / Time No Known Allergies Allergy Verified 02/04/21 15:32 Review of Systems ROS Statement: Those systems with pertinent positive or pertinent negative responses have been documented in the HPI. ROS Other: All systems not noted in ROS Statement are negative. Past Medical History Past Medical History: Chest Pain / Angina, COPD, GERD/Reflux, Hypertension, Osteoarthritis (OA) Additional Past Medical History / Comment(s): emphysema, lesion on kidneys. kidney stones, recent inpt r/t chest pain History of Any Multi-Drug Resistant Organisms: None Reported Past Surgical History: Appendectomy, Bladder Surgery, Cholecystectomy, Hernia Repair, Orthopedic Surgery Additional Past Surgical History / Comment(s): corrective eye surg., sinus surg., jaw surg., foot surg. rt knee surgery meniscus repair, rt shoulder rotator cuff repair Past Anesthesia/Blood Transfusion Reactions: Motion Sickness, Postoperative Nausea & Vomiting (PONV) Past Psychological History: No Psychological Hx Reported Smoking Status: Never smoker Past Alcohol Use History: None Reported Past Drug Use History: None Reported - Past Family History Mother Family Medical History: Cancer General Exam - General Exam Comments Initial Comments: General: The patient is awake and alert, in no distress Eye: +3 mm pupils are equal, round and reactive to light, extra-ocular movements are intact. No nystagmus. There is normal conjunctiva bilaterally. Obvious icterus. Ears, nose, mouth and throat: There are moist mucous membranes and no oral lesions. Neck: The neck is supple, there is no tenderness or JVD. Cardiovascular: There is a regular rate and rhythm. No murmur, rub or gallop is appreciated. Respiratory: Lungs are clear to auscultation, respirations are non-labored, breath sounds are equal. No wheezes, stridor, rales, or rhonchi. Gastrointestinal: Soft, non-distended, midll epigastric tenderness, abdomen is without masses or organomegaly noted. There is no rebound or guarding present. Musculoskeletal: Normal ROM, no tenderness. Strength 5/5. Sensation intact. Radial and DP pulses equal bilaterally 2+. Neurological: A&O x 3. CN II-XII intact grossly, There are no obvious motor or sensory deficits. Coordination appears grossly intact. Speech is normal. Skin: Skin is warm and dry and no rashes or lesions are noted. Psychiatric: Cooperative, appropriate mood & affect, normal judgment. Limitations: no limitations Course Vital Signs 02/04/21 02/04/21 13:10 16:00 Temperature 98.1 F Pulse Rate 96 72 Respiratory 18 18 Rate Blood Pressure 109/69 107/78 O2 Sat by Pulse 97 95 Oximetry Medical Decision Making - Medical Decision Making 70-year-old presenting for jaundice. Pancreatic mass diagnosed in November. Now the mass has doubled there is biliary obstruction and looks like metastasis to the liver. Patient case disucssed with Dr Hanson feels given patient will need pain. Extend the transfer to [facility] or [facility] to see Dr Ames on outpatient basis, practices. Transfer accepted by Dr Corona. Patient agreeable to care plan and transfer. - Lab Data Result diagrams: 02/04/21 14:54 02/04/21 14:54 Lab Results 02/04/21 02/04/21 02/04/21 Range/Units 14:54 14:54 14:54 WBC 7.6 (3.8-10.6) k/uL RBC 4.56 (3.80-5.40) m/uL Hgb 14.8 (11.4-16.0) gm/dL Hct 44.3 (34.0-46.0) % MCV 97.3 (80.0-100.0) fL MCH 32.5 (25.0-35.0) pg MCHC 33.4 (31.0-37.0) g/dL RDW 13.2 (11.5-15.5) % Plt Count 228 (150-450) k/uL MPV 9.5 Neutrophils % 80 % Lymphocytes % 13 % Monocytes % 4 % Eosinophils % 2 % Basophils % 1 % Neutrophils # 6.1 (1.3-7.7) k/uL Lymphocytes # 1.0 (1.0-4.8) k/uL Monocytes # 0.3 (0-1.0) k/uL Eosinophils # 0.2 (0-0.7) k/uL Basophils # 0.1 (0-0.2) k/uL APTT (22.0-30.0) sec Sodium 133 L (137-145) mmol/L Potassium 4.0 (3.5-5.1) mmol/L Chloride 99 (98-107) mmol/L Carbon Dioxide 24 (22-30) mmol/L Anion Gap 10 mmol/L BUN 16 (7-17) mg/dL Creatinine 0.42 L (0.52-1.04) mg/dL Est GFR (CKD-EPI)AfAm >90 (>60 ml/min/1.73 sqM) Est GFR (CKD-EPI)NonAf >90 (>60 ml/min/1.73 sqM) Glucose 132 H (74-99) mg/dL Calcium 10.2 (8.4-10.2) mg/dL Total Bilirubin 13.5 H (0.2-1.3) mg/dL AST 204 H (14-36) U/L ALT 411 H (4-34) U/L Alkaline Phosphatase 961 H (38-126) U/L Total Protein 7.4 (6.3-8.2) g/dL Albumin 4.4 (3.5-5.0) g/dL Amylase 140 H (30-110) U/L Lipase 852 H (23-300) U/L Urine Color Dark Brown Urine Appearance Cloudy H (Clear) Urine pH 6.5 (5.0-8.0) Ur Specific [place] 1.017 (1.001-1.035) Urine Protein Negative (Negative) Urine Glucose (UA) Negative (Negative) Urine Ketones Negative (Negative) Urine Blood Negative (Negative) Urine Nitrite Negative (Negative) Urine Bilirubin 3+ H (Negative) Urine Urobilinogen <2.0 (<2.0) mg/dL Ur Leukocyte Esterase Trace H (Negative) Urine RBC 1 (0-5) /hpf Urine WBC 8 H (0-5) /hpf Ur Squamous Epith Cells 7 H (0-4) /hpf Urine Bacteria Rare H (None) /hpf Urine Mucus Occasional H (None) /hpf Coronavirus (PCR) (Not Detectd) 02/04/21 02/04/21 Range/Units 15:20 15:44 WBC (3.8-10.6) k/uL RBC (3.80-5.40) m/uL Hgb (11.4-16.0) gm/dL Hct (34.0-46.0) % MCV (80.0-100.0) fL MCH (25.0-35.0) pg MCHC (31.0-37.0) g/dL RDW (11.5-15.5) % Plt Count (150-450) k/uL MPV Neutrophils % % Lymphocytes % % Monocytes % % Eosinophils % % Basophils % % Neutrophils # (1.3-7.7) k/uL Lymphocytes # (1.0-4.8) k/uL Monocytes # (0-1.0) k/uL Eosinophils # (0-0.7) k/uL Basophils # (0-0.2) k/uL APTT 21.2 L (22.0-30.0) sec Sodium (137-145) mmol/L Potassium (3.5-5.1) mmol/L Chloride (98-107) mmol/L Carbon Dioxide (22-30) mmol/L Anion Gap mmol/L BUN (7-17) mg/dL Creatinine (0.52-1.04) mg/dL Est GFR (CKD-EPI)AfAm (>60 ml/min/1.73 sqM) Est GFR (CKD-EPI)NonAf (>60 ml/min/1.73 sqM) Glucose (74-99) mg/dL Calcium (8.4-10.2) mg/dL Total Bilirubin (0.2-1.3) mg/dL AST (14-36) U/L ALT (4-34) U/L Alkaline Phosphatase (38-126) U/L Total Protein (6.3-8.2) g/dL Albumin (3.5-5.0) g/dL Amylase (30-110) U/L Lipase (23-300) U/L Urine Color Urine Appearance (Clear) Urine pH (5.0-8.0) Ur Specific [place] (1.001-1.035) Urine Protein (Negative) Urine Glucose (UA) (Negative) Urine Ketones (Negative) Urine Blood (Negative) Urine Nitrite (Negative) Urine Bilirubin (Negative) Urine Urobilinogen (<2.0) mg/dL Ur Leukocyte Esterase (Negative) Urine RBC (0-5) /hpf Urine WBC (0-5) /hpf Ur Squamous Epith Cells (0-4) /hpf Urine Bacteria (None) /hpf Urine Mucus (None) /hpf Coronavirus (PCR) Not Detected (Not Detectd) Disposition Clinical Impression: Pancreatic mass, Biliary obstruction, Hepatitis, Elevated lipase, Abdominal pain Disposition: OTHER INSTITUTION NOT DEFINED Condition: Stable Is patient prescribed a controlled substance at d/c from ED?: No Referrals: Tammy Hanson MD [Primary Care Provider] - 1-2 days Time of Disposition: 17:24 - Out of Hospital Transfer - Req. Specs Out of Hospital Transfer - Requested Specifics: Other Emergency Center ([facility])
[2021-02-04 15:03] LABS: Basophils # (A) 0.1 k/uL (0-0.2); Basophils % (A) 1 %; Eosinophils # (A) 0.2 k/uL (0-0.7); Eosinophils % (A) 2 %; HCT 44.3 % (34.0-46.0); HGB 14.8 gm/dL (11.4-16.0); Lymphocytes % (A) 13 %; MCH 32.5 pg (25.0-35.0); MCHC 33.4 g/dL (31.0-37.0); MCV 97.3 fL (80.0-100.0); Mean Platelet Volume 9.5; Monocytes # (A) 0.3 k/uL (0-1.0); Monocytes % (A) 4 %; Neutrophils # (A) 6.1 k/uL (1.3-7.7); Neutrophils % (A) 80 %; Platelet Count 228 k/uL (150-450); RBC 4.56 m/uL (3.80-5.40); RDW 13.2 % (11.5-15.5); WBC 7.6 k/uL (3.8-10.6)
[2021-02-04 15:13] LABS: ALT 411 U/L (4-34); AST 204 U/L (14-36); African American GFR (CKD) >90 (>60 ml/min/1.73 sqM); Albumin 4.4 g/dL (3.5-5.0); Alkaline Phosphatase 961 U/L (38-126); Amylase 140 U/L (30-110); Anion Gap 10 mmol/L; Blood Urea Nitrogen 16 mg/dL (7-17); Calcium 10.2 mg/dL (8.4-10.2); Carbon Dioxide 24 mmol/L (22-30); Chloride 99 mmol/L (98-107); Glucose 132 mg/dL (74-99); Lipase 852 U/L (23-300); Non-African American GFR(CKD) >90 (>60 ml/min/1.73 sqM); Sodium 133 mmol/L (137-145); Total Bilirubin 13.5 mg/dL (0.2-1.3); Total Protein 7.4 g/dL (6.3-8.2)
[2021-02-04 15:47] LABS: Appearance,Urine Cloudy (Clear); Bacteria,Urine Rare /hpf; Bilirubin,Urine 3+ (Negative); Blood,Urine Negative (Negative); Color,Urine Dark Brown; Glucose,Urine (UA) Negative (Negative); Ketones,Urine Negative (Negative); Leukocyte Esterase,Urine Trace (Negative); Mucus,Urine Occasional /hpf; Nitrite,Urine Negative (Negative); PH, Urine 6.5 (5.0-8.0); Protein,Urine Negative (Negative); RBC,Urine 1 /hpf (0-5); Specific Gravity,Urine 1.017 (1.001-1.035); Squamous Epithelial Cell,Urine 7 /hpf (0-4); Urobilinogen,Urine <2.0 mg/dL (<2.0); WBC,Urine 8 /hpf (0-5)
--- NOTE | 2021-02-04 16:27 | CT ---
EXAMINATION TYPE: CT abdomen pelvis w con DATE OF EXAM: 02/04/2021 COMPARISON: 11/26/2020 HISTORY: 70-year-old female Epigastric pain x 1 year. Jaundice and elevated liver enzymes. Abdominal pain. TECHNIQUE: Contiguous axial scanning of the abdomen and pelvis following administration of 100 ml Iso svitlana 300 IV contrast. Delayed images through the kidneys and coronal/sagittal reconstructions perform ed. CT DLP: 634.1 mGycm Automated exposure control for dose reduction was used. FINDINGS: Heart normal size without pericardial effusion. Lung bases clear without pleural effusion. A 1.8 cm hypodense central right liver lobe lesion, axial image 21 is new. There is new pronounced intrahepatic biliary ductal dilatation. Bile duct is dilated up to 2.4 cm now . However, bile duct not seen at the level of the pancreatic head. There is also new caliber narrowing of the portal venous confluence. Some mild soft tissue encasement at the level of the celiac axis, axial image 15 extending down to th e level of the SMA, axial image 18 and 19 now noted. Hypovascular pancreatic tail mass measures 4.4 x 2.2 cm versus 2.7 x 1.6 cm, previously. The cystic c omponent which is contiguous at the anterior pancreatic tail measures 3.3 x 2.1 cm now versus 1.8 x 1 .3 cm, previously. Gallbladder surgically absent. Adrenal glands, right kidney, and spleen appear within normal limits. Mixed density cortical lesion m edial lower pole left kidney measures 2.5 cm, unchanged suggesting an AML. Small parapelvic cysts in the left kidney. Portacaval lymph node mildly enlarged at 1.7 cm. No dilated small bowel, free fluid, or free air. Colon loops prominently around the right lobe of the liver. No obstructive changes. Scattered mild stool. No pericolonic inflammatory change. Bladder is collapsed. Uterus surgically absent. Pelvic phleboliths. Left ovary is visualized. Right o vary not clearly delineated. No abnormal fluid collection the pelvis or pelvic lymphadenopathy. Bones: Mild degenerative change at the hips. Degenerated dextroconvex scoliosis. Osteopenia. No aspen osseous destructive process. IMPRESSION: 1. BILE DUCT IS NOW DILATED AT 2.4 CM WITH MODERATE INTRAHEPATIC BILIARY DUCTAL DILATATION WELL. T HE DUCT SEEMS TO CUT OFF AT THE LEVEL OF THE PANCREATIC HEAD THOUGH THE EXACT ETIOLOGY OF THE OBSTRUC TION IS NOT CLEAR. 2. HOWEVER, THERE IS UNDERLYING MALIGNANCY WITH ENLARGING PANCREATIC TAIL MASS CURRENTLY AT 4.4 CM VE RSUS 2.7 CM ON 11/26/2020. THERE IS A NEW METASTATIC LESION TO THE CENTRAL RIGHT LIVER LOBE MEASURING 1 .8 CM. THERE IS ALSO NEW SOFT TISSUE INFILTRATION AT THE LEVEL OF THE CELIAC AXIS AND SMA ALSO NARROW ING THE PORTAL VENOUS CONFLUENCE.
[2021-02-04 18:12] VITALS: BP 139/87; PULSE 55
== END 2021-02-04 18:54 | disposition other institution (70) ==
LOC: EC 12:44
DX: R10.11 Right upper quadrant pain (principal); K86.89 Other specified diseases of pancreas; K75.9 Inflammatory liver disease, unspecified; K83.1 Obstruction of bile duct; R74.8 Abnormal levels of other serum enzymes; I10 Essential (primary) hypertension; Z03.818 Encounter for observation for suspected exposure to other biological agents ruled out; Z79.899 Other long term (current) drug therapy; Z90.89 Acquired absence of other organs; Z90.49 Acquired absence of other specified parts of digestive tract
CPT/HCPCS: 36415; 80053; 82150; 83690; 85025; 85730; 81001; 87040; 87635; 74177; 99284; Q9967

== ENCOUNTER 2021-05-07 07:49 | Observation (INO) | payer MEDICARE ==
[2021-05-07] MEDS ORDERED: SODIUM CHLORIDE 0.9% 1,000 ML IV STA (08:06)
[2021-05-07] MEDS ORDERED: ONDANSETRON 4 MG/2 ML VIAL IVP STA (08:09)
[2021-05-07] MEDS ORDERED: MORPHINE SULFATE 4 MG/ML SYRINGE IVP STA ×2 (08:17→08:48)
--- NOTE | 2021-05-07 08:17 | ED ---
General Adult HPI - General Chief complaint: Recheck/Abnormal Lab/Rx Stated complaint: elevated BP Source: patient, family, RN notes reviewed Mode of arrival: ambulatory Limitations: no limitations - History of Present Illness Initial comments: 70-year-old cachectic white female, alert and oriented 4, presents to the emergency room with complaints of nausea that has kept her up all night. 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 Patient is due for an injection today at 1:30, her nausea is worsening also complaining of back pain and has been unable to sleep. Patient states has had poor oral intake and feels dehydrated, heart rate 110, oxygen saturation 98% temperature is 97.6. States her blood pressure was systolically over 200 this morning after taking her medication. Blood pressure here in the ER 152/95. Patient denies any chest pain or shortness of breath. She states she has nausea but has not been vomiting. Did not take her Compazine or pain medications today. -: month(s) (10) Location: back Radiation: non-radiation Severity scale (1-10): 6 Quality: aching Consistency: constant Improves with: none Worsens with: none Associated Symptoms: nausea/vomiting Treatments Prior to Arrival: none - Related Data Home Medications Medication Instructions Recorded Confirmed Lisinopril-Hctz 20-12.5 mg 1 tab PO DAILY 02/07/17 05/07/21 [Zestoretic 20-12.5] Atorvastatin [Lipitor] 10 mg PO HS 07/06/20 05/07/21 Potassium Chloride [Klor-Con 20] 20 meq PO DAILY 02/04/21 05/07/21 Dronabinol [Marinol] 2.5 mg PO AC-BID 05/07/21 05/07/21 HYDROcodone/APAP 7.5-325MG [Corwith 1 tab PO Q4H PRN 05/07/21 05/07/21 7.5-325] Lidocaine-Prilocaine Cream [Emla 1 applic TOPICAL DIRECTED PRN 05/07/21 05/07/21 Cream 2.5%/2.5%] Lipase/Protease/Amylase [Zenpep Dr 1 cap PO TID 05/07/21 05/07/21 25,000 Unit Capsule] Loperamide [Imodium] 2 mg PO QID PRN 05/07/21 05/07/21 Loratadine [Claritin] 10 mg PO DAILY 05/07/21 05/07/21 Morphine Sulfate ER [Ms Contin] 15 mg PO Q12HR 05/07/21 05/07/21 Nystatin 100,000 Unit/ml Susp 5 ml PO QID 05/07/21 05/07/21 [Mycostatin Oral Susp] Omeprazole 20 mg PO DAILY 05/07/21 05/07/21 Prochlorperazine [Compazine] 10 mg PO Q6H PRN 05/07/21 05/07/21 Allergies Allergy/AdvReac Type Severity Reaction Status Date / Time No Known Allergies Allergy Verified 05/07/21 09:08 Patient : No Review of Systems ROS Statement: Those systems with pertinent positive or pertinent negative responses have been documented in the HPI. ROS Other: All systems not noted in ROS Statement are negative. Past Medical History Past Medical History: Chest Pain / Angina, COPD, GERD/Reflux, Hypertension, Osteoarthritis (OA) Additional Past Medical History / Comment(s): emphysema, lesion on kidneys. kidney stones, recent inpt r/t chest pain, CA back History of Any Multi-Drug Resistant Organisms: None Reported Past Surgical History: Appendectomy, Bladder Surgery, Cholecystectomy, Hernia Repair, Orthopedic Surgery Additional Past Surgical History / Comment(s): corrective eye surg., sinus surg., jaw surg., foot surg. rt knee surgery meniscus repair, rt shoulder rotator cuff repair Past Anesthesia/Blood Transfusion Reactions: Motion Sickness, Postoperative Nausea & Vomiting (PONV) Past Psychological History: No Psychological Hx Reported Smoking Status: Never smoker Past Alcohol Use History: None Reported Past Drug Use History: None Reported - Past Family History Mother Family Medical History: Cancer General Exam Limitations: no limitations General appearance: alert, in no apparent distress, cachectic Head exam: Present: atraumatic, normocephalic, normal inspection Eye exam: Present: normal appearance, PERRL, EOMI. Absent: scleral icterus, conjunctival injection, nystagmus, periorbital swelling, periorbital tenderness Pupils: Present: normal accommodation ENT exam: Present: normal exam, normal oropharynx, mucous membranes moist, TM's normal bilaterally, normal external ear exam Neck exam: Present: normal inspection, full ROM. Absent: tenderness, meningismus, lymphadenopathy, thyromegaly Respiratory exam: Present: normal lung sounds bilaterally. Absent: respiratory distress, wheezes, rales, rhonchi, stridor, chest wall tenderness, accessory muscle use, decreased breath sounds Cardiovascular Exam: Present: tachycardia, normal heart sounds GI/Abdominal exam: Present: soft, normal bowel sounds. Absent: distended, tenderness, guarding, rebound, rigid, mass, pulsatile mass, hernia Rectal exam: Present: deferred Extremities exam: Present: normal inspection, full ROM, normal capillary refill. Absent: tenderness, pedal edema, joint swelling, calf tenderness Back exam: Present: normal inspection. Absent: tenderness, CVA tenderness (R), CVA tenderness (L), muscle spasm, paraspinal tenderness, rash noted Neurological exam: Present: alert, oriented X3, CN II-XII intact Psychiatric exam: Present: flat affect Skin exam: Present: warm, dry, intact, normal color. Absent: rash, cyanosis, diaphoretic, erythema, petechiae, pallor, mottled Course Vital Signs 05/07/21 05/07/21 05/07/21 07:53 10:45 11:33 Temperature 97.6 F Pulse Rate 110 H 102 H 90 Respiratory 20 18 16 Rate Blood Pressure 152/95 167/86 162/95 O2 Sat by Pulse 98 95 96 Oximetry 05/07/21 13:56 Temperature Pulse Rate 105 H Respiratory 17 Rate Blood Pressure 162/102 O2 Sat by Pulse 98 Oximetry - Reevaluation(s) Reevaluation #1: 05/07/21 08:49 Patient states that the nausea is resolving however she still has the pain. Patient given additional morphine dose Time: 08:49 Reevaluation #2: 05/07/21 09:52 Patient still complaining of pain and has not been able urinate. will give another liter of fluid and dilaudid. Time: 09:52 EKG Findings - EKG Results: EKG: sinus rhythm (Ventricular rate of 82, MA interval 0.16, QRS 0.86, QTC of 0.502) Medical Decision Making - Medical Decision Making Potassium is 3.2 which was replaced with 10meq IV potassium after attempts at by mouth for unsuccessful. Magnesium is 1.4 and patient given digoxin and 1 g IV piggyback. Pt given 2 L of normal saline for dehydration and tachycardia. Multiple attempts to relieve patient's nausea using Zofran, Reglan and Tigan. Patient will be admitted for dehydration, stage IV pancreatic and liver cancer with metastasis. Case discussed with Dr. Cheung - Lab Data Result diagrams: 05/07/21 08:23 05/07/21 08:23 Lab Results 05/07/21 05/07/21 05/07/21 Range/Units 08:23 08:23 08:23 WBC 4.9 (3.8-10.6) k/uL RBC 3.89 (3.80-5.40) m/uL Hgb 12.5 (11.4-16.0) gm/dL Hct 38.2 (34.0-46.0) % MCV 98.1 (80.0-100.0) fL MCH 32.2 (25.0-35.0) pg MCHC 32.8 (31.0-37.0) g/dL RDW 16.6 H (11.5-15.5) % Plt Count 132 L (150-450) k/uL MPV 7.9 Neutrophils % 66 % Lymphocytes % 19 % Monocytes % 12 % Eosinophils % 0 % Basophils % 1 % Neutrophils # 3.2 (1.3-7.7) k/uL Lymphocytes # 0.9 L (1.0-4.8) k/uL Monocytes # 0.6 (0-1.0) k/uL Eosinophils # 0.0 (0-0.7) k/uL Basophils # 0.0 (0-0.2) k/uL Manual Slide Review Performed Anisocytosis Slight Macrocytosis Slight Sodium 137 (137-145) mmol/L Potassium 3.2 L (3.5-5.1) mmol/L Chloride 101 (98-107) mmol/L Carbon Dioxide 28 (22-30) mmol/L Anion Gap 8 mmol/L BUN 10 (7-17) mg/dL Creatinine 0.34 L (0.52-1.04) mg/dL Est GFR (CKD-EPI)AfAm >90 (>60 ml/min/1.73 sqM) Est GFR (CKD-EPI)NonAf >90 (>60 ml/min/1.73 sqM) Glucose 98 (74-99) mg/dL Calcium 9.3 (8.4-10.2) mg/dL Magnesium (1.6-2.3) mg/dL Total Bilirubin 0.6 (0.2-1.3) mg/dL AST 34 (14-36) U/L ALT 24 (4-34) U/L Alkaline Phosphatase 150 H (38-126) U/L Total Protein 5.8 L (6.3-8.2) g/dL Albumin 3.6 (3.5-5.0) g/dL Amylase 34 (30-110) U/L Lipase 18 L (23-300) U/L Urine Color Light Yellow Urine Appearance Clear (Clear) Urine pH 6.5 (5.0-8.0) Ur Specific [place] 1.012 (1.001-1.035) Urine Protein Negative (Negative) Urine Glucose (UA) Negative (Negative) Urine Ketones Negative (Negative) Urine Blood Negative (Negative) Urine Nitrite Negative (Negative) Urine Bilirubin Negative (Negative) Urine Urobilinogen <2.0 (<2.0) mg/dL Ur Leukocyte Esterase Negative (Negative) 05/07/21 Range/Units 08:23 WBC (3.8-10.6) k/uL RBC (3.80-5.40) m/uL Hgb (11.4-16.0) gm/dL Hct (34.0-46.0) % MCV (80.0-100.0) fL MCH (25.0-35.0) pg MCHC (31.0-37.0) g/dL RDW (11.5-15.5) % Plt Count (150-450) k/uL MPV Neutrophils % % Lymphocytes % % Monocytes % % Eosinophils % % Basophils % % Neutrophils # (1.3-7.7) k/uL Lymphocytes # (1.0-4.8) k/uL Monocytes # (0-1.0) k/uL Eosinophils # (0-0.7) k/uL Basophils # (0-0.2) k/uL Manual Slide Review Anisocytosis Macrocytosis Sodium (137-145) mmol/L Potassium (3.5-5.1) mmol/L Chloride (98-107) mmol/L Carbon Dioxide (22-30) mmol/L Anion Gap mmol/L BUN (7-17) mg/dL Creatinine (0.52-1.04) mg/dL Est GFR (CKD-EPI)AfAm (>60 ml/min/1.73 sqM) Est GFR (CKD-EPI)NonAf (>60 ml/min/1.73 sqM) Glucose (74-99) mg/dL Calcium (8.4-10.2) mg/dL Magnesium 1.4 L (1.6-2.3) mg/dL Total Bilirubin (0.2-1.3) mg/dL AST (14-36) U/L ALT (4-34) U/L Alkaline Phosphatase (38-126) U/L Total Protein (6.3-8.2) g/dL Albumin (3.5-5.0) g/dL Amylase (30-110) U/L Lipase (23-300) U/L Urine Color Urine Appearance (Clear) Urine pH (5.0-8.0) Ur Specific [place] (1.001-1.035) Urine Protein (Negative) Urine Glucose (UA) (Negative) Urine Ketones (Negative) Urine Blood (Negative) Urine Nitrite (Negative) Urine Bilirubin (Negative) Urine Urobilinogen (<2.0) mg/dL Ur Leukocyte Esterase (Negative) Disposition Clinical Impression: Hypokalemia, Dehydration, Hypomagnesemia, Intractable nausea and vomiting Disposition: ADMITTED IP TO THIS [facility] Condition: Fair Decision Date: 05/07/21
[2021-05-07 08:38] LABS: Anisocytosis Slight; Basophils % (A) 1 %; Eosinophils % (A) 0 %; HCT 38.2 % (34.0-46.0); HGB 12.5 gm/dL (11.4-16.0); Lymphocytes # (A) 0.9 k/uL (1.0-4.8); Lymphocytes % (A) 19 %; MCH 32.2 pg (25.0-35.0); MCHC 32.8 g/dL (31.0-37.0); MCV 98.1 fL (80.0-100.0); Macrocytosis Slight; Mean Platelet Volume 7.9; Monocytes # (A) 0.6 k/uL (0-1.0); Monocytes % (A) 12 %; Neutrophils # (A) 3.2 k/uL (1.3-7.7); Neutrophils % (A) 66 %; Platelet Count 132 k/uL (150-450); RBC 3.89 m/uL (3.80-5.40); RDW 16.6 % (11.5-15.5); WBC 4.9 k/uL (3.8-10.6)
[2021-05-07 08:44] LABS: ALT 24 U/L (4-34); AST 34 U/L (14-36); African American GFR (CKD) >90 (>60 ml/min/1.73 sqM); Albumin 3.6 g/dL (3.5-5.0); Alkaline Phosphatase 150 U/L (38-126); Amylase 34 U/L (30-110); Anion Gap 8 mmol/L; Blood Urea Nitrogen 10 mg/dL (7-17); Calcium 9.3 mg/dL (8.4-10.2); Carbon Dioxide 28 mmol/L (22-30); Chloride 101 mmol/L (98-107); Glucose 98 mg/dL (74-99); Lipase 18 U/L (23-300); Non-African American GFR(CKD) >90 (>60 ml/min/1.73 sqM); Potassium 3.2 mmol/L (3.5-5.1); Sodium 137 mmol/L (137-145); Total Bilirubin 0.6 mg/dL (0.2-1.3); Total Protein 5.8 g/dL (6.3-8.2)
[2021-05-07] MEDS ORDERED: POTASSIUM CHLORIDE ER 20 MEQ TAB.ER PO STA (08:46)
[2021-05-07] MEDS ORDERED: METOCLOPRAMIDE 5 MG/ML 2 ML VIAL IVP STA (08:57)
[2021-05-07] MEDS ORDERED: POTASSIUM CHLORIDE 10 MEQ in WATER FOR INJECTION 1 100ML.BAG IVPB STA (09:24)
[2021-05-07] MEDS ORDERED: SODIUM CHLORIDE 0.9% 1,000 ML IV ONE (09:50)
[2021-05-07] MEDS ORDERED: HYDROmorphone 1 MG/ML 1 ML SYRINGE IVP STA (09:51)
[2021-05-07] MEDS ORDERED: MAGNESIUM OXIDE 400 MG TAB PO STA (10:18)
[2021-05-07 10:23] LABS: Appearance,Urine Clear (Clear); Bilirubin,Urine Negative (Negative); Blood,Urine Negative (Negative); Color,Urine Light Yellow; Glucose,Urine (UA) Negative (Negative); Ketones,Urine Negative (Negative); Leukocyte Esterase,Urine Negative (Negative); Nitrite,Urine Negative (Negative); PH, Urine 6.5 (5.0-8.0); Protein,Urine Negative (Negative); Specific Gravity,Urine 1.012 (1.001-1.035); Urobilinogen,Urine <2.0 mg/dL (<2.0)
[2021-05-07] MEDS ORDERED: MAGNESIUM SULFATE-D5W PMX 1 GM in DEXTROSE/WATER 1 100ML.BAG IVPB ONE (10:24)
[2021-05-07] MEDS ORDERED: NALOXONE 0.4 MG/ML 1 ML VIAL IV PRN (10:26)
[2021-05-07] MEDS ORDERED: TRIMETHOBENZAMIDE 100 MG/ML 2 ML VIAL IM STA (10:26)
[2021-05-07] MEDS ORDERED: LORazepam 2 MG/ML INJ IV STA ×2 (10:39→14:01)
[2021-05-07] MEDS ORDERED: PROCHLORPERAZINE 10 MG TAB PO PRN (13:54)
[2021-05-07] MEDS ORDERED: LOPERAMIDE 2 MG CAP PO PRN (13:54)
[2021-05-07] MEDS ORDERED: LIDOCAINE-PRILOCAINE 2.5-2.5% CREAM 5 GM TUBE TOPICAL PRN (13:54)
[2021-05-07] MEDS: 0.9% NACL WITH KCL 20 MEQ/L 1,000 ML IV SCH (13:59)
[2021-05-07] MEDS: HYDROmorphone 1 MG/ML 1 ML SYRINGE IVP PRN (16:00)
[2021-05-07] MEDS: PROTEASE PO SCH ×2 (18:34→21:52)
[2021-05-07] MEDS: AMYLASE PO SCH ×2 (18:34→21:52)
[2021-05-07] MEDS: LIPASE PO SCH ×2 (18:34→21:52)
[2021-05-07] MEDS: [UNRECOGNIZED DRUG - OTHER] PO SCH ×2 (18:34→21:52)
[2021-05-07] MEDS ORDERED: SCOPOLAMINE 1.5MG/72HR PATCH TRANSDERM SCH (19:00)
[2021-05-07] MEDS: METOCLOPRAMIDE 5 MG/ML 2 ML VIAL IVP SCH (19:17)
--- NOTE | 2021-05-07 19:19 | P.HPIM ---
History of Present Illness H&P Date: 05/07/21 Chief Complaint: Pancreatic cancer postchemotherapy/dehydration HISTORY OF PRESENT ILLNESS: This is a 70-year-old female with a previous medical history significant for hypertension and hypertensive cardiovascular disease, hyperlipidemia, GERD, history of pseudocyst of the pancreas that has been complaining of significant amount of abdominal pain with a significant weight loss and chronic diarrhea she ended up getting referred to have MRCP that documented a pancreatic mass was seen in consultation by emt basic at [facility], and she ended up having a biopsy that was positive for finger any cancer she ended up having a stent placed in the common bile duct, and she was started on chemotherapy, patient apparently received her last chemo therapy about a week ago and she became quite weak and fatigue and tired, with intractable nausea and vomiting and poor appetite not able to keep anything down, she ended up coming to the ER at [facility] today with her daughter and she was found to be extremely dehydrated, she was given a liter of IV fluid and she was started on IV fluid resuscitation the form of normal saline, she was placed on scopolamine patch 1.5 mg every 72 hours along with Zofran and Reglan to control her nausea and vomiting, she was placed on a clear liquid diet as well, she was admitted to the hospital for further evaluation and treatment. REVIEW OF SYSTEMS: Constitutional: No documented fever, no chills, no night sweats. significant weight change and poor appetite and moderate fatigue, no lethargy. HEENT: No headache. No blurred vision or double vision, no loss of vision. No loss of Hearing, no ringing in the ears, no dizziness. No nasal drainage or congestion. No epistaxis. No sore throat. Lungs: No shortness of breath, no cough, no sputum production. No wheezing. Reports dyspnea with activity. Cardiovascular: No chest pain, no lower extremity edema. No palpitations. No paroxysmal nocturnal dyspnea. No orthopnea. No lightheadedness or dizziness. No syncopal episodes. Abdominal: Reports abdominal pain. positive for nausea, positive for vomiting. No diarrhea. No constipation. No bloody or tarry stools reports loss of appetite. Genitourinary: No dysuria, increased frequency, urgency. No urinary retention. Musculoskeletal: No myalgias. generalized muscle weakness, no gait dysfunction, no frequent falls. No back pain. No neck pain. Integumentary: No wounds, no lesions. No rash or pruritus. No unusual bruising. No change in hair or nails. Neurologic: No aphasia. No facial droop. No change in mentation. No head injury. No headache. No paralysis. No paresthesia. Psychiatric: No depression. No anxiety. No mood swings. Endocrine: No abnormal blood sugars. severe weight change. PAST MEDICAL HISTORY: HYPERTENSION AND HYPERTENSIVE CARDIO VASCULAR DISEASE. HYPERLIPIDEMIA. GERD. PANCREATIC CANCER STATUS POST STENT PLACEMENT ON CHEMOTHERAPY. PAST SURGICAL HISTORY: Appendectomy 1956 left and right jaw tumor removed in 1977 Left eye squint surgery in 1980 Sinus surgery 1981 and 2004 Partial hysterectomy 2000. Ganglionic cyst removed from the right thumb 2005 right foot bunionectomy and 3 hammertoes fixed 2013. Left foot hammertoes fixed 2014 Right shoulder rotator cuff tear repair 2015 Right knee torn meniscus 2017 Had a hernia repair 2016 Cholecystectomy 2019 EGD/colonoscopy 11/08/2020 Liver/pancreas biopsy stent placement January 2021 SOCIAL HISTORY: patient denies any history of smoking, no history of drinking, no history of abuse. FAMILY HISTORY: father at age of 78 from pneumonia and had COPD, mother at age of 68 from some sort of cancer, patient had one brother who at age of 59 from ID, patient had 3 sisters one of natural causes and one with MVA one is living and doing fine, patient has 3 sons one at the age of 18 from suicide and the other 2 are okay patient has 3 daughters who are okay. PHYSICAL EXAMINATION: General: this is a 70-year-old white female cachectic appears to be in mild distress HEENT: Head is atraumatic, normocephalic, pupils were equal round reactive to light and recommendation, extraocular muscle movement were intact, sclera nonicteric, conjunctivae were pale, mucous membranes of the mouth are somewhat dry. Neck: Supple, no JVP, normal carotid upstroke bilaterally, no lymphadenopathy. Chest: Decreased breath sounds at the bases, few rhonchi, no expiratory wheezes, no chest wall tenderness, no intercostal retractions. Heart: First heart sound is normal, second heart sounds normal, there is systolic ejection murmur 2/6 located in the left sternal border. Abdomen: Soft, mild tenderness to the epigastric area, nondistended, positive bowel sounds. Extremities: There is no edema no calf tenderness DP +2 bilaterally. Neurologic examination: Patient is awake alert and oriented x3 , cranial nerves II-12 appear grossly intact, muscle power were 5 out of 5 in upper extremities and 5 out of 5 in bilateral lower extremities, deep tendon reflexes normal bilaterally. ASSESSMENT AND PLAN: 1. Intractable nausea and vomiting due to recent chemotherapy with poor oral intake of fluid and dehydration. Continue IV fluid in the form of normal saline at 100 mL an hour, continue Zofran 4 mg IV push every 6 hours, Reglan 10 mg IV push every 6 hours, scopolamine patch 1.5 mg every 72 hours, keep the patient on clear liquid diet, advance as tolerated. 2. History of biliary/pancreatic cancer status post a stent placed in the common bile duct in January 2021 with last chemotherapy the week ago. Patient did receive Neulasta injection due to severe neutropenia, and her chemotherapy was placed on hold for now. 3. Hypertension and hypertensive cardiovascular disease. Continue lisinopril 20/12.5 mg orally once every day. 4. Hyperlipidemia. Continue Lipitor 10 mg orally once every day. 5. GERD. Continue omeprazole 40 mg orally once every day. 6. Prior history of pancreatic pseudocyst now diagnosed with pancreatic cancer. 7. DVT prophylaxis. Heparin 5000 units subcutaneously every 8 hours. 8. GI prophylaxis. Continue PPI . 9. Admit to inpatient. Estimate a length of stay 2 midnights. 10. Patient is full code. Past Medical History Past Medical History: Chest Pain / Angina, COPD, GERD/Reflux, Hypertension, Osteoarthritis (OA) Additional Past Medical History / Comment(s): emphysema, lesion on kidneys. kidney stones, recent inpt r/t chest pain, CA back History of Any Multi-Drug Resistant Organisms: None Reported Past Surgical History: Appendectomy, Bladder Surgery, Cholecystectomy, Hernia Repair, Orthopedic Surgery Additional Past Surgical History / Comment(s): corrective eye surg., sinus florencio g., jaw surg., foot surg. rt knee surgery meniscus repair, rt shoulder rotator cuff repair Past Anesthesia/Blood Transfusion Reactions: Motion Sickness, Postoperative Nausea & Vomiting (PONV) Past Psychological History: No Psychological Hx Reported Smoking Status: Never smoker Past Alcohol Use History: None Reported Past Drug Use History: None Reported - Past Family History Mother Family Medical History: Cancer Medications and Allergies Home Medications Medication Instructions Recorded Confirmed Type Lisinopril-Hctz 20-12.5 mg 1 tab PO DAILY 02/07/17 05/07/21 History [Zestoretic 20-12.5] Atorvastatin [Lipitor] 10 mg PO HS 07/06/20 05/07/21 History Potassium Chloride [Klor-Con 20] 20 meq PO DAILY 02/04/21 05/07/21 History Dronabinol [Marinol] 2.5 mg PO AC-BID 05/07/21 05/07/21 History HYDROcodone/APAP 7.5-325MG [[place] 1 tab PO Q4H PRN 05/07/21 05/07/21 History 7.5-325] Lidocaine-Prilocaine Cream [Emla 1 applic TOPICAL DIRECTED PRN 05/07/21 05/07/21 History Cream 2.5%/2.5%] Lipase/Protease/Amylase [Zenpep Dr 1 cap PO TID 05/07/21 05/07/21 History 25,000 Unit Capsule] Loperamide [Imodium] 2 mg PO QID PRN 05/07/21 05/07/21 History Loratadine [Claritin] 10 mg PO DAILY 05/07/21 05/07/21 History Morphine Sulfate ER [Ms Contin] 15 mg PO Q12HR 05/07/21 05/07/21 History Nystatin 100,000 Unit/ml Susp 5 ml PO QID 05/07/21 05/07/21 History [Mycostatin Oral Susp] Omeprazole 20 mg PO DAILY 05/07/21 05/07/21 History Prochlorperazine [Compazine] 10 mg PO Q6H PRN 05/07/21 05/07/21 History Allergies Allergy/AdvReac Type Severity Reaction Status Date / Time No Known Allergies Allergy Verified 05/07/21 09:08 Physical Exam Vitals: Vital Signs Temp Pulse Resp BP Pulse Ox 05/07/21 11:33 90 16 162/95 96 05/07/21 10:45 102 H 18 167/86 95 05/07/21 07:53 97.6 F 110 H 20 152/95 98 Intake and Output 05/06/21 05/07/21 05/07/21 22:59 06:59 14:59 Other: Weight 57.153 kg Results CBC & Chem 7: 05/07/21 08:23 05/07/21 08:23 Labs: Abnormal Lab Results - Last 24 Hours (Table) 05/07/21 05/07/21 05/07/21 Range/Units 08:23 08:23 08:23 RDW 16.6 H (11.5-15.5) % Plt Count 132 L (150-450) k/uL Lymphocytes # 0.9 L (1.0-4.8) k/uL Potassium 3.2 L (3.5-5.1) mmol/L Creatinine 0.34 L (0.52-1.04) mg/dL Magnesium 1.4 L (1.6-2.3) mg/dL Alkaline Phosphatase 150 H (38-126) U/L Total Protein 5.8 L (6.3-8.2) g/dL Lipase 18 L (23-300) U/L
[2021-05-07] MEDS: ATORVASTATIN 10 MG TAB PO SCH (21:52)
[2021-05-07] MEDS: NYSTATIN 100,000 UNIT/ML SUSP 500,000 UNIT/5 ML CUP PO SCH ×2 (21:52→21:59)
[2021-05-07] MEDS: MORPHINE SULFATE ER 15 MG TABLET PO SCH (21:52)
[2021-05-08] MEDS: METOCLOPRAMIDE 5 MG/ML 2 ML VIAL IVP SCH ×4 (00:16→16:49)
[2021-05-08] MEDS: HEPARIN SODIUM,PORCINE/PF 5,000 UNIT/0.5 ML SYRINGE SQ SCH ×3 (00:16→16:49)
[2021-05-08] MEDS: HYDROmorphone 1 MG/ML 1 ML SYRINGE IVP PRN ×3 (00:36→22:23)
[2021-05-08] MEDS: 0.9% NACL WITH KCL 20 MEQ/L 1,000 ML IV SCH ×2 (05:05→12:56)
[2021-05-08 06:43] LABS: Anisocytosis Slight; Basophils # (A) 0.1 k/uL (0-0.2); Basophils % (A) 1 %; Eosinophils % (A) 0 %; HCT 36.9 % (34.0-46.0); HGB 11.6 gm/dL (11.4-16.0); Lymphocytes # (A) 1.7 k/uL (1.0-4.8); Lymphocytes % (A) 18 %; MCH 31.9 pg (25.0-35.0); MCHC 31.5 g/dL (31.0-37.0); MCV 101.1 fL (80.0-100.0); Macrocytosis Slight; Monocytes # (A) 0.6 k/uL (0-1.0); Monocytes % (A) 7 %; Neutrophils # (A) 6.4 k/uL (1.3-7.7); Neutrophils % (A) 71 %; Platelet Count 156 k/uL (150-450); RBC 3.65 m/uL (3.80-5.40); RDW 16.9 % (11.5-15.5)
[2021-05-08 06:59] LABS: ALT 22 U/L (4-34); AST 34 U/L (14-36); African American GFR (CKD) >90 (>60 ml/min/1.73 sqM); Albumin 2.8 g/dL (3.5-5.0); Albumin/Globulin Ratio 1.3; Alkaline Phosphatase 144 U/L (38-126); Anion Gap 5 mmol/L; Blood Urea Nitrogen 9 mg/dL (7-17); Calcium 8.7 mg/dL (8.4-10.2); Carbon Dioxide 30 mmol/L (22-30); Chloride 102 mmol/L (98-107); Globulin 2.1 g/dL; Glucose 84 mg/dL (74-99); Non-African American GFR(CKD) >90 (>60 ml/min/1.73 sqM); Potassium 3.6 mmol/L (3.5-5.1); Sodium 137 mmol/L (137-145); Total Bilirubin 0.3 mg/dL (0.2-1.3); Total Protein 4.9 g/dL (6.3-8.2)
[2021-05-08] MEDS: POTASSIUM CHLORIDE ER 20 MEQ TAB.ER PO SCH (07:59)
[2021-05-08] MEDS: LORATADINE 10 MG TAB PO SCH (07:59)
[2021-05-08] MEDS: MORPHINE SULFATE ER 15 MG TABLET PO SCH ×2 (08:00→20:44)
[2021-05-08] MEDS: PANTOPRAZOLE 40 MG TABLET PO SCH (08:00)
[2021-05-08] MEDS: AMYLASE PO SCH ×3 (08:01→22:15)
[2021-05-08] MEDS: [UNRECOGNIZED DRUG - OTHER] PO SCH ×3 (08:01→22:15)
[2021-05-08] MEDS: LIPASE PO SCH ×3 (08:01→22:15)
[2021-05-08] MEDS: PROTEASE PO SCH ×3 (08:01→22:15)
[2021-05-08] MEDS: LISINOPRIL-HCTZ 20-12.5 MG 1 EACH TAB PO SCH (08:34)
[2021-05-08] MEDS: NYSTATIN 100,000 UNIT/ML SUSP 500,000 UNIT/5 ML CUP PO SCH ×4 (08:34→20:46)
[2021-05-08 11:36] VITALS: BMI 19.7
--- NOTE | 2021-05-08 12:08 | P.PN ---
Subjective Progress Note Date: 05/08/21 HISTORY OF PRESENT ILLNESS: This is a 70-year-old female with a previous medical history significant for hypertension and hypertensive cardiovascular disease, hyperlipidemia, GERD, history of pseudocyst of the pancreas that has been complaining of significant amount of abdominal pain with a significant weight loss and chronic diarrhea she ended up getting referred to have MRCP that documented a pancreatic mass was seen in consultation by welder production line arc at [facility], and she ended up having a biopsy that was positive for finger any cancer she ended up having a stent placed in the common bile duct, and she was started on chemotherapy, patient apparently received her last chemo therapy about a week ago and she became quite weak and fatigue and tired, with intractable nausea and vomiting and poor appetite not able to keep anything down, she ended up coming to the ER at [facility] today with her daughter and she was found to be extremely dehydrated, she was given a liter of IV fluid and she was started on IV fluid resuscitation the form of normal saline, she was placed on scopolamine patch 1.5 mg every 72 hours along with Zofran and Reglan to control her nausea and vomiting, she was placed on a clear liquid diet as well, she was admitted to the hospital for further evaluation and treatment. 05/08: Patient is laying down in bed she continues to be extremely weak, she is feeling a bit better than yesterday, the nausea is limited better, she is tolerating clear liquid diet, continue with current treatment plan, continue IV fluid, hopefully she will be discharged home the next 24 hours. REVIEW OF SYSTEMS: Constitutional: No documented fever, no chills, no night sweats. significant weight change and poor appetite and moderate fatigue, no lethargy. HEENT: No headache. No blurred vision or double vision, no loss of vision. No loss of Hearing, no ringing in the ears, no dizziness. No nasal drainage or congestion. No epistaxis. No sore throat. Lungs: No shortness of breath, no cough, no sputum production. No wheezing. Reports dyspnea with activity. Cardiovascular: No chest pain, no lower extremity edema. No palpitations. No paroxysmal nocturnal dyspnea. No orthopnea. No lightheadedness or dizziness. No syncopal episodes. Abdominal: Reports abdominal pain. positive for nausea, positive for vomiting. No diarrhea. No constipation. No bloody or tarry stools reports loss of appetite. Genitourinary: No dysuria, increased frequency, urgency. No urinary retention. Musculoskeletal: No myalgias. generalized muscle weakness, no gait dysfunction, no frequent falls. No back pain. No neck pain. Integumentary: No wounds, no lesions. No rash or pruritus. No unusual bruising. No change in hair or nails. Neurologic: No aphasia. No facial droop. No change in mentation. No head injury. No headache. No paralysis. No paresthesia. Psychiatric: No depression. No anxiety. No mood swings. Endocrine: No abnormal blood sugars. severe weight change. PHYSICAL EXAMINATION: General: this is a 70-year-old white female cachectic appears to be in mild distress HEENT: Head is atraumatic, normocephalic, pupils were equal round reactive to light and recommendation, extraocular muscle movement were intact, sclera nonicteric, conjunctivae were pale, mucous membranes of the mouth are somewhat dry. Neck: Supple, no JVP, normal carotid upstroke bilaterally, no lymphadenopathy. Chest: Decreased breath sounds at the bases, few rhonchi, no expiratory wheezes, no chest wall tenderness, no intercostal retractions. Heart: First heart sound is normal, second heart sounds normal, there is systolic ejection murmur 2/6 located in the left sternal border. Abdomen: Soft, mild tenderness to the epigastric area, nondistended, positive rj wel sounds. Extremities: There is no edema no calf tenderness DP +2 bilaterally. Neurologic examination: Patient is awake alert and oriented x3 , cranial nerves II-12 appear grossly intact, muscle power were 5 out of 5 in upper extremities and 5 out of 5 in bilateral lower extremities, deep tendon reflexes normal bilaterally. ASSESSMENT AND PLAN: 1. Intractable nausea and vomiting due to recent chemotherapy with poor oral intake of fluid and dehydration. Continue IV fluid in the form of normal saline at 100 mL an hour, continue Zofran 4 mg IV push every 6 hours, Reglan 10 mg IV push every 6 hours, scopolamine patch 1.5 mg every 72 hours, keep the patient on clear liquid diet, advance as tolerated. 2. History of biliary/pancreatic cancer status post a stent placed in the common bile duct in January 2021 with last chemotherapy the week ago. Patient did receive Neulasta injection due to severe neutropenia, and her chemotherapy was placed on hold for now. 3. Hypertension and hypertensive cardiovascular disease. Continue lisinopril 20/12.5 mg orally once every day. 4. Hyperlipidemia. Continue Lipitor 10 mg orally once every day. 5. GERD. Continue omeprazole 40 mg orally once every day. 6. Prior history of pancreatic pseudocyst now diagnosed with pancreatic cancer. 7. DVT prophylaxis. Heparin 5000 units subcutaneously every 8 hours. 8. GI prophylaxis. Continue PPI . 9. Home tomorrow morning. Objective - Vital Signs Vital signs: Vital Signs Temp 98.4 F 05/08/21 04:25 Pulse 80 05/08/21 04:25 Resp 16 05/08/21 04:25 BP 130/73 05/08/21 04:25 Pulse Ox 94 L 05/08/21 04:25 Intake & Output 05/07/21 05/08/21 05/08/21 18:59 06:59 18:59 Weight 57.153 kg Other: Voiding Method Toilet Toilet # Voids 1 - Labs CBC & Chem 7: 05/08/21 06:17 05/08/21 06:17 Labs: Abnormal Lab Results - Last 24 Hours (Table) 05/08/21 05/08/21 Range/Units 06:17 06:17 RBC 3.65 L (3.80-5.40) m/uL MCV 101.1 H (80.0-100.0) fL RDW 16.9 H (11.5-15.5) % Creatinine 0.35 L (0.52-1.04) mg/dL Alkaline Phosphatase 144 H (38-126) U/L Total Protein 4.9 L (6.3-8.2) g/dL Albumin 2.8 L (3.5-5.0) g/dL
[2021-05-08] MEDS: HYDROcodone/APAP 7.5-325MG 1 EACH TAB PO PRN (12:52)
[2021-05-08] MEDS: ATORVASTATIN 10 MG TAB PO SCH (20:46)
[2021-05-09] MEDS: METOCLOPRAMIDE 5 MG/ML 2 ML VIAL IVP SCH ×4 (00:48→17:14)
[2021-05-09] MEDS: HEPARIN SODIUM,PORCINE/PF 5,000 UNIT/0.5 ML SYRINGE SQ SCH ×3 (00:48→17:14)
[2021-05-09 04:37] LABS: Anisocytosis Slight; Basophils % (A) 1 %; Eosinophils # (A) 0.1 k/uL (0-0.7); Eosinophils % (A) 2 %; HCT 32.2 % (34.0-46.0); Lymphocytes # (A) 2.4 k/uL (1.0-4.8); Lymphocytes % (A) 34 %; MCH 33.7 pg (25.0-35.0); MCHC 34.1 g/dL (31.0-37.0); MCV 98.8 fL (80.0-100.0); Macrocytosis Slight; Mean Platelet Volume 7.8; Monocytes # (A) 0.6 k/uL (0-1.0); Monocytes % (A) 8 %; Neutrophils # (A) 3.9 k/uL (1.3-7.7); Neutrophils % (A) 54 %; Platelet Count 134 k/uL (150-450); RBC 3.26 m/uL (3.80-5.40); RDW 16.4 % (11.5-15.5); WBC 7.2 k/uL (3.8-10.6)
[2021-05-09] MEDS: 0.9% NACL WITH KCL 20 MEQ/L 1,000 ML IV SCH ×3 (06:07→22:25)
[2021-05-09] MEDS: POTASSIUM CHLORIDE ER 20 MEQ TAB.ER PO SCH (08:21)
[2021-05-09] MEDS: MORPHINE SULFATE ER 15 MG TABLET PO SCH ×2 (08:22→21:34)
[2021-05-09] MEDS: PROTEASE PO SCH ×3 (08:22→22:28)
[2021-05-09] MEDS: AMYLASE PO SCH ×3 (08:22→22:28)
[2021-05-09] MEDS: [UNRECOGNIZED DRUG - OTHER] PO SCH ×3 (08:22→22:28)
[2021-05-09] MEDS: LORATADINE 10 MG TAB PO SCH (08:22)
[2021-05-09] MEDS: PANTOPRAZOLE 40 MG TABLET PO SCH (08:22)
[2021-05-09] MEDS: LIPASE PO SCH ×3 (08:22→22:28)
[2021-05-09] MEDS: LISINOPRIL-HCTZ 20-12.5 MG 1 EACH TAB PO SCH (08:23)
[2021-05-09] MEDS: NYSTATIN 100,000 UNIT/ML SUSP 500,000 UNIT/5 ML CUP PO SCH ×4 (08:23→22:23)
[2021-05-09 09:55] LABS: African American GFR (CKD) 123.2 (60.0-200.0); Anion Gap 7.6 mmol/L (4.00-12.00); BUN/Creat Ratio 17.5 Ratio (12.00-20.00); Calcium 8.4 mg/dL (8.7-10.3); Carbon Dioxide 27.4 mmol/L (21.6-31.8); Non-African American GFR(CKD) 106.3 (60.0-200.0); Potassium 3.6 mmol/L (3.5-5.5)
[2021-05-09] MEDS: HYDROcodone/APAP 7.5-325MG 1 EACH TAB PO PRN ×2 (12:26→17:14)
--- NOTE | 2021-05-09 12:50 | P.PN ---
Subjective Progress Note Date: 05/09/21 HISTORY OF PRESENT ILLNESS: This is a 70-year-old female with a previous medical history significant for hypertension and hypertensive cardiovascular disease, hyperlipidemia, GERD, history of pseudocyst of the pancreas that has been complaining of significant amount of abdominal pain with a significant weight loss and chronic diarrhea she ended up getting referred to have MRCP that documented a pancreatic mass was seen in consultation by pastry finisher at [facility], and she ended up having a biopsy that was positive for finger any cancer she ended up having a stent placed in the common bile duct, and she was started on chemotherapy, patient apparently received her last chemo therapy about a week ago and she became quite weak and fatigue and tired, with intractable nausea and vomiting and poor appetite not able to keep anything down, she ended up coming to the ER at [facility] today with her daughter and she was found to be extremely dehydrated, she was given a liter of IV fluid and she was started on IV fluid resuscitation the form of normal saline, she was placed on scopolamine patch 1.5 mg every 72 hours along with Zofran and Reglan to control her nausea and vomiting, she was placed on a clear liquid diet as well, she was admitted to the hospital for further evaluation and treatment. 05/08: Patient is laying down in bed she continues to be extremely weak, she is feeling a bit better than yesterday, the nausea is limited better, she is tolerating clear liquid diet, continue with current treatment plan, continue IV fluid, hopefully she will be discharged home the next 24 hours. 05/09: Patient is sitting up in bed in no apparent distress, she denies any chest pain, shortness breath, she continues to be somewhat nauseated, she continues to have some diarrhea, no vomiting, she will be maintained on IV fluid for another 24 hours, she can be discharged home tomorrow morning .REVIEW OF SYSTEMS: Constitutional: No documented fever, no chills, no night sweats. significant weight change and poor appetite and moderate fatigue, no lethargy. HEENT: No headache. No blurred vision or double vision, no loss of vision. No loss of Hearing, no ringing in the ears, no dizziness. No nasal drainage or congestion. No epistaxis. No sore throat. Lungs: No shortness of breath, no cough, no sputum production. No wheezing. Reports dyspnea with activity. Cardiovascular: No chest pain, no lower extremity edema. No palpitations. No paroxysmal nocturnal dyspnea. No orthopnea. No lightheadedness or dizziness. No syncopal episodes. Abdominal: Reports abdominal pain. positive for nausea, positive for vomiting. No diarrhea. No constipation. No bloody or tarry stools reports loss of appetite. Genitourinary: No dysuria, increased frequency, urgency. No urinary retention. Musculoskeletal: No myalgias. generalized muscle weakness, no gait dysfunction, no frequent falls. No back pain. No neck pain. Integumentary: No wounds, no lesions. No rash or pruritus. No unusual bruising. No change in hair or nails. Neurologic: No aphasia. No facial droop. No change in mentation. No head injury. No headache. No paralysis. No paresthesia. Psychiatric: No depression. No anxiety. No mood swings. Endocrine: No abnormal blood sugars. severe weight change. PHYSICAL EXAMINATION: General: this is a 70-year-old white female cachectic appears to be in mild distress HEENT: Head is atraumatic, normocephalic, pupils were equal round reactive to light and recommendation, extraocular muscle movement were intact, sclera nonicteric, conjunctivae were pale, mucous membranes of the mouth are somewhat dry. Neck: Supple, no JVP, normal carotid upstroke bilaterally, no lymphadenopathy. Chest: Decreased breath sounds at the bases, few rhonchi, no expiratory wheezes, no chest wall tenderness, no intercostal retractions. Heart: First heart sound is normal, second heart sounds normal, there is systolic ejection murmur 2/6 located in the left sternal border. Abdomen: Soft, mild tenderness to the epigastric area, nondistended, positive bowel sounds. Extremities: There is no edema no calf tenderness DP +2 bilaterally. Neurologic examination: Patient is awake alert and oriented x3 , cranial nerves II-12 appear grossly intact, muscle power were 5 out of 5 in upper extremities and 5 out of 5 in bilateral lower extremities, deep tendon reflexes normal bilaterally. ASSESSMENT AND PLAN: 1. Intractable nausea and vomiting due to recent chemotherapy with poor oral intake of fluid and dehydration. Continue IV fluid at 75 mL an hour, continue Zofran 4 mg IV push every 6 hours, Reglan 10 mg IV push every 6 hours, scopolamine patch 1.5 mg every 72 hours, keep the patient on clear liquid diet, advance as tolerated. 2. History of biliary/pancreatic cancer status post a stent placed in the common bile duct in January 2021 with last chemotherapy the week ago. Patient did receive Neulasta injection due to severe neutropenia, and her chemotherapy was placed on hold for now. 3. Hypertension and hypertensive cardiovascular disease. Continue lisinopril 20/12.5 mg orally once every day. 4. Hyperlipidemia. Continue Lipitor 10 mg orally once every day. 5. GERD. Continue omeprazole 40 mg orally once every day. 6. Prior history of pancreatic pseudocyst now diagnosed with pancreatic cancer. 7. DVT prophylaxis. Heparin 5000 units subcutaneously every 8 hours. 8. GI prophylaxis. Continue PPI . 9. Home tomorrow morning. Objective - Vital Signs Vital signs: Vital Signs Temp 98.1 F 05/09/21 11:27 Pulse 67 05/09/21 11:27 Resp 16 05/09/21 11:27 BP 146/77 05/09/21 11:27 Pulse Ox 93 L 05/09/21 11:27 Intake & Output 05/08/21 05/09/21 05/09/21 18:59 06:59 18:59 Intake Total 1200 Balance 1200 Weight 57.153 kg Intake: Intake, IV Titration 1200 Amount 0.9% NaCl with KCl 20 Meq 1200 /l 1,000 ml @ 100 mls/hr IV .Q10H [facility] Rx#: [id number] Other: Voiding Method Toilet Toilet Toilet # Voids 3 # Bowel Movements 3 0 - Labs CBC & Chem 7: 05/09/21 04:02 05/09/21 04:02 Labs: Abnormal Lab Results - Last 24 Hours (Table) 05/09/21 05/09/21 Range/Units 04:02 04:02 RBC 3.26 L (3.80-5.40) m/uL Hgb 11.0 L (11.4-16.0) gm/dL Hct 32.2 L (34.0-46.0) % RDW 16.4 H (11.5-15.5) % Plt Count 134 L (150-450) k/uL BUN 7.0 L (9.0-27.0) mg/dL Creatinine 0.4 L (0.6-1.5) mg/dL Glucose 132 H (70-110) mg/dL Calcium 8.4 L (8.7-10.3) mg/dL
[2021-05-09 20:01] VITALS: RESP 20
[2021-05-09] MEDS: ATORVASTATIN 10 MG TAB PO SCH (21:35)
[2021-05-10] MEDS: HEPARIN SODIUM,PORCINE/PF 5,000 UNIT/0.5 ML SYRINGE SQ SCH ×2 (00:08→07:46)
[2021-05-10] MEDS: METOCLOPRAMIDE 5 MG/ML 2 ML VIAL IVP SCH ×2 (00:09→05:59)
[2021-05-10 04:57] VITALS: BP 138/69; PULSE 61; TEMP 98
[2021-05-10 07:23] LABS: Anisocytosis Slight; Basophils % (A) 1 %; Eosinophils # (A) 0.1 k/uL (0-0.7); Eosinophils % (A) 2 %; HGB 11.9 gm/dL (11.4-16.0); Lymphocytes # (A) 2.2 k/uL (1.0-4.8); Lymphocytes % (A) 50 %; MCH 34.1 pg (25.0-35.0); MCHC 34.1 g/dL (31.0-37.0); MCV 99.9 fL (80.0-100.0); Macrocytosis Slight; Mean Platelet Volume 8.2; Monocytes # (A) 0.3 k/uL (0-1.0); Monocytes % (A) 6 %; Neutrophils # (A) 1.7 k/uL (1.3-7.7); Neutrophils % (A) 39 %; Platelet Count 143 k/uL (150-450); RDW 16.3 % (11.5-15.5); WBC 4.5 k/uL (3.8-10.6)
[2021-05-10] MEDS: NYSTATIN 100,000 UNIT/ML SUSP 500,000 UNIT/5 ML CUP PO SCH (07:45)
[2021-05-10] MEDS: PANTOPRAZOLE 40 MG TABLET PO SCH (07:45)
[2021-05-10] MEDS: LORATADINE 10 MG TAB PO SCH (07:45)
[2021-05-10] MEDS: LISINOPRIL-HCTZ 20-12.5 MG 1 EACH TAB PO SCH (07:45)
[2021-05-10] MEDS: POTASSIUM CHLORIDE ER 20 MEQ TAB.ER PO SCH (07:45)
[2021-05-10] MEDS: MORPHINE SULFATE ER 15 MG TABLET PO SCH (07:46)
[2021-05-10] MEDS: LIPASE PO SCH (07:47)
[2021-05-10] MEDS: [UNRECOGNIZED DRUG - OTHER] PO SCH (07:47)
[2021-05-10] MEDS: AMYLASE PO SCH (07:47)
[2021-05-10] MEDS: PROTEASE PO SCH (07:47)
--- NOTE | 2021-05-10 08:13 | P.DS ---
Providers Date of admission: 05/07/21 10:24 Expected date of discharge: 05/10/21 Attending physician: Tammy Hanson Primary care physician: Tammy Hanson Hospital Course: HISTORY OF PRESENT ILLNESS: This is a 70-year-old female with a previous medical history significant for hypertension and hypertensive cardiovascular disease, hyperlipidemia, GERD, history of pseudocyst of the pancreas that has been complaining of significant amount of abdominal pain with a significant weight loss and chronic diarrhea she ended up getting referred to have MRCP that documented a pancreatic mass was seen in consultation by evaporator at [facility], and she ended up having a biopsy that was positive for finger any cancer she ended up having a stent placed in the common bile duct, and she was started on chemotherapy, patient apparently received her last chemo therapy about a week ago and she became quite weak and fatigue and tired, with intractable nausea and vomiting and poor appetite not able to keep anything down, she ended up coming to the ER at [facility] today with her daughter and she was found to be extremely dehydrated, she was given a liter of IV fluid and she was started on IV fluid resuscitation the form of normal saline, she was placed on scopolamine patch 1.5 mg every 72 hours along with Zofran and Reglan to control her nausea and vomiting, she was placed on a clear liquid diet as well, she was admitted to the hospital for further evaluation and treatment. 05/08: Patient is laying down in bed she continues to be extremely weak, she is feeling a bit better than yesterday, the nausea is limited better, she is tolerating clear liquid diet, continue with current treatment plan, continue IV fluid, hopefully she will be discharged home the next 24 hours. 05/09: Patient is sitting up in bed in no apparent distress, she denies any chest pain, shortness breath, she continues to be somewhat nauseated, she continues to have some diarrhea, no vomiting, she will be maintained on IV fluid for another 24 hours, she can be discharged home tomorrow morning 05/10: Patient has been afebrile, heart rate 61, blood pressure 138/69, pulse ox 95% on room air. Repeat blood work reveals WBC 4.5, hemoglobin 11.9, platelet count 143. Patient will be discharged home today in stable condition. DISCHARGE DIAGNOSES 1. Intractable nausea and vomiting due to recent chemotherapy with poor oral intake of fluid and dehydration. 2. History of biliary/pancreatic cancer status post a stent placed in the common bile duct in January 2021 with last chemotherapy the week ago. 3. Hypertension and hypertensive cardiovascular disease. 4. Hyperlipidemia. 5. GERD. 6. Prior history of pancreatic pseudocyst now diagnosed with pancreatic cancer. DISCHARGE PLAN Home Impression and plan of care have been directed as dictated by the signing physician. Alexia Gonsalves nurse practitioner acting as scribe for signing physician. Patient Condition at Discharge: Fair Plan - Discharge Summary Discharge Rx Participant: No New Discharge Prescriptions: Continue Lisinopril-Hctz 20-12.5 mg [Zestoretic 20-12.5] 1 tab PO DAILY Atorvastatin [Lipitor] 10 mg PO HS Potassium Chloride [Klor-Con 20] 20 meq PO DAILY Omeprazole 20 mg PO DAILY Morphine Sulfate ER [Ms Contin] 15 mg PO Q12HR HYDROcodone/APAP 7.5-325MG [Bromide 7.5-325] 1 tab PO Q4H PRN PRN Reason: Pain Lipase/Protease/Amylase [Zenpep Dr 25,000 Unit Capsule] 1 cap PO TID Nystatin 100,000 Unit/ml Susp [Mycostatin Oral Susp] 5 ml PO QID Loperamide [Imodium] 2 mg PO QID PRN PRN Reason: Loose Stool Lidocaine-Prilocaine Cream [Emla Cream 2.5%/2.5%] 1 applic TOPICAL DIRECTED PRN PRN Reason: PORT ACCESS Prochlorperazine [Compazine] 10 mg PO Q6H PRN PRN Reason: Nausea Loratadine [Claritin] 10 mg PO DAILY Dronabinol [Marinol] 2.5 mg PO AC-BID Discharge Medication List Lisinopril-Hctz 20-12.5 mg [Zestoretic 20-12.5] 1 tab PO DAILY 02/07/17 [History] Atorvastatin [Lipitor] 10 mg PO HS 07/06/20 [History] Potassium Chloride [Klor-Con 20] 20 meq PO DAILY 02/04/21 [History] Dronabinol [Marinol] 2.5 mg PO AC-BID 05/07/21 [History] HYDROcodone/APAP 7.5-325MG [Bromide 7.5-325] 1 tab PO Q4H PRN 05/07/21 [History] Lidocaine-Prilocaine Cream [Emla Cream 2.5%/2.5%] 1 applic TOPICAL DIRECTED PRN 05/07/21 [History] Lipase/Protease/Amylase [Zenpep Dr 25,000 Unit Capsule] 1 cap PO TID 05/07/21 [History] Loperamide [Imodium] 2 mg PO QID PRN 05/07/21 [History] Loratadine [Claritin] 10 mg PO DAILY 05/07/21 [History] Morphine Sulfate ER [Ms Contin] 15 mg PO Q12HR 05/07/21 [History] Nystatin 100,000 Unit/ml Susp [Mycostatin Oral Susp] 5 ml PO QID 05/07/21 [History] Omeprazole 20 mg PO DAILY 05/07/21 [History] Prochlorperazine [Compazine] 10 mg PO Q6H PRN 05/07/21 [History] Follow up Appointment(s)/Referral(s): Tammy Hanson MD [Primary Care Provider] - 1-2 days Discharge Disposition: HOME SELF-CARE
[2021-05-10 10:03] LABS: African American GFR (CKD) 123.2 (60.0-200.0); Albumin 3.4 g/dL (3.80-4.90); Albumin/Globulin Ratio 1.89 (1.60-3.17); Calcium 8.8 mg/dL (8.7-10.3); Globulin 1.8 g/dL (1.6-3.3); Non-African American GFR(CKD) 106.3 (60.0-200.0); Potassium 3.7 mmol/L (3.5-5.5); Total Bilirubin 0.4 mg/dL (0.2-1.2); Total Protein 5.2 g/dL (6.2-8.2)
[2021-05-10] MEDS: 0.9% NACL WITH KCL 20 MEQ/L 1,000 ML IV SCH (10:38)
== END 2021-05-10 11:16 | disposition home or self-care (01) ==
LOC: EC 07:49 → 5NMEDONC 10:24
PROVIDERS: ADMIT Internal Medicine; ATTEND Internal Medicine
DX: R11.2 Nausea with vomiting, unspecified (principal); T45.1X5A Adverse effect of antineoplastic and immunosuppressive drugs, initial encounter; E86.0 Dehydration; D70.9 Neutropenia, unspecified; C25.9 Malignant neoplasm of pancreas, unspecified; C22.9 Malignant neoplasm of liver, not specified as primary or secondary; I11.9 Hypertensive heart disease without heart failure; E78.5 Hyperlipidemia, unspecified; Z20.822 Contact with and (suspected) exposure to COVID-19; K21.9 Gastro-esophageal reflux disease without esophagitis; E83.42 Hypomagnesemia; E87.6 Hypokalemia; J43.9 Emphysema, unspecified; R64 Cachexia; Z79.899 Other long term (current) drug therapy; C79.51 Secondary malignant neoplasm of bone; R19.7 Diarrhea, unspecified; M19.90 Unspecified osteoarthritis, unspecified site; R00.0 Tachycardia, unspecified; M54.9 Dorsalgia, unspecified; N28.9 Disorder of kidney and ureter, unspecified; Z90.711 Acquired absence of uterus with remaining cervical stump; Z90.49 Acquired absence of other specified parts of digestive tract; Z87.442 Personal history of urinary calculi; Z92.21 Personal history of antineoplastic chemotherapy; Z98.890 Other specified postprocedural states; Z82.5 Family history of asthma and other chronic lower respiratory diseases; Z80.9 Family history of malignant neoplasm, unspecified; Z82.49 Family history of ischemic heart disease and other diseases of the circulatory system
CPT/HCPCS: 96376 ×3; 96366 ×3; 96372 ×3; 96361; 96365; 96375; 99285; 36415; 93005; 97161; 97165; 80053 ×3; 80048; 82150; 83690; 83735; 85025 ×4; 81003; 87635; G0378 ×4; J2060; J2270; J2765 ×4; J3250; Q0167 ×3; J2405; J1170 ×2; J3475; J3480; J1644 ×3

== ENCOUNTER 2021-06-26 13:22 | Inpatient (IN) | payer OTHER, MEDICARE ==
[2021-06-26] MEDS ORDERED: SODIUM CHLORIDE 0.9% 1,000 ML IV STA (13:39)
[2021-06-26] MEDS ORDERED: HYDROmorphone 1 MG/ML 1 ML SYRINGE IVP STA ×2 (13:46→16:31)
[2021-06-26] MEDS ORDERED: ONDANSETRON 4 MG/2 ML VIAL IVP STA (13:46)
--- NOTE | 2021-06-26 13:51 | ED ---
General Adult HPI - General Source: patient, RN notes reviewed, old records reviewed Mode of arrival: wheelchair Limitations: no limitations <Oneil Cheung - Last Filed: 06/26/21 14:33> <Bear Richards - Last Filed: 06/26/21 17:25> - General Chief complaint: Nausea/Vomiting/Diarrhea Stated complaint: elevated BP Time Seen by Provider: 06/26/21 13:34 - History of Present Illness Initial comments: 70-year-old female with history of stage IV pancreatic cancer presents for evaluation of abdominal pain nausea vomiting. Patient had chemotherapy on the fourth which was 3 days ago. She's had persistent vomiting since that time. She does report a generalized abdominal pain which seems to be worse with vo miting. No fevers. She has not been able to eat or drink and is concerned with dehydration. (Oneil Cheung) - Related Data Home Medications Medication Instructions Recorded Confirmed Lisinopril-Hctz 20-12.5 mg 1 tab PO DAILY 02/07/17 06/26/21 [Zestoretic 20-12.5] Atorvastatin [Lipitor] 10 mg PO HS 07/06/20 06/26/21 Potassium Chloride [Klor-Con 20] 20 meq PO DAILY 02/04/21 06/26/21 Dronabinol [Marinol] 2.5 mg PO AC-BID 05/07/21 06/26/21 HYDROcodone/APAP 7.5-325MG [[place] 1 tab PO Q4H PRN 05/07/21 06/26/21 7.5-325] Lidocaine-Prilocaine Cream [Emla 1 applic TOPICAL DIRECTED PRN 05/07/21 06/26/21 Cream 2.5%/2.5%] Lipase/Protease/Amylase [Zenpep Dr 1 cap PO TID 05/07/21 06/26/21 25,000 Unit Capsule] Loperamide [Imodium] 2 mg PO QID PRN 05/07/21 06/26/21 Loratadine [Claritin] 10 mg PO DAILY 05/07/21 06/26/21 Morphine Sulfate ER [Ms Contin] 15 mg PO Q12HR 05/07/21 06/26/21 Omeprazole 20 mg PO DAILY 05/07/21 06/26/21 Prochlorperazine [Compazine] 10 mg PO Q6H PRN 05/07/21 06/26/21 Colchicine 0.6 mg PO DAILY PRN 06/26/21 06/26/21 Furosemide [Lasix] 20 mg PO DAILY 06/26/21 06/26/21 Allergies Allergy/AdvReac Type Severity Reaction Status Date / Time No Known Allergies Allergy Verified 06/26/21 15:46 Review of Systems ROS Other: All systems not noted in ROS Statement are negative. <Oneil Cheung - Last Filed: 06/26/21 14:33> ROS Other: All systems not noted in ROS Statement are negative. <Bear Richards - Last Filed: 06/26/21 17:25> ROS Statement: Those systems with pertinent positive or pertinent negative responses have been documented in the HPI. Past Medical History Past Medical History: Chest Pain / Angina, COPD, GERD/Reflux, Hypertension, Osteoarthritis (OA) Additional Past Medical History / Comment(s): emphysema, lesion on kidneys. ki dney stones, recent inpt r/t chest pain, CA back History of Any Multi-Drug Resistant Organisms: None Reported Past Surgical History: Appendectomy, Bladder Surgery, Cholecystectomy, Hernia Repair, Orthopedic Surgery Additional Past Surgical History / Comment(s): corrective eye surg., sinus surg., jaw surg., foot surg. rt knee surgery meniscus repair, rt shoulder rotator cuff repair Past Anesthesia/Blood Transfusion Reactions: Motion Sickness, Postoperative Nausea & Vomiting (PONV) Past Psychological History: No Psychological Hx Reported Smoking Status: Never smoker Past Alcohol Use History: None Reported Past Drug Use History: None Reported - Past Family History Mother Family Medical History: Cancer <Oneil Cheung - Last Filed: 06/26/21 14:33> General Exam Limitations: no limitations General appearance: alert, in no apparent distress Head exam: Present: atraumatic, normocephalic Eye exam: Present: normal appearance, PERRL ENT exam: Present: mucous membranes dry Neck exam: Present: normal inspection. Absent: tenderness, meningismus Respiratory exam: Present: normal lung sounds bilaterally. Absent: respiratory distress, wheezes Cardiovascular Exam: Present: regular rate, normal rhythm GI/Abdominal exam: Present: soft, tenderness. Absent: distended, guarding, rebound Extremities exam: Present: normal inspection, normal capillary refill. Absent: pedal edema Neurological exam: Present: alert, oriented X3, CN II-XII intact. Absent: motor sensory deficit Psychiatric exam: Present: normal affect, normal mood Skin exam: Present: warm, dry, intact. Absent: cyanosis, diaphoretic <GermainOneil mcleod Charley - Last Filed: 06/26/21 14:33> Course Vital Signs 06/26/21 13:24 Temperature 97.8 F Pulse Rate 97 Respiratory 18 Rate Blood Pressure 150/93 O2 Sat by Pulse 97 Oximetry EKG Findings - EKG Comments: EKG Findings:: EKG: Normal sinus rhythm, rate of 77 [place] interval 116, QRS duration 90, QTC 473, no ST segment elevation. <ClaytwanOneil Charley - Last Filed: 06/26/21 14:33> Medical Decision Making - Lab Data Result diagrams: 06/26/21 14:22 06/26/21 14:22 <Bear Richards - Last Filed: 06/26/21 17:25> - Medical Decision Making Patient care was sent out to me by previous shift physician, Dr. Cope. Briefly, patient is a 70-year-old female with past medical history of x-ray cancer. She is 3 days status post most recent chemotherapy. Patient does have some mild epigastric pain. Also follow-up with pending laboratory evaluation and to determine need for any additional medical treatment. Laboratory evaluation was resulted. Leukocytosis of 16.2 with a macrocytosis of 108.9. Coag panel is negative. Metabolic panel is within acceptable limits except for lactic acidosis of 5.6. Urinalysis unremarkable. Patient evaluated at bedside at 4:30 patient found to be in stable medical condition. She still complaining of epigastric pain. Lipase level was ordered. CT of the abdomen and pelvis was ordered for concerns of intra-abdominal cause of leukocytosis.Computed tomography scan shows no acute processes. There is common of slightly enlarged right lobe liver mass. Otherwise computed tomography scan shows mostly improvement. Patient reevaluated bedside at 5:25 PM found to be stable medical condition. Other family member states that patient was given some sort of arm supplemented that increases her white blood cell count. Sangita ent is agreeable with observation admission. Case discussed with Dr. Sheppard was went except patient care. (Bear Richards) - Lab Data Lab Results 06/26/21 06/26/21 06/26/21 Range/Units 14:22 14:22 14:22 WBC 68.2 H* (3.8-10.6) k/uL RBC 3.63 L (3.80-5.40) m/uL Hgb 12.7 (11.4-16.0) gm/dL Hct 39.5 (34.0-46.0) % MCV 108.9 H D (80.0-100.0) fL MCH 35.0 (25.0-35.0) pg MCHC 32.2 (31.0-37.0) g/dL RDW 16.1 H (11.5-15.5) % Plt Count 210 (150-450) k/uL MPV 8.7 Neutrophils % (Manual) 96 % Band Neuts % (Manual) 2 % Lymphocytes % (Manual) 2 % Monocytes % (Manual) 1 % Neutrophils # (Manual) 66.80 H (1.3-7.7) k/uL Lymphocytes # (Manual) 1.36 (1.0-4.8) k/uL Monocytes # (Manual) 0.68 (0-1.0) k/uL Nucleated RBCs 0 (0-0) /100 WBC Manual Slide Review Performed Anisocytosis Slight Macrocytosis Marked A PT 10.1 (9.0-12.0) sec INR 0.9 (<1.2) APTT 20.3 L (22.0-30.0) sec Sodium (137-145) mmol/L Potassium (3.5-5.1) mmol/L Chloride (98-107) mmol/L Carbon Dioxide (22-30) mmol/L Anion Gap mmol/L BUN (7-17) mg/dL Creatinine (0.52-1.04) mg/dL Est GFR (CKD-EPI)AfAm (>60 ml/min/1.73 sqM) Est GFR (CKD-EPI)NonAf (>60 ml/min/1.73 sqM) Glucose (74-99) mg/dL Plasma Lactic Acid Papito (0.7-2.0) mmol/L Calcium (8.4-10.2) mg/dL Magnesium (1.6-2.3) mg/dL Total Bilirubin (0.2-1.3) mg/dL AST (14-36) U/L ALT (4-34) U/L Alkaline Phosphatase (38-126) U/L Total Protein (6.3-8.2) g/dL Albumin (3.5-5.0) g/dL Urine Color Yellow Urine Appearance Cloudy H (Clear) Urine pH 6.5 (5.0-8.0) Ur Specific [place] 1.016 (1.001-1.035) Urine Protein Trace H (Negative) Urine Glucose (UA) Trace H (Negative) Urine Ketones Negative (Negative) Urine Blood Negative (Negative) Urine Nitrite Negative (Negative) Urine Bilirubin Negative (Negative) Urine Urobilinogen <2.0 (<2.0) mg/dL Ur Leukocyte Esterase Negative (Negative) Urine RBC 1 (0-5) /hpf Urine WBC 2 (0-5) /hpf Ur Squamous Epith Cells 1 (0-4) /hpf Amorphous Sediment Rare H (None) /hpf Urine Bacteria Rare H (None) /hpf Urine Mucus Occasional H (None) /hpf 06/26/21 06/26/21 Range/Units 14:22 14:22 WBC (3.8-10.6) k/uL RBC (3.80-5.40) m/uL Hgb (11.4-16.0) gm/dL Hct (34.0-46.0) % MCV (80.0-100.0) fL MCH (25.0-35.0) pg MCHC (31.0-37.0) g/dL RDW (11.5-15.5) % Plt Count (150-450) k/uL MPV Neutrophils % (Manual) % Band Neuts % (Manual) % Lymphocytes % (Manual) % Monocytes % (Manual) % Neutrophils # (Manual) (1.3-7.7) k/uL Lymphocytes # (Manual) (1.0-4.8) k/uL Monocytes # (Manual) (0-1.0) k/uL Nucleated RBCs (0-0) /100 WBC Manual Slide Review Anisocytosis Macrocytosis PT (9.0-12.0) sec INR (<1.2) APTT (22.0-30.0) sec Sodium 137 (137-145) mmol/L Potassium 3.4 L (3.5-5.1) mmol/L Chloride 99 (98-107) mmol/L Carbon Dioxide 22 (22-30) mmol/L Anion Gap 16 mmol/L BUN 11 (7-17) mg/dL Creatinine 0.31 L (0.52-1.04) mg/dL Est GFR (CKD-EPI)AfAm >90 (>60 ml/min/1.73 sqM) Est GFR (CKD-EPI)NonAf >90 (>60 ml/min/1.73 sqM) Glucose 117 H (74-99) mg/dL Plasma Lactic Acid Papito 5.6 H* (0.7-2.0) mmol/L Calcium 10.0 (8.4-10.2) mg/dL Magnesium 1.8 (1.6-2.3) mg/dL Total Bilirubin 1.1 (0.2-1.3) mg/dL AST 34 (14-36) U/L ALT 29 (4-34) U/L Alkaline Phosphatase 213 H (38-126) U/L Total Protein 6.3 (6.3-8.2) g/dL Albumin 4.0 (3.5-5.0) g/dL Urine Color Urine Appearance (Clear) Urine pH (5.0-8.0) Ur Specific [place] (1.001-1.035) Urine Protein (Negative) Urine Glucose (UA) (Negative) Urine Ketones (Negative) Urine Blood (Negative) Urine Nitrite (Negative) Urine Bilirubin (Negative) Urine Urobilinogen (<2.0) mg/dL Ur Leukocyte Esterase (Negative) Urine RBC (0-5) /hpf Urine WBC (0-5) /hpf Ur Squamous Epith Cells (0-4) /hpf Amorphous Sediment (None) /hpf Urine Bacteria (None) /hpf Urine Mucus (None) /hpf Disposition <Oneil Cheung - Last Filed: 06/26/21 14:33> <Bear Richards - Last Filed: 06/26/21 17:25> Clinical Impression: Leukocytosis Disposition: ADMITTED IP TO THIS HOSP Condition: Fair Referrals: Tammy Hanson MD [Primary Care Provider] - 1-2 days
[2021-06-26 15:17] LABS: INR 0.9 (<1.2); Prothrombin Time 10.1 sec (9.0-12.0)
[2021-06-26 15:19] LABS: Amorphous Sediment,Urine Rare /hpf; Appearance,Urine Cloudy (Clear); Bacteria,Urine Rare /hpf; Bilirubin,Urine Negative (Negative); Blood,Urine Negative (Negative); Color,Urine Yellow; Glucose,Urine (UA) Trace (Negative); Ketones,Urine Negative (Negative); Leukocyte Esterase,Urine Negative (Negative); Mucus,Urine Occasional /hpf; Nitrite,Urine Negative (Negative); PH, Urine 6.5 (5.0-8.0); Protein,Urine Trace (Negative); RBC,Urine 1 /hpf (0-5); Specific Gravity,Urine 1.016 (1.001-1.035); Squamous Epithelial Cell,Urine 1 /hpf (0-4); Urobilinogen,Urine <2.0 mg/dL (<2.0); WBC,Urine 2 /hpf (0-5)
[2021-06-26 15:23] LABS: Partial Thromboplastin Time 20.3 sec (22.0-30.0)
[2021-06-26 15:26] LABS: Anisocytosis Slight; HCT 39.5 % (34.0-46.0); HGB 12.7 gm/dL (11.4-16.0); MCHC 32.2 g/dL (31.0-37.0); Macrocytosis Marked; Mean Platelet Volume 8.7; Platelet Count 210 k/uL (150-450); RBC 3.63 m/uL (3.80-5.40); RDW 16.1 % (11.5-15.5)
[2021-06-26 15:30] LABS: MCV 108.9 fL (80.0-100.0); WBC 68.2 k/uL (3.8-10.6)
[2021-06-26 15:33] LABS: AST 34 U/L (14-36); African American GFR (CKD) >90 (>60 ml/min/1.73 sqM); Alkaline Phosphatase 213 U/L (38-126); Anion Gap 16 mmol/L; Blood Urea Nitrogen 11 mg/dL (7-17); Carbon Dioxide 22 mmol/L (22-30); Chloride 99 mmol/L (98-107); Glucose 117 mg/dL (74-99); Magnesium 1.8 mg/dL (1.6-2.3); Non-African American GFR(CKD) >90 (>60 ml/min/1.73 sqM); Potassium 3.4 mmol/L (3.5-5.1); Sodium 137 mmol/L (137-145); Total Bilirubin 1.1 mg/dL (0.2-1.3); Total Protein 6.3 g/dL (6.3-8.2)
[2021-06-26 15:41] LABS: ALT 29 U/L (4-34)
[2021-06-26] MEDS ORDERED: METOCLOPRAMIDE 5 MG/ML 2 ML VIAL IVP STA (16:32)
[2021-06-26 16:48] LABS: Band Neutrophils % 2 %; Lymphocytes # (M) 1.36 k/uL (1.0-4.8); Monocytes # (M) 0.68 k/uL (0-1.0); Neutrophils % (M) 96 %; Nucleated Red Blood Cells 0 /100 WBC (0-0); Total Cells Counted 200
--- NOTE | 2021-06-26 17:18 | CT ---
EXAMINATION TYPE: CT abdomen pelvis w con DATE OF EXAM: 06/26/2021 COMPARISON: 02/04/2021 HISTORY: Epigastric and back pain. Nausea and vomiting. History of pancreatic and liver cancer. CT DLP: 621.8 mGycm Automated exposure control for dose reduction was used. CONTRAST: Performed with IV Contrast, patient injected with 100 mL of Isovue 300. The lung bases are clear. There is no pleural effusion. Heart size is normal. There is no pericardial effusion. There is 2 cm rounded hypodensity in the inferior right lobe of the liver. Liver has normal size. The re are clips from cholecystectomy. Spleen is intact. The stomach is intact. There are cystic changes in the tail of the pancreas. There is 2.8 cm cystic fluid collection and also some thickening of the posterior body of the pancreas that measures 3.4 x 2.5 cm. There is biliary stent. The bile ducts are not dilated. There are some lymph nodes around the celiac artery and superior mesenteric artery that measure up to 1 cm. There is no adrenal mass. Kidneys show satisfactory contrast opacification. There is left renal parap elvic cysts. There is a mixed density mass on the medial left kidney measuring 2.2 cm. This appears t o have some fat component and consistent with angiomyolipoma. The ureters are not dilated. There is n o evidence of a bladder mass. There is no inguinal hernia. There is small amount of free fluid in the pelvis. Lumbar vertebra have normal alignment. There is multilevel lumbar spondylotic changes. There is no compression fracture. The bony pelvis is intact. The hip joints are intact. There is small joseph culus lower pole left kidney. IMPRESSION: Low-density mass in the right lobe of the liver increased compared to old exam and consistent with pr ogression of metastatic disease. Complex mass in the body of the pancreas measures overall 4.7 cm and not significantly changed compared to old exam. Nonobstructing left renal calculus. Left renal mass consistent with angiomyolipoma unchanged. There i s clearing of the dilated biliary tree compared to old exam. There is biliary stent noted. There is s ome celiac lymphadenopathy which is improved compared to old exam.
[2021-06-26] MEDS ORDERED: ACETAMINOPHEN TAB 325 MG TAB PO PRN (17:20)
[2021-06-26] MEDS ORDERED: NALOXONE 0.4 MG/ML 1 ML VIAL IV PRN (17:20)
[2021-06-26] MEDS ORDERED: ONDANSETRON 4 MG/2 ML VIAL IVP PRN (17:20)
[2021-06-26] MEDS: HYDROmorphone 1 MG/ML 1 ML SYRINGE IVP PRN ×3 (18:25→23:21)
[2021-06-26] MEDS: SODIUM CHLORIDE 0.9% 1,000 ML IV SCH (18:26)
[2021-06-26] MEDS: TEMAZEPAM 15 MG CAP PO PRN (22:35)
[2021-06-26] MEDS ORDERED: LOPERAMIDE 2 MG CAP PO PRN (23:00)
[2021-06-27] MEDS ORDERED: PROCHLORPERAZINE 10 MG TAB PO PRN
[2021-06-27] MEDS: SODIUM CHLORIDE 0.9% 1,000 ML IV SCH ×2 (03:07→16:16)
[2021-06-27] MEDS: HYDROmorphone 1 MG/ML 1 ML SYRINGE IVP PRN ×6 (03:07→22:56)
[2021-06-27] MEDS ORDERED: METOCLOPRAMIDE 5 MG/ML 2 ML VIAL IVP PRN (05:06)
[2021-06-27] MEDS ORDERED: METOCLOPRAMIDE 5 MG/ML 2 ML VIAL IVP SCH (06:00)
[2021-06-27] MEDS ORDERED: COLCHICINE 0.6 MG EACH PO PRN (09:00)
[2021-06-27] MEDS: LIPASE 5,000/PROTEASE 17,000/AMYLASE 24,000 PO SCH ×3 (09:04→21:49)
[2021-06-27] MEDS: FUROSEMIDE 20 MG TAB PO SCH (09:04)
[2021-06-27] MEDS: MORPHINE SULFATE ER 15 MG TABLET PO SCH ×2 (09:04→21:48)
[2021-06-27] MEDS: LISINOPRIL-HCTZ 20-12.5 MG 1 EACH TAB PO SCH (09:04)
[2021-06-27] MEDS: POTASSIUM CHLORIDE ER 20 MEQ TAB.ER PO SCH (09:04)
[2021-06-27] MEDS: PANTOPRAZOLE 40 MG TABLET PO SCH (09:05)
[2021-06-27] MEDS: LORATADINE 10 MG TAB PO SCH (09:05)
[2021-06-27] MEDS: HYDROcodone/APAP 7.5-325MG 1 EACH TAB PO PRN (11:47)
[2021-06-27] MEDS ORDERED: SODIUM CHLORIDE 0.9% 500 ML 500 ML IV ONE (14:53)
[2021-06-27 15:01] LABS: Anisocytosis Slight; HCT 30.2 % (34.0-46.0); MCH 35.3 pg (25.0-35.0); MCHC 32.2 g/dL (31.0-37.0); MCV 109.6 fL (80.0-100.0); Macrocytosis Marked; Mean Platelet Volume 8.3; Platelet Count 162 k/uL (150-450); RBC 2.75 m/uL (3.80-5.40); RDW 16.3 % (11.5-15.5); WBC 46.4 k/uL (3.8-10.6)
[2021-06-27 15:02] LABS: ALT 16 U/L (4-34); AST 31 U/L (14-36); African American GFR (CKD) >90 (>60 ml/min/1.73 sqM); Albumin 2.8 g/dL (3.5-5.0); Alkaline Phosphatase 133 U/L (38-126); Anion Gap 9 mmol/L; Blood Urea Nitrogen 7 mg/dL (7-17); C Reactive Protein 2.1 mg/dL (<1.0); Calcium 8.9 mg/dL (8.4-10.2); Carbon Dioxide 24 mmol/L (22-30); Chloride 100 mmol/L (98-107); Glucose 121 mg/dL (74-99); LDH 905 U/L (313-618); Non-African American GFR(CKD) >90 (>60 ml/min/1.73 sqM); Sodium 133 mmol/L (137-145); Total Bilirubin 0.6 mg/dL (0.2-1.3); Total Protein 5.1 g/dL (6.3-8.2)
[2021-06-27 15:08] LABS: Potassium 3.5 mmol/L (3.5-5.1)
[2021-06-27 15:11] LABS: HGB 9.7 gm/dL (11.4-16.0)
[2021-06-27 17:02] LABS: Erythrocyte Sedimentation Rate 5 mm/hr (0-20)
[2021-06-27 17:14] LABS: Lymphocytes # (M) 1.39 k/uL (1.0-4.8); Monocytes # (M) 0.93 k/uL (0-1.0); Neutrophils # (M) 44.08 k/uL (1.3-7.7); Neutrophils % (M) 95 %; Nucleated Red Blood Cells 0 /100 WBC (0-0); Total Cells Counted 100
--- NOTE | 2021-06-27 17:29 | P.HPIM ---
History of Present Illness H&P Date: 06/27/21 Chief Complaint: Nausea/vomiting/abdominal pain 70-year-old female with history of stage IV pancreatic cancer presents for evaluation of abdominal pain nausea vomiting. Patient had chemotherapy on the fourth which was 3 days ago. She's had persistent vomiting since that time. She does report a generalized abdominal pain which seems to be worse with vomiting. No fevers. She has not been able to eat or drink and is concerned with dehydration. Workup in ED revealed an elevated white blood count of 16.2, MCV of 108.9, sodium 137, potassium 2.4, BUN/creatinine of 11/0.3 and blood glucose of 117; CT of the abdomen and pelvis was ordered for concerns of intra-abdominal cause of leukocytosis. Computed tomography scan shows no acute processes. There is common of slightly enlarged right lobe liver mass. Otherwise computed tomography scan shows mostly improvement. Review of Systems REVIEW OF SYSTEMS: CONSTITUTIONAL: No fever, no malaise, no fatigue. HEENT: No recent visual problems or hearing problems. Denied any sore throat. CARDIOVASCULAR: No chest pain, orthopnea, PND, no palpitations, no syncope. PULMONARY: No shortness of breath, no cough, no hemoptysis. GASTROINTESTINAL: No diarrhea, no nausea, no vomiting, no abdominal pain. NEUROLOGICAL: No headaches, no weakness, no numbness. HEMATOLOGICAL: Denies any bleeding or petechiae. GENITOURINARY: Denies any burning micturition, frequency, or urgency. MUSCULOSKELETAL/RHEUMATOLOGICAL: Denies any joint pain, swelling, or any muscle pain. ENDOCRINE: Denies any polyuria or polydipsia. The rest of the 14-point review of systems is negative. Past Medical History Past Medical History: COPD, GERD/Reflux, Hypertension, Osteoarthritis (OA) Additional Past Medical History / Comment(s): emphysema, lesion on kidneys. kidney stones, recent inpt r/t chest pain, CA back History of Any Multi-Drug Resistant Organisms: None Reported Past Surgical History: Appendectomy, Cholecystectomy, Hernia Repair, Orthopedic Surgery Additional Past Surgical History / Comment(s): corrective eye surg., sinus bennett rg., jaw surg., foot surg. rt knee surgery meniscus repair, rt shoulder rotator cuff repair Past Anesthesia/Blood Transfusion Reactions: Motion Sickness, Postoperative Nausea & Vomiting (PONV) Past Psychological History: No Psychological Hx Reported Smoking Status: Never smoker Past Alcohol Use History: None Reported Past Drug Use History: None Reported - Past Family History Mother Family Medical History: Cancer Medications and Allergies Home Medications Medication Instructions Recorded Confirmed Type Lisinopril-Hctz 20-12.5 mg 1 tab PO DAILY 02/07/17 06/26/21 History [Zestoretic 20-12.5] Atorvastatin [Lipitor] 10 mg PO HS 07/06/20 06/26/21 History Potassium Chloride [Klor-Con 20] 20 meq PO DAILY 02/04/21 06/26/21 History Dronabinol [Marinol] 2.5 mg PO AC-BID 05/07/21 06/26/21 History HYDROcodone/APAP 7.5-325MG [[employer] 1 tab PO Q4H PRN 05/07/21 06/26/21 History 7.5-325] Lidocaine-Prilocaine Cream [Emla 1 applic TOPICAL DIRECTED PRN 05/07/21 06/26/21 History Cream 2.5%/2.5%] Lipase/Protease/Amylase [Zenpep Dr 1 cap PO TID 05/07/21 06/26/21 History 25,000 Unit Capsule] Loperamide [Imodium] 2 mg PO QID PRN 05/07/21 06/26/21 History Loratadine [Claritin] 10 mg PO DAILY 05/07/21 06/26/21 History Morphine Sulfate ER [Ms Contin] 15 mg PO Q12HR 05/07/21 06/26/21 History Omeprazole 20 mg PO DAILY 05/07/21 06/26/21 History Prochlorperazine [Compazine] 10 mg PO Q6H PRN 05/07/21 06/26/21 History Colchicine 0.6 mg PO DAILY PRN 06/26/21 06/26/21 History Furosemide [Lasix] 20 mg PO DAILY 06/26/21 06/26/21 History Allergies Allergy/AdvReac Type Severity Reaction Status Date / Time No Known Allergies Allergy Verified 06/26/21 15:46 Physical Exam Vitals: Vital Signs Temp Pulse Pulse Resp BP BP Pulse Ox 06/27/21 11:45 98.3 F 74 17 128/69 95 06/27/21 09:01 98.1 F 87 18 127/85 97 06/27/21 03:45 97.8 F 83 18 150/74 97 06/26/21 23:38 98.2 F 89 20 175/81 97 06/26/21 21:05 98.0 F 95 18 151/88 95 06/26/21 20:15 100 18 150/81 96 06/26/21 18:28 93 20 143/79 96 06/26/21 18:08 98.2 F 80 20 174/81 94 L 06/26/21 13:24 97.8 F 97 18 150/93 97 Intake and Output 06/26/21 06/27/21 06/27/21 22:59 06:59 14:59 Intake Total 786 Output Total 30 Balance -30 786 Intake: Oral 786 Output: Emesis 30 Other: # Voids 1 2 # Bowel Movements 1 1 Weight 57.153 kg 51.3 kg PHYSICAL EXAMINATION: GENERAL: The patient is alert and oriented x3, not in any acute distress. Well developed, well nourished. HEENT: Pupils are round and equally reacting to light. EOMI. No scleral icterus. No conjunctival pallor. Normocephalic, atraumatic. No pharyngeal erythema. No thyromegaly. CARDIOVASCULAR: S1 and S2 present. No murmurs, rubs, or gallops. PULMONARY: Chest is clear to auscultation, no wheezing or crackles. ABDOMEN: Soft, nontender, nondistended, normoactive bowel sounds. No palpable organomegaly. MUSCULOSKELETAL: No joint swelling or deformity. EXTREMITIES: No cyanosis, clubbing, or pedal edema. NEUROLOGICAL: Gross neurological examination did not reveal any focal deficits. SKIN: No rashes. Results CBC & Chem 7: 06/27/21 14:10 06/27/21 14:10 Labs: Abnormal Lab Results - Last 24 Hours (Table) 06/26/21 06/26/21 06/26/21 Range/Units 14:22 14:22 14:22 WBC 68.2 H* (3.8-10.6) k/uL RBC 3.63 L (3.80-5.40) m/uL MCV 108.9 H D (80.0-100.0) fL RDW 16.1 H (11.5-15.5) % Neutrophils # (Manual) 66.80 H (1.3-7.7) k/uL Macrocytosis Marked A APTT 20.3 L (22.0-30.0) sec Potassium (3.5-5.1) mmol/L Creatinine (0.52-1.04) mg/dL Glucose (74-99) mg/dL Plasma Lactic Acid Papito (0.7-2.0) mmol/L Alkaline Phosphatase (38-126) U/L Lipase (23-300) U/L Urine Appearance Cloudy H (Clear) Urine Protein Trace H (Negative) Urine Glucose (UA) Trace H (Negative) Amorphous Sediment Rare H (None) /hpf Urine Bacteria Rare H (None) /hpf Urine Mucus Occasional H (None) /hpf 06/26/21 06/26/21 06/26/21 Range/Units 14:22 14:22 14:22 WBC (3.8-10.6) k/uL RBC (3.80-5.40) m/uL MCV (80.0-100.0) fL RDW (11.5-15.5) % Neutrophils # (Manual) (1.3-7.7) k/uL Macrocytosis APTT (22.0-30.0) sec Potassium 3.4 L (3.5-5.1) mmol/L Creatinine 0.31 L (0.52-1.04) mg/dL Glucose 117 H (74-99) mg/dL Plasma Lactic Acid Papito 5.6 H* (0.7-2.0) mmol/L Alkaline Phosphatase 213 H (38-126) U/L Lipase <10 L (23-300) U/L Urine Appearance (Clear) Urine Protein (Negative) Urine Glucose (UA) (Negative) Amorphous Sediment (None) /hpf Urine Bacteria (None) /hpf Urine Mucus (None) /hpf 06/26/21 06/26/21 06/27/21 Range/Units 18:07 20:46 00:00 WBC (3.8-10.6) k/uL RBC (3.80-5.40) m/uL MCV (80.0-100.0) fL RDW (11.5-15.5) % Neutrophils # (Manual) (1.3-7.7) k/uL Macrocytosis APTT (22.0-30.0) sec Potassium (3.5-5.1) mmol/L Creatinine (0.52-1.04) mg/dL Glucose (74-99) mg/dL Plasma Lactic Acid Papito 2.6 H* 2.1 H* 2.2 H* (0.7-2.0) mmol/L Alkaline Phosphatase (38-126) U/L Lipase (23-300) U/L Urine Appearance (Clear) Urine Protein (Negative) Urine Glucose (UA) (Negative) Amorphous Sediment (None) /hpf Urine Bacteria (None) /hpf Urine Mucus (None) /hpf 06/27/21 06/27/21 06/27/21 Range/Units 03:16 09:09 12:00 WBC (3.8-10.6) k/uL RBC (3.80-5.40) m/uL MCV (80.0-100.0) fL RDW (11.5-15.5) % Neutrophils # (Manual) (1.3-7.7) k/uL Macrocytosis APTT (22.0-30.0) sec Potassium (3.5-5.1) mmol/L Creatinine (0.52-1.04) mg/dL Glucose (74-99) mg/dL Plasma Lactic Acid Papito 2.1 H* 2.4 H* 2.8 H* (0.7-2.0) mmol/L Alkaline Phosphatase (38-126) U/L Lipase (23-300) U/L Urine Appearance (Clear) Urine Protein (Negative) Urine Glucose (UA) (Negative) Amorphous Sediment (None) /hpf Urine Bacteria (None) /hpf Urine Mucus (None) /hpf Thrombosis Risk Factor Assmnt - Choose All That Apply Any of the Below Risk Factors Present?: No Other Risk Factors: Yes Each Risk Factor Represents 2 Points: Age 61-74 years Thrombosis Risk Factor Assessment Total Risk Factor Score: 2 Thrombosis Risk Factor Assessment Level: Low Risk Assessment and Plan Assessment: 1. Intractable nausea/vomiting/abdominal pain - Patient has stage IV pancreatic cancer; last chemotherapy session on 06/23/2021; has been having persistent nausea and vomiting and unable to have any oral intake due to abdominal pain; we will continue with IV fluid hydration; symptomatic treatment for nausea and vomiting; IV Dilaudid for pain control - Consult hematology/oncology 2. Marked leukocytosis; stress-induced versus sepsis; we will monitor and trend lactic acid levels, order CRP and pro-calcitonin; monitor CBC closely with plans to initiate sepsis workup if blood work is indicative - Per family members patient received GCSF treatment; oncology consulted and recommendations are pending 3. Hypokalemia; supplemented in ED; we will monitor lactic lites and supplement as needed 4. Lactic acidosis; dehydration versus sepsis; patient has had IV fluid bolus in ED followed by normal saline at rate of 75 mL an hour; we will rebolus patient with 500 mL of normal saline along with maintenance fluids at 125 mL an hour; trend lactic acid level 5. Hypertension; uncontrolled - We will resume home antihypertensive therapy in form of Zestoretic 2012.5 daily and monitor blood pressure closely; we will adjust medications if blood pressure remains elevated 6. Hyperlipidemia; Lipitor 10 mg by mouth daily at bedtime DVT prophylaxis; SCDs/subcu heparin CODE STATUS; full code
--- NOTE | 2021-06-27 19:14 | P.CONS ---
History of Present Illness - Reason for Consult Consult date: 06/27/21 Leukocytosis Requesting physician: Bear Richards - Chief Complaint Weakness, Fatigue - History of Present Illness Mrs. Curry is a pleasant 70year old patient of Dr. Roberts (medical oncology at [facility]). Per the patient she is currently on treatment for pancreatic c ancer with poor treatment tolerance. Her exact treatment regimen is unknown as patient is a poor historian. She did however state she received the Neulasta shot after chemotherapy last week, which would definitely result in her leukocytosis. However because of her clinical complaints and exam a full mcallister culture, infectious work-up is needed. Addendum: I spoke to patients treating oncologist who stated treatment was recently changed from FOLFIRINOX (poor tolerance) to Abraxane and Gemsar. She h as completed her first cycle 06/23/21. Oncologic History: - Initially presented with obstructive jaundice and elevated CA19-9. Liver involvement was noted. November 2020: MRCP showed focal benign appearing stricture CBD January 2021: CT Abdomen and Pelvis revealed bile duct 2.4cm with moderate intrahe patic biliary ductal dilation, underlying malignancy with pancreatic tail mass at 4.4cm, metastatic lesion in the central RLL liver, soft massess infliltrating celiac axis and SMA portal venous 02/06/21 - Biliary stent placed FOLFIRINOX started, No BRCA mutation, KRAS Mutation (potential trial)CA19-9 trending down 783 at last documented Review of Systems All systems: negative Constitutional: Reports as per HPI Past Medical History Past Medical History: COPD, GERD/Reflux, Hypertension, Osteoarthritis (OA) Additional Past Medical History / Comment(s): emphysema, lesion on kidneys. kidney stones, recent inpt r/t chest pain, CA back History of Any Multi-Drug Resistant Organisms: None Reported Past Surgical History: Appendectomy, Cholecystectomy, Hernia Repair, Orthopedic Surgery Additional Past Surgical History / Comment(s): corrective eye surg., sinus surg., jaw surg., foot surg. rt knee surgery meniscus repair, rt shoulder rotator cuff repair Past Anesthesia/Blood Transfusion Reactions: Motion Sickness, Postoperative Nausea & Vomiting (PONV) Past Psychological History: No Psychological Hx Reported Smoking Status: Never smoker Past Alcohol Use History: None Reported Past Drug Use History: None Reported - Past Family History Mother Family Medical History: Cancer Medications and Allergies Home Medications Medication Instructions Recorded Confirmed Type Lisinopril-Hctz 20-12.5 mg 1 tab PO DAILY 02/07/17 06/26/21 History [Zestoretic 20-12.5] Atorvastatin [Lipitor] 10 mg PO HS 07/06/20 06/26/21 History Potassium Chloride [Klor-Con 20] 20 meq PO DAILY 02/04/21 06/26/21 History Dronabinol [Marinol] 2.5 mg PO AC-BID 05/07/21 06/26/21 History HYDROcodone/APAP 7.5-325MG [[place] 1 tab PO Q4H PRN 05/07/21 06/26/21 History 7.5-325] Lidocaine-Prilocaine Cream [Emla 1 applic TOPICAL DIRECTED PRN 05/07/21 06/26/21 History Cream 2.5%/2.5%] Lipase/Protease/Amylase [Zenpep Dr 1 cap PO TID 05/07/21 06/26/21 History 25,000 Unit Capsule] Loperamide [Imodium] 2 mg PO QID PRN 05/07/21 06/26/21 History Loratadine [Claritin] 10 mg PO DAILY 05/07/21 06/26/21 History Morphine Sulfate ER [Ms Contin] 15 mg PO Q12HR 05/07/21 06/26/21 History Omeprazole 20 mg PO DAILY 05/07/21 06/26/21 History Prochlorperazine [Compazine] 10 mg PO Q6H PRN 05/07/21 06/26/21 History Colchicine 0.6 mg PO DAILY PRN 06/26/21 06/26/21 History Furosemide [Lasix] 20 mg PO DAILY 06/26/21 06/26/21 History Allergies Allergy/AdvReac Type Severity Reaction Status Date / Time No Known Allergies Allergy Verified 06/26/21 15:46 Physical Exam Vitals: Vital Signs Temp Pulse Pulse Resp BP BP Pulse Ox 06/27/21 11:45 98.3 F 74 17 128/69 95 06/27/21 09:01 98.1 F 87 18 127/85 97 06/27/21 03:45 97.8 F 83 18 150/74 97 06/26/21 23:38 98.2 F 89 20 175/81 97 06/26/21 21:05 98.0 F 95 18 151/88 95 06/26/21 20:15 100 18 150/81 96 06/26/21 18:28 93 20 143/79 96 06/26/21 18:08 98.2 F 80 20 174/81 94 L 06/26/21 13:24 97.8 F 97 18 150/93 97 Intake and Output 06/26/21 06/27/21 06/27/21 22:59 06:59 14:59 Intake Total 786 Output Total 30 Balance -30 786 Intake: Oral 786 Output: Emesis 30 Other: # Voids 1 # Bowel Movements 1 1 Weight 57.153 kg 51.3 kg - Constitutional General appearance: cooperative, no acute distress, thin - EENT Eyes: poor dentition ENT: hard of hearing, NA/AT - Neck Neck: normal ROM - Respiratory Respiratory: bilateral: diminished - Cardiovascular Rhythm: regularly irregular - Gastrointestinal General gastrointestinal: soft, tenderness - Integumentary Integumentary: pale - Neurologic Neurologic: CNII-XII intact - Musculoskeletal Musculoskeletal: generalized weakness - Psychiatric Psychiatric: A&O x's 3, appropriate affect Results CBC & Chem 7: 06/27/21 14:10 06/27/21 14:10 Labs: Abnormal Lab Results - Last 24 Hours (Table) 06/26/21 06/26/21 06/26/21 Range/Units 14:22 14:22 14:22 WBC 68.2 H* (3.8-10.6) k/uL RBC 3.63 L (3.80-5.40) m/uL MCV 108.9 H D (80.0-100.0) fL RDW 16.1 H (11.5-15.5) % Neutrophils # (Manual) 66.80 H (1.3-7.7) k/uL Macrocytosis Marked A APTT 20.3 L (22.0-30.0) sec Potassium (3.5-5.1) mmol/L Creatinine (0.52-1.04) mg/dL Glucose (74-99) mg/dL Plasma Lactic Acid Papito (0.7-2.0) mmol/L Alkaline Phosphatase (38-126) U/L Lipase (23-300) U/L Urine Appearance Cloudy H (Clear) Urine Protein Trace H (Negative) Urine Glucose (UA) Trace H (Negative) Amorphous Sediment Rare H (None) /hpf Urine Bacteria Rare H (None) /hpf Urine Mucus Occasional H (None) /hpf 06/26/21 06/26/21 06/26/21 Range/Units 14:22 14:22 14:22 WBC (3.8-10.6) k/uL RBC (3.80-5.40) m/uL MCV (80.0-100.0) fL RDW (11.5-15.5) % Neutrophils # (Manual) (1.3-7.7) k/uL Macrocytosis APTT (22.0-30.0) sec Potassium 3.4 L (3.5-5.1) mmol/L Creatinine 0.31 L (0.52-1.04) mg/dL Glucose 117 H (74-99) mg/dL Plasma Lactic Acid Papito 5.6 H* (0.7-2.0) mmol/L Alkaline Phosphatase 213 H (38-126) U/L Lipase <10 L (23-300) U/L Urine Appearance (Clear) Urine Protein (Negative) Urine Glucose (UA) (Negative) Amorphous Sediment (None) /hpf Urine Bacteria (None) /hpf Urine Mucus (None) /hpf 06/26/21 06/26/21 06/27/21 Range/Units 18:07 20:46 00:00 WBC (3.8-10.6) k/uL RBC (3.80-5.40) m/uL MCV (80.0-100.0) fL RDW (11.5-15.5) % Neutrophils # (Manual) (1.3-7.7) k/uL Macrocytosis APTT (22.0-30.0) sec Potassium (3.5-5.1) mmol/L Creatinine (0.52-1.04) mg/dL Glucose (74-99) mg/dL Plasma Lactic Acid Papito 2.6 H* 2.1 H* 2.2 H* (0.7-2.0) mmol/L Alkaline Phosphatase (38-126) U/L Lipase (23-300) U/L Urine Appearance (Clear) Urine Protein (Negative) Urine Glucose (UA) (Negative) Amorphous Sediment (None) /hpf Urine Bacteria (None) /hpf Urine Mucus (None) /hpf 06/27/21 06/27/21 Range/Units 03:16 09:09 WBC (3.8-10.6) k/uL RBC (3.80-5.40) m/uL MCV (80.0-100.0) fL RDW (11.5-15.5) % Neutrophils # (Manual) (1.3-7.7) k/uL Macrocytosis APTT (22.0-30.0) sec Potassium (3.5-5.1) mmol/L Creatinine (0.52-1.04) mg/dL Glucose (74-99) mg/dL Plasma Lactic Acid Papito 2.1 H* 2.4 H* (0.7-2.0) mmol/L Alkaline Phosphatase (38-126) U/L Lipase (23-300) U/L Urine Appearance (Clear) Urine Protein (Negative) Urine Glucose (UA) (Negative) Amorphous Sediment (None) /hpf Urine Bacteria (None) /hpf Urine Mucus (None) /hpf CT scan - abdomen: report reviewed CT scan - pelvis: report reviewed Assessment and Plan (1) Macrocytic anemia Current Visit: Yes Status: Acute Code(s): D53.9 - NUTRITIONAL ANEMIA, UNSPECIFIED SNOMED Code(s): 53903856 (2) Pancreatic carcinoma metastatic to liver Current Visit: Yes Status: Acute Code(s): C25.9 - MALIGNANT NEOPLASM OF PANCREAS, UNSPECIFIED; C78.7 - SECONDARY MALIG NEOPLASM OF LIVER AND INTRAHEPATIC BILE DUCT SNOMED Code(s): 768837499 (3) Leukocytosis Current Visit: Yes Status: Acute Code(s): D72.829 - ELEVATED WHITE BLOOD CELL COUNT, UNSPECIFIED SNOMED Code(s): 434951008 Plan: Assessment and Recommendations: Leukocytosis: - Likely reactive to recent growth factor after chemotherapy - Infectious work-up ordered - Chest Xray, Mcallister cultures (including blood cultures from port and peripheral), urinalysis and cultures Macrocytic Anemia: - Macrocytosis likely related to medications - Anemia work-up ordered for opportunity of supplementation given her recently declining PO intake Pancreatic Cancer: - Currently under the care of Dr. Tabatha Roberts, will return to his care after resolution of acute hospitalization problems Weakness: - Performance status declined, recommend daily PT/OT Thank you for allowing us to participate in the care of this patient, will discuss further with Dr. Roberts. We will continue to follow during hospitaliz ation. Records from outside hospital reviewed and discussed, greater than 30 minutes
--- NOTE | 2021-06-27 20:23 | XR ---
EXAMINATION TYPE: XR chest 2V DATE OF EXAM: 06/27/2021 COMPARISON: 11/26/2020 HISTORY: Chest pain TECHNIQUE: 2 views FINDINGS: There is no heart failure nor confluent pneumonic infiltrate. There is right central venous catheter with tip in the superior vena cava. There is slight blunting of the costophrenic angles. Th ere are no hilar masses. IMPRESSION: There is some mild pleural reaction or fluid at the lung bases without change. No heart f ailure.
[2021-06-27] MEDS: ATORVASTATIN 10 MG TAB PO SCH (21:49)
[2021-06-27 22:45] LABS: Protein, Total 4.9 g/dL (6.2-8.2)
[2021-06-27 22:46] LABS: % Iron Saturation 35.16 (12.00-45.00); Iron 96 ug/dL (50-170); Rheumatoid Factor, Qnt 7 IU/mL (0-15); Total Iron Binding Capacity 273 ug/dL (228-460)
[2021-06-27 23:22] LABS: Ferritin 942.8 ng/mL (10.0-291.0)
[2021-06-28] MEDS: HYDROcodone/APAP 7.5-325MG 1 EACH TAB PO PRN (02:04)
[2021-06-28] MEDS: HYDROmorphone 1 MG/ML 1 ML SYRINGE IVP PRN ×6 (03:22→22:12)
[2021-06-28] MEDS: SODIUM CHLORIDE 0.9% 1,000 ML IV SCH ×2 (06:37→17:02)
[2021-06-28] MEDS: LISINOPRIL-HCTZ 20-12.5 MG 1 EACH TAB PO SCH (08:28)
[2021-06-28] MEDS: LORATADINE 10 MG TAB PO SCH (08:32)
[2021-06-28] MEDS: POTASSIUM CHLORIDE ER 20 MEQ TAB.ER PO SCH ×3 (08:32→17:01)
[2021-06-28] MEDS: FUROSEMIDE 20 MG TAB PO SCH (08:32)
[2021-06-28] MEDS: MORPHINE SULFATE ER 15 MG TABLET PO SCH ×2 (08:32→20:31)
[2021-06-28] MEDS: PANTOPRAZOLE 40 MG TABLET PO SCH (08:32)
[2021-06-28] MEDS: LIPASE 5,000/PROTEASE 17,000/AMYLASE 24,000 PO SCH ×3 (08:53→21:12)
[2021-06-28] MEDS ORDERED: LIDOCAINE-PRILOCAINE 2.5-2.5% CREAM 5 GM TUBE TOPICAL PRN (09:00)
[2021-06-28 09:24] LABS: Basophils # (A) 0.1 k/uL (0-0.2); Basophils % (A) 0 %; Eosinophils # (A) 0.1 k/uL (0-0.7); Eosinophils % (A) 0 %; HCT 30.6 % (34.0-46.0); HGB 9.9 gm/dL (11.4-16.0); Lymphocytes # (A) 1.7 k/uL (1.0-4.8); Lymphocytes % (A) 7 %; MCH 35.5 pg (25.0-35.0); MCHC 32.4 g/dL (31.0-37.0); MCV 109.7 fL (80.0-100.0); Macrocytosis Marked; Mean Platelet Volume 8.5; Monocytes # (A) 0.4 k/uL (0-1.0); Monocytes % (A) 2 %; Neutrophils # (A) 20.6 k/uL (1.3-7.7); Neutrophils % (A) 90 %; Platelet Count 125 k/uL (150-450); RBC 2.79 m/uL (3.80-5.40); RDW 15.6 % (11.5-15.5); WBC 22.9 k/uL (3.8-10.6)
[2021-06-28 09:49] LABS: African American GFR (CKD) >90 (>60 ml/min/1.73 sqM); Anion Gap 8 mmol/L; Blood Urea Nitrogen 4 mg/dL (7-17); Calcium 8.8 mg/dL (8.4-10.2); Carbon Dioxide 24 mmol/L (22-30); Chloride 104 mmol/L (98-107); Glucose 125 mg/dL (74-99); Non-African American GFR(CKD) >90 (>60 ml/min/1.73 sqM); Sodium 136 mmol/L (137-145)
[2021-06-28 09:52] LABS: Potassium 2.5 mmol/L (3.5-5.1)
--- NOTE | 2021-06-28 11:41 | P.PN ---
Subjective Progress Note Date: 06/28/21 HISTORY OF PRESENT ILLNESS 70-year-old female with history of stage IV pancreatic cancer presents for evaluation of abdominal pain nausea vomiting. Patient had chemotherapy on the fourth which was 3 days ago. She's had persistent vomiting since that time. She does report a generalized abdominal pain which seems to be worse with vomiting. No fevers. She has not been able to eat or drink and is concerned with dehydration. Workup in ED revealed an elevated white blood count of 16.2, MCV of 108.9, sodium 137, potassium 2.4, BUN/creatinine of 11/0.3 and blood glucose of 117; CT of the abdomen and pelvis was ordered for concerns of intra-abdominal cause of leukocytosis. Computed tomography scan shows no acute processes. There is common of slightly enlarged right lobe liver mass. Otherwise computed tomography scan shows mostly improvement. 06/28: Patient states that she does not have much appetite. She did not have bowel movement today. Her oncologist is currently at [facility] and she'll be following up there at the time of discharge. has been seen by oncology and leukocytosis likely reactive to recent growth factor after chemotherapy. Repeat blood work today revealed WBC 22.9, hemoglobin 9.9, platelet count 125. Sodium 136, potassium 2.5 and will be replaced, chloride 104, CO2 24, BUN 4 creatinine 0.35. Blood sugar 125. Urine culture is in progress. Repeat chest x-ray reveals some mild pleural reaction or fluid at the lung bases without change. No heart failure. REVIEW OF SYSTEMS Constitutional: No fever, no chills, no night sweats. No weight change. Reports weakness, reports fatigue no lethargy. No daytime sleepiness. EENT: No headache. No blurred vision or double vision, no loss of vision. No loss of Hearing, no ringing in the ears, no dizziness. No nasal drainage or congestion. No epistaxis. No sore throat. Lungs: No shortness of breath, cough, no sputum production. No wheezing. Cardiovascular: No chest pain, no lower extremity edema. No palpitations. No paroxysmal nocturnal dyspnea. No orthopnea. No lightheadedness or dizziness. No syncopal episodes. Abdominal: Reports chronic abdominal pain. No nausea, vomiting. No diarrhea. No constipation. No bloody or tarry stools.. Reports loss of appetite. Genitourinary: No dysuria, increased frequency, urgency. No urinary retention. Musculoskeletal: No myalgias. No muscle weakness, no gait dysfunction, no frequent falls. No back pain. No neck pain. Integumentary: No wounds, no lesions. No rash or pruritus. No unusual bruising. No change in hair or nails. Neurologic: No aphasia. No facial droop. No change in mentation. No head injury. No headache. No paralysis. No paresthesia. Psychiatric: No depression. No anxiety. No mood swings. Endocrine: No abnormal blood sugars. No weight change. No excessive sweating or thirst. No cold intolerance. PHYSICAL EXAMINATION: GENERAL: The patient is alert and oriented x3, not in any acute distress. Well developed, well nourished. HEENT: Pupils are round and equally reacting to light. EOMI. No scleral icterus. No conjunctival pallor. Normocephalic, atraumatic. No pharyngeal erythema. No thyromegaly. CARDIOVASCULAR: S1 and S2 present. No murmurs, rubs, or gallops. PULMONARY: Chest is clear to auscultation, no wheezing or crackles. ABDOMEN: Soft, nontender, nondistended, normoactive bowel sounds. No palpable organomegaly. MUSCULOSKELETAL: No joint swelling or deformity. EXTREMITIES: No cyanosis, clubbing, or pedal edema. NEUROLOGICAL: Gross neurological examination did not reveal any focal deficits. SKIN: No rashes. ASSESSMENT AND PLAN 1. Intractable nausea/vomiting/abdominal pain - Patient has stage IV pancreatic cancer; last chemotherapy session on 06/23/2021; has been having persistent nausea and vomiting and unable to have any oral intake due to abdominal pain; we will continue with IV fluid hydration; symptomatic treatment for nausea and vomiting; IV Dilaudid for pain control, patient continues to have low appetite. Patient is currently on clear liquid diet and will be advanced to full liquids and then to regular as tolerated. - Consult hematology/oncology appreciated. 2. Marked leukocytosis; recent growth factor after chemotherapy versus sepsis; we will monitor - Per family members patient received GCSF treatment; oncology consult 3. Hypokalemia; replace potassium. 4. Lactic acidosis; dehydration versus sepsis; patient has had IV fluid bolus in ED followed by normal saline at rate of 75 mL an hour; we will rebolus patient with 500 mL of normal saline along with maintenance fluids at 125 mL an hour; trend lactic acid level 5. Hypertension; uncontrolled - Continue Zestoretic 2012.5 daily and monitor blood pressure closely; we will adjust medications if blood pressure remains elevated 6. Hyperlipidemia; Lipitor 10 mg by mouth daily at bedtime 7. Thrombocytopenia secondary to chemotherapy and cancer. 8. Severe protein calorie malnutrition secondary to pancreatic cancer and weight loss, BMI 17. Patient will be advanced to full liquid and then regular diet. 9. GI prophylaxis, gastroesophageal reflux disease. Continue Protonix. 10. DVT prophylaxis; SOL hose and subcu heparin added CODE STATUS; full code DISCHARGE PLAN Home with homecare or subacute rehab tomorrow. PT and OT consults. Impression and plan of care have been directed as dictated by the signing physician. Alexia Gonsalves nurse practitioner acting as scribe for signing physician. Objective - Vital Signs Vital signs: Vital Signs Temp 98.5 F 06/28/21 01:54 Pulse 72 06/28/21 01:54 Resp 18 06/28/21 01:54 BP 129/73 06/28/21 01:54 Pulse Ox 95 06/28/21 01:54 Intake & Output 06/27/21 06/28/21 06/28/21 18:59 06:59 18:59 Intake Total 1426 500 Balance 1426 500 Intake: Intake, IV Titration 500 Amount Sodium Chloride 0.9% 1, 500 000 ml @ 100 mls/hr IV . Q10H [facility] Rx#:[id number] Oral 1426 Other: # Voids 1 2 # Bowel Movements 1 - Labs CBC & Chem 7: 06/28/21 08:35 06/28/21 08:35 Labs: Abnormal Lab Results - Last 24 Hours (Table) 06/27/21 06/27/21 06/27/21 Range/Units 09:09 12:00 14:10 WBC 46.4 H (3.8-10.6) k/uL RBC 2.75 L (3.80-5.40) m/uL Hgb 9.7 L D (11.4-16.0) gm/dL Hct 30.2 L (34.0-46.0) % MCV 109.6 H (80.0-100.0) fL MCH 35.3 H (25.0-35.0) pg RDW 16.3 H (11.5-15.5) % Neutrophils # (Manual) 44.08 H (1.3-7.7) k/uL Macrocytosis Marked A Sodium (137-145) mmol/L Creatinine (0.52-1.04) mg/dL Glucose (74-99) mg/dL Plasma Lactic Acid Papito 2.4 H* 2.8 H* (0.7-2.0) mmol/L Ferritin (10.0-291.0) ng/mL Alkaline Phosphatase (38-126) U/L Lactate Dehydrogenase (313-618) U/L C-Reactive Protein (<1.0) mg/dL Total Protein (6.3-8.2) g/dL Total Protein (PEP) (6.2-8.2) g/dL Albumin (3.5-5.0) g/dL Vitamin B12 (200.0-944.0) pg/mL 06/27/21 06/27/21 Range/Units 14:10 14:10 WBC (3.8-10.6) k/uL RBC (3.80-5.40) m/uL Hgb (11.4-16.0) gm/dL Hct (34.0-46.0) % MCV (80.0-100.0) fL MCH (25.0-35.0) pg RDW (11.5-15.5) % Neutrophils # (Manual) (1.3-7.7) k/uL Macrocytosis Sodium 133 L (137-145) mmol/L Creatinine 0.31 L (0.52-1.04) mg/dL Glucose 121 H (74-99) mg/dL Plasma Lactic Acid Papito (0.7-2.0) mmol/L Ferritin 942.8 H (10.0-291.0) ng/mL Alkaline Phosphatase 133 H (38-126) U/L Lactate Dehydrogenase 905 H (313-618) U/L C-Reactive Protein 2.1 H (<1.0) mg/dL Total Protein 5.1 L (6.3-8.2) g/dL Total Protein (PEP) 4.9 L (6.2-8.2) g/dL Albumin 2.8 L (3.5-5.0) g/dL Vitamin B12 1963.0 H (200.0-944.0) pg/mL Microbiology - Last 24 Hours (Table) 06/27/21 16:01 Urine Culture - Preliminary Urine,Clean Catch
[2021-06-28 13:20] LABS: Albumin 2.93 g/dL (3.80-4.90); Gamma Globulin 0.45 g/dL (0.70-1.50)
[2021-06-28] MEDS: ATORVASTATIN 10 MG TAB PO SCH (20:27)
[2021-06-28] MEDS: HEPARIN SODIUM,PORCINE/PF 5,000 UNIT/0.5 ML SYRINGE SQ SCH (20:30)
--- NOTE | 2021-06-28 21:17 | P.PN ---
Subjective Progress Note Date: 06/28/21 Principal diagnosis: Pancreatic Cancer Still feeling weak Objective - Vital Signs Vital signs: Vital Signs Temp 98.5 F 06/28/21 01:54 Pulse 72 06/28/21 01:54 Resp 18 06/28/21 01:54 BP 129/73 06/28/21 01:54 Pulse Ox 95 06/28/21 01:54 Intake & Output 06/27/21 06/28/21 06/28/21 18:59 06:59 18:59 Intake Total 1426 500 Balance 1426 500 Intake: Intake, IV Titration 500 Amount Sodium Chloride 0.9% 1, 500 000 ml @ 100 mls/hr IV . Q10H [facility] Rx#:[id number] Oral 1426 Other: # Voids 1 2 # Bowel Movements 1 - Exam - Constitutional General appearance: cooperative, no acute distress, thin - EENT Eyes: poor dentition ENT: hard of hearing, NA/AT - Neck Neck: normal ROM - Respiratory Respiratory: bilateral: diminished - Cardiovascular Rhythm: regularly irregular - Gastrointestinal General gastrointestinal: soft, tenderness - Integumentary Integumentary: pale - Neurologic Neurologic: CNII-XII intact - Musculoskeletal Musculoskeletal: generalized weakness - Psychiatric Psychiatric: A&O x's 3, appropriate affect - Labs CBC & Chem 7: 06/28/21 08:35 06/28/21 08:35 Labs: Abnormal Lab Results - Last 24 Hours (Table) 06/27/21 06/27/21 06/27/21 Range/Units 09:09 12:00 14:10 WBC 46.4 H (3.8-10.6) k/uL RBC 2.75 L (3.80-5.40) m/uL Hgb 9.7 L D (11.4-16.0) gm/dL Hct 30.2 L (34.0-46.0) % MCV 109.6 H (80.0-100.0) fL MCH 35.3 H (25.0-35.0) pg RDW 16.3 H (11.5-15.5) % Neutrophils # (Manual) 44.08 H (1.3-7.7) k/uL Macrocytosis Marked A Sodium (137-145) mmol/L Creatinine (0.52-1.04) mg/dL Glucose (74-99) mg/dL Plasma Lactic Acid Papito 2.4 H* 2.8 H* (0.7-2.0) mmol/L Ferritin (10.0-291.0) ng/mL Alkaline Phosphatase (38-126) U/L Lactate Dehydrogenase (313-618) U/L C-Reactive Protein (<1.0) mg/dL Total Protein (6.3-8.2) g/dL Total Protein (PEP) (6.2-8.2) g/dL Albumin (3.5-5.0) g/dL Vitamin B12 (200.0-944.0) pg/mL 06/27/21 06/27/21 Range/Units 14:10 14:10 WBC (3.8-10.6) k/uL RBC (3.80-5.40) m/uL Hgb (11.4-16.0) gm/dL Hct (34.0-46.0) % MCV (80.0-100.0) fL MCH (25.0-35.0) pg RDW (11.5-15.5) % Neutrophils # (Manual) (1.3-7.7) k/uL Macrocytosis Sodium 133 L (137-145) mmol/L Creatinine 0.31 L (0.52-1.04) mg/dL Glucose 121 H (74-99) mg/dL Plasma Lactic Acid Papito (0.7-2.0) mmol/L Ferritin 942.8 H (10.0-291.0) ng/mL Alkaline Phosphatase 133 H (38-126) U/L Lactate Dehydrogenase 905 H (313-618) U/L C-Reactive Protein 2.1 H (<1.0) mg/dL Total Protein 5.1 L (6.3-8.2) g/dL Total Protein (PEP) 4.9 L (6.2-8.2) g/dL Albumin 2.8 L (3.5-5.0) g/dL Vitamin B12 1963.0 H (200.0-944.0) pg/mL Microbiology - Last 24 Hours (Table) 06/27/21 16:01 Urine Culture - Preliminary Urine,Clean Catch Assessment and Plan (1) Macrocytic anemia Current Visit: Yes Status: Acute Code(s): D53.9 - NUTRITIONAL ANEMIA, UNSPECIFIED SNOMED Code(s): 35392076 (2) Pancreatic carcinoma metastatic to liver Current Visit: Yes Status: Acute Code(s): C25.9 - MALIGNANT NEOPLASM OF P ANCREAS, UNSPECIFIED; C78.7 - SECONDARY MALIG NEOPLASM OF LIVER AND INTRAHEPATIC BILE DUCT SNOMED Code(s): 008657305 (3) Leukocytosis Current Visit: Yes Status: Acute Code(s): D72.829 - ELEVATED WHITE BLOOD CELL COUNT, UNSPECIFIED SNOMED Code(s): 472362537 Plan: Assessment and Recommendations: Leukocytosis: - Likely reactive to recent growth factor after chemotherapy - Infectious work-up ordered - Chest Xray, Maria cultures (including blood cultures from port and peripheral), urinalysis and cultures Macrocytic Anemia: - Macrocytosis likely related to medications - Anemia work-up ordered for opportunity of supplementation given her recently declining PO intake Pancreatic Cancer: - Currently under the care of Dr. Tabatha Roberts, will return to his care after resolution of acute hospitalization problems Weakness: - Performance status declined, recommend daily PT/OT Physician Attest: I have completed the full history and physical and I agree with above dictation. Dictated as a scribe.
[2021-06-29] MEDS: HYDROmorphone 1 MG/ML 1 ML SYRINGE IVP PRN ×6 (01:11→22:01)
[2021-06-29] MEDS: SODIUM CHLORIDE 0.9% 1,000 ML IV SCH ×3 (01:11→20:32)
[2021-06-29] MEDS: HYDROcodone/APAP 7.5-325MG 1 EACH TAB PO PRN (03:07)
--- NOTE | 2021-06-29 09:05 | P.PN ---
Subjective Progress Note Date: 06/29/21 HISTORY OF PRESENT ILLNESS 70-year-old female with history of stage IV pancreatic cancer presents for evaluation of abdominal pain nausea vomiting. Patient had chemotherapy on the fourth which was 3 days ago. She's had persistent vomiting since that time. She does report a generalized abdominal pain which seems to be worse with vomiting. No fevers. She has not been able to eat or drink and is concerned with dehydration. Workup in ED revealed an elevated white blood count of 16.2, MCV of 108.9, sodium 137, potassium 2.4, BUN/creatinine of 11/0.3 and blood glucose of 117; CT of the abdomen and pelvis was ordered for concerns of intra-abdominal cause of leukocytosis. Computed tomography scan shows no acute processes. There is common of slightly enlarged right lobe liver mass. Otherwise computed tomography scan shows mostly improvement. 06/28: Patient states that she does not have much appetite. She did not have bowel movement today. Her oncologist is currently at [facility] and she'll be following up there at the time of discharge. has been seen by oncology and leukocytosis likely reactive to recent growth factor after chemotherapy. Repeat blood work today revealed WBC 22.9, hemoglobin 9.9, platelet count 125. Sodium 136, potassium 2.5 and will be replaced, chloride 104, CO2 24, BUN 4 creatinine 0.35. Blood sugar 125. Urine culture is in progress. Repeat chest x-ray reveals some mild pleural reaction or fluid at the lung bases without change. No heart failure. 06/29: Patient continues to state she feels tired. She does not have much appe tite. Diet will be advanced to soft and also carnation instant breakfast added. Patient is not interested in ensure. She's been afebrile, heart rate 76, blood pressure 170/84, pulse ox 95% on room air. CA 199 came back at 336.6. Stool for lactoferrin negative. [facility] screen negative, rheumatoid factor VII, serum VANDANA interpretation was no monoclonal paraprotein recognized. Blood work ordered for this morning. PT and OT consults are in place. Discharge plan is most likely to return home or subacute rehab. Patient is on the cardiac stepdown [facility] REVIEW OF SYSTEMS Constitutional: No fever, no chills, no night sweats. No weight change. R eports weakness, reports fatigue no lethargy. No daytime sleepiness. EENT: No headache. No blurred vision or double vision, no loss of vision. No loss of Hearing, no ringing in the ears, no dizziness. No nasal drainage or congestion. No epistaxis. No sore throat. Lungs: No shortness of breath, cough, no sputum production. No wheezing. Cardiovascular: No chest pain, no lower extremity edema. No palpitations. No paroxysmal nocturnal dyspnea. No orthopnea. No lightheadedness or dizziness. No syncopal episodes. Abdominal: Reports chronic abdominal pain. No nausea, vomiting. No diarrhea. No constipation. No bloody or tarry stools.. Reports loss of appetite. Genitourinary: No dysuria, increased frequency, urgency. No urinary retention. Musculoskeletal: No myalgias. Reports generalized muscle weakness, no gait dysfunction, no frequent falls. No back pain. No neck pain. Integumentary: No wounds, no lesions. No rash or pruritus. No unusual bruising. No change in hair or nails. Neurologic: No aphasia. No facial droop. No change in mentation. No head injury. No headache. No paralysis. No paresthesia. Psychiatric: No depression. No anxiety. No mood swings. Endocrine: No abnormal blood sugars. No weight change. No excessive sweating or thirst. No cold intolerance. PHYSICAL EXAMINATION: GENERAL: The patient is alert and oriented x3, not in any acute distress. Well developed, well nourished. HEENT: Pupils are round and equally reacting to light. EOMI. No scleral icterus. No conjunctival pallor. Normocephalic, atraumatic. No pharyngeal erythema. No thyromegaly. CARDIOVASCULAR: S1 and S2 present. No murmurs, rubs, or gallops. PULMONARY: Chest is clear to auscultation, no wheezing or crackles. ABDOMEN: Soft, nontender, nondistended, normoactive bowel sounds. No palpable organomegaly. MUSCULOSKELETAL: No joint swelling or deformity. EXTREMITIES: No cyanosis, clubbing, or pedal edema. NEUROLOGICAL: Gross neurological examination did not reveal any focal deficits. SKIN: No rashes. ASSESSMENT AND PLAN 1. Intractable nausea/vomiting/abdominal pain - Patient has stage IV pancreatic cancer; last chemotherapy session on 06/23/2021; has been having persistent nausea and vomiting and unable to have any oral intake due to abdominal pain; we will continue with IV fluid hydration; symptomatic treatment for nausea and vomiting; IV Dilaudid for pain control, patient continues to have low appetite. Diet will be advanced to soft. - Consult hematology/oncology appreciated. 2. Marked leukocytosis; recent growth factor after chemotherapy versus sepsis; we will monitor - Per family members patient received GCSF treatment; oncology consult 3. Hypokalemia; replace potassium. 4. Lactic acidosis; dehydration versus sepsis; patient has had IV fluid bolus in ED followed by normal saline at rate of 75 mL an hour; we will rebolus patient with 500 mL of normal saline along with maintenance fluids at 125 mL an hour; trend lactic acid level 5. Hypertension; uncontrolled - Continue store2011.5 daily and monitor blood pressure closely; we will adjust medications if blood pressure remains elevated 6. Hyperlipidemia; Lipitor 10 mg by mouth daily at bedtime 7. Thrombocytopenia secondary to chemotherapy and cancer. 8. Severe protein calorie malnutrition secondary to pancreatic cancer and weight loss, BMI 17. Soft diet, carnation instant breakfast 9. GI prophylaxis, gastroesophageal reflux disease. Continue Protonix. 10. DVT prophylaxis; SOL hose and subcu heparin CODE STATUS; full code DISCHARGE PLAN Home with homecare or subacute rehab. PT and OT consults. Impression and plan of care have been directed as dictated by the signing physician. Alexia Gonsalves nurse practitioner acting as scribe for signing physician. Objective - Vital Signs Vital signs: Vital Signs Temp 98.3 F 06/29/21 01:13 Pulse 76 06/29/21 01:13 Resp 16 06/29/21 01:13 BP 170/84 06/29/21 01:13 Pulse Ox 95 06/29/21 01:13 Intake & Output 06/28/21 06/29/21 06/29/21 18:59 06:59 18:59 Intake Total 720 1440 240 Output Total 1350 Balance 720 90 240 Weight 58 kg Intake: Intake, IV Titration 1200 Amount Sodium Chloride 0.9% 1, 1200 000 ml @ 100 mls/hr IV . Q10H [facility] Rx#:[id number] Oral 720 240 240 Output: Urine 1350 Other: # Voids 1 2 # Bowel Movements 1 - Labs CBC & Chem 7: 06/28/21 08:35 06/28/21 08:35 Labs: Abnormal Lab Results - Last 24 Hours (Table) 06/27/21 06/28/21 06/28/21 Range/Units 14:10 08:35 08:35 WBC (3.8-10.6) k/uL RBC (3.80-5.40) m/uL Hgb (11.4-16.0) gm/dL Hct (34.0-46.0) % MCV (80.0-100.0) fL MCH (25.0-35.0) pg RDW (11.5-15.5) % Plt Count (150-450) k/uL Neutrophils # (1.3-7.7) k/uL Macrocytosis Sodium 136 L (137-145) mmol/L Potassium 2.5 L* (3.5-5.1) mmol/L BUN 4 L (7-17) mg/dL Creatinine 0.35 L (0.52-1.04) mg/dL Glucose 125 H (74-99) mg/dL Albumin (PEP) 2.93 L (3.80-4.90) g/dL Beta Globulins 0.54 L (0.60-1.30) g/dL Gamma Globulins 0.45 L (0.70-1.50) g/dL CA 19-9 Antigen 336.6 H (0.0-34.9) U/mL 06/28/21 Range/Units 08:35 WBC 22.9 H (3.8-10.6) k/uL RBC 2.79 L (3.80-5.40) m/uL Hgb 9.9 L (11.4-16.0) gm/dL Hct 30.6 L (34.0-46.0) % MCV 109.7 H (80.0-100.0) fL MCH 35.5 H (25.0-35.0) pg RDW 15.6 H (11.5-15.5) % Plt Count 125 L (150-450) k/uL Neutrophils # 20.6 H (1.3-7.7) k/uL Macrocytosis Marked A Sodium (137-145) mmol/L Potassium (3.5-5.1) mmol/L BUN (7-17) mg/dL Creatinine (0.52-1.04) mg/dL Glucose (74-99) mg/dL Albumin (PEP) (3.80-4.90) g/dL Beta Globulins (0.60-1.30) g/dL Gamma Globulins (0.70-1.50) g/dL CA 19-9 Antigen (0.0-34.9) U/mL Microbiology - Last 24 Hours (Table) 06/27/21 20:15 Blood Culture - Preliminary Blood No Growth after 24 hours 06/27/21 18:44 Blood Culture - Preliminary Blood No Growth after 24 hours 06/27/21 16:01 Urine Culture - Preliminary Urine,Clean Catch Gram Neg Bacilli
[2021-06-29 09:07] LABS: ALT 13 U/L (4-34); AST 20 U/L (14-36); African American GFR (CKD) >90 (>60 ml/min/1.73 sqM); Albumin 2.5 g/dL (3.5-5.0); Alkaline Phosphatase 146 U/L (38-126); Anion Gap 5 mmol/L; Blood Urea Nitrogen <2 mg/dL (7-17); Calcium 8.5 mg/dL (8.4-10.2); Carbon Dioxide 27 mmol/L (22-30); Chloride 103 mmol/L (98-107); Glucose 113 mg/dL (74-99); Non-African American GFR(CKD) >90 (>60 ml/min/1.73 sqM); Potassium 3.1 mmol/L (3.5-5.1); Sodium 135 mmol/L (137-145); Total Bilirubin 0.2 mg/dL (0.2-1.3); Total Protein 4.4 g/dL (6.3-8.2)
[2021-06-29 09:11] LABS: Anisocytosis Slight; HCT 28.6 % (34.0-46.0); HGB 9.5 gm/dL (11.4-16.0); MCH 36.1 pg (25.0-35.0); MCHC 33.2 g/dL (31.0-37.0); Macrocytosis Marked; Mean Platelet Volume 8.2; Platelet Count 117 k/uL (150-450); RBC 2.63 m/uL (3.80-5.40); RDW 16.2 % (11.5-15.5); WBC 16.3 k/uL (3.8-10.6)
[2021-06-29] MEDS: HEPARIN SODIUM,PORCINE/PF 5,000 UNIT/0.5 ML SYRINGE SQ SCH ×2 (09:13→20:32)
[2021-06-29] MEDS: MORPHINE SULFATE ER 15 MG TABLET PO SCH ×2 (09:14→20:31)
[2021-06-29] MEDS: POTASSIUM CHLORIDE ER 20 MEQ TAB.ER PO SCH (09:17)
[2021-06-29] MEDS: LORATADINE 10 MG TAB PO SCH (09:18)
[2021-06-29] MEDS: PANTOPRAZOLE 40 MG TABLET PO SCH (09:18)
[2021-06-29] MEDS: LISINOPRIL-HCTZ 20-12.5 MG 1 EACH TAB PO SCH (09:19)
[2021-06-29] MEDS: FUROSEMIDE 20 MG TAB PO SCH (09:24)
[2021-06-29] MEDS ORDERED: POTASSIUM CHLORIDE ER 10 MEQ TAB.ER.PRT PO STA (09:27)
[2021-06-29] MEDS: LIPASE 5,000/PROTEASE 17,000/AMYLASE 24,000 PO SCH ×3 (09:31→20:32)
[2021-06-29] MEDS ORDERED: POTASSIUM CHLORIDE ER 20 MEQ TAB.ER PO STA (10:33)
[2021-06-29 10:34] LABS: T Helper Cell (CD4) 1366 cell/ul (443-1471); T Helper Cell (CD4) % 63 % (35-66); T Suppressor Cell (CD8) 407 cell/ul (190-832); T Suppressor Cell (CD8) % 19 % (9-37); T4/T8 Ratio (CD4:CD8) 3.4 (1.0-3.7)
--- NOTE | 2021-06-29 11:34 | P.PN ---
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 Objective - Vital Signs Vital signs: Vital Signs Temp 98.7 F 06/29/21 09:07 Pulse 66 06/29/21 09:07 Resp 16 06/29/21 09:07 BP 114/76 06/29/21 09:07 Pulse Ox 97 06/29/21 09:07 Intake & Output 06/28/21 06/29/21 06/29/21 18:59 06:59 18:59 Intake Total 720 1440 240 Output Total 1350 Balance 720 90 240 Weight 58 kg Intake: Intake, IV Titration 1200 Amount Sodium Chloride 0.9% 1, 1200 000 ml @ 100 mls/hr IV . Q10H [facility] Rx#:[id number] Oral 720 240 240 Output: Urine 1350 Other: # Voids 1 2 # Bowel Movements 1 - Exam - Constitutional General appearance: cooperative, no acute distress, thin - EENT Eyes: poor dentition ENT: hard of hearing, NA/AT - Neck Neck: normal ROM - Respiratory Respiratory: bilateral: diminished - Cardiovascular Rhythm: regularly irregular - Gastrointestinal General gastrointestinal: soft, tenderness - Integumentary Integumentary: pale - Neurologic Neurologic: CNII-XII intact - Musculoskeletal Musculoskeletal: generalized weakness - Psychiatric Psychiatric: A&O x's 3, appropriate affect - Labs CBC & Chem 7: 06/29/21 08:28 06/29/21 08:28 Labs: Abnormal Lab Results - Last 24 Hours (Table) 06/27/21 06/28/21 06/29/21 Range/Units 14:10 08:35 08:28 WBC 16.3 H (3.8-10.6) k/uL RBC 2.63 L (3.80-5.40) m/uL Hgb 9.5 L (11.4-16.0) gm/dL Hct 28.6 L (34.0-46.0) % MCV 109.0 H (80.0-100.0) fL MCH 36.1 H (25.0-35.0) pg RDW 16.2 H (11.5-15.5) % Plt Count 117 L (150-450) k/uL Macrocytosis Marked A Sodium (137-145) mmol/L Potassium (3.5-5.1) mmol/L BUN (7-17) mg/dL Creatinine (0.52-1.04) mg/dL Glucose (74-99) mg/dL Alkaline Phosphatase (38-126) U/L Total Protein (6.3-8.2) g/dL Albumin (3.5-5.0) g/dL Albumin (PEP) 2.93 L (3.80-4.90) g/dL Beta Globulins 0.54 L (0.60-1.30) g/dL Gamma Globulins 0.45 L (0.70-1.50) g/dL CA 19-9 Antigen 336.6 H (0.0-34.9) U/mL 06/29/21 Range/Units 08:28 WBC (3.8-10.6) k/uL RBC (3.80-5.40) m/uL Hgb (11.4-16.0) gm/dL Hct (34.0-46.0) % MCV (80.0-100.0) fL MCH (25.0-35.0) pg RDW (11.5-15.5) % Plt Count (150-450) k/uL Macrocytosis Sodium 135 L (137-145) mmol/L Potassium 3.1 L (3.5-5.1) mmol/L BUN <2 L (7-17) mg/dL Creatinine 0.32 L (0.52-1.04) mg/dL Glucose 113 H (74-99) mg/dL Alkaline Phosphatase 146 H (38-126) U/L Total Protein 4.4 L (6.3-8.2) g/dL Albumin 2.5 L (3.5-5.0) g/dL Albumin (PEP) (3.80-4.90) g/dL Beta Globulins (0.60-1.30) g/dL Gamma Globulins (0.70-1.50) g/dL CA 19-9 Antigen (0.0-34.9) U/mL Microbiology - Last 24 Hours (Table) 06/27/21 20:15 Blood Culture - Preliminary Blood No Growth after 24 hours 06/27/21 18:44 Blood Culture - Preliminary Blood No Growth after 24 hours 06/27/21 16:01 Urine Culture - Preliminary Urine,Clean Catch Gram Neg Bacilli Assessment and Plan (1) Macrocytic anemia Current Visit: Yes Status: Acute Code(s): D53.9 - NUTRITIONAL ANEMIA, UNSPECIFIED SNOMED Code(s): 99280758 (2) Pancreatic carcinoma metastatic to liver Current Visit: Yes Status: Acute Code(s): C25.9 - MALIGNANT NEOPLASM OF PANCREAS, UNSPECIFIED; C78.7 - SECONDARY MALIG NEOPLASM OF LIVER AND INTRAHEPATIC BILE DUCT SNOMED Code(s): 647660671 (3) Leukocytosis Current Visit: Yes Status: Acute Code(s): D72.829 - ELEVATED WHITE BLOOD CELL COUNT, UNSPECIFIED SNOMED Code(s): 101492978 Plan: Assessment and Recommendations: Leukocytosis: - Likely reactive to recent growth factor after chemotherapy - Infectious work-up ordered - UTI Macrocytic Anemia: - Macrocytosis likely related to medications - Review of anemia work-up Pancreatic Cancer: - Currently under the care of Dr. Tabatha Roberts, will return to his care after resolution of acute hospitalization problems Weakness: - Performance status declined, recommend daily PT/OT UTI: - Treat secondary to symptomatic immunocompromised patient
[2021-06-29] MEDS: LEVOFLOXACIN 500MG-D5W PMX 500 MG in DEXTROSE/WATER 1 100ML.BAG IVPB SCH (12:54)
[2021-06-29] MEDS: DICLOFENAC SODIUM GEL 100 GM TUBE TOPICAL PRN ×3 (12:56→22:15)
[2021-06-29] MEDS: MAGNESIUM SULFATE-D5W PMX 1 GM in DEXTROSE/WATER 1 100ML.BAG IVPB SCH ×2 (14:05→16:35)
[2021-06-29 15:19] LABS: Free Kappa Lt Chain Qnt, Serum 0.34 mg/dL (0.33-1.94)
[2021-06-29 15:37] LABS: Immunoglobulin M 21.4 mg/dL (40.0-280.0)
[2021-06-29] MEDS: ATORVASTATIN 10 MG TAB PO SCH (20:32)
[2021-06-29] MEDS: SENNOSIDES-DOCUSATE SODIUM 1 EACH TAB PO SCH (20:32)
[2021-06-29] MEDS: TEMAZEPAM 15 MG CAP PO PRN (22:01)
[2021-06-30 08:12] LABS: Methylmalonic Acid 0.21 umol/L (<0.40)
--- NOTE | 2021-06-30 08:18 | P.DS ---
Providers Date of admission: 06/26/21 17:20 Expected date of discharge: 06/30/21 Attending physician: Tammy Hanson Consults: 06/26/21 17:21 Consult Physician Routine Consulting Provider: Jean Paul Orozco Consult Reason/Comments: leukocytosis Do you want consulting provider notified?: Yes Primary care physician: Tammy Hanson Hospital Course: HISTORY OF PRESENT ILLNESS 70-year-old female with history of stage IV pancreatic cancer presents for evaluation of abdominal pain nausea vomiting. Patient had chemotherapy on the fourth which was 3 days ago. She's had persistent vomiting since that time. She does report a generalized abdominal pain which seems to be worse with vomiting. No fevers. She has not been able to eat or drink and is concerned with dehydration. Workup in ED revealed an elevated white blood count of 16.2, MCV of 108.9, sodium 137, potassium 2.4, BUN/creatinine of 11/0.3 and blood glucose of 117; CT of the abdomen and pelvis was ordered for concerns of intra-abdominal cause of leukocytosis. Computed tomography scan shows no acute processes. There is common of slightly enlarged right lobe liver mass. Otherwise computed tomography scan shows mostly improvement. 8: Patient states that she does not have much appetite. She did not have bowel movement today. Her oncologist is currently at [facility] and she'll be following up there at the time of discharge. has been seen by oncology and leukocytosis likely reactive to recent growth factor after chemotherapy. Repeat blood work today revealed WBC 22.9, hemoglobin 9.9, platelet count 125. Sodium 136, potassium 2.5 and will be replaced, chloride 104, CO2 24, BUN 4 creatinine 0.35. Blood sugar 125. Urine culture is in progress. Repeat chest x-ray reveals some mild pleural reaction or fluid at the lung bases without change. No heart failure. 06/29: Patient continues to state she feels tired. She does not have much appetite. Diet will be advanced to soft and also carnation instant breakfast added. Patient is not interested in ensure. She's been afebrile, heart rate 76, blood pressure 170/84, pulse ox 95% on room air. CA 199 came back at 336.6. Stool for lactoferrin negative. ELKE screen negative, rheumatoid factor VII, serum VANDANA interpretation was no monoclonal paraprotein recognized. Blood work ordered for this morning. PT and OT consults are in place. Discharge plan is most likely to return home or subacute rehab. Patient is on the cardiac stepdown unit waiting for [facility] bed 06/30: Patient is followed by oncology with plan to return to her oncologist after discharge from rehab. Patient's been afebrile, heart rate 56, blood pressure 153/66, pulse ox 99% on room air. Repeat blood work reveals WBC 18.7, hemoglobin 10.5, platelet count 105. Sodium 135, potassium 3.9, chloride 103, CO2 27, BUN 5 and creatinine 0.4. Magnesium 1.9. Alkaline phosphatase 204. Patient is planning for discharge to subacute rehab and has changed choice to [facility]. Patient will be discharged today in stable condition. ASSESSMENT AND PLAN 1. Intractable nausea/vomiting/abdominal pain secondary to chemotherapy and pancreatic cancer 2. Marked leukocytosis secondary to a combination of recent growth factor and possible UTI 3. Hypokalemia 4. Lactic acidosis 5. Hypertension; uncontrolled 6. Hyperlipidemia 7. Thrombocytopenia secondary to chemotherapy and cancer. 8. Severe protein calorie malnutrition secondary to pancreatic cancer and weight loss, BMI 17. DISCHARGE PLAN Home with homecare or subacute rehab. PT and OT consults. Impression and plan of care have been directed as dictated by the signing physician. Alexia Gonsalves nurse practitioner acting as scribe for signing physician. Patient Condition at Discharge: Stable Plan - Discharge Summary Discharge Rx Participant: No New Discharge Prescriptions: New Gabapentin [Neurontin] 300 mg PO DAILY #3 cap Acetaminophen Tab [Tylenol] 650 mg PO Q6HR PRN tab PRN Reason: Mild Pain Or Fever > 100.5 Diclofenac Sodium Gel [Voltaren Gel] 2 gm TOPICAL QID PRN tube PRN Reason: Pain fentaNYL 25MCG/HR PATCH [Duragesic 25MCG/HR] 1 patch TRANSDERM Q72H #1 patch Temazepam [Restoril] 15 mg PO HS PRN #3 cap PRN Reason: Insomnia Sennosides-Docusate Sodium [Senokot-S] 2 each PO BID tab Levofloxacin [Levaquin] 500 mg PO DAILY 1 Days #7 tab Continue Lisinopril-Hctz 20-12.5 mg [Zestoretic 20-12.5] 1 tab PO DAILY Atorvastatin [Lipitor] 10 mg PO HS Potassium Chloride [Klor-Con 20] 20 meq PO DAILY Omeprazole 20 mg PO DAILY Lipase/Protease/Amylase [Zenpep Dr 25,000 Unit Capsule] 1 cap PO TID Colchicine 0.6 mg PO DAILY PRN PRN Reason: X14 DAYS, STARTED 06/23/21 Dronabinol [Marinol] 2.5 mg PO AC-BID #6 cap Morphine Sulfate ER [Ms Contin] 15 mg PO Q12HR #6 tab HYDROcodone/APAP 7.5-325MG [[place] 7.5-325] 1 tab PO Q4H PRN #18 tab PRN Reason: Pain Loperamide [Imodium] 2 mg PO QID PRN PRN Reason: Loose Stool Lidocaine-Prilocaine Cream [Emla Cream 2.5%/2.5%] 1 applic TOPICAL DIRECTED PRN PRN Reason: PORT ACCESS Prochlorperazine [Compazine] 10 mg PO Q6H PRN PRN Reason: Nausea Loratadine [Claritin] 10 mg PO DAILY Furosemide [Lasix] 20 mg PO DAILY Discharge Medication List Lisinopril-Hctz 20-12.5 mg [Zestoretic 20-12.5] 1 tab PO DAILY 02/07/17 [History] Atorvastatin [Lipitor] 10 mg PO HS 07/06/20 [History] Potassium Chloride [Klor-Con 20] 20 meq PO DAILY 02/04/21 [History] Lidocaine-Prilocaine Cream [Emla Cream 2.5%/2.5%] 1 applic TOPICAL DIRECTED PRN 05/07/21 [History] Lipase/Protease/Amylase [Giovannap Dr 25,000 Unit Capsule] 1 cap PO TID 05/07/21 [History] Loperamide [Imodium] 2 mg PO QID PRN 05/07/21 [History] Loratadine [Claritin] 10 mg PO DAILY 05/07/21 [History] Omeprazole 20 mg PO DAILY 05/07/21 [History] Prochlorperazine [Compazine] 10 mg PO Q6H PRN 05/07/21 [History] Colchicine 0.6 mg PO DAILY PRN 06/26/21 [History] Furosemide [Lasix] 20 mg PO DAILY 06/26/21 [History] Acetaminophen Tab [Tylenol] 650 mg PO Q6HR PRN tab 06/30/21 [Rx] Diclofenac Sodium Gel [Voltaren Gel] 2 gm TOPICAL QID PRN tube 06/30/21 [Rx] Dronabinol [Marinol] 2.5 mg PO AC-BID #6 cap 06/30/21 [Rx] Gabapentin [Neurontin] 300 mg PO DAILY #3 cap 06/30/21 [Rx] HYDROcodone/APAP 7.5-325MG [[place] 7.5-325] 1 tab PO Q4H PRN #18 tab 06/30/21 [Rx] Levofloxacin [Levaquin] 500 mg PO DAILY 1 Days #7 tab 06/30/21 [Rx] Morphine Sulfate ER [Ms Contin] 15 mg PO Q12HR #6 tab 06/30/21 [Rx] Sennosides-Docusate Sodium [Senokot-S] 2 each PO BID tab 06/30/21 [Rx] Temazepam [Restoril] 15 mg PO HS PRN #3 cap 06/30/21 [Rx] fentaNYL 25MCG/HR PATCH [Duragesic 25MCG/HR] 1 patch TRANSDERM Q72H #1 patch 06/30/21 [Rx] Follow up Appointment(s)/Referral(s): Tammy Hanson MD [Primary Care Provider] - 1 Week (at F) Discharge Disposition: TRANSFER TO SNF/F
[2021-06-30 08:43] LABS: ALT 15 U/L (4-34); AST 27 U/L (14-36); African American GFR (CKD) >90 (>60 ml/min/1.73 sqM); Albumin 2.9 g/dL (3.5-5.0); Alkaline Phosphatase 204 U/L (38-126); Anion Gap 5 mmol/L; Blood Urea Nitrogen 5 mg/dL (7-17); Calcium 8.8 mg/dL (8.4-10.2); Carbon Dioxide 27 mmol/L (22-30); Chloride 103 mmol/L (98-107); Glucose 99 mg/dL (74-99); Magnesium 1.9 mg/dL (1.6-2.3); Non-African American GFR(CKD) >90 (>60 ml/min/1.73 sqM); Potassium 3.9 mmol/L (3.5-5.1); Sodium 135 mmol/L (137-145); Total Bilirubin <0.1 mg/dL (0.2-1.3)
[2021-06-30 08:49] LABS: Anisocytosis Slight; Basophils # (A) 0.1 k/uL (0-0.2); Basophils % (A) 1 %; Eosinophils # (A) 0.2 k/uL (0-0.7); Eosinophils % (A) 1 %; HCT 32.1 % (34.0-46.0); HGB 10.5 gm/dL (11.4-16.0); Lymphocytes # (A) 2.2 k/uL (1.0-4.8); Lymphocytes % (A) 12 %; MCH 35.9 pg (25.0-35.0); MCHC 32.8 g/dL (31.0-37.0); MCV 109.5 fL (80.0-100.0); Macrocytosis Marked; Mean Platelet Volume 8.4; Monocytes # (A) 0.5 k/uL (0-1.0); Monocytes % (A) 3 %; Neutrophils # (A) 15.7 k/uL (1.3-7.7); Neutrophils % (A) 84 %; Platelet Count 105 k/uL (150-450); RBC 2.93 m/uL (3.80-5.40); RDW 16.2 % (11.5-15.5); WBC 18.7 k/uL (3.8-10.6)
[2021-06-30] MEDS: PANTOPRAZOLE 40 MG TABLET PO SCH (09:23)
[2021-06-30] MEDS: LORATADINE 10 MG TAB PO SCH (09:24)
[2021-06-30] MEDS: FUROSEMIDE 20 MG TAB PO SCH (09:24)
[2021-06-30] MEDS: POTASSIUM CHLORIDE ER 20 MEQ TAB.ER PO SCH (09:24)
[2021-06-30] MEDS: SENNOSIDES-DOCUSATE SODIUM 1 EACH TAB PO SCH (09:24)
[2021-06-30] MEDS: HEPARIN SODIUM,PORCINE/PF 5,000 UNIT/0.5 ML SYRINGE SQ SCH (09:24)
[2021-06-30] MEDS: MORPHINE SULFATE ER 15 MG TABLET PO SCH (09:25)
[2021-06-30] MEDS: HYDROmorphone 1 MG/ML 1 ML SYRINGE IVP PRN ×2 (09:25→16:09)
[2021-06-30] MEDS: LISINOPRIL-HCTZ 20-12.5 MG 1 EACH TAB PO SCH (09:29)
[2021-06-30] MEDS: LIPASE 5,000/PROTEASE 17,000/AMYLASE 24,000 PO SCH (09:29)
[2021-06-30] MEDS: SODIUM CHLORIDE 0.9% 1,000 ML IV SCH (09:30)
[2021-06-30 11:07] VITALS: BP 155/70; PULSE 70; RESP 18; TEMP 98
--- NOTE | 2021-06-30 12:31 | CDI ---
Documentation Clarification Form Date: 06/30/2021 12:17:14 PM From: Mildred Brothers CCS, CCDS Admit Date: 06/26/2021 05:20:00 PM Patient Name: Jennifer Curry Visit Number: [id number] Discharge Date: ATTENTION: The Clinical Documentation Specialists (CDI) and [facility] Coding Staff appreciate your assistance in clarifying documentation. Please respond to the clarification below the line at the bottom and electronically sign. The CDI & [facility] Coding staff will review the response and follow-up if needed. Please note: Queries are made part of the Legal Health Record. If you have any questions, please contact the author of this message via ITS. Dr. Tammy Hanson: Sepsis is documented in the 06/27 H/P and in Subsequent Progress Notes on 06/28 & 06/29: Lactic acidosis; dehydration versus sepsis; patient has had IV fluid bolus in ED followed by normal saline at rate of 75 mL an hour; we will re-bolus patient with 500 mL of normal saline along with maintenance fluids at 125 mL an hour; trend lactic acid level. 06/27 H/P Assessment: Marked leukocytosis: stress induced versus Sepsis. 06/30 Discharge Summary Assessment: Intractable Nausea/Vomiting/Abdominal Pain secondary to Chemotherapy and Pancreatic Cancer. Marked leukocytosis secondary to a combination of recent growth factor and possible UTI. Additional clarification regarding the etiology/cause of the clinical indicators is requested. History/Risk Factors per the 06/30 H/P: Stage IV Pancreatic Cancer currently in chemotherapy, Metastatic disease to the Liver with progression; Hypertension, Hyperlipidemia. Clinical Indicators: Presented to the ED on 06/26 with Nausea, Vomiting, Diarrhea & Generalized Abdominal Pain status post Chemotherapy three days prior. ED Clinical Impression: Leukocytosis 06/26 VS: T 97.8, P 97, R 18 - 20, BP 150/93, PO 97 - 94 RA 06/26 LAB: WBC 68.2, RBC 3.63, Pl Ct 210, Neut 96; APTT 20.3; K 3.4, Glucose 117, Alk Phos 213 06/26 Lactic Acid 5.6, 2.6, 2.1. 06/27 2.1, 2.4 06/26 UA: Cloudy, Trace Protein, Trace Glucose, Negative Nitrite, Negative Esterase 8/7 Urine Culture (Final): Klebsiella pneumonia 06/27 Blood Culture x2 (Preliminary): Negative after 48 hours Treatment: Monitored Lactic Acid levels, CRP & Procalcitonin ordered, Monitored CBC, Sepsis workup of blood work indicative. Supplemented K, Fluid & Fluid boluses as stated above, Home medications, Heparin sq. IV Levaquin given 06/29: 100 mls/hr q24H In your professional opinion, please clarify if these findings signify one of the following condition(s): [ ] Sepsis POA, Please specify cause: [ ] Sepsis, Not POA, Please specify cause: [ ] Sepsis ruled out [ ] Other, please specify [ ] Unable to determine (Template Last Reviewed: December 2020) Sepsis Ruled out MTDD
[2021-06-30] MEDS: HYDROcodone/APAP 7.5-325MG 1 EACH TAB PO PRN (13:12)
[2021-06-30] MEDS: LEVOFLOXACIN 500MG-D5W PMX 500 MG in DEXTROSE/WATER 1 100ML.BAG IVPB SCH (13:12)
--- NOTE | 2021-06-30 13:19 | P.PN ---
Subjective Progress Note Date: 06/30/21 Principal diagnosis: Pancreatic Cancer Planning for discharge today to [facility], patient needs to improve performance therefore will discuss with primary oncologist and chemotherapy to be held till after discharge from rehab. Objective - Vital Signs Vital signs: Vital Signs Temp 98.0 F 06/30/21 08:00 Pulse 70 06/30/21 08:00 Resp 18 06/30/21 08:00 BP 155/70 06/30/21 08:00 Pulse Ox 97 06/30/21 08:00 Intake & Output 06/29/21 06/30/21 06/30/21 18:59 06:59 18:59 Intake Total 720 360 Balance 720 360 Intake: Oral 720 360 Other: Voiding Method Toilet Toilet # Voids 1 2 - Exam - Constitutional General appearance: cooperative, no acute distress, thin - EENT Eyes: poor dentition ENT: hard of hearing, NA/AT - Neck Neck: normal ROM - Respiratory Respiratory: bilateral: diminished - Cardiovascular Rhythm: regularly irregular - Gastrointestinal General gastrointestinal: soft, tenderness - Integumentary Integumentary: pale - Neurologic Neurologic: CNII-XII intact - Musculoskeletal Musculoskeletal: generalized weakness - Psychiatric Psychiatric: A&O x's 3, appropriate affect - Labs CBC & Chem 7: 06/30/21 07:14 06/30/21 07:14 Labs: Abnormal Lab Results - Last 24 Hours (Table) 06/27/21 06/30/21 06/30/21 Range/Units 14:10 07:14 07:14 WBC 18.7 H (3.8-10.6) k/uL RBC 2.93 L (3.80-5.40) m/uL Hgb 10.5 L (11.4-16.0) gm/dL Hct 32.1 L (34.0-46.0) % MCV 109.5 H (80.0-100.0) fL MCH 35.9 H (25.0-35.0) pg RDW 16.2 H (11.5-15.5) % Plt Count 105 L (150-450) k/uL Neutrophils # 15.7 H (1.3-7.7) k/uL Macrocytosis Marked A Sodium 135 L (137-145) mmol/L BUN 5 L (7-17) mg/dL Creatinine 0.40 L (0.52-1.04) mg/dL Total Bilirubin <0.1 L (0.2-1.3) mg/dL Alkaline Phosphatase 204 H (38-126) U/L Total Protein 5.0 L (6.3-8.2) g/dL Albumin 2.9 L (3.5-5.0) g/dL IgG 552.0 L (700.0-1600.0) mg/dL IgM 21.4 L (40.0-280.0) mg/dL Microbiology - Last 24 Hours (Table) 06/27/21 20:15 Blood Culture - Preliminary Blood No Growth after 48 hours 06/27/21 18:44 Blood Culture - Preliminary Blood No Growth after 48 hours 06/27/21 16:01 Urine Culture - Final Urine,Clean Catch Klebsiella pneumoniae Assessment and Plan (1) Macrocytic anemia Current Visit: Yes Status: Acute Code(s): D53.9 - NUTRITIONAL ANEMIA, UNSPECIFIED SNOMED Code(s): 39190147 (2) Pancreatic carcinoma metastatic to liver Current Visit: Yes Status: Acute Code(s): C25.9 - MALIGNANT NEOPLASM OF PANCREAS, UNSPECIFIED; C78.7 - SECONDARY MALIG NEOPLASM OF LIVER AND INTR AHEPATIC BILE DUCT SNOMED Code(s): 242490366 (3) Leukocytosis Current Visit: Yes Status: Acute Code(s): D72.829 - ELEVATED WHITE BLOOD CELL COUNT, UNSPECIFIED SNOMED Code(s): 167056447 Plan: Assessment and Recommendations: Leukocytosis: - Likely reactive to recent growth factor after chemotherapy - Infectious work-up ordered - UTI Macrocytic Anemia: - Macrocytosis likely related to medications - Review of anemia work-up Pancreatic Cancer: - Currently under the care of Dr. Tabatha Roberts, will return to his care after resolution of acute hospitalization problems Weakness: - Performance status declined, recommend daily PT/OT UTI: - Treat secondary to symptomatic immunocompromised patient Planning for discharge today to [facility], patient needs to improve performance therefore will discuss with primary oncologist and chemotherapy to be held till after discharge from rehab. Complete full course of PO Antibiotics
[2021-07-01] MEDS ORDERED: LEVOFLOXACIN 500 MG TAB PO SCH (12:00)
== END 2021-06-30 16:17 | DRG 435 ==
LOC: EC 13:22 → 3SCARD 17:20
PROVIDERS: ADMIT Internal Medicine; ATTEND Internal Medicine
DX: C25.9 Malignant neoplasm of pancreas, unspecified (principal); E43 Unspecified severe protein-calorie malnutrition; E87.2 Acidosis; C78.7 Secondary malignant neoplasm of liver and intrahepatic bile duct; Z68.1 Body mass index [BMI] 19.9 or less, adult; N39.0 Urinary tract infection, site not specified; R11.10 Vomiting, unspecified; G89.3 Neoplasm related pain (acute) (chronic); J43.9 Emphysema, unspecified; K21.9 Gastro-esophageal reflux disease without esophagitis; D72.829 Elevated white blood cell count, unspecified; Z92.21 Personal history of antineoplastic chemotherapy; E87.6 Hypokalemia; E86.0 Dehydration; Z20.822 Contact with and (suspected) exposure to COVID-19; I10 Essential (primary) hypertension; E78.5 Hyperlipidemia, unspecified; D53.9 Nutritional anemia, unspecified; D69.59 Other secondary thrombocytopenia; T45.1X5A Adverse effect of antineoplastic and immunosuppressive drugs, initial encounter; Z87.442 Personal history of urinary calculi; Z79.899 Other long term (current) drug therapy
CPT/HCPCS: 36415; 71046; 74177; 80048; 80053; 81001; 81206; 82607; 82668; 82728; 82746; 82784; 83010; 83540; 83550; 83605; 83615; 83630; 83690; 83735; 83883; 83921; 84132; 84145; 84165; 85025; 85027; 85610; 85652; 85730; 86038; 86140; 86301; 86334; 86360; 86431; 87040; 87077; 87086; 87186; 87635; 93005; 96361; 96374; 96375; 96376; 99285

== ENCOUNTER 2021-07-24 21:23 | Emergency (ER) | payer MEDICARE ==
[2021-07-24 21:28] VITALS: BP 171/84; PULSE 73; RESP 16; TEMP 97.7
[2021-07-24] MEDS ORDERED: HYDROmorphone 1 MG/ML 1 ML SYRINGE IVP STA ×2 (21:44→23:44)
[2021-07-24] MEDS ORDERED: SODIUM CHLORIDE 0.9% 1,000 ML IV STA (21:44)
[2021-07-24] MEDS ORDERED: ONDANSETRON 4 MG/2 ML VIAL IVP STA ×2 (21:44→23:44)
[2021-07-24] MEDS ORDERED: diphenhydrAMINE 50 MG/ML 1 ML VIAL IVP STA (21:44)
--- NOTE | 2021-07-24 21:58 | ED ---
Nausea/Vomiting/Diarrhea HPI - General Chief complaint: Nausea/Vomiting/Diarrhea Stated complaint: vomiting Time Seen by Provider: 07/24/21 21:34 Source: patient Mode of arrival: ambulatory Limitations: no limitations - History of Present Illness Initial comments: 70 year-old female patient presents to the emergency department for evaluation of nausea and vomiting all day today. Patient states she received her chemo dose and white blood cell stimulator last week for pancreatic cancer. States that she has been unable to keep down any food or fluids today. She did take home nausea medications without relief. She reports right upper quadrant pain and back pain which is usual for her. She denies fever or chills. States she does have pain to the suprapubic region. Patient denies any recent rash, cough, shortness of breath, chest pain, diarrhea, constipation, back pain, numbness, tingling, dizziness, weakness, hematuria, dysuria, urinary urgency, urinary frequency, headache, visual changes, or any other complaints. - Related Data Home Medications Medication Instructions Recorded Confirmed Lisinopril-Hctz 20-12.5 mg 0.5 tab PO DAILY 02/07/17 07/24/21 [Zestoretic 20-12.5] Atorvastatin [Lipitor] 10 mg PO HS 07/06/20 07/24/21 Lidocaine-Prilocaine Cream [Emla 1 applic TOPICAL DIRECTED PRN 05/07/21 07/24/21 Cream 2.5%/2.5%] Lipase/Protease/Amylase [Zenpep Dr 1 cap PO TID 05/07/21 07/24/21 25,000 Unit Capsule] Loperamide [Imodium] 2 mg PO QID PRN 05/07/21 07/24/21 Loratadine [Claritin] 10 mg PO DAILY 05/07/21 07/24/21 Omeprazole 20 mg PO DAILY 05/07/21 07/24/21 Prochlorperazine [Compazine] 10 mg PO Q6H PRN 05/07/21 07/24/21 Furosemide [Lasix] 20 mg PO DAILY 06/26/21 07/24/21 Sennosides-Docusate Sodium 2 tab PO BID PRN 07/24/21 07/24/21 [Senokot-S] Previous Rx's Medication Instructions Recorded Acetaminophen Tab [Tylenol] 650 mg PO Q6HR PRN tab 06/30/21 Diclofenac Sodium Gel [Voltaren 2 gm TOPICAL QID PRN tube 06/30/21 Gel] Dronabinol [Marinol] 2.5 mg PO AC-BID #6 cap 06/30/21 Gabapentin [Neurontin] 300 mg PO DAILY #3 cap 06/30/21 HYDROcodone/APAP 7.5-325MG [[place] 1 tab PO Q4H PRN #18 tab 06/30/21 7.5-325] Morphine Sulfate ER [Ms Contin] 15 mg PO Q12HR #6 tab 06/30/21 Temazepam [Restoril] 15 mg PO HS PRN #3 cap 06/30/21 fentaNYL 25MCG/HR PATCH [Duragesic 1 patch TRANSDERM Q72H #1 patch 06/30/21 25MCG/HR] Allergies Allergy/AdvReac Type Severity Reaction Status Date / Time No Known Allergies Allergy Verified 07/24/21 21:46 Review of Systems ROS Statement: Those systems with pertinent positive or pertinent negative responses have been documented in the HPI. ROS Other: All systems not noted in ROS Statement are negative. Past Medical History Past Medical History: COPD, GERD/Reflux, Hypertension, Osteoarthritis (OA) Additional Past Medical History / Comment(s): emphysema, lesion on kidneys. kidney stones, recent inpt r/t chest pain, CA back History of Any Multi-Drug Resistant Organisms: None Reported Past Surgical History: Appendectomy, Cholecystectomy, Hernia Repair, Orthopedic Surgery Additional Past Surgical History / Comment(s): corrective eye surg., sinus surg., jaw surg., foot surg. rt knee surgery meniscus repair, rt shoulder ro tator cuff repair Past Anesthesia/Blood Transfusion Reactions: Motion Sickness, Postoperative Nausea & Vomiting (PONV) Past Psychological History: No Psychological Hx Reported Smoking Status: Never smoker Past Alcohol Use History: None Reported Past Drug Use History: None Reported - Past Family History Mother Family Medical History: Cancer General Exam Limitations: no limitations General appearance: alert, in no apparent distress, other (This is a well- developed, well-nourished adult female patient in no acute distress. Vital signs upon presentation are temperature 97.7F, pulse 73, respirations 16, blood pressure 171/84, pulse ox 96% on room air.) Eye exam: Present: normal appearance, PERRL, EOMI. Absent: scleral icterus, conjunctival injection, periorbital swelling ENT exam: Present: normal exam, normal oropharynx, mucous membranes moist Respiratory exam: Present: normal lung sounds bilaterally. Absent: respiratory distress, wheezes, rales, rhonchi, stridor Cardiovascular Exam: Present: regular rate, normal rhythm, normal heart sounds. Absent: systolic murmur, diastolic murmur, rubs, gallop, clicks GI/Abdominal exam: Present: soft, normal bowel sounds. Absent: distended, tenderness, guarding, rebound, rigid Neurological exam: Present: alert, oriented X3, CN II-XII intact Psychiatric exam: Present: normal affect, normal mood Skin exam: Present: warm, dry, intact, normal color. Absent: rash Course Vital Signs 07/24/21 21:26 Temperature 97.7 F Pulse Rate 73 Respiratory 16 Rate Blood Pressure 171/84 O2 Sat by Pulse 96 Oximetry Medical Decision Making - Medical Decision Making 70-year-old female patient presents to the emergency department today for evaluation of nausea and vomiting. She also is reporting or abdominal pain and back pain which is not new due to her pancreatic cancer. She did recently receive a dose of chemo and last. Physical examination did reveal soft abdomen. Labs reviewed and did reveal white blood cell count of 43. Remainder of labs are relatively unremarkable. No evidence for UTI. She was given IV pain medication nausea medication upon reevaluation she is resting comfortably in bed. She has not had any further episodes of vomiting. She does feel comfortable being discharged home at this time. She is instructed to follow-up with her oncologist and her primary care physician for recheck in 1-2 days. Return parameters were discussed in detail. She verbalizes understanding and agrees with this plan. Case discussed with my attending Dr. Bennett. - Lab Data Result diagrams: 07/24/21 22:04 07/24/21 22:04 Lab Results 07/24/21 07/24/21 07/24/21 Range/Units 22:04 22: 22:04 WBC 42.4 H (3.8-10.6) k/uL RBC 3.32 L (3.80-5.40) m/uL Hgb 11.7 (11.4-16.0) gm/dL Hct 36.0 (34.0-46.0) % MCV 108.5 H (80.0-100.0) fL MCH 35.4 H (25.0-35.0) pg MCHC 32.6 (31.0-37.0) g/dL RDW 13.7 (11.5-15.5) % Plt Count 179 D (150-450) k/uL MPV 9.4 Neutrophils % 97 % Lymphocytes % 2 % Monocytes % 1 % Eosinophils % 0 % Basophils % 0 % Neutrophils # 41.3 H (1.3-7.7) k/uL Lymphocytes # 0.7 L (1.0-4.8) k/uL Monocytes # 0.3 (0-1.0) k/uL Eosinophils # 0.1 (0-0.7) k/uL Basophils # 0.0 (0-0.2) k/uL Manual Slide Review Performed Large Platelets Present Anisocytosis (manual) Present Macrocytosis Moderate Sodium 135 L (137-145) mmol/L Potassium 3.4 L (3.5-5.1) mmol/L Chloride 104 (98-107) mmol/L Carbon Dioxide 23 (22-30) mmol/L Anion Gap 8 mmol/L BUN 15 (7-17) mg/dL Creatinine 0.27 L (0.52-1.04) mg/dL Est GFR (CKD-EPI)AfAm >90 (>60 ml/min/1.73 sqM) Est GFR (CKD-EPI)NonAf >90 (>60 ml/min/1.73 sqM) Glucose 126 H (74-99) mg/dL Plasma Lactic Acid Papito (0.7-2.0) mmol/L Calcium 9.3 (8.4-10.2) mg/dL Total Bilirubin 0.5 (0.2-1.3) mg/dL AST 35 (14-36) U/L ALT 32 (4-34) U/L Alkaline Phosphatase 189 H (38-126) U/L Total Protein 6.0 L (6.3-8.2) g/dL Albumin 3.7 (3.5-5.0) g/dL Lipase 15 L (23-300) U/L Urine Color Light Yellow Urine Appearance Cloudy H (Clear) Urine pH 7.5 (5.0-8.0) Ur Specific [place] 1.012 (1.001-1.035) Urine Protein Negative (Negative) Urine Glucose (UA) Negative (Negative) Urine Ketones Trace H (Negative) Urine Blood Negative (Negative) Urine Nitrite Negative (Negative) Urine Bilirubin Negative (Negative) Urine Urobilinogen <2.0 (<2.0) mg/dL Ur Leukocyte Esterase Negative (Negative) Urine RBC <1 (0-5) /hpf Urine WBC 2 (0-5) /hpf Ur Squamous Epith Cells 1 (0-4) /hpf Amorphous Sediment Rare H (None) /hpf 07/24/21 Range/Units 22:04 WBC (3.8-10.6) k/uL RBC (3.80-5.40) m/uL Hgb (11.4-16.0) gm/dL Hct (34.0-46.0) % MCV (80.0-100.0) fL MCH (25.0-35.0) pg MCHC (31.0-37.0) g/dL RDW (11.5-15.5) % Plt Count (150-450) k/uL MPV Neutrophils % % Lymphocytes % % Monocytes % % Eosinophils % % Basophils % % Neutrophils # (1.3-7.7) k/uL Lymphocytes # (1.0-4.8) k/uL Monocytes # (0-1.0) k/uL Eosinophils # (0-0.7) k/uL Basophils # (0-0.2) k/uL Manual Slide Review Large Platelets Anisocytosis (manual) Macrocytosis Sodium (137-145) mmol/L Potassium (3.5-5.1) mmol/L Chloride (98-107) mmol/L Carbon Dioxide (22-30) mmol/L Anion Gap mmol/L BUN (7-17) mg/dL Creatinine (0.52-1.04) mg/dL Est GFR (CKD-EPI)AfAm (>60 ml/min/1.73 sqM) Est GFR (CKD-EPI)NonAf (>60 ml/min/1.73 sqM) Glucose (74-99) mg/dL Plasma Lactic Acid [place] 1.7 (0.7-2.0) mmol/L Calcium (8.4-10.2) mg/dL Total Bilirubin (0.2-1.3) mg/dL AST (14-36) U/L ALT (4-34) U/L Alkaline Phosphatase (38-126) U/L Total Protein (6.3-8.2) g/dL Albumin (3.5-5.0) g/dL Lipase (23-300) U/L Urine Color Urine Appearance (Clear) Urine pH (5.0-8.0) Ur Specific [place] (1.001-1.035) Urine Protein (Negative) Urine Glucose (UA) (Negative) Urine Ketones (Negative) Urine Blood (Negative) Urine Nitrite (Negative) Urine Bilirubin (Negative) Urine Urobilinogen (<2.0) mg/dL Ur Leukocyte Esterase (Negative) Urine RBC (0-5) /hpf Urine WBC (0-5) /hpf Ur Squamous Epith Cells (0-4) /hpf Amorphous Sediment (None) /hpf Disposition Clinical Impression: Vomiting, Abdominal pain Disposition: HOME SELF-CARE Condition: Good Instructions (If sedation given, give patient instructions): Acute Nausea and Vomiting (ED), Abdominal Pain (ED) Additional Instructions: Start with clear liquid diet and advance as tolerated. Follow-up with your oncologist and primary care physician for further evaluation as soon as possible. Return to the emergency department for any new, worsening, or concer araceli symptoms. Is patient prescribed a controlled substance at d/c from ED?: No Referrals: Tammy Hanson MD [Primary Care Provider] - 1-2 days Time of Disposition: 23:45
[2021-07-24 22:23] LABS: ALT 32 U/L (4-34); AST 35 U/L (14-36); African American GFR (CKD) >90 (>60 ml/min/1.73 sqM); Albumin 3.7 g/dL (3.5-5.0); Alkaline Phosphatase 189 U/L (38-126); Anion Gap 8 mmol/L; Blood Urea Nitrogen 15 mg/dL (7-17); Calcium 9.3 mg/dL (8.4-10.2); Carbon Dioxide 23 mmol/L (22-30); Chloride 104 mmol/L (98-107); Glucose 126 mg/dL (74-99); Lipase 15 U/L (23-300); Non-African American GFR(CKD) >90 (>60 ml/min/1.73 sqM); Potassium 3.4 mmol/L (3.5-5.1); Sodium 135 mmol/L (137-145); Total Bilirubin 0.5 mg/dL (0.2-1.3)
[2021-07-24 22:31] LABS: Amorphous Sediment,Urine Rare /hpf; Appearance,Urine Cloudy (Clear); Bilirubin,Urine Negative (Negative); Blood,Urine Negative (Negative); Color,Urine Light Yellow; Glucose,Urine (UA) Negative (Negative); Ketones,Urine Trace (Negative); Leukocyte Esterase,Urine Negative (Negative); Nitrite,Urine Negative (Negative); PH, Urine 7.5 (5.0-8.0); Protein,Urine Negative (Negative); RBC,Urine <1 /hpf (0-5); Specific Gravity,Urine 1.012 (1.001-1.035); Squamous Epithelial Cell,Urine 1 /hpf (0-4); Urobilinogen,Urine <2.0 mg/dL (<2.0); WBC,Urine 2 /hpf (0-5)
[2021-07-24 23:09] LABS: Basophils % (A) 0 %; Eosinophils # (A) 0.1 k/uL (0-0.7); Eosinophils % (A) 0 %; HGB 11.7 gm/dL (11.4-16.0); Lymphocytes # (A) 0.7 k/uL (1.0-4.8); Lymphocytes % (A) 2 %; MCH 35.4 pg (25.0-35.0); MCHC 32.6 g/dL (31.0-37.0); MCV 108.5 fL (80.0-100.0); Macrocytosis Moderate; Mean Platelet Volume 9.4; Monocytes # (A) 0.3 k/uL (0-1.0); Monocytes % (A) 1 %; Neutrophils # (A) 41.3 k/uL (1.3-7.7); Neutrophils % (A) 97 %; RBC 3.32 m/uL (3.80-5.40); RDW 13.7 % (11.5-15.5); WBC 42.4 k/uL (3.8-10.6)
[2021-07-24 23:13] LABS: Platelet Count 179 k/uL (150-450)
[2021-07-24 23:48] LABS: Anisocytosis (M) Present; Large Platelets Present
== END 2021-07-25 00:15 | disposition home or self-care (01) ==
LOC: EC 21:23
DX: R11.2 Nausea with vomiting, unspecified (principal); R10.11 Right upper quadrant pain; I10 Essential (primary) hypertension; J44.9 Chronic obstructive pulmonary disease, unspecified; K21.9 Gastro-esophageal reflux disease without esophagitis; M19.90 Unspecified osteoarthritis, unspecified site; Z79.899 Other long term (current) drug therapy; Z90.49 Acquired absence of other specified parts of digestive tract; Z85.07 Personal history of malignant neoplasm of pancreas
CPT/HCPCS: 36415; 80053; 83605; 83690; 85025; 81001; 96374; 96375 ×2; 96376 ×2; 96361; 99284; J1200; J2405; J1170

== ENCOUNTER 2021-07-25 07:27 | Inpatient (IN) | payer MEDICARE ==
[2021-07-25] MEDS ORDERED: diphenhydrAMINE 50 MG/ML 1 ML VIAL IVP STA (08:01)
[2021-07-25] MEDS ORDERED: SODIUM CHLORIDE 0.9% 1,000 ML IV STA (08:01)
[2021-07-25] MEDS ORDERED: ONDANSETRON 4 MG/2 ML VIAL IVP STA (08:01)
[2021-07-25] MEDS ORDERED: HYDROmorphone 1 MG/ML 1 ML SYRINGE IVP STA ×2 (08:01→10:03)
[2021-07-25 08:44] LABS: Basophils % (A) 0 %; Eosinophils # (A) 0.1 k/uL (0-0.7); Eosinophils % (A) 0 %; HCT 36.9 % (34.0-46.0); HGB 12.2 gm/dL (11.4-16.0); Lymphocytes # (A) 0.7 k/uL (1.0-4.8); Lymphocytes % (A) 2 %; MCH 35.3 pg (25.0-35.0); MCHC 33.1 g/dL (31.0-37.0); MCV 106.6 fL (80.0-100.0); Macrocytosis Moderate; Mean Platelet Volume 8.6; Monocytes # (A) 0.2 k/uL (0-1.0); Monocytes % (A) 0 %; Neutrophils # (A) 40.5 k/uL (1.3-7.7); Neutrophils % (A) 98 %; Platelet Count 184 k/uL (150-450); RBC 3.46 m/uL (3.80-5.40); RDW 13.6 % (11.5-15.5); WBC 41.4 k/uL (3.8-10.6)
[2021-07-25 08:58] LABS: ALT 30 U/L (4-34); AST 28 U/L (14-36); African American GFR (CKD) >90 (>60 ml/min/1.73 sqM); Albumin 3.6 g/dL (3.5-5.0); Alkaline Phosphatase 193 U/L (38-126); Anion Gap 6 mmol/L; Blood Urea Nitrogen 10 mg/dL (7-17); Calcium 9.3 mg/dL (8.4-10.2); Carbon Dioxide 25 mmol/L (22-30); Chloride 104 mmol/L (98-107); Glucose 119 mg/dL (74-99); Lipase <10 U/L (23-300); Magnesium 1.6 mg/dL (1.6-2.3); Non-African American GFR(CKD) >90 (>60 ml/min/1.73 sqM); Potassium 3.6 mmol/L (3.5-5.1); Sodium 135 mmol/L (137-145); Total Bilirubin 0.5 mg/dL (0.2-1.3)
[2021-07-25 09:10] LABS: Appearance,Urine Clear (Clear); Bilirubin,Urine Negative (Negative); Blood,Urine Negative (Negative); Color,Urine Yellow; Glucose,Urine (UA) Negative (Negative); Ketones,Urine 1+ (Negative); Leukocyte Esterase,Urine Moderate (Negative); Mucus,Urine Occasional /hpf; Nitrite,Urine Negative (Negative); PH, Urine 7.5 (5.0-8.0); Protein,Urine Trace (Negative); RBC,Urine 1 /hpf (0-5); Specific Gravity,Urine 1.018 (1.001-1.035); Squamous Epithelial Cell,Urine 4 /hpf (0-4); Urobilinogen,Urine <2.0 mg/dL (<2.0); WBC,Urine 5 /hpf (0-5)
--- NOTE | 2021-07-25 09:31 | ED ---
Nausea/Vomiting/Diarrhea HPI - General Chief complaint: Nausea/Vomiting/Diarrhea Stated complaint: vomiting & diarrhea Time Seen by Provider: 07/25/21 07:50 Source: patient Mode of arrival: wheelchair Limitations: no limitations - History of Present Illness Initial comments: Patient is a 70-year-old female presenting to emergency Department with gadielat mandy for continued nausea and vomiting and abdominal pain since yesterday. Patient was seen and evaluated the ER last night, sent home and states she's been on Pulmicort continuing to be nauseous and vomiting. She is currently undergoing chemo treatment for stage IV pancreatic cancer. She receives chemo every 2 weeks, her oncologist is out of [facility]. Her last dose of chemo was last week, she also had white blood cell stimulator. She states she feels like for the next few days after receiving this treatment this is when her symptoms began. She had the same thing a few weeks ago. She states her pain is mostly in the upper abdomen which she does have constantly. She denies any fev ers or chills, no chest pain or shortness of breath, no diarrhea or constipation. Hematuria dysuria, no headaches. She has no further complaints. Upon arrival to the ER, her vital signs are stable. - Related Data Home Medications Medication Instructions Recorded Confirmed Lisinopril-Hctz 20-12.5 mg 0.5 tab PO DAILY 02/07/17 07/25/21 [Zestoretic 20-12.5] Atorvastatin [Lipitor] 10 mg PO HS 07/06/20 07/25/21 Lidocaine-Prilocaine Cream [Emla 1 applic TOPICAL DIRECTED PRN 05/07/21 07/25/21 Cream 2.5%/2.5%] Lipase/Protease/Amylase [Zenpep Dr 1 cap PO TID-W/MEALS 05/07/21 07/25/21 25,000 Unit Capsule] Loperamide [Imodium] 2 mg PO QID PRN 05/07/21 07/25/21 Loratadine [Claritin] 10 mg PO DAILY 05/07/21 07/25/21 Omeprazole 20 mg PO DAILY 05/07/21 07/25/21 Prochlorperazine [Compazine] 10 mg PO Q6H PRN 05/07/21 07/25/21 Furosemide [Lasix] 20 mg PO DAILY 06/26/21 07/25/21 Sennosides-Docusate Sodium 2 tab PO BID PRN 07/24/21 07/25/21 [Senokot-S] Previous Rx's Medication Instructions Recorded Acetaminophen Tab [Tylenol] 650 mg PO Q6HR PRN tab 06/30/21 Diclofenac Sodium Gel [Voltaren 2 gm TOPICAL QID PRN tube 06/30/21 Gel] Dronabinol [Marinol] 2.5 mg PO AC-BID #6 cap 06/30/21 Gabapentin [Neurontin] 300 mg PO DAILY #3 cap 06/30/21 HYDROcodone/APAP 7.5-325MG [[place] 1 tab PO Q4H PRN #18 tab 06/30/21 7.5-325] Morphine Sulfate ER [Ms Contin] 15 mg PO Q12HR #6 tab 06/30/21 Temazepam [Restoril] 15 mg PO HS PRN #3 cap 06/30/21 Allergies Allergy/AdvReac Type Severity Reaction Status Date / Time No Known Allergies Allergy Verified 07/25/21 08:49 Review of Systems ROS Statement: Those systems with pertinent positive or pertinent negative responses have been documented in the HPI. ROS Other: All systems not noted in ROS Statement are negative. Past Medical History Past Medical History: COPD, GERD/Reflux, Hypertension, Osteoarthritis (OA) Additional Past Medical History / Comment(s): emphysema, lesion on kidneys. kidney stones, recent inpt r/t chest pain, CA back History of Any Multi-Drug Resistant Organisms: None Reported Past Surgical History: Appendectomy, Cholecystectomy, Hernia Repair, Orthopedic Surgery Additional Past Surgical History / Comment(s): corrective eye surg., sinus surg., jaw surg., foot surg. rt knee surgery meniscus repair, rt shoulder rotator cuff repair Past Anesthesia/Blood Transfusion Reactions: Motion Sickness, Postoperative Nausea & Vomiting (PONV) Past Psychological History: No Psychological Hx Reported Smoking Status: Never smoker Past Alcohol Use History: None Reported Past Drug Use History: None Reported - Past Family History Mother Family Medical History: Cancer General Exam - General Exam Comments Initial Comments: GENERAL: Patient is well-developed and well-nourished. Patient is nontoxic and in mild distress. HEAD: Atraumatic, normocephalic. EYES: Pupils equal round and reactive to light, extraocular movements intact, sclera anicteric, conjunctiva are normal. Eyelids were unremarkable. ENT: Nares patent, oropharynx clear without exudates. Moist mucous membranes. NECK: Normal range of motion, supple without lymphadenopathy or JVD. LUNGS: Unlabored respirations. Breath sounds clear to auscultation bilaterally and equal. No wheezes rales or rhonchi. HEART: Regular rate and rhythm without murmurs, rubs or gallops. ABDOMEN: Soft, generalized abdominal tenderness, increased more in the upper abdomen, normoactive bowel sounds. No guarding, no rebound. : Deferred MUSCULOSKELETAL: Normal extremities with adequate strength and normal range of motion, no pitting or edema. No clubbing or cyanosis. NEUROLOGICAL: Patient is alert and oriented x 3. Motor and sensory are also intact. Cranial nerves II through XII grossly intact. Symmetrical smile. Normal speech, normal gait. PSYCH: Normal mood, normal affect. SKIN: Warm, Dry, normal turgor, no rashes or lesions noted. Limitations: no limitations Course Vital Signs 07/25/21 07:29 Temperature 98.0 F Pulse Rate 77 Respiratory 16 Rate Blood Pressure 146/87 O2 Sat by Pulse 97 Oximetry Medical Decision Making - Medical Decision Making Patient is a 70-year-old female, currently undergoing chemo treatment for stage IV pancreatic cancer, last dose was last week as well as white blood cell st imulator, presenting for continued nausea and vomiting and abdominal pain. No fevers, or vitals are stable upon arrival. Her abdominal pain is generalized, she typically does have abdominal pain. She takes morphine at home. She was seen yesterday for same complaint, and did feel improvement while in the ER. Her white blood cell count is 41 over rest of the labs are within normal limits, urine shows no evidence of infection at this time. Patient was given fluids, pain control as well as Zofran and Benadryl. She continues to feel nauseous, pain. Patient will be admitted for intractable nausea and vomiting, abdominal pain. Patient was accepted by Dr. Hanson. Case discussed with Dr. franks. - Lab Data Result diagrams: 07/25/21 Unknown 07/25/21 Unknown Lab Results 07/25/21 07/25/21 Range/Units 08:48 09:45 Plasma Lactic Acid Papito 1.3 (0.7-2.0) mmol/L Urine Color Yellow Urine Appearance Clear (Clear) Urine pH 7.5 (5.0-8.0) Ur Specific [place] 1.018 (1.001-1.035) Urine Protein Trace H (Negative) Urine Glucose (UA) Negative (Negative) Urine Ketones 1+ H (Negative) Urine Blood Negative (Negative) Urine Nitrite Negative (Negative) Urine Bilirubin Negative (Negative) Urine Urobilinogen <2.0 (<2.0) mg/dL Ur Leukocyte Esterase Moderate H (Negative) Urine RBC 1 (0-5) /hpf Urine WBC 5 (0-5) /hpf Ur Squamous Epith Cells 4 (0-4) /hpf Urine Mucus Occasional H (None) /hpf Disposition Clinical Impression: Intractable nausea and vomiting, Abdominal pain Disposition: ADMITTED IP TO THIS [facility] Condition: Stable Decision Date: 07/25/21 Decision Time: 10:33
[2021-07-25] MEDS ORDERED: ONDANSETRON 4 MG/2 ML VIAL IVP PRN (10:30)
[2021-07-25] MEDS ORDERED: NALOXONE 0.4 MG/ML 1 ML VIAL IV PRN (10:30)
[2021-07-25] MEDS ORDERED: HYDROmorphone 0.5 MG/0.5 ML SYRINGE IVP PRN (10:30)
[2021-07-25] MEDS ORDERED: PROCHLORPERAZINE 5 MG TAB PO PRN (10:30)
[2021-07-25] MEDS: SODIUM CHLORIDE 0.9% 1,000 ML IV SCH (11:19)
[2021-07-25] MEDS ORDERED: LIDOCAINE-PRILOCAINE 2.5-2.5% CREAM 5 GM TUBE TOPICAL PRN (11:50)
[2021-07-25] MEDS ORDERED: PROCHLORPERAZINE 10 MG TAB PO PRN (11:50)
[2021-07-25] MEDS ORDERED: SENNOSIDES-DOCUSATE SODIUM 1 EACH TAB PO PRN (11:50)
[2021-07-25] MEDS ORDERED: DICLOFENAC SODIUM GEL 100 GM TUBE TOPICAL PRN (11:50)
[2021-07-25] MEDS ORDERED: LOPERAMIDE 2 MG CAP PO PRN (11:50)
[2021-07-25] MEDS ORDERED: HYDROcodone/APAP 7.5-325MG 1 EACH TAB PO PRN (11:50)
[2021-07-25] MEDS ORDERED: KETOROLAC 15 MG/ML 1 ML VIAL IVP STA (12:07)
--- NOTE | 2021-07-25 13:26 | P.HPIM ---
History of Present Illness H&P Date: 07/25/21 Chief Complaint: Intractable nausea and vomiting/pancreatic cancer H&P Date: 07/25/2021 Chief Complaint: Pancreatic cancer postchemotherapy/dehydration HISTORY OF PRESENT ILLNESS: This is a 70-year-old female with a previous medical history significant for hypertension and hypertensive cardiovascular disease, hyperlipidemia, GERD, history of pseudocyst of the pancreas that has been complaining of significant amount of abdominal pain with a significant weight loss and chronic diarrhea she ended up getting referred to have MRCP that documented a pancreatic mass was seen in consultation by cardiology technician at [facility] , and she ended up having a biopsy that was positive for Pancreatic cancer she ended up having a stent placed in the common bile duct, and she was started on chemotherapy, last one was on Monday, then she started to feel nauseated with intractable nausea and vomiting, came here the day before yesterday and she was sent home after she was stabilized and given IV fluid and antibiotics however the patient was not able to keep anything down, she ended up coming back to the ER yesterday with nausea and vomiting and she appears quite dehydrated her daughter was at the bedside, she was started on IV fluid resuscitation as well as Zofran and she was admitted to the hospital, for hydration and symptoms control. REVIEW OF SYSTEMS: Constitutional: No documented fever, no chills, no night sweats. significant weight change and poor appetite and moderate fatigue, no lethargy. HEENT: No headache. No blurred vision or double vision, no loss of vision. No loss of Hearing, no ringing in the ears, no dizziness. No nasal drainage or congestion. No epistaxis. No sore throat. Lungs: No shortness of breath, no cough, no sputum production. No wheezing. Reports dyspnea with activity. Cardiovascular: No chest pain, no lower extremity edema. No palpitations. No paroxysmal nocturnal dyspnea. No orthopnea. No lightheadedness or dizziness. No syncopal episodes. Abdominal: Reports abdominal pain. positive for nausea, positive for vomiting. positive for diarrhea. No constipation. No bloody or tarry stools reports loss of appetite. Genitourinary: No dysuria, increased frequency, urgency. No urinary retention. Musculoskeletal: No myalgias. generalized muscle weakness, no gait dysfunction, no frequent falls. No back pain. No neck pain. Integumentary: No wounds, no lesions. No rash or pruritus. No unusual bruising. No change in hair or nails. Neurologic: No aphasia. No facial droop. No change in mentation. No head injury. No headache. No paralysis. No paresthesia. Psychiatric: No depression. No anxiety. No mood swings. Endocrine: No abnormal blood sugars. severe weight change. PAST MEDICAL HISTORY: HYPERTENSION AND HYPERTENSIVE CARDIO VASCULAR DISEASE. HYPERLIPIDEMIA. GERD. PANCREATIC CANCER STATUS POST STENT PLACEMENT ON CHEMOTHERAPY. Restless leg syndrome. Chronic pain. Cachexia. Chronic Opioid use PAST SURGICAL HISTORY: Appendectomy 1956 left and right jaw tumor removed in 1977 Left eye squint surgery in 1980 Sinus surgery 1981 and 2004 Partial hysterectomy 2000. Ganglionic cyst removed from the right thumb 2005 right foot bunionectomy and 3 hammertoes fixed 2013. Left foot hammertoes fixed 2014 Right shoulder rotator cuff tear repair 2015 Right knee torn meniscus 2017 Had a hernia repair 2016 Cholecystectomy 2019 EGD/colonoscopy 11/08/2020 Liver/pancreas biopsy stent placement January 2021 SOCIAL HISTORY: patient denies any history of smoking, no history of drinking, no history of abuse. FAMILY HISTORY: father at age of 78 from pneumonia and had COPD, mother at age of 68 from some sort of cancer, patient had one brother who at age of 59 from [place], patient had 3 sisters one of natural causes and one with MVA one is living and doing fine, patient has 3 sons one at the age of 18 from suicide and the other 2 are okay patient has 3 daughters who are okay. PHYSICAL EXAMINATION: General: this is a 70-year-old white female cachectic appears to be in mild distress HEENT: Head is atraumatic, normocephalic, pupils were equal round reactive to light and recommendation, extraocular muscle movement were intact, sclera nonicteric, conjunctivae were pale, mucous membranes of the mouth are somewhat dry. Neck: Supple, no JVP, normal carotid upstroke bilaterally, no lymphadenopathy. Chest: Decreased breath sounds at the bases, few rhonchi, no expiratory wheezes, no chest wall tenderness, no intercostal retractions. Heart: First heart sound is normal, second heart sounds normal, there is systolic ejection murmur 2/6 located in the left sternal border. Abdomen: Soft, mild tenderness to the epigastric area, nondistended, positive bowel sounds. Extremities: There is no edema no calf tenderness DP +2 bilaterally. Neurologic examination: Patient is awake alert and oriented x3 , cranial nerves II-12 appear grossly intact, muscle power were 5 out of 5 in upper extremities and 5 out of 5 in bilateral lower extremities, deep tendon reflexes normal bilaterally. ASSESSMENT AND PLAN: 1. Intractable nausea and vomiting due to recent chemotherapy with poor oral intake of fluid and dehydration. Continue IV fluid in the form of normal saline at 100 mL an hour, continue Zofran 4 mg IV push every 6 hours, Reglan 10 mg IV push every 6 hours, scopolamine patch 1.5 mg every 72 hours, keep the patient on clear liquid diet, advance as tolerated. 2. History of biliary/pancreatic cancer status post a stent placed in the common bile duct in January 2021 with last chemotherapy Monday. Patient did receive Neulasta injection due to severe neutropenia, she will have her follow up on 08/04/2021 with Oncology . 3. Hypertension and hypertensive cardiovascular disease. Continue lisinopril 20/12.5 mg orally once every day. 4. Hyperlipidemia. Continue Lipitor 10 mg orally once every day. 5. GERD. Continue omeprazole 40 mg orally once every day. 6. Prior history of pancreatic pseudocyst now diagnosed with pancreatic cancer. 7. DVT prophylaxis. Heparin 5000 units subcutaneously every 8 hours. 8. GI prophylaxis. Continue PPI . 9. Admit to inpatient. Estimate a length of stay 2 midnights. 10. Patient is full code. Past Medical History Past Medical History: COPD, GERD/Reflux, Hypertension, Osteoarthritis (OA) Additional Past Medical History / Comment(s): emphysema, lesion on kidneys. kidney stones, recent inpt r/t chest pain, CA back History of Any Multi-Drug Resistant Organisms: None Reported Past Surgical History: Appendectomy, Cholecystectomy, Hernia Repair, Orthopedic Surgery Additional Past Surgical History / Comment(s): corrective eye surg., sinus surg., jaw surg., foot surg. rt knee surgery meniscus repair, rt shoulder rotator cuff repair Past Anesthesia/Blood Transfusion Reactions: Motion Sickness, Postoperative Nausea & Vomiting (PONV) Past Psychological History: No Psychological Hx Reported Smoking Status: Never smoker Past Alcohol Use History: None Reported Past Drug Use History: None Reported - Past Family History Mother Family Medical History: Cancer Medications and Allergies Home Medications Medication Instructions Recorded Confirmed Type Lisinopril-Hctz 20-12.5 mg 0.5 tab PO DAILY 02/07/17 07/25/21 History [Zestoretic 20-12.5] Atorvastatin [Lipitor] 10 mg PO HS 07/06/20 07/25/21 History Lidocaine-Prilocaine Cream [Emla 1 applic TOPICAL DIRECTED PRN 05/07/21 07/25/21 History Cream 2.5%/2.5%] Lipase/Protease/Amylase [Zenpep Dr 1 cap PO TID-W/MEALS 05/07/21 07/25/21 History 25,000 Unit Capsule] Loperamide [Imodium] 2 mg PO QID PRN 05/07/21 07/25/21 History Loratadine [Claritin] 10 mg PO DAILY 05/07/21 07/25/21 History Omeprazole 20 mg PO DAILY 05/07/21 07/25/21 History Prochlorperazine [Compazine] 10 mg PO Q6H PRN 05/07/21 07/25/21 History Furosemide [Lasix] 20 mg PO DAILY 06/26/21 07/25/21 History Acetaminophen Tab [Tylenol] 650 mg PO Q6HR PRN tab 06/30/21 07/25/21 Rx Diclofenac Sodium Gel [Voltaren 2 gm TOPICAL QID PRN tube 06/30/21 07/25/21 Rx Gel] Dronabinol [Marinol] 2.5 mg PO AC-BID #6 cap 06/30/21 07/25/21 Rx Gabapentin [Neurontin] 300 mg PO DAILY #3 cap 06/30/21 07/25/21 Rx HYDROcodone/APAP 7.5-325MG [[place] 1 tab PO Q4H PRN #18 tab 06/30/21 07/25/21 Rx 7.5-325] Morphine Sulfate ER [Ms Contin] 15 mg PO Q12HR #6 tab 06/30/21 07/25/21 Rx Temazepam [Restoril] 15 mg PO HS PRN #3 cap 06/30/21 07/25/21 Rx Sennosides-Docusate Sodium 2 tab PO BID PRN 07/24/21 07/25/21 History [Senokot-S] Allergies Allergy/AdvReac Type Severity Reaction Status Date / Time No Known Allergies Allergy Verified 07/25/21 08:49 Physical Exam Vitals: Vital Signs Temp Pulse Resp BP Pulse Ox 07/25/21 07:29 98.0 F 77 16 146/87 97 Intake and Output 07/24/21 07/25/21 07/25/21 22:59 06:59 14:59 Other: Weight 59.874 kg Results CBC & Chem 7: 07/25/21 Unknown 07/25/21 Unknown Labs: Abnormal Lab Results - Last 24 Hours (Table) 07/25/21 07/25/21 07/25/21 Range/Units 08:48 Unknown Unknown WBC 41.4 H (3.8-10.6) k/uL RBC 3.46 L (3.80-5.40) m/uL MCV 106.6 H (80.0-100.0) fL MCH 35.3 H (25.0-35.0) pg Neutrophils # 40.5 H (1.3-7.7) k/uL Lymphocytes # 0.7 L (1.0-4.8) k/uL Sodium 135 L (137-145) mmol/L Creatinine 0.23 L (0.52-1.04) mg/dL Glucose 119 H (74-99) mg/dL Alkaline Phosphatase 193 H (38-126) U/L Total Protein 6.0 L (6.3-8.2) g/dL Lipase <10 L (23-300) U/L Urine Protein Trace H (Negative) Urine Ketones 1+ H (Negative) Ur Leukocyte Esterase Moderate H (Negative) Urine Mucus Occasional H (None) /hpf
[2021-07-25] MEDS: LIPASE 5,000/PROTEASE 17,000/AMYLASE 24,000 PO SCH ×2 (13:58→17:18)
[2021-07-25] MEDS: MORPHINE SULFATE 2 MG/ML SYRINGE IVP PRN ×2 (16:13→20:25)
[2021-07-25] MEDS: ONDANSETRON 4 MG/2 ML VIAL IVP PRN (17:21)
[2021-07-25] MEDS: HYDROmorphone 1 MG/ML 1 ML SYRINGE IVP PRN ×2 (18:11→21:33)
[2021-07-25] MEDS: ATORVASTATIN 10 MG TAB PO SCH (20:22)
[2021-07-25] MEDS: HEPARIN SODIUM,PORCINE/PF 5,000 UNIT/0.5 ML SYRINGE SQ SCH (20:22)
[2021-07-25] MEDS: MORPHINE SULFATE ER 15 MG TABLET PO SCH (20:31)
[2021-07-25] MEDS: TEMAZEPAM 15 MG CAP PO PRN (21:53)
[2021-07-26] MEDS: HYDROmorphone 1 MG/ML 1 ML SYRINGE IVP PRN ×7 (02:01→23:35)
[2021-07-26] MEDS: SODIUM CHLORIDE 0.9% 1,000 ML IV SCH ×2 (02:01→07:14)
[2021-07-26] MEDS: MORPHINE SULFATE 2 MG/ML SYRINGE IVP PRN ×2 (04:53→09:04)
[2021-07-26 06:09] LABS: Basophils # (A) 0.1 k/uL (0-0.2); Basophils % (A) 0 %; Eosinophils # (A) 0.1 k/uL (0-0.7); Eosinophils % (A) 0 %; HCT 33.7 % (34.0-46.0); HGB 10.7 gm/dL (11.4-16.0); Lymphocytes % (A) 7 %; MCH 34.1 pg (25.0-35.0); MCHC 31.7 g/dL (31.0-37.0); MCV 107.5 fL (80.0-100.0); Macrocytosis Moderate; Mean Platelet Volume 8.2; Monocytes # (A) 0.2 k/uL (0-1.0); Monocytes % (A) 1 %; Neutrophils # (A) 25.6 k/uL (1.3-7.7); Neutrophils % (A) 91 %; Platelet Count 170 k/uL (150-450); RBC 3.14 m/uL (3.80-5.40); RDW 13.5 % (11.5-15.5)
[2021-07-26] MEDS: LIPASE 5,000/PROTEASE 17,000/AMYLASE 24,000 PO SCH ×3 (07:06→17:09)
[2021-07-26] MEDS: MORPHINE SULFATE ER 15 MG TABLET PO SCH ×2 (07:07→20:18)
[2021-07-26] MEDS: LORATADINE 10 MG TAB PO SCH ×2 (07:07→09:04)
[2021-07-26] MEDS: PANTOPRAZOLE 40 MG TABLET PO SCH (07:07)
[2021-07-26] MEDS: GABAPENTIN 300 MG CAP PO SCH (07:07)
[2021-07-26] MEDS: LISINOPRIL-HCTZ 20-12.5 MG 1 EACH TAB PO SCH (07:12)
[2021-07-26] MEDS: ONDANSETRON 4 MG/2 ML VIAL IVP PRN (07:13)
[2021-07-26] MEDS: HEPARIN SODIUM,PORCINE/PF 5,000 UNIT/0.5 ML SYRINGE SQ SCH ×2 (07:13→20:27)
[2021-07-26 09:35] LABS: African American GFR (CKD) 135.4 (60.0-200.0); Albumin 3.5 g/dL (3.80-4.90); Albumin/Globulin Ratio 2.33 (1.60-3.17); Anion Gap 7.2 mmol/L (4.00-12.00); BUN/Creat Ratio 23.33 Ratio (12.00-20.00); Calcium 8.8 mg/dL (8.7-10.3); Carbon Dioxide 26.8 mmol/L (21.6-31.8); Globulin 1.5 g/dL (1.6-3.3); Non-African American GFR(CKD) 116.8 (60.0-200.0); Total Bilirubin 0.4 mg/dL (0.2-1.2)
[2021-07-26] MEDS ORDERED: POTASSIUM CHLORIDE ER 20 MEQ TAB.ER PO STA (11:20)
[2021-07-26] MEDS ORDERED: DEXTROSE 5%-0.45% NACL 1,000 ML with POTASSIUM CHLORIDE 20 MEQ IV SCH ×2 (11:30)
[2021-07-26] MEDS: D5-0.45% NACL WITH KCL 20MEQ/L 1,000 ML IV SCH ×2 (11:47→23:41)
[2021-07-26] MEDS: MAGNESIUM SULFATE-D5W PMX 1 GM in DEXTROSE/WATER 1 100ML.BAG IVPB SCH ×2 (13:31→14:37)
[2021-07-26] MEDS: ATORVASTATIN 10 MG TAB PO SCH (20:27)
[2021-07-26] MEDS: TEMAZEPAM 15 MG CAP PO PRN (22:40)
[2021-07-27] MEDS: HYDROmorphone 1 MG/ML 1 ML SYRINGE IVP PRN ×6 (03:02→19:50)
[2021-07-27] MEDS: MORPHINE SULFATE 2 MG/ML SYRINGE IVP PRN ×2 (04:46→22:52)
[2021-07-27 06:44] LABS: Basophils # (A) 0.1 k/uL (0-0.2); Basophils % (A) 1 %; Eosinophils # (A) 0.2 k/uL (0-0.7); Eosinophils % (A) 1 %; HCT 35.9 % (34.0-46.0); HGB 11.8 gm/dL (11.4-16.0); Lymphocytes # (A) 1.9 k/uL (1.0-4.8); Lymphocytes % (A) 10 %; MCH 35.7 pg (25.0-35.0); MCHC 32.9 g/dL (31.0-37.0); MCV 108.7 fL (80.0-100.0); Macrocytosis Moderate; Mean Platelet Volume 9.2; Monocytes # (A) 0.6 k/uL (0-1.0); Monocytes % (A) 3 %; Neutrophils # (A) 15.9 k/uL (1.3-7.7); Neutrophils % (A) 85 %; Platelet Count 100 k/uL (150-450); RDW 13.6 % (11.5-15.5); WBC 18.7 k/uL (3.8-10.6)
[2021-07-27 06:55] LABS: ALT 28 U/L (4-34); AST 33 U/L (14-36); African American GFR (CKD) >90 (>60 ml/min/1.73 sqM); Albumin 3.2 g/dL (3.5-5.0); Albumin/Globulin Ratio 1.4; Alkaline Phosphatase 173 U/L (38-126); Anion Gap 5 mmol/L; Blood Urea Nitrogen 2 mg/dL (7-17); Calcium 9.4 mg/dL (8.4-10.2); Carbon Dioxide 28 mmol/L (22-30); Chloride 103 mmol/L (98-107); Globulin 2.3 g/dL; Glucose 98 mg/dL (74-99); Magnesium 1.6 mg/dL (1.6-2.3); Non-African American GFR(CKD) >90 (>60 ml/min/1.73 sqM); Potassium 3.5 mmol/L (3.5-5.1); Sodium 136 mmol/L (137-145); Total Bilirubin 0.3 mg/dL (0.2-1.3); Total Protein 5.5 g/dL (6.3-8.2)
--- NOTE | 2021-07-27 08:59 | P.PN ---
Subjective Progress Note Date: 07/27/21 HISTORY OF PRESENT ILLNESS: This is a 70-year-old female with a previous medical history significant for hypertension and hypertensive cardiovascular disease, hyperlipidemia, GERD, history of pseudocyst of the pancreas that has been complaining of significant amount of abdominal pain with a significant weight loss and chronic diarrhea she ended up getting referred to have MRCP that documented a pancreatic mass was seen in consultation by staff midwife at [facility] , and she ended up having a biopsy that was positive for Pancreatic cancer she ended up having a stent placed in the common bile duct, and she was started on chemotherapy, last one was on Monday, then she started to feel nauseated with intractable nausea and vomiting, came here the day before yesterday and she was sent home after she was stabilized and given IV fluid and antibiotics however the patient was not able to keep anything down, she ended up coming back to the ER yesterday with nausea and vomiting and she appears quite dehydrated her daughter was at the bedside, she was started on IV fluid resuscitation as well as Zofran and she was admitted to the hospital, for hydration and symptoms control. 07/27: Patient states that she has a little bit better today and tolerating clear liquid diet. She would like to advance to full liquids for today. Her abdomen is soft. She denies having any chest pain. Patient has been afebrile, heart rate 59, blood pressure 146/75, pulse ox 95% on room air. Repeat blood work reveals WBC 18.7, hemoglobin 11.8, platelet count 100. Sodium 136, potassium 3.5, chloride 103, CO2 28, BUN 2 and creatinine 0.37. Alkaline phosphatase 173. Anticipate denies discharge home tomorrow. REVIEW OF SYSTEMS: Constitutional: No documented fever, no chills, no night sweats. significant weight change and poor appetite and moderate fatigue, no lethargy. HEENT: No headache. No blurred vision or double vision, no loss of vision. No loss of Hearing, no ringing in the ears, no dizziness. No nasal drainage or congestion. No epistaxis. No sore throat. Lungs: No shortness of breath, no cough, no sputum production. No wheezing. Reports dyspnea with activity. Cardiovascular: No chest pain, no lower extremity edema. No palpitations. No paroxysmal nocturnal dyspnea. No orthopnea. No lightheadedness or dizziness. No syncopal episodes. Abdominal: Reports abdominal pain, improving. positive for nausea, denies for vomiting. positive for diarrhea. No constipation. No bloody or tarry stools reports loss of appetite. Genitourinary: No dysuria, increased frequency, urgency. No urinary retention. Musculoskeletal: No myalgias. generalized muscle weakness, no gait dysfunction, no frequent falls. No back pain. No neck pain. Integumentary: No wounds, no lesions. No rash or pruritus. No unusual bruising. No change in hair or nails. Neurologic: No aphasia. No facial droop. No change in mentation. No head injury. No headache. No paralysis. No paresthesia. Psychiatric: No depression. No anxiety. No mood swings. Endocrine: No abnormal blood sugars. severe weight change. PHYSICAL EXAMINATION: General: this is a 70-year-old white female cachectic appears to be in no distress HEENT: Head is atraumatic, normocephalic, pupils were equal round reactive to light and recommendation, extraocular muscle movement were intact, sclera nonicteric, conjunctivae were pale, mucous membranes of the mouth are somewhat dry. Neck: Supple, no JVP, normal carotid upstroke bilaterally, no lymphadenopathy. Chest: Decreased breath sounds at the bases, few rhonchi, no expiratory wheezes, no chest wall tenderness, no intercostal retractions. Heart: First heart sound is normal, second heart sounds normal, there is systolic ejection murmur 2/6 located in the left sternal border. Abdomen: Soft, mild tenderness to the epigastric area, nondistended, positive bowel sounds. Extremities: There is no edema no calf tenderness DP +2 bilaterally. Neurologic examination: Patient is awake alert and oriented x3 , cranial nerves II-12 appear grossly intact, muscle power were 5 out of 5 in upper extremities and 5 out of 5 in bilateral lower extremities. ASSESSMENT AND PLAN: 1. Intractable nausea and vomiting due to recent chemotherapy with poor oral intake of fluid and dehydration. Continue IV fluid in the form of D5.45 normal saline with 20 of KCl at 75 mL an hour, continue Zofran 4 mg IV push every 6 hours, Reglan 10 mg IV push every 6 hours, scopolamine patch 1.5 mg every 72 hours, advance diet from clear liquids to full liquids. 2. History of biliary/pancreatic cancer status post a stent placed in the common bile duct in January 2021 with last chemotherapy Monday. Patient did receive Neulasta injection due to severe neutropenia, she will have her follow up on 08/04/2021 with Oncology . 3. Hypertension and hypertensive cardiovascular disease. Continue lisinopril 20/12.5 mg orally once every day. 4. Hyperlipidemia. Continue Lipitor 10 mg orally once every day. 5. GERD. Continue omeprazole 40 mg orally once every day. 6. Prior history of pancreatic pseudocyst now diagnosed with pancreatic cancer. 7. DVT prophylaxis. Heparin 5000 units subcutaneously every 8 hours. 8. GI prophylaxis. Continue PPI . 9. Patient is full code. DISCHARGE PLAN Home most likely on Monday Impression and plan of care have been directed as dictated by the signing physician. Alexia Gonsalves nurse practitioner acting as scribe for signing physician. Objective - Vital Signs Vital signs: Vital Signs Temp 98.1 F 07/27/21 04:00 Pulse 59 L 07/27/21 04:00 Resp 20 07/27/21 04:00 BP 146/75 07/27/21 04:00 Pulse Ox 95 07/27/21 04:00 Intake & Output 07/26/21 07/27/21 07/27/21 18:59 06:59 18:59 Intake Total 1180 1000 Output Total 2 Balance 1178 1000 Intake: IV 600 900 D5-0.45% NaCl with KCl 600 900 20Meq/l 1,000 ml @ 75 mls /hr IV .[id number] [facility] Rx#: [id number] Oral 580 100 Output: Stool 2 Other: Voiding Method Toilet Toilet # Voids 4 1 - Labs CBC & Chem 7: 07/29/21 08:30 07/29/21 08:30 Labs: Abnormal Lab Results - Last 24 Hours (Table) 07/26/21 07/26/21 07/26/21 Range/Units 05:36 05:36 05:36 WBC (3.8-10.6) k/uL RBC (3.80-5.40) m/uL MCV (80.0-100.0) fL MCH (25.0-35.0) pg Plt Count (150-450) k/uL Neutrophils # 25.6 H (1.3-7.7) k/uL Sodium (137-145) mmol/L Potassium 3.0 L (3.5-5.5) mmol/L BUN 7.0 L (9.0-27.0) mg/dL Creatinine 0.3 L (0.6-1.5) mg/dL BUN/Creatinine Ratio 23.33 H (12.00-20.00) Ratio Magnesium 1.4 L (1.5-2.4) mg/dL Alkaline Phosphatase 219 H (41-126) U/L Total Protein 5.0 L (6.2-8.2) g/dL Albumin 3.50 L (3.80-4.90) g/dL Globulin 1.5 L (1.6-3.3) g/dL 07/27/21 07/27/21 Range/Units 06:25 06:25 WBC 18.7 H (3.8-10.6) k/uL RBC 3.30 L (3.80-5.40) m/uL MCV 108.7 H (80.0-100.0) fL MCH 35.7 H (25.0-35.0) pg Plt Count 100 L (150-450) k/uL Neutrophils # 15.9 H (1.3-7.7) k/uL Sodium 136 L (137-145) mmol/L Potassium (3.5-5.5) mmol/L BUN 2 L (9.0-27.0) mg/dL Creatinine 0.37 L (0.6-1.5) mg/dL BUN/Creatinine Ratio (12.00-20.00) Ratio Magnesium (1.5-2.4) mg/dL Alkaline Phosphatase 173 H (41-126) U/L Total Protein 5.5 L (6.2-8.2) g/dL Albumin 3.2 L (3.80-4.90) g/dL Globulin (1.6-3.3) g/dL
[2021-07-27] MEDS: PANTOPRAZOLE 40 MG TABLET PO SCH (09:32)
[2021-07-27] MEDS: HEPARIN SODIUM,PORCINE/PF 5,000 UNIT/0.5 ML SYRINGE SQ SCH ×2 (09:32→20:47)
[2021-07-27] MEDS: LORATADINE 10 MG TAB PO SCH (09:32)
[2021-07-27] MEDS: GABAPENTIN 300 MG CAP PO SCH (09:33)
[2021-07-27] MEDS: LISINOPRIL-HCTZ 20-12.5 MG 1 EACH TAB PO SCH (09:33)
[2021-07-27] MEDS: LIPASE 5,000/PROTEASE 17,000/AMYLASE 24,000 PO SCH ×3 (09:33→17:17)
[2021-07-27] MEDS: MORPHINE SULFATE ER 15 MG TABLET PO SCH ×2 (09:35→20:47)
[2021-07-27] MEDS: D5-0.45% NACL WITH KCL 20MEQ/L 1,000 ML IV SCH (13:05)
[2021-07-27] MEDS: ATORVASTATIN 10 MG TAB PO SCH (20:47)
[2021-07-27] MEDS: TEMAZEPAM 15 MG CAP PO PRN (23:26)
[2021-07-28] MEDS: HYDROmorphone 1 MG/ML 1 ML SYRINGE IVP PRN ×6 (00:12→23:34)
[2021-07-28] MEDS: D5-0.45% NACL WITH KCL 20MEQ/L 1,000 ML IV SCH ×2 (03:36→16:59)
[2021-07-28] MEDS: MORPHINE SULFATE ER 15 MG TABLET PO SCH ×2 (08:37→20:12)
[2021-07-28] MEDS: LISINOPRIL-HCTZ 20-12.5 MG 1 EACH TAB PO SCH (08:37)
[2021-07-28] MEDS: PANTOPRAZOLE 40 MG TABLET PO SCH (08:37)
[2021-07-28] MEDS: GABAPENTIN 300 MG CAP PO SCH (08:38)
[2021-07-28] MEDS: LORATADINE 10 MG TAB PO SCH (08:38)
[2021-07-28] MEDS: HEPARIN SODIUM,PORCINE/PF 5,000 UNIT/0.5 ML SYRINGE SQ SCH ×2 (08:38→20:12)
[2021-07-28] MEDS: LIPASE 5,000/PROTEASE 17,000/AMYLASE 24,000 PO SCH ×3 (08:38→16:59)
[2021-07-28] MEDS: ATORVASTATIN 10 MG TAB PO SCH (20:12)
[2021-07-28] MEDS: TEMAZEPAM 15 MG CAP PO PRN (22:34)
[2021-07-29] MEDS: D5-0.45% NACL WITH KCL 20MEQ/L 1,000 ML IV SCH (06:02)
--- NOTE | 2021-07-29 07:58 | P.PN ---
Subjective Progress Note Date: 07/28/21 HISTORY OF PRESENT ILLNESS: This is a 70-year-old female with a previous medical history significant for hypertension and hypertensive cardiovascular disease, hyperlipidemia, GERD, history of pseudocyst of the pancreas that has been complaining of significant amount of abdominal pain with a significant weight loss and chronic diarrhea she ended up getting referred to have MRCP that documented a pancreatic mass was seen in consultation by development vice president at [facility] , and she ended up having a biopsy that was positive for Pancreatic cancer she ended up having a stent placed in the common bile duct, and she was started on chemotherapy, last one was on Monday, then she started to feel nauseated with intractable nausea and vomiting, came here the day before yesterday and she was sent home after she was stabilized and given IV fluid and antibiotics however the patient was not able to keep anything down, she ended up coming back to the ER yesterday with nausea and vomiting and she appears quite dehydrated her daughter was at the bedside, she was started on IV fluid resuscitation as well as Zofran and she was admitted to the hospital, for hydration and symptoms control. 07/27: Patient states that she has a little bit better today and tolerating clear liquid diet. She would like to advance to full liquids for today. Her abdomen is soft. She denies having any chest pain. Patient has been afebrile, heart rate 59, blood pressure 146/75, pulse ox 95% on room air. Repeat blood work reveals WBC 18.7, hemoglobin 11.8, platelet count 100. Sodium 136, potassium 3.5, chloride 103, CO2 28, BUN 2 and creatinine 0.37. Alkaline phosphatase 173. 07/28: Patient is tolerating full liquid diet which will be continued for another 24 hours. She continues to have chronic abdominal and back pain. Patient remains afebrile, heart rate 54, blood pressure 130/60, pulse ox 96% on room air. Repeat blood work ordered for tomorrow. Anticipate possible discharge tomorrow. REVIEW OF SYSTEMS: Constitutional: No documented fever, no chills, no night sweats. significant weight change and poor appetite and moderate fatigue, no lethargy. HEENT: No headache. No blurred vision or double vision, no loss of vision. No loss of Hearing, no ringing in the ears, no dizziness. No nasal drainage or congestion. No epistaxis. No sore throat. Lungs: No shortness of breath, no cough, no sputum production. No wheezing. Reports dyspnea with activity. Cardiovascular: No chest pain, no lower extremity edema. No palpitations. No paroxysmal nocturnal dyspnea. No orthopnea. No lightheadedness or dizziness. No syncopal episodes. Abdominal: Reports abdominal pain. positive for nausea improving, denies for vomiting. positive for diarrhea. No constipation. No bloody or tarry stools reports loss of appetite. Genitourinary: No dysuria, increased frequency, urgency. No urinary retention. Musculoskeletal: No myalgias. generalized muscle weakness, no gait dysfunction, no frequent falls. No back pain. No neck pain. Integumentary: No wounds, no lesions. No rash or pruritus. No unusual bruising. No change in hair or nails. Neurologic: No aphasia. No facial droop. No change in mentation. No head injury. No headache. No paralysis. No paresthesia. Psychiatric: No depression. No anxiety. No mood swings. Endocrine: No abnormal blood sugars. severe weight change. PHYSICAL EXAMINATION: General: this is a 70-year-old white female cachectic resting in bed in no acute distress HEENT: Head is atraumatic, normocephalic, pupils were equal round reactive to light and recommendation, extraocular muscle movement were intact, sclera nonicteric, conjunctivae were pale, mucous membranes of the mouth are somewhat dry. Neck: Supple, no JVP, normal carotid upstroke bilaterally, no lymphadenopathy. Chest: Decreased breath sounds at the bases, few rhonchi, no expiratory wheezes, no chest wall tenderness, no intercostal retractions. Heart: First heart sound is normal, second heart sounds normal, there is systolic ejection murmur 2/6 located in the left sternal border. Abdomen: Soft, mild tenderness to the epigastric area, nondistended, positive bowel sounds. Extremities: There is no edema no calf tenderness DP +2 bilaterally. Neurologic examination: Patient is awake alert and oriented x3 , cranial nerves II-12 appear grossly intact. ASSESSMENT AND PLAN: 1. Intractable nausea and vomiting due to recent chemotherapy with poor oral intake of fluid and dehydration. Continue IV fluid in the form of D5.45 normal saline with 20 of KCl at 75 mL an hour, continue Zofran 4 mg IV push every 6 hours, Reglan 10 mg IV push every 6 hours, scopolamine patch 1.5 mg every 72 hours, continue full liquids. She is tolerating full liquid diet. 2. History of biliary/pancreatic cancer status post a stent placed in the common bile duct in January 2021 with last chemotherapy Monday. Patient did receive Neulasta injection due to severe neutropenia, she will have her follow up on 08/04/2021 with Oncology . 3. Hypertension and hypertensive cardiovascular disease. Continue lisinopril 20/12.5 mg orally once every day. 4. Hyperlipidemia. Continue Lipitor 10 mg orally once every day. 5. GERD. Continue omeprazole 40 mg orally once every day. 6. Prior history of pancreatic pseudocyst now diagnosed with pancreatic cancer. 7. DVT prophylaxis. Heparin 5000 units subcutaneously every 8 hours. 8. GI prophylaxis. Continue PPI . 9. Patient is full code. DISCHARGE PLAN Home most likely on Impression and plan of care have been directed as dictated by the signing physician. Alexia Gonsalves nurse practitioner acting as scribe for signing physician. Objective - Vital Signs Vital signs: Vital Signs Temp 98.1 F 07/28/21 04:15 Pulse 54 L 07/28/21 04:15 Resp 18 07/28/21 04:15 BP 130/68 07/28/21 04:15 Pulse Ox 96 07/28/21 04:15 Intake & Output 07/27/21 07/28/21 07/28/21 18:59 06:59 18:59 Intake Total 660 Balance 660 Intake: Intake, IV Titration 600 Amount D5-0.45% NaCl with KCl 600 20Meq/l 1,000 ml @ 75 mls /hr IV .[id number] [facility] Rx#: [id number] Oral 60 Other: Voiding Method Toilet Bedside Commode # Voids 6 2 # Bowel Movements 1 - Labs CBC & Chem 7: 07/29/21 08:30 07/29/21 08:30
[2021-07-29 08:45] LABS: HCT 39.5 % (34.0-46.0); MCH 35.3 pg (25.0-35.0); MCHC 32.9 g/dL (31.0-37.0); MCV 107.4 fL (80.0-100.0); Macrocytosis Moderate; Mean Platelet Volume 8.4; Platelet Count 119 k/uL (150-450); RBC 3.68 m/uL (3.80-5.40)
--- NOTE | 2021-07-29 08:52 | P.DS ---
Providers Date of admission: 07/25/21 10:30 Expected date of discharge: 07/29/21 Attending physician: Tammy Hanson Primary care physician: Tammy Hanson Hospital Course: HISTORY OF PRESENT ILLNESS: This is a 70-year-old female with a previous medical history significant for hypertension and hypertensive cardiovascular disease, hyperlipidemia, GERD, history of pseudocyst of the pancreas that has been complaining of significant amount of abdominal pain with a significant weight loss and chronic diarrhea she ended up getting referred to have MRCP that documented a pancreatic mass was seen in consultation by cloth tester at [facility] , and she ended up having a biopsy that was positive for Pancreatic cancer she ended up having a stent placed in the common bile duct, and she was started on chemotherapy, last one was on Monday, then she started to feel nauseated with intractable nausea and vomiting, came here the day before yesterday and she was sent home after she was stabilized and given IV fluid and antibiotics however the patient was not able to keep anything down, she ended up coming back to the ER yesterday with nausea and vomiting and she appears quite dehydrated her daughter was at the bedside, she was started on IV fluid resuscitation as well as Zofran and she was admitted to the hospital, for hydration and symptoms control. 07/27: Patient states that she has a little bit better today and tolerating clear liquid diet. She would like to advance to full liquids for today. Her abdomen is soft. She denies having any chest pain. Patient has been afebrile, heart rate 59, blood pressure 146/75, pulse ox 95% on room air. Repeat blood work reveals WBC 18.7, hemoglobin 11.8, platelet count 100. Sodium 136, potassium 3.5, chloride 103, CO2 28, BUN 2 and creatinine 0.37. Alkaline phosphatase 173. 07/28: Patient is tolerating full liquid diet which will be continued for another 24 hours. She continues to have chronic abdominal and back pain. Patient remains afebrile, heart rate 54, blood pressure 130/60, pulse ox 96% on room air. Repeat blood work ordered for tomorrow. Anticipate possible discharge tomorrow. 07/29: Patient is tolerating full liquid diet, no nausea or vomiting. Abdominal pain is controlled. She's been afebrile, heart rate 61, blood pressure 159/72, pulse ox 97% on room air. Patient has a follow-up appointment with her oncologist in August. Lasix will be discontinued for home. Patient will be discharged home today in stable condition. ASSESSMENT AND PLAN: 1. Intractable nausea and vomiting due to recent chemotherapy with poor oral intake of fluid and dehydration. 2. History of biliary/pancreatic cancer status post a stent placed in the common bile duct in January 2021 with last chemotherapy Monday. 3. Hypertension and hypertensive cardiovascular disease. 4. Hyperlipidemia. 5. GERD. 6. Prior history of pancreatic pseudocyst now diagnosed with pancreatic cancer. DISCHARGE PLAN Home Impression and plan of care have been directed as dictated by the signing physician. Alexia Gonsalves nurse practitioner acting as scribe for signing physician. Patient Condition at Discharge: Good Plan - Discharge Summary Discharge Rx Participant: No New Discharge Prescriptions: Continue Lisinopril-Hctz 20-12.5 mg [Zestoretic 20-12.5] 0.5 tab PO DAILY Atorvastatin [Lipitor] 10 mg PO HS Omeprazole 20 mg PO DAILY Lipase/Protease/Amylase [Zenpep Dr 25,000 Unit Capsule] 1 cap PO TID-W/MEALS Gabapentin [Neurontin] 300 mg PO DAILY #3 cap Acetaminophen Tab [Tylenol] 650 mg PO Q6HR PRN tab PRN Reason: Mild Pain Or Fever > 100.5 Diclofenac Sodium Gel [Voltaren Gel] 2 gm TOPICAL QID PRN tube PRN Reason: Pain Dronabinol [Marinol] 2.5 mg PO AC-BID #6 cap Morphine Sulfate ER [Ms Contin] 15 mg PO Q12HR #6 tab HYDROcodone/APAP 7.5-325MG [Garrett 7.5-325] 1 tab PO Q4H PRN #18 tab PRN Reason: Pain Loperamide [Imodium] 2 mg PO QID PRN PRN Reason: Loose Stool Lidocaine-Prilocaine Cream [Emla Cream 2.5%/2.5%] 1 applic TOPICAL DIRECTED PRN PRN Reason: PORT ACCESS Prochlorperazine [Compazine] 10 mg PO Q6H PRN PRN Reason: Nausea Loratadine [Claritin] 10 mg PO DAILY Temazepam [Restoril] 15 mg PO HS PRN #3 cap PRN Reason: Insomnia Sennosides-Docusate Sodium [Senokot-S] 2 tab PO BID PRN PRN Reason: Constipation Discontinued Furosemide [Lasix] 20 mg PO DAILY Discharge Medication List Lisinopril-Hctz 20-12.5 mg [Zestoretic 20-12.5] 0.5 tab PO DAILY 02/07/17 [History] Atorvastatin [Lipitor] 10 mg PO HS 07/06/20 [History] Lidocaine-Prilocaine Cream [Emla Cream 2.5%/2.5%] 1 applic TOPICAL DIRECTED PRN 05/07/21 [History] Lipase/Protease/Amylase [Zenpep Dr 25,000 Unit Capsule] 1 cap PO TID-W/MEALS 05/07/21 [History] Loperamide [Imodium] 2 mg PO QID PRN 05/07/21 [History] Loratadine [Claritin] 10 mg PO DAILY 05/07/21 [History] Omeprazole 20 mg PO DAILY 05/07/21 [History] Prochlorperazine [Compazine] 10 mg PO Q6H PRN 05/07/21 [History] Acetaminophen Tab [Tylenol] 650 mg PO Q6HR PRN tab 06/30/21 [Rx] Diclofenac Sodium Gel [Voltaren Gel] 2 gm TOPICAL QID PRN tube 06/30/21 [Rx] Dronabinol [Marinol] 2.5 mg PO AC-BID #6 cap 06/30/21 [Rx] Gabapentin [Neurontin] 300 mg PO DAILY #3 cap 06/30/21 [Rx] HYDROcodone/APAP 7.5-325MG [Garrett 7.5-325] 1 tab PO Q4H PRN #18 tab 06/30/21 [Rx] Morphine Sulfate ER [Ms Contin] 15 mg PO Q12HR #6 tab 06/30/21 [Rx] Temazepam [Restoril] 15 mg PO HS PRN #3 cap 06/30/21 [Rx] Sennosides-Docusate Sodium [Senokot-S] 2 tab PO BID PRN 07/24/21 [History] Follow up Appointment(s)/Referral(s): Tammy Hanson MD [Primary Care Provider] - 08/03/21 3:30 pm () Patient Instructions/Handouts: Acute Nausea and Vomiting (DC), Acute Abdominal Pain (DC) Discharge Disposition: HOME SELF-CARE
[2021-07-29 09:00] LABS: ALT 33 U/L (4-34); AST 35 U/L (14-36); African American GFR (CKD) >90 (>60 ml/min/1.73 sqM); Albumin 3.5 g/dL (3.5-5.0); Albumin/Globulin Ratio 1.5; Alkaline Phosphatase 207 U/L (38-126); Anion Gap 7 mmol/L; Blood Urea Nitrogen 3 mg/dL (7-17); Calcium 9.7 mg/dL (8.4-10.2); Carbon Dioxide 28 mmol/L (22-30); Chloride 104 mmol/L (98-107); Globulin 2.3 g/dL; Glucose 131 mg/dL (74-99); Non-African American GFR(CKD) >90 (>60 ml/min/1.73 sqM); Potassium 4.3 mmol/L (3.5-5.1); Sodium 139 mmol/L (137-145); Total Bilirubin 0.2 mg/dL (0.2-1.3); Total Protein 5.8 g/dL (6.3-8.2)
[2021-07-29] MEDS: LIPASE 5,000/PROTEASE 17,000/AMYLASE 24,000 PO SCH ×2 (09:04→13:24)
[2021-07-29] MEDS: GABAPENTIN 300 MG CAP PO SCH (09:04)
[2021-07-29] MEDS: LISINOPRIL-HCTZ 20-12.5 MG 1 EACH TAB PO SCH (09:05)
[2021-07-29] MEDS: HEPARIN SODIUM,PORCINE/PF 5,000 UNIT/0.5 ML SYRINGE SQ SCH (09:05)
[2021-07-29] MEDS: LORATADINE 10 MG TAB PO SCH (09:07)
[2021-07-29] MEDS: MORPHINE SULFATE ER 15 MG TABLET PO SCH (09:08)
[2021-07-29] MEDS: PANTOPRAZOLE 40 MG TABLET PO SCH (09:09)
[2021-07-29 10:18] VITALS: RESP 20
[2021-07-29 12:41] VITALS: BP 151/87; PULSE 70; TEMP 97.4
== END 2021-07-29 13:58 | disposition home or self-care (01) | DRG 641 ==
LOC: EC 07:27 → 5NMEDONC 10:30
PROVIDERS: ADMIT Internal Medicine; ATTEND Internal Medicine
DX: E86.0 Dehydration (principal); C25.9 Malignant neoplasm of pancreas, unspecified; R10.9 Unspecified abdominal pain; E78.5 Hyperlipidemia, unspecified; G25.81 Restless legs syndrome; D70.9 Neutropenia, unspecified; J43.9 Emphysema, unspecified; K21.9 Gastro-esophageal reflux disease without esophagitis; I11.9 Hypertensive heart disease without heart failure; T45.1X5A Adverse effect of antineoplastic and immunosuppressive drugs, initial encounter; G89.3 Neoplasm related pain (acute) (chronic); Z79.891 Long term (current) use of opiate analgesic; Z87.442 Personal history of urinary calculi; Z90.49 Acquired absence of other specified parts of digestive tract; Z90.711 Acquired absence of uterus with remaining cervical stump; Z79.899 Other long term (current) drug therapy; Z82.5 Family history of asthma and other chronic lower respiratory diseases; Z79.51 Long term (current) use of inhaled steroids
CPT/HCPCS: 36415; 80053; 81001; 83605; 83690; 83735; 85025; 85027; 87324; 96361; 96374; 96375; 99285

== ENCOUNTER 2021-08-21 02:19 | Inpatient (IN) | payer OTHER, MEDICARE ==
[2021-08-21] MEDS ORDERED: MORPHINE SULFATE 4 MG/ML SYRINGE IV STA (02:46)
[2021-08-21] MEDS ORDERED: PANTOPRAZOLE 40 MG/10 ML VIAL IVP STA (02:46)
[2021-08-21] MEDS ORDERED: SODIUM CHLORIDE 0.9% 1,000 ML IV STA ×2 (02:46)
[2021-08-21] MEDS ORDERED: ONDANSETRON 4 MG/2 ML VIAL IVP STA (02:46)
--- NOTE | 2021-08-21 02:47 | ED ---
Weakness HPI - General Chief complaint: Abdominal Pain Stated complaint: Vomiting, cancer pt Time Seen by Provider: 08/21/21 02:23 Source: patient, family, RN notes reviewed, old records reviewed Mode of arrival: wheelchair Limitations: no limitations - History of Present Illness Initial comments: This is a 70-year-old female to the emergency today. Patient Dese for evaluation regarding weakness patient is persistent weakness nausea vomiting no appetite. Patient symptoms have been worsening at home and today felt the entire today she was unable to keep anything down. She has have vomiting and diarrhea with known history of significant pancreas cancer. No fevers, pain is her normal pain diffuse abdominal pain and pain all over MD Complaint: generalized weakness -: hour(s) Location: generalized Severity: severe Severity scale (1-10): 8 Consistency: constant Worsens with: none Context: recent illness, history of similar Associated Symptoms: loss of appetite, nausea/vomiting - Related Data Home Medications Medication Instructions Recorded Confirmed Lisinopril-Hctz 20-12.5 mg 0.5 tab PO DAILY 02/07/17 07/25/21 [Zestoretic 20-12.5] Atorvastatin [Lipitor] 10 mg PO HS 07/06/20 07/25/21 Lidocaine-Prilocaine Cream [Emla 1 applic TOPICAL DIRECTED PRN 05/07/21 07/25/21 Cream 2.5%/2.5%] Lipase/Protease/Amylase [Zenpep Dr 1 cap PO TID-W/MEALS 05/07/21 07/25/21 25,000 Unit Capsule] Loperamide [Imodium] 2 mg PO QID PRN 05/07/21 07/25/21 Loratadine [Claritin] 10 mg PO DAILY 05/07/21 07/25/21 Omeprazole 20 mg PO DAILY 05/07/21 07/25/21 Prochlorperazine [Compazine] 10 mg PO Q6H PRN 05/07/21 07/25/21 Sennosides-Docusate Sodium 2 tab PO BID PRN 07/24/21 07/25/21 [Senokot-S] Previous Rx's Medication Instructions Recorded Acetaminophen Tab [Tylenol] 650 mg PO Q6HR PRN tab 06/30/21 Diclofenac Sodium Gel [Voltaren 2 gm TOPICAL QID PRN tube 06/30/21 Gel] Dronabinol [Marinol] 2.5 mg PO AC-BID #6 cap 06/30/21 Gabapentin [Neurontin] 300 mg PO DAILY #3 cap 06/30/21 HYDROcodone/APAP 7.5-325MG [[place] 1 tab PO Q4H PRN #18 tab 06/30/21 7.5-325] Morphine Sulfate ER [Ms Contin] 15 mg PO Q12HR #6 tab 06/30/21 Temazepam [Restoril] 15 mg PO HS PRN #3 cap 06/30/21 Allergies Allergy/AdvReac Type Severity Reaction Status Date / Time No Known Allergies Allergy Verified 08/21/21 02:33 Review of Systems ROS Statement: Those systems with pertinent positive or pertinent negative responses have been documented in the HPI. ROS Other: All systems not noted in ROS Statement are negative. Past Medical History Past Medical History: Cancer, COPD, GERD/Reflux, Hypertension, Osteoarthritis (OA) Additional Past Medical History / Comment(s): emphysema, lesion on kidneys. kidney stones, Pancreatic cancer with stent placement History of Any Multi-Drug Resistant Organisms: None Reported Past Surgical History: Appendectomy, Cholecystectomy, Hernia Repair, Orthopedic Surgery Additional Past Surgical History / Comment(s): corrective eye surg., sinus surg., jaw surg., foot surg. rt knee surgery meniscus repair, rt shoulder rotator cuff repair Past Anesthesia/Blood Transfusion Reactions: Motion Sickness, Postoperative Nausea & Vomiting (PONV) Past Psychological History: No Psychological Hx Reported Smoking Status: Never smoker Past Alcohol Use History: None Reported Past Drug Use History: None Reported - Past Family History Mother Family Medical History: Cancer General Exam General appearance: alert, in no apparent distress Head exam: Present: atraumatic, normocephalic, normal inspection Eye exam: Present: normal appearance, PERRL, EOMI. Absent: scleral icterus, conjunctival injection, periorbital swelling ENT exam: Present: normal exam, mucous membranes moist Neck exam: Present: normal inspection. Absent: tenderness, meningismus, lymphadenopathy Respiratory exam: Present: normal lung sounds bilaterally. Absent: respiratory distress, wheezes, rales, rhonchi, stridor Cardiovascular Exam: Present: normal rhythm, tachycardia, normal heart sounds. Absent: systolic murmur, diastolic murmur, rubs, gallop, clicks GI/Abdominal exam: Present: soft, normal bowel sounds. Absent: distended, tenderness, guarding, rebound, rigid Extremities exam: Present: normal inspection, full ROM, normal capillary refill. Absent: tenderness, pedal edema, joint swelling, calf tenderness Back exam: Present: normal inspection Neurological exam: Present: alert, oriented X3, CN II-XII intact Psychiatric exam: Present: normal affect, normal mood Skin exam: Present: warm, dry, intact, normal color. Absent: rash Course Vital Signs 08/21/21 08/21/21 02:28 03:42 Temperature 98.6 F Pulse Rate 111 H 69 Respiratory 19 20 Rate Blood Pressure 145/95 169/93 O2 Sat by Pulse 96 96 Oximetry - Reevaluation(s) Reevaluation #1: 08/21/21 05:51 Medical record is reviewed Reevaluation #2: 08/21/21 05:52 Patient has no improvement here in the ER - Consultations Consultation #1: spoke w DR Hanson is ok for observation Medical Decision Making - Medical Decision Making 70 female Garret admitted for supportive care, patient is cancer pain pancreatic cancer, persistent nausea vomiting diarrhea and weakness - Lab Data Result diagrams: 08/21/21 03:08 08/21/21 03:08 Lab Results 08/21/21 08/21/21 08/21/21 Range/Units 03:08 03:08 03:08 WBC 9.0 (3.8-10.6) k/uL RBC 4.37 (3.80-5.40) m/uL Hgb 14.3 (11.4-16.0) gm/dL Hct 43.9 (34.0-46.0) % MCV 100.5 H D (80.0-100.0) fL MCH 32.9 (25.0-35.0) pg MCHC 32.7 (31.0-37.0) g/dL RDW 12.7 (11.5-15.5) % Plt Count 241 D (150-450) k/uL MPV 8.2 Neutrophils % 85 % Lymphocytes % 9 % Monocytes % 4 % Eosinophils % 0 % Basophils % 1 % Neutrophils # 7.6 (1.3-7.7) k/uL Lymphocytes # 0.8 L (1.0-4.8) k/uL Monocytes # 0.3 (0-1.0) k/uL Eosinophils # 0.0 (0-0.7) k/uL Basophils # 0.1 (0-0.2) k/uL Sodium 134 L (137-145) mmol/L Potassium 3.1 L (3.5-5.1) mmol/L Chloride 99 (98-107) mmol/L Carbon Dioxide 23 (22-30) mmol/L Anion Gap 12 mmol/L BUN 8 (7-17) mg/dL Creatinine 0.28 L (0.52-1.04) mg/dL Est GFR (CKD-EPI)AfAm >90 (>60 ml/min/1.73 sqM) Est GFR (CKD-EPI)NonAf >90 (>60 ml/min/1.73 sqM) Glucose 134 H (74-99) mg/dL Plasma Lactic Acid Papito 1.2 (0.7-2.0) mmol/L Calcium 9.7 (8.4-10.2) mg/dL Total Bilirubin 1.0 (0.2-1.3) mg/dL AST 41 H (14-36) U/L ALT 35 H (4-34) U/L Alkaline Phosphatase 214 H (38-126) U/L Total Protein 6.6 (6.3-8.2) g/dL Albumin 4.2 (3.5-5.0) g/dL Amylase 35 (30-110) U/L Lipase 30 (23-300) U/L Disposition Clinical Impression: Dehydration, Pancreatic carcinoma metastatic to liver, Intractable nausea and vomiting, Cancer associated pain, Weakness Disposition: ADMITTED IP TO THIS [facility] Condition: Fair Is patient prescribed a controlled substance at d/c from ED?: No
[2021-08-21 03:40] LABS: Basophils # (A) 0.1 k/uL (0-0.2); Basophils % (A) 1 %; Eosinophils % (A) 0 %; HCT 43.9 % (34.0-46.0); HGB 14.3 gm/dL (11.4-16.0); Lymphocytes # (A) 0.8 k/uL (1.0-4.8); Lymphocytes % (A) 9 %; MCH 32.9 pg (25.0-35.0); MCHC 32.7 g/dL (31.0-37.0); Mean Platelet Volume 8.2; Monocytes # (A) 0.3 k/uL (0-1.0); Monocytes % (A) 4 %; Neutrophils # (A) 7.6 k/uL (1.3-7.7); Neutrophils % (A) 85 %; RBC 4.37 m/uL (3.80-5.40); RDW 12.7 % (11.5-15.5)
[2021-08-21 03:44] LABS: MCV 100.5 fL (80.0-100.0); Platelet Count 241 k/uL (150-450)
[2021-08-21 03:51] LABS: ALT 35 U/L (4-34); African American GFR (CKD) >90 (>60 ml/min/1.73 sqM); Albumin 4.2 g/dL (3.5-5.0); Amylase 35 U/L (30-110); Anion Gap 12 mmol/L; Blood Urea Nitrogen 8 mg/dL (7-17); Calcium 9.7 mg/dL (8.4-10.2); Carbon Dioxide 23 mmol/L (22-30); Chloride 99 mmol/L (98-107); Glucose 134 mg/dL (74-99); Lipase 30 U/L (23-300); Non-African American GFR(CKD) >90 (>60 ml/min/1.73 sqM); Sodium 134 mmol/L (137-145); Total Protein 6.6 g/dL (6.3-8.2)
[2021-08-21] MEDS ORDERED: NALOXONE 0.4 MG/ML 1 ML VIAL IV PRN (04:13)
[2021-08-21] MEDS ORDERED: ONDANSETRON 4 MG/2 ML VIAL IVP PRN (04:13)
[2021-08-21] MEDS ORDERED: LORazepam 2 MG/ML INJ IV PRN (04:13)
[2021-08-21] MEDS ORDERED: DEXTROSE 5%-0.45% NACL 1,000 ML IV SCH (04:15)
[2021-08-21 05:07] LABS: Appearance,Urine Cloudy (Clear); Bacteria,Urine Occasional /hpf; Bilirubin,Urine Negative (Negative); Blood,Urine Negative (Negative); Color,Urine Light Yellow; Glucose,Urine (UA) Negative (Negative); Ketones,Urine 3+ (Negative); Leukocyte Esterase,Urine Small (Negative); Mucus,Urine Rare /hpf; Nitrite,Urine Negative (Negative); PH, Urine 6.5 (5.0-8.0); Protein,Urine Trace (Negative); RBC,Urine 1 /hpf (0-5); Urobilinogen,Urine <2.0 mg/dL (<2.0); WBC,Urine 10 /hpf (0-5)
[2021-08-21 05:16] LABS: AST 41 U/L (14-36); Alkaline Phosphatase 214 U/L (38-126); Potassium 3.1 mmol/L (3.5-5.1)
[2021-08-21] MEDS ORDERED: POTASSIUM BICARBONATE/CIT AC 20 MEQ TABLET.EFF PO ONE (05:50)
[2021-08-21] MEDS: HYDROmorphone 1 MG/ML 1 ML SYRINGE IVP PRN ×2 (06:40→19:35)
[2021-08-21] MEDS: PANTOPRAZOLE 40 MG/10 ML VIAL IV SCH (08:32)
[2021-08-21] MEDS ORDERED: METOCLOPRAMIDE 5 MG/ML 2 ML VIAL IVP PRN (12:57)
[2021-08-21] MEDS ORDERED: HYDROcodone/APAP 10-325MG 1 EACH TAB PO PRN (13:41)
--- NOTE | 2021-08-21 13:42 | P.HPIM ---
History of Present Illness Patient was a 70-year-old female came in with the comments of nausea vomiting and severe epigastric abdominal pain along with diarrhea patient pain is sharp in nature radiates to the back patient has history of pancreatic cancer received chemotherapy 2 weeks ago patient's lipase is within normal limits. Patient doesn't have any fever chills. Patient does have pancreatic insufficiency for which pain. Patient takes lipase protease and amylase supplementation. REVIEW OF SYSTEMS: CONSTITUTIONAL: No fever, no malaise, no fatigue. HEENT: No recent visual problems or hearing problems. Denied any sore throat. CARDIOVASCULAR: No chest pain, orthopnea, PND, no palpitations, no syncope. PULMONARY: No shortness of breath, no cough, no hemoptysis. GASTROINTESTINAL: As mentioned in HPI NEUROLOGICAL: No headaches, no weakness, no numbness. HEMATOLOGICAL: Denies any bleeding or petechiae. GENITOURINARY: Denies any burning micturition, frequency, or urgency. MUSCULOSKELETAL/RHEUMATOLOGICAL: Denies any joint pain, swelling, or any muscle pain. ENDOCRINE: Denies any polyuria or polydipsia. The rest of the 14-point review of systems is negative. PHYSICAL EXAMINATION: GENERAL: The patient is alert and oriented x3, not in any acute distress. Thin built cachectic female HEENT: Pupils are round and equally reacting to light. EOMI. No scleral icterus. No conjunctival pallor. Normocephalic, atraumatic. No pharyngeal erythema. No thyromegaly. CARDIOVASCULAR: S1 and S2 present. No murmurs, rubs, or gallops. PULMONARY: Chest is clear to auscultation, no wheezing or crackles. ABDOMEN: Soft, there is tenderness in the epigastric area and all over the rest of the abdomen no rebound or rigidity nondistended, normoactive bowel sounds. No palpable organomegaly. MUSCULOSKELETAL: No joint swelling or deformity. EXTREMITIES: No cyanosis, clubbing, or pedal edema. NEUROLOGICAL: Gross neurological examination did not reveal any focal deficits. SKIN: No rashes. Assessment and plan -Severe epigastric abdominal pain: Secondary to pancreatic cancer patient may not benefit from celiac nerve block will consult pain management. Patient will be started on fentanyl patch continue with the morphine every 4 hours patient is barely comfortable with present pain medications. -Nausea vomiting diarrhea secondary to cancer -Hyponatremia hypervolemic hyponatremia and patient is also on D5 half-normal saline which will be discontinued and patient was started on normal saline patient will be started on clear liquid diet -Mildly elevated liver enzymes secondary to pancreatic cancer with metastasis to liver -Gastric esophageal reflux disease for which patient is on Protonix -Hyperlipidemia -Peripheral neuropathy DVT prophylaxis: Lovenox Past Medical History Past Medical History: Cancer, COPD, GERD/Reflux, Hypertension, Osteoarthritis (OA) Additional Past Medical History / Comment(s): emphysema, lesion on kidneys. kidney stones, Pancreatic cancer with stent placement History of Any Multi-Drug Resistant Organisms: None Reported Past Surgical History: Appendectomy, Cholecystectomy, Hernia Repair, Orthopedic Surgery Additional Past Surgical History / Comment(s): corrective eye surg., sinus surg., jaw surg., foot surg. rt knee surgery meniscus repair, rt shoulder rotator cuff repair Past Anesthesia/Blood Transfusion Reactions: Motion Sickness, Postoperative Nausea & Vomiting (PONV) Past Psychological History: No Psychological Hx Reported Smoking Status: Never smoker Past Alcohol Use History: None Reported Past Drug Use History: None Reported - Past Family History Mother Family Medical History: Cancer Medications and Allergies Home Medications Medication Instructions Recorded Confirmed Type Atorvastatin [Lipitor] 10 mg PO HS 07/06/20 08/21/21 History Lidocaine-Prilocaine Cream [Emla 1 applic TOPICAL DIRECTED PRN 05/07/21 08/21/21 History Cream 2.5%/2.5%] Lipase/Protease/Amylase [Zenpep Dr 1 cap PO AC-TID 05/07/21 08/21/21 History 25,000 Unit Capsule] Loperamide [Imodium] 2 mg PO QID PRN 05/07/21 08/21/21 History Loratadine [Claritin] 10 mg PO DAILY 05/07/21 08/21/21 History Omeprazole 20 mg PO DAILY 05/07/21 08/21/21 History Prochlorperazine [Compazine] 10 mg PO Q6H PRN 05/07/21 08/21/21 History Acetaminophen Tab [Tylenol] 650 mg PO Q6HR PRN tab 06/30/21 08/21/21 Rx Dronabinol [Marinol] 2.5 mg PO AC-BID #6 cap 06/30/21 08/21/21 Rx Gabapentin [Neurontin] 300 mg PO DAILY #3 cap 06/30/21 08/21/21 Rx Temazepam [Restoril] 15 mg PO HS PRN #3 cap 06/30/21 08/21/21 Rx Sennosides-Docusate Sodium 2 tab PO BID PRN 07/24/21 08/21/21 History [Senokot-S] DULoxetine HCL [Cymbalta] 30 mg PO DAILY 08/21/21 08/21/21 History Diclofenac Sodium Gel [Voltaren 2 gm TOPICAL BID PRN 08/21/21 08/21/21 History Gel] HYDROcodone/APAP 10-325MG [[place] 1 tab PO Q4H PRN 08/21/21 08/21/21 History 10-325] Morphine Sulfate ER [Ms Contin] 15 mg PO TID 08/21/21 08/21/21 History Allergies Allergy/AdvReac Type Severity Reaction Status Date / Time No Known Allergies Allergy Verified 08/21/21 09:11 Physical Exam Vitals: Vital Signs Temp Pulse Pulse Resp BP BP Pulse Ox 08/21/21 08:55 98.6 F 92 20 168/97 95 08/21/21 08:00 92 20 168/97 95 08/21/21 07:00 98.8 F 66 19 175/99 94 L 08/21/21 06:43 94 20 174/93 95 08/21/21 03:42 69 20 169/93 96 08/21/21 02:28 98.6 F 111 H 19 145/95 96 Intake and Output 08/20/21 08/21/21 08/21/21 22:59 06:59 14:59 Other: Weight 60.781 kg 60.781 kg Results CBC & Chem 7: 08/21/21 03:08 08/21/21 03:08 Labs: Abnormal Lab Results - Last 24 Hours (Table) 08/21/21 08/21/21 08/21/21 Range/Units 03:08 03:08 03:08 MCV 100.5 H D (80.0-100.0) fL Lymphocytes # 0.8 L (1.0-4.8) k/uL Sodium 134 L (137-145) mmol/L Potassium 3.1 L (3.5-5.1) mmol/L Creatinine 0.28 L (0.52-1.04) mg/dL Glucose 134 H (74-99) mg/dL AST 41 H (14-36) U/L ALT 35 H (4-34) U/L Alkaline Phosphatase 214 H (38-126) U/L Urine Appearance Cloudy H (Clear) Urine Protein Trace H (Negative) Urine Ketones 3+ H (Negative) Ur Leukocyte Esterase Small H (Negative) Urine WBC 10 H (0-5) /hpf Urine Bacteria Occasional H (None) /hpf Urine Mucus Rare H (None) /hpf Thrombosis Risk Factor Assmnt - Choose All That Apply Any of the Below Risk Factors Present?: Yes Other Risk Factors: Yes Each Risk Factor Represents 2 Points: Age 61-74 years Other congenital or acquired thrombophilia - If yes, enter type in comment: No Thrombosis Risk Factor Assessment Total Risk Factor Score: 2 Thrombosis Risk Factor Assessment Level: Low Risk
--- NOTE | 2021-08-21 13:50 | P.HPIM ---
History of Present Illness Patient is a 70-year-old male pressures of breath and was started on 100% nonrebreather admission. Patient does have wheezing on exam. Patient doesn't doesn't usually wear oxygen at home. Patient does have history of coronary romina ry disease with a previous myocardial infarction and stenting to LAD and patient had a congestive heart failure with EF around 20-25% because of which I repeated the echocardiogram which showed ejection fraction of 40 with 50%. Patient is feeling dry patient is on diuretics at home patient says his medications need to be changed. Patient does have dry skin and itchiness all the time because of t he diuretics. Patient is comparing of cough without any significant sputum production chest x-ray did not show any pneumonia. REVIEW OF SYSTEMS: CONSTITUTIONAL: No fever, no malaise, no fatigue. HEENT: No recent visual problems or hearing problems. Denied any sore throat. CARDIOVASCULAR: No chest pain, orthopnea, PND, no palpitations, no syncope. PULMONARY: As mentioned in HPI GASTROINTESTINAL: No diarrhea, no nausea, no vomiting, no abdominal pain. NEUROLOGICAL: No headaches, no weakness, no numbness. HEMATOLOGICAL: Denies any bleeding or petechiae. GENITOURINARY: Denies any burning micturition, frequency, or urgency. MUSCULOSKELETAL/RHEUMATOLOGICAL: Denies any joint pain, swelling, or any muscle pain. ENDOCRINE: Denies any polyuria or polydipsia. The rest of the 14-point review of systems is negative. PHYSICAL EXAMINATION: GENERAL: The patient is alert and oriented x3, not in any acute distress. Thin built HEENT: Pupils are round and equally reacting to light. EOMI. No scleral icterus. No conjunctival pallor. Normocephalic, atraumatic. No pharyngeal erythema. No thyromegaly. Does have dry skin and dry mucous membranes CARDIOVASCULAR: S1 and S2 present. No murmurs, rubs, or gallops. PULMONARY: Significant expiratory wheezing and limited air entry bilateral lung m[place]ragon ABDOMEN: Soft, nontender, nondistended, normoactive bowel sounds. No palpable organomegaly. MUSCULOSKELETAL: No joint swelling or deformity. EXTREMITIES: No cyanosis, clubbing, or pedal edema. NEUROLOGICAL: Gross neurological examination did not reveal any focal deficits. SKIN: No rashes. Assessment and plan -Acute hypoxic and hypercapnic respiratory failure secondary to COPD ex acerbation patient usually doesn't wear any oxygen at home continue with systemic steroids inhalational treatments. Patient will be transitioned to nasal cannula oxygen. -Leukocytosis secondary to systemic steroids are reactive secondary to bronchitis patient doesn't have any evidence of pneumonia at this time -Can start failure chronic systolic dysfunction EF of around 20% which improved to 40 with 50% patient probably will not require any diuretics patient probably will need IV fluids at this time. -Chronic kidney disease stage III with creatinine of 1.6. May be in acute competent once we discontinue diuretics the function may actually improve -Coronary artery disease with stents to LAD -Type 2 diabetes mellitus blood sugars are expected to go because of systemic steroids DVT prophylaxis: Subcutaneous heparin Past Medical History Past Medical History: Cancer, COPD, GERD/Reflux, Hypertension, Osteoarthritis (OA) Additional Past Medical History / Comment(s): emphysema, lesion on kidneys. kidney stones, Pancreatic cancer with stent placement History of Any Multi-Drug Resistant Organisms: None Reported Past Surgical History: Appendectomy, Cholecystectomy, Hernia Repair, Orthopedic Surgery Additional Past Surgical History / Comment(s): corrective eye surg., sinus surg., jaw surg., foot surg. rt knee surgery meniscus repair, rt shoulder r otator cuff repair Past Anesthesia/Blood Transfusion Reactions: Motion Sickness, Postoperative Nausea & Vomiting (PONV) Past Psychological History: No Psychological Hx Reported Smoking Status: Never smoker Past Alcohol Use History: None Reported Past Drug Use History: None Reported - Past Family History Mother Family Medical History: Cancer Medications and Allergies Home Medications Medication Instructions Recorded Confirmed Type Atorvastatin [Lipitor] 10 mg PO HS 07/06/20 08/21/21 History Lidocaine-Prilocaine Cream [Emla 1 applic TOPICAL DIRECTED PRN 05/07/21 08/21/21 History Cream 2.5%/2.5%] Lipase/Protease/Amylase [Zenpep Dr 1 cap PO AC-TID 05/07/21 08/21/21 History 25,000 Unit Capsule] Loperamide [Imodium] 2 mg PO QID PRN 05/07/21 08/21/21 History Loratadine [Claritin] 10 mg PO DAILY 05/07/21 08/21/21 History Omeprazole 20 mg PO DAILY 05/07/21 08/21/21 History Prochlorperazine [Compazine] 10 mg PO Q6H PRN 05/07/21 08/21/21 History Acetaminophen Tab [Tylenol] 650 mg PO Q6HR PRN tab 06/30/21 08/21/21 Rx Dronabinol [Marinol] 2.5 mg PO AC-BID #6 cap 06/30/21 08/21/21 Rx Gabapentin [Neurontin] 300 mg PO DAILY #3 cap 06/30/21 08/21/21 Rx Temazepam [Restoril] 15 mg PO HS PRN #3 cap 06/30/21 08/21/21 Rx Sennosides-Docusate Sodium 2 tab PO BID PRN 07/24/21 08/21/21 History [Senokot-S] DULoxetine HCL [Cymbalta] 30 mg PO DAILY 08/21/21 08/21/21 History Diclofenac Sodium Gel [Voltaren 2 gm TOPICAL BID PRN 08/21/21 08/21/21 History Gel] HYDROcodone/APAP 10-325MG [[place] 1 tab PO Q4H PRN 08/21/21 08/21/21 History 10-325] Morphine Sulfate ER [Ms Contin] 15 mg PO TID 08/21/21 08/21/21 History Allergies Allergy/AdvReac Type Severity Reaction Status Date / Time No Known Allergies Allergy Verified 08/21/21 09:11 Physical Exam Vitals: Vital Signs Temp Pulse Pulse Resp BP BP Pulse Ox 08/21/21 08:55 98.6 F 92 20 168/97 95 08/21/21 08:00 92 20 168/97 95 08/21/21 07:00 98.8 F 66 19 175/99 94 L 08/21/21 06:43 94 20 174/93 95 08/21/21 03:42 69 20 169/93 96 08/21/21 02:28 98.6 F 111 H 19 145/95 96 Intake and Output 08/20/21 08/21/21 08/21/21 22:59 06:59 14:59 Intake Total 390 Balance 390 Intake: Intake, IV Titration 390 Amount Dextrose 5%-0.45% NaCl 1, 390 000 ml @ 65 mls/hr IV . [id number] [facility] Rx#:[id number] Other: # Voids 1 Weight 60.781 kg 60.781 kg Results CBC & Chem 7: 08/21/21 03:08 08/21/21 03:08 Labs: Abnormal Lab Results - Last 24 Hours (Table) 08/21/21 08/21/21 08/21/21 Range/Units 03:08 03:08 03:08 MCV 100.5 H D (80.0-100.0) fL Lymphocytes # 0.8 L (1.0-4.8) k/uL Sodium 134 L (137-145) mmol/L Potassium 3.1 L (3.5-5.1) mmol/L Creatinine 0.28 L (0.52-1.04) mg/dL Glucose 134 H (74-99) mg/dL AST 41 H (14-36) U/L ALT 35 H (4-34) U/L Alkaline Phosphatase 214 H (38-126) U/L Urine Appearance Cloudy H (Clear) Urine Protein Trace H (Negative) Urine Ketones 3+ H (Negative) Ur Leukocyte Esterase Small H (Negative) Urine WBC 10 H (0-5) /hpf Urine Bacteria Occasional H (None) /hpf Urine Mucus Rare H (None) /hpf Thrombosis Risk Factor Assmnt - Choose All That Apply Any of the Below Risk Factors Present?: Yes Other Risk Factors: Yes Each Risk Factor Represents 2 Points: Age 61-74 years Other congenital or acquired thrombophilia - If yes, enter type in comment: No Thrombosis Risk Factor Assessment Total Risk Factor Score: 2 Thrombosis Risk Factor Assessment Level: Low Risk
[2021-08-21] MEDS: POTASSIUM CHLORIDE 10 MEQ in WATER FOR INJECTION 1 100ML.BAG IVPB SCH ×4 (15:16→19:33)
[2021-08-21] MEDS: SODIUM CHLORIDE 0.9% 1,000 ML IV SCH (15:46)
[2021-08-21] MEDS: SCOPOLAMINE 1.5MG/72HR PATCH TRANSDERM SCH (15:46)
[2021-08-21] MEDS: TEMAZEPAM 15 MG CAP PO PRN (20:49)
[2021-08-21] MEDS: MORPHINE SULFATE 4 MG/ML SYRINGE IV PRN (20:54)
[2021-08-21] MEDS ORDERED: HYDROmorphone 1 MG/ML 1 ML SYRINGE ONE ×2 (23:59)
[2021-08-21] MEDS ORDERED: MORPHINE SULFATE 4 MG/ML SYRINGE ONE ×2 (23:59)
[2021-08-21] MEDS ORDERED: SCOPOLAMINE 1.5MG/72HR PATCH TRANSDERM ONE (23:59)
[2021-08-21] MEDS ORDERED: METOCLOPRAMIDE 5 MG/ML 2 ML VIAL ONE (23:59)
[2021-08-21] MEDS ORDERED: POTASSIUM CHLORIDE 10 MEQ/100 ML BAG ONE ×3 (23:59)
[2021-08-22] MEDS: HYDROmorphone 1 MG/ML 1 ML SYRINGE IVP PRN ×4 (00:24→20:16)
[2021-08-22] MEDS: SODIUM CHLORIDE 0.9% 1,000 ML IV SCH ×2 (04:00→07:58)
[2021-08-22 05:32] LABS: ALT 27 U/L (4-34); AST 28 U/L (14-36); African American GFR (CKD) >90 (>60 ml/min/1.73 sqM); Albumin 3.8 g/dL (3.5-5.0); Albumin/Globulin Ratio 1.5; Alkaline Phosphatase 164 U/L (38-126); Anion Gap 9 mmol/L; Blood Urea Nitrogen 12 mg/dL (7-17); Calcium 10.1 mg/dL (8.4-10.2); Carbon Dioxide 24 mmol/L (22-30); Chloride 100 mmol/L (98-107); Globulin 2.5 g/dL; Glucose 104 mg/dL (74-99); Non-African American GFR(CKD) >90 (>60 ml/min/1.73 sqM); Potassium 4.4 mmol/L (3.5-5.1); Sodium 133 mmol/L (137-145); Total Bilirubin 0.7 mg/dL (0.2-1.3); Total Protein 6.3 g/dL (6.3-8.2)
[2021-08-22] MEDS: MORPHINE SULFATE 4 MG/ML SYRINGE IV PRN ×4 (06:04→22:53)
[2021-08-22] MEDS: PANTOPRAZOLE 40 MG/10 ML VIAL IV SCH (07:40)
[2021-08-22] MEDS: GABAPENTIN 300 MG CAP PO SCH (07:40)
[2021-08-22] MEDS: ENOXAPARIN 40 MG/0.4 ML SYRINGE SQ SCH (07:41)
[2021-08-22 08:57] LABS: Basophils # (A) 0.06 X 10*3/uL (0.00-0.10); Basophils % (A) 0.5 %; Eosinophils # (A) 0.04 X 10*3/uL (0.04-0.35); Eosinophils % (A) 0.4 %; HCT 39.3 % (37.2-46.3); HGB 12.8 g/dL (12.0-15.0); Lymphocytes # (A) 1.74 X 10*3/uL (0.90-5.00); Lymphocytes % (A) 15.9 %; MCH 32.6 pg (27.0-32.0); MCHC 32.6 g/dL (32.0-37.0); Monocytes # (A) 0.66 X 10*3/uL (0.20-1.00); Neutrophils # (A) 8.37 X 10*3/uL (1.80-7.70); Neutrophils % (A) 76.7 %; Platelet Count 264 X 10*3/uL (140-440); RBC 3.93 X 10*6/uL (4.10-5.20); RDW 12.1 % (11.5-14.5); WBC 10.92 X 10*3/uL (4.50-10.00)
--- NOTE | 2021-08-22 15:11 | P.PN ---
Subjective Patient was a 70-year-old female came in with the comments of nausea vomiting and severe epigastric abdominal pain along with diarrhea patient pain is sharp in nature radiates to the back patient has history of pancreatic cancer received chemotherapy 2 weeks ago patient's lipase is within normal limits. Patient doesn't have any fever chills. Patient does have pancreatic insufficiency for which pain. Patient takes lipase protease and amylase supplementation. 09/18/2021 Patient's pain is better controlled patient will be on 37 g of fentanyl patch. Patient is able to tolerate diet patient had 1 episode of loose stool today serum sodium remains at 1:30 probably SIADH. Patient's serum sodium did not improve with IV fluids IV fluids will be discontinued. If serum sodium continues to be low patient need to be in fluid restriction. Constitutional: Denied any fatigue denied any fever. Cardio vascular: denied any chest pain, palpitations Gastrointestinal denied any nausea vomiting Pulmonary: Denied any shortness of breath cough Neurologic denied any new focal deficits All inpatient medications were reviewed and appropriate changes in these medications as dictated in the interval history and assessment and plan. PHYSICAL EXAMINATION: GENERAL: The patient is alert and oriented x3, not in any acute distress. Thin built cachectic female HEENT: Pupils are round and equally reacting to light. EOMI. No scleral icterus. No conjunctival pallor. Normocephalic, atraumatic. No pharyngeal erythema. No thyromegaly. CARDIOVASCULAR: S1 and S2 present. No murmurs, rubs, or gallops. PULMONARY: Chest is clear to auscultation, no wheezing or crackles. ABDOMEN: Soft, there is tenderness in the epigastric area and all over the rest of the abdomen no rebound or rigidity nondistended, normoactive bowel sounds. No palpable organomegaly. MUSCULOSKELETAL: No joint swelling or deformity. EXTREMITIES: No cyanosis, clubbing, or pedal edema. NEUROLOGICAL: Gross neurological examination did not reveal any focal deficits. SKIN: No rashes. Assessment and plan -Severe epigastric abdominal pain: Secondary to pancreatic cancer pain is better controlled today patient will be continued on for some micrograms of fentanyl patch. As of now patient is not constipated but upon discharge patient may need her bowel regimen for constipation from opiates. -Nausea vomiting diarrhea secondary to cancer -Hyponatremia initially believed to be hypovolemic serum sodium did not improve with IV fluids -Mildly elevated liver enzymes secondary to pancreatic cancer with metastasis to liver -Gastro esophageal reflux disease for which patient is on Protonix -Hyperlipidemia -Peripheral neuropathy DVT prophylaxis: Lovenox Objective - Vital Signs Vital signs: Vital Signs Temp 98.2 F 08/22/21 14:08 Pulse 68 08/22/21 14:08 Resp 18 08/22/21 14:08 BP 124/73 08/22/21 14:08 Pulse Ox 95 08/22/21 14:08 Intake & Output 08/21/21 08/22/21 08/22/21 18:59 06:59 18:59 Intake Total 390 360 Output Total 100 Balance 390 260 Weight 60.781 kg Intake: Intake, IV Titration 390 Amount Dextrose 5%-0.45% NaCl 1, 390 000 ml @ 65 mls/hr IV . [id number] [facility] Rx#:[id number] Oral 360 Output: Urine 100 Other: Voiding Method Toilet Toilet # Voids 1 3 0 # Bowel Movements 1 - Labs CBC & Chem 7: 08/22/21 04:38 08/22/21 04:38 Labs: Abnormal Lab Results - Last 24 Hours (Table) 08/22/21 08/22/21 Range/Units 04:38 04:38 WBC 10.92 H (4.50-10.00) X 10*3/uL RBC 3.93 L (4.10-5.20) X 10*6/uL MCV 100.0 H (80.0-97.0) fL MCH 32.6 H (27.0-32.0) pg Immature Gran # 0.05 H (0.00-0.04) X 10*3/uL Neutrophils # 8.37 H (1.80-7.70) X 10*3/uL Sodium 133 L (137-145) mmol/L Creatinine 0.51 L (0.52-1.04) mg/dL Glucose 104 H (74-99) mg/dL Alkaline Phosphatase 164 H (38-126) U/L
[2021-08-22] MEDS: TEMAZEPAM 15 MG CAP PO PRN (20:44)
[2021-08-23] MEDS: HYDROmorphone 1 MG/ML 1 ML SYRINGE IVP PRN ×4 (01:52→22:16)
[2021-08-23] MEDS: ENOXAPARIN 40 MG/0.4 ML SYRINGE SQ SCH (07:40)
[2021-08-23] MEDS: PANTOPRAZOLE 40 MG/10 ML VIAL IV SCH (07:40)
[2021-08-23] MEDS: GABAPENTIN 300 MG CAP PO SCH (07:41)
[2021-08-23] MEDS: MORPHINE SULFATE 4 MG/ML SYRINGE IV PRN ×3 (08:00→20:43)
[2021-08-23 09:07] LABS: African American GFR (CKD) 114.2 (60.0-200.0); Anion Gap 11.8 mmol/L (4.00-12.00); BUN/Creat Ratio 25.6 Ratio (12.00-20.00); Blood Urea Nitrogen 12.9 mg/dL (9.0-27.0); Calcium 9.7 mg/dL (8.7-10.3); Carbon Dioxide 24.4 mmol/L (21.6-31.8); Non-African American GFR(CKD) 98.5 (60.0-200.0); Potassium 3.6 mmol/L (3.5-5.5)
[2021-08-23] MEDS: SODIUM CHLORIDE 0.9% 1,000 ML IV SCH ×2 (10:16→22:17)
[2021-08-23] MEDS: TEMAZEPAM 15 MG CAP PO PRN (22:16)
[2021-08-24] MEDS: MORPHINE SULFATE 4 MG/ML SYRINGE IV PRN ×4 (01:58→20:54)
[2021-08-24] MEDS: HYDROmorphone 1 MG/ML 1 ML SYRINGE IVP PRN ×4 (04:51→21:50)
[2021-08-24 06:41] LABS: African American GFR (CKD) >90 (>60 ml/min/1.73 sqM); Anion Gap 6 mmol/L; Blood Urea Nitrogen 10 mg/dL (7-17); Calcium 9.1 mg/dL (8.4-10.2); Carbon Dioxide 26 mmol/L (22-30); Chloride 102 mmol/L (98-107); Glucose 98 mg/dL (74-99); Non-African American GFR(CKD) >90 (>60 ml/min/1.73 sqM); Potassium 3.8 mmol/L (3.5-5.1); Sodium 134 mmol/L (137-145)
[2021-08-24] MEDS: GABAPENTIN 300 MG CAP PO SCH (08:18)
[2021-08-24] MEDS: ENOXAPARIN 40 MG/0.4 ML SYRINGE SQ SCH (08:18)
[2021-08-24] MEDS: PANTOPRAZOLE 40 MG TABLET PO SCH (08:18)
[2021-08-24] MEDS ORDERED: LOPERAMIDE 2 MG CAP PO PRN (09:18)
--- NOTE | 2021-08-24 09:18 | P.PN ---
Subjective Progress Note Date: 08/23/21 HISTORY OF PRESENT ILLNESS: This is a 70-year-old female with a previous medical history significant for hypertension and hypertensive cardiovascular disease, hyperlipidemia, GERD, history of pseudocyst of the pancreas that has been complaining of significant amount of abdominal pain with a significant weight loss and chronic diarrhea she ended up getting referred to have MRCP that documented a pancreatic mass was seen in consultation by dry placer machine operator at [facility] , and she ended up having a biopsy that was positive for Pancreatic cancer she ended up having a stent placed in the common bile duct, and she was started on chemotherapy and has had hospitalizations due to intractable nausea vomiting and diarrhea. She was recently hospitalized July 25 through July 29 and discharged home. She has not had any further chemotherapy since that time but presented to [facility] emergency center on 08/21 due to nausea, vomiting, diarrhea and generalized weakness. 09/18/2021 Patient's pain is better controlled patient will be on 37 g of fentanyl patch. Patient is able to tolerate diet patient had 1 episode of loose stool today serum sodium remains at 1:30 probably SIADH. Patient's serum sodium did not improve with IV fluids IV fluids will be discontinued. If serum sodium continues to be low patient need to be in fluid restriction. 08/23: Patient states that she is a little bit better today and nausea is coming and going which seems to be improving following the scopolamine patch. She is able to get a little bit of food. She states she still has diarrhea. No lower extremity edema. Abdomen is soft. She states that chemotherapy is on hold for now. Patient is afebrile, heart rate 60, blood pressure 108/71, pulse ox 95% on room air. Electrolytes are normal, BUN 12 and creatinine 0.5. Patient will be resumed on IV fluids 0.9 normal saline at 75 mL per hour. REVIEW OF SYSTEMS: Constitutional: No documented fever, no chills, no night sweats. significant weight change and poor appetite and moderate fatigue, no lethargy. HEENT: No headache. No blurred vision or double vision, no loss of vision. No loss of Hearing, no ringing in the ears, no dizziness. No nasal drainage or congestion. No epistaxis. No sore throat. Lungs: No shortness of breath, no cough, no sputum production. No wheezing. Reports dyspnea with activity. Cardiovascular: No chest pain, no lower extremity edema. No palpitations. No paroxysmal nocturnal dyspnea. No orthopnea. No lightheadedness or dizziness. No syncopal episodes. Abdominal: Reports abdominal pain. positive for nausea improving, denies for vomiting. positive for diarrhea. No constipation. No bloody or tarry stools reports loss of appetite. Genitourinary: No dysuria, increased frequency, urgency. No urinary retention. Musculoskeletal: No myalgias. generalized muscle weakness, no gait dysfunction, no frequent falls. No back pain. No neck pain. Integumentary: No wounds, no lesions. No rash or pruritus. No unusual bruising. No change in hair or nails. Neurologic: No aphasia. No facial droop. No change in mentation. No head injury. No headache. No paralysis. No paresthesia. Psychiatric: No depression. No anxiety. Endocrine: No abnormal blood sugars. severe weight change. PHYSICAL EXAMINATION: General: this is a 70-year-old white female cachectic resting in bed in no acute distress HEENT: Head is atraumatic, normocephalic, pupils were equal round reactive to light and recommendation, extraocular muscle movement were intact, sclera nonicteric, conjunctivae were pale, mucous membranes of the mouth are somewhat dry. Neck: Supple, no JVP, normal carotid upstroke bilaterally, no lymphadenopathy. Chest: Decreased breath sounds at the bases, few rhonchi, no expiratory wheezes, no chest wall tenderness, no intercostal retractions. Heart: First heart sound is normal, second heart sounds normal, there is systolic ejection murmur 2/6 located in the left sternal border. Abdomen: Soft, mild tenderness to the epigastric area, nondistended, positive b owel sounds. Extremities: There is no edema no calf tenderness DP +2 bilaterally. Neurologic examination: Patient is awake alert and oriented x3 , cranial nerves II-12 appear grossly intact. ASSESSMENT AND PLAN: 1. Intractable nausea and vomiting due to due to underlying pancreatic cancer. Nausea improved with scopolamine patch, continue Zofran as needed, Reglan 10 mg IV push as needed. She is tolerating full liquid diet. Patient will be resumed on IV fluids 0.9 normal saline at 75 mL per hour. 2. History of biliary/pancreatic cancer status post a stent placed in the common bile duct in January 2021 with last chemotherapy Monday. Oncology . Continue fentanyl patch 25 g every 72 hours, Marinol 2.5 mg twice daily, morphine or Dilaudid as needed for pain. 3. Hypertension and hypertensive cardiovascular disease. Blood pressure currently on the soft side. 4. Hyperlipidemia. Hold Lipitor 10 mg orally once every day. 5. GERD. Continue Protonix 40 mg daily. 6. Prior history of pancreatic pseudocyst now diagnosed with pancreatic cancer. 7. DVT prophylaxis. Continue Lovenox 40 mg daily. 8. GI prophylaxis. Continue PPI . 9. Patient is full code. DISCHARGE PLAN Home most likely on Monday Impression and plan of care have been directed as dictated by the signing physician. Alexia Gonsalves nurse practitioner acting as scribe for signing physician. Objective - Vital Signs Vital signs: Vital Signs Temp 98.2 F 08/23/21 07:00 Pulse 52 L 08/23/21 07:00 Resp 16 08/23/21 07:00 BP 144/78 08/23/21 07:00 Pulse Ox 95 08/23/21 07:00 Intake & Output 08/22/21 08/23/21 08/23/21 18:59 06:59 18:59 Intake Total 1080 Output Total 100 Balance 980 Intake: IV 600 Sodium Chloride 0.9% 1, 600 000 ml @ 75 mls/hr IV . [id number] [facility] Rx#:[id number] Oral 480 Output: Urine 100 Other: Voiding Method Toilet Bedside Commode # Voids 0 1 # Bowel Movements 1 - Labs CBC & Chem 7: 08/22/21 04:38 08/24/21 05:09 Labs: Abnormal Lab Results - Last 24 Hours (Table) 08/22/21 Range/Units 04:38 WBC 10.92 H (4.50-10.00) X 10*3/uL RBC 3.93 L (4.10-5.20) X 10*6/uL MCV 100.0 H (80.0-97.0) fL MCH 32.6 H (27.0-32.0) pg Immature Gran # 0.05 H (0.00-0.04) X 10*3/uL Neutrophils # 8.37 H (1.80-7.70) X 10*3/uL
--- NOTE | 2021-08-24 09:21 | P.PN ---
Subjective Progress Note Date: 08/24/21 HISTORY OF PRESENT ILLNESS: This is a 70-year-old female with a previous medical history significant for hypertension and hypertensive cardiovascular disease, hyperlipidemia, GERD, history of pseudocyst of the pancreas that has been complaining of significant amount of abdominal pain with a significant weight loss and chronic diarrhea she ended up getting referred to have MRCP that documented a pancreatic mass was seen in consultation by peoplesoft consultant at [facility] , and she ended up having a biopsy that was positive for Pancreatic cancer she ended up having a stent placed in the common bile duct, and she was started on chemotherapy and has had hospitalizations due to intractable nausea vomiting and diarrhea. She was recently hospitalized July 25 through July 29 and discharged home. She has not had any further chemotherapy since that time but presented to [facility] emergency center on 08/21 due to nausea, vomiting, diarrhea and generalized weakness. 09/18/2021 Patient's pain is better controlled patient will be on 37 g of fentanyl patch. Patient is able to tolerate diet patient had 1 episode of loose stool today serum sodium remains at 1:30 probably SIADH. Patient's serum sodium did not improve with IV fluids IV fluids will be discontinued. If serum sodium continues to be low patient need to be in fluid restriction. 08/23: Patient states that she is a little bit better today and nausea is coming and going which seems to be improving following the scopolamine patch. She is able to get a little bit of food. She states she still has diarrhea. No lower extremity edema. Abdomen is soft. She states that chemotherapy is on hold for now. Patient is afebrile, heart rate 60, blood pressure 108/71, pulse ox 95% on room air. Electrolytes are normal, BUN 12 and creatinine 0.5. Patient will be resumed on IV fluids 0.9 normal saline at 75 mL per hour. 08/24: Patient appears to not feel very well today. She states that she is h aving pain in the upper abdominal area, she was able to eat some food this morning. She denies vomiting. Plan will be to continue the same treatment including IV fluids at 75 mL per hour for another 24 hours and probable discharge tomorrow. She has been afebrile, blood pressure is higher today at 155/83 and heart rate 78. Patient has been off antihypertensive medications. We'll continue to monitor for now. REVIEW OF SYSTEMS: Constitutional: No documented fever, no chills, no night sweats. significant weight change and poor appetite and moderate fatigue, no lethargy. HEENT: No headache. No blurred vision or double vision, no loss of vision. No loss of Hearing, no ringing in the ears, no dizziness. No nasal drainage or congestion. No epistaxis. No sore throat. Lungs: No shortness of breath, no cough, no sputum production. No wheezing. Reports dyspnea with activity. Cardiovascular: No chest pain, no lower extremity edema. No palpitations. No paroxysmal nocturnal dyspnea. No orthopnea. No lightheadedness or dizziness. No syncopal episodes. Abdominal: Reports upper abdominal pain. positive for nausea improving, denies for vomiting. positive for diarrhea. No constipation. No bloody or tarry stools reports loss of appetite. Genitourinary: No dysuria, increased frequency, urgency. No urinary retention. Musculoskeletal: No myalgias. generalized muscle weakness, no gait dysfunction, no frequent falls. No back pain. No neck pain. Integumentary: No wounds, no lesions. No rash or pruritus. No unusual bruising. No change in hair or nails. Neurologic: No aphasia. No facial droop. No change in mentation. No head injury. No headache. No paralysis. No paresthesia. Psychiatric: No depression. No anxiety. Endocrine: No abnormal blood sugars. severe weight change. PHYSICAL EXAMINATION: General: this is a 70-year-old white female cachectic resting in bed in no acute distress HEENT: Head is atraumatic, normocephalic, pupils were equal round reactive to light and recommendation, extraocular muscle movement were intact, sclera nonicteric, conjunctivae were pale, mucous membranes of the mouth are somewhat dry. Neck: Supple, no JVP, normal carotid upstroke bilaterally, no lymphadenopathy. Chest: Decreased breath sounds at the bases, few rhonchi, no expiratory wheezes, no chest wall tenderness, no intercostal retractions. Heart: First heart sound is normal, second heart sounds normal, there is systolic ejection murmur 2/6 located in the left sternal border. Abdomen: Soft, mild upper abdominal tenderness, nondistended, positive bowel sounds. Extremities: There is no edema no calf tenderness DP +2 bilaterally. Neurologic examination: Patient is awake alert and oriented x3 , cranial nerves II-12 appear grossly intact. ASSESSMENT AND PLAN: 1. Intractable nausea and vomiting due to due to underlying pancreatic cancer. Nausea improved with scopolamine patch, continue Zofran as needed, Reglan 10 mg IV push as needed. She is tolerating full liquid diet. Patient will be resumed on IV fluids 0.9 normal saline at 75 mL per hour. 2. History of biliary/pancreatic cancer status post a stent placed in the common bile duct in January 2021 with last chemotherapy Monday. Oncology . Continue fentanyl patch 25 g every 72 hours, Marinol 2.5 mg twice daily, morphine or Dilaudid as needed for pain. 3. Hypertension and hypertensive cardiovascular disease. Blood pressure currently on the soft side. Patient is no longer on antihypertensives according to home list. Continue to monitor closely. 4. Hyperlipidemia. Hold Lipitor 10 mg orally once every day. 5. GERD. Continue Protonix 40 mg daily. 6. Prior history of pancreatic pseudocyst now diagnosed with pancreatic cancer. 7. DVT prophylaxis. Continue Lovenox 40 mg daily. 8. GI prophylaxis. Continue PPI . 9. Patient is full code. DISCHARGE PLAN Home most likely on Monday Impression and plan of care have been directed as dictated by the signing physician. Alexia Gonsalves nurse practitioner acting as scribe for signing physician. Objective - Vital Signs Vital signs: Vital Signs Temp 97.8 F 08/24/21 07:00 Pulse 78 08/24/21 07:00 Resp 18 08/24/21 01:43 BP 155/83 08/24/21 07:00 Pulse Ox 96 08/24/21 07:00 Intake & Output 08/23/21 08/24/21 08/24/21 18:59 06:59 18:59 Intake Total 950 Output Total 500 Balance 450 Intake: Oral 950 Output: Urine 500 Other: Voiding Method Bedside Commode # Voids 2 3 # Bowel Movements 1 - Labs CBC & Chem 7: 08/22/21 04:38 08/24/21 05:09 Labs: Abnormal Lab Results - Last 24 Hours (Table) 08/24/21 Range/Units 05:09 Sodium 134 L (137-145) mmol/L Creatinine 0.37 L (0.52-1.04) mg/dL
[2021-08-24] MEDS: DULoxetine HCL 30 MG CAPSULE.DR PO SCH (09:47)
[2021-08-24] MEDS: SODIUM CHLORIDE 0.9% 1,000 ML IV SCH (09:47)
[2021-08-24] MEDS: LORATADINE 10 MG TAB PO SCH (09:47)
[2021-08-24] MEDS: LIPASE 5,000/PROTEASE 17,000/AMYLASE 24,000 PO SCH ×2 (11:31→17:04)
[2021-08-24] MEDS: SCOPOLAMINE 1.5MG/72HR PATCH TRANSDERM SCH (13:08)
--- NOTE | 2021-08-24 15:40 | XR ---
EXAMINATION TYPE: XR forearm LT DATE OF EXAM: 08/24/2021 CLINICAL HISTORY: Fall injury with pain. TECHNIQUE: Two views of the left forearm are obtained. COMPARISON: None. FINDINGS: Osseous structures are demineralized. There is no acute displaced fracture seen in the left radius or ulna. Abnormal fat pad signs however is noted at left elbow joint raising concern for nond isplaced intra-articular fracture. Carpal joint spaces in the left wrist are maintained. The overlyin g soft tissue appears within normal limits. IMPRESSION: There are abnormal fat pad signs suspicious for acute nondisplaced intra-articular fract ure left elbow. Consider dedicated 3 view left elbow x-ray to further evaluate.
[2021-08-24] MEDS: TEMAZEPAM 15 MG CAP PO PRN (22:07)
[2021-08-25] MEDS: SODIUM CHLORIDE 0.9% 1,000 ML IV SCH ×2 (00:46→07:34)
[2021-08-25] MEDS: MORPHINE SULFATE 4 MG/ML SYRINGE IV PRN ×5 (01:11→22:21)
[2021-08-25] MEDS: HYDROmorphone 1 MG/ML 1 ML SYRINGE IVP PRN ×4 (03:55→20:02)
[2021-08-25] MEDS: PANTOPRAZOLE 40 MG TABLET PO SCH (07:31)
[2021-08-25] MEDS: LORATADINE 10 MG TAB PO SCH (07:31)
[2021-08-25] MEDS: GABAPENTIN 300 MG CAP PO SCH (07:31)
[2021-08-25] MEDS: ENOXAPARIN 40 MG/0.4 ML SYRINGE SQ SCH (07:32)
[2021-08-25] MEDS: DULoxetine HCL 30 MG CAPSULE.DR PO SCH (07:35)
[2021-08-25] MEDS: LIPASE 5,000/PROTEASE 17,000/AMYLASE 24,000 PO SCH ×3 (07:35→17:57)
--- NOTE | 2021-08-25 09:17 | XR ---
EXAMINATION TYPE: XR elbow complete LT DATE OF EXAM: 08/25/2021 COMPARISON: 09/03/2012 HISTORY: Fall from bed pain lateral elbow TECHNIQUE: 3 view left elbow FINDINGS: Radius aligns normally with the humerus. Tiny spurs on the humeral head. Anterior fat pad i s somewhat prominent. Some minimal elevation posterior fat pad is present. Clinical consideration for an occult fracture is recommended. Follow-up studies can be performed 7-10 days from acute trauma fo r continued pain. IMPRESSION: 1. There is elevation of the anterior and posterior fat pads. Occult fracture should be suspected. F ollow-up exams performed as clinically indicated.
--- NOTE | 2021-08-25 10:11 | P.CNOR ---
History of Present Illness - [facility] Consult date: 08/25/21 Consult reason: joint pain (Left elbow) History of present illness: Patient is a 70-year-old female who was initially admitted to [facility] over the weekend due to increasing weakness, nausea and vomiting and also diarrhea. Patient has a known history of pancreatic/biliary cancer. She's been undergoing treatment through [facility]. since being in the hospital, patient's symptoms have gotten slightly better. She is being followed by internal medicine at this time. Patient was evaluated today at bedside. She states that on Monday, she did fall from going from her bed to the bedside commode. She states that she landed on the left upper extremity, she cannot remember the exact position. Since the fall she's had pain in the left upper extremity, mainly surrounding the elbow. She's had a difficult time fully flexing the elbow. She denies any previous surgery to the left upper extremity. Currently patient denies any pain to the right upper extremity, bilateral lower extremities, new onset cervical, thoracic or lumbar pain. She does admit to paresthesias in the bilateral hands which she states started after she began treatment for her cancer. She also notes numbness and tingling in the feet, she has a history of neuropathy. She has no obvious bowel or bladder insufficiencies at this time. Review of Systems Constitutional: Reports as per HPI Past Medical History Past Medical History: Cancer, COPD, GERD/Reflux, Hypertension, Osteoarthritis (OA) Additional Past Medical History / Comment(s): emphysema, lesion on kidneys. kidney stones, Pancreatic cancer with stent placement History of Any Multi-Drug Resistant Organisms: None Reported Past Surgical History: Appendectomy, Cholecystectomy, Hernia Repair, Orthopedic Surgery Additional Past Surgical History / Comment(s): corrective eye surg., sinus surg., jaw surg., foot surg. rt knee surgery meniscus repair, rt shoulder rotator cuff repair Past Anesthesia/Blood Transfusion Reactions: Motion Sickness, Postoperative Nausea & Vomiting (PONV) Past Psychological History: No Psychological Hx Reported Smoking Status: Never smoker Past Alcohol Use History: None Reported Past Drug Use History: None Reported - Past Family History Mother Family Medical History: Cancer Medications and Allergies Home Medications Medication Instructions Recorded Confirmed Type Atorvastatin [Lipitor] 10 mg PO HS 07/06/20 08/21/21 History Lidocaine-Prilocaine Cream [Emla 1 applic TOPICAL DIRECTED PRN 05/07/21 08/21/21 History Cream 2.5%/2.5%] Lipase/Protease/Amylase [Zenpep Dr 1 cap PO AC-TID 05/07/21 08/21/21 History 25,000 Unit Capsule] Loperamide [Imodium] 2 mg PO QID PRN 05/07/21 08/21/21 History Loratadine [Claritin] 10 mg PO DAILY 05/07/21 08/21/21 History Omeprazole 20 mg PO DAILY 05/07/21 08/21/21 History Prochlorperazine [Compazine] 10 mg PO Q6H PRN 05/07/21 08/21/21 History Acetaminophen Tab [Tylenol] 650 mg PO Q6HR PRN tab 06/30/21 08/21/21 Rx Dronabinol [Marinol] 2.5 mg PO AC-BID #6 cap 06/30/21 08/21/21 Rx Gabapentin [Neurontin] 300 mg PO DAILY #3 cap 06/30/21 08/21/21 Rx Temazepam [Restoril] 15 mg PO HS PRN #3 cap 06/30/21 08/21/21 Rx Sennosides-Docusate Sodium 2 tab PO BID PRN 07/24/21 08/21/21 History [Senokot-S] DULoxetine HCL [Cymbalta] 30 mg PO DAILY 08/21/21 08/21/21 History Diclofenac Sodium Gel [Voltaren 2 gm TOPICAL BID PRN 08/21/21 08/21/21 History Gel] HYDROcodone/APAP 10-325MG [[place] 1 tab PO Q4H PRN 08/21/21 08/21/21 History 10-325] Morphine Sulfate ER [Ms Contin] 15 mg PO TID 08/21/21 08/21/21 History Allergies Allergy/AdvReac Type Severity Reaction Status Date / Time No Known Allergies Allergy Verified 08/21/21 09:11 Physical Examination Left upper extremity: No obvious open lesions or sores are present throughout the extremity. There is no obvious areas of erythema or fluctuance appreciated There is soft tissue swelling of the left elbow compared to the right She has generalized tenderness with palpation surrounding the elbow, she has mild tenderness in the forearm and humerus. No point tenderness is appreciated throughout the shoulder, hand or wrist Actively, she can fully extend the elbow, she can flex to about 130 before pain is reproduced. Pronation and supination are intact forearm with no discomfort noted. Wrist extension, wrist flexion and finger intrinsics are all intact Her sensory exam to light touch throughout the extremity is intact, radial ulnar pulses are 2+ General orthopedic exam: No point tenderness is appreciated throughout the cervical, thoracic and lumbar spine. Point tenderness is appreciated throughout the right upper extremity and bilateral lower extremities. Logroll maneuver the bilateral lower extremities reproduces no groin pain. Straight leg raises intact bilaterally in the lower extremities Range of motion is intact in all major muscle groups of the bilateral lower extremities. Range of motion is intact in all major muscle groups of the right upper extremity Results - Labs Labs: H & H 08/21/21 08/22/21 Range/Units 03:08 04:38 Hgb 14.3 12.8 (11.4-16.0) gm/dL Hct 43.9 39.3 (34.0-46.0) % Result Diagrams: 08/22/21 04:38 08/24/21 05:09 - Diagnostic results Elbow x-ray: report reviewed, image reviewed (Forearm fractures along with left elbow x-rays were reviewed. There is questionable anterior fat pad sign noted, there is no obvious fractures or dislocations appreciated. The elbow joint rem ains aligned at this time.) Assessment and Plan Assessment: Left elbow pain Left elbow contusion Status post fall Multiple medical comorbidities Plan: I was able to discuss the case, including both physical exam findings and connie ging studies my attending Dr. Casas. No emergent orthopedic surgical intervention recommended at this time Recommend conservative management, this to include gentle range of motion exercises along with icing and use of Tylenol as needed Avoid excess use along with heavy lifting of the left upper extremity Other medical massage therapist recommendations Discharge planning: An orthopedic standpoint patient stable for discharge. Recommend follow-up in the next 10-14 days for recheck of left elbow. Time with Patient: Less than 30
--- NOTE | 2021-08-25 15:15 | P.PN ---
Subjective Progress Note Date: 08/25/21 HISTORY OF PRESENT ILLNESS: This is a 70-year-old female with a previous medical history significant for hypertension and hypertensive cardiovascular disease, hyperlipidemia, GERD, history of pseudocyst of the pancreas that has been complaining of significant amount of abdominal pain with a significant weight loss and chronic diarrhea she ended up getting referred to have MRCP that documented a pancreatic mass was seen in consultation by hide cooking operator at [facility] , and she ended up having a biopsy that was positive for Pancreatic cancer she ended up having a stent placed in the common bile duct, and she was started on chemotherapy and has had hospitalizations due to intractable nausea vomiting and diarrhea. She was recently hospitalized July 25 through July 29 and discharged home. She has not had any further chemotherapy since that time but presented to [facility] emergency center on 08/21 due to nausea, vomiting, diarrhea and generalized weakness. 09/18/2021 Patient's pain is better controlled patient will be on 37 g of fentanyl patch. Patient is able to tolerate diet patient had 1 episode of loose stool today serum sodium remains at 1:30 probably SIADH. Patient's serum sodium did not improve with IV fluids IV fluids will be discontinued. If serum sodium continues to be low patient need to be in fluid restriction. 08/23: Patient states that she is a little bit better today and nausea is coming and going which seems to be improving following the scopolamine patch. She is able to get a little bit of food. She states she still has diarrhea. No lower extremity edema. Abdomen is soft. She states that chemotherapy is on hold for now. Patient is afebrile, heart rate 60, blood pressure 108/71, pulse ox 95% on room air. Electrolytes are normal, BUN 12 and creatinine 0.5. Patient will be resumed on IV fluids 0.9 normal saline at 75 mL per hour. 08/24: Patient appears to not feel very well today. She states that she is h aving pain in the upper abdominal area, she was able to eat some food this morning. She denies vomiting. Plan will be to continue the same treatment including IV fluids at 75 mL per hour for another 24 hours and probable discharge tomorrow. She has been afebrile, blood pressure is higher today at 155/83 and heart rate 78. Patient has been off antihypertensive medications. We'll continue to monitor for now. 08/25: Patient is not feeling very well today. She continues to have diarrhea and not much appetite. Yesterday patient was complaining of left forearm pain after she slipped when she was getting up to the commode chair. X-ray was questionable fracture and orthopedics has evaluated and ruled out acute fracture at this time with plan for conservative management. IV fluids will be discontinued today and monitor patient overnight with plan for discharge tomorrow. Home care has been arranged by family service caseworker. REVIEW OF SYSTEMS: Constitutional: No documented fever, no chills, no night sweats. significant weight loss and poor appetite and moderate fatigue, no lethargy. HEENT: No headache. No blurred vision or double vision, no loss of vision. No loss of Hearing, no ringing in the ears, no dizziness. No nasal drainage or congestion. No epistaxis. No sore throat. Lungs: No shortness of breath, no cough, no sputum production. No wheezing. Reports dyspnea with activity. Cardiovascular: No chest pain, no lower extremity edema. No palpitations. No paroxysmal nocturnal dyspnea. No orthopnea. No lightheadedness or dizziness. No syncopal episodes. Abdominal: Reports upper abdominal pain. positive for nausea improving, denies for vomiting. positive for diarrhea. No constipation. No bloody or tarry stools reports loss of appetite. Genitourinary: No dysuria, increased frequency, urgency. No urinary retention. Musculoskeletal: No myalgias. generalized muscle weakness, no gait dysfunction, no frequent falls. No back pain. No neck pain. Integumentary: No wounds, no lesions. No rash or pruritus. No unusual bruising. No change in hair or nails. Neurologic: No aphasia. No facial droop. No change in mentation. No head injury. No headache. No paralysis. No paresthesia. Psychiatric: No depression. No anxiety. Endocrine: No abnormal blood sugars. severe weight loss. PHYSICAL EXAMINATION: General: this is a 70-year-old white female cachectic resting in recliner in no acute distress but appears fatigued. HEENT: Head is atraumatic, normocephalic, pupils were equal round reactive to light and recommendation, extraocular muscle movement were intact, sclera nonicteric, conjunctivae were pale, mucous membranes of the mouth are somewhat dry. Neck: Supple, no JVP, normal carotid upstroke bilaterally, no lymphadenopathy. Chest: Decreased breath sounds at the bases, few rhonchi, no expiratory wheezes, no chest wall tenderness, no intercostal retractions. Heart: First heart sound is normal, second heart sounds normal, there is systolic ejection murmur 2/6 located in the left sternal border. Abdomen: Soft, mild upper abdominal tenderness, nondistended, positive bowel sounds. Extremities: There is no edema no calf tenderness DP +2 bilaterally. Neurologic examination: Patient is awake alert and oriented x3 , cranial nerves II-12 appear grossly intact. ASSESSMENT AND PLAN: 1. Intractable nausea and vomiting due to due to underlying pancreatic cancer. Nausea improved with scopolamine patch, continue Zofran as needed, Reglan 10 mg IV push as needed. She is tolerating full liquid diet. Discontinue IV fluids. 2. History of biliary/pancreatic cancer status post a stent placed in the common bile duct in January 2021 with last chemotherapy Monday. Oncology . Continue fentanyl patch 25 g every 72 hours, Marinol 2.5 mg twice daily, morphine or Dilaudid as needed for pain. 3. Hypertension and hypertensive cardiovascular disease. Blood pressure currently on the soft side. Patient is no longer on antihypertensives according to home list. Continue to monitor closely. 4. Hyperlipidemia. Hold Lipitor 10 mg orally once every day. 5. GERD. Continue Protonix 40 mg daily. 6. Prior history of pancreatic pseudocyst now diagnosed with pancreatic cancer. 7. DVT prophylaxis. Continue Lovenox 40 mg daily. 8. GI prophylaxis. Continue PPI . 9. Patient is full code. DISCHARGE PLAN Home most likely on Impression and plan of care have been directed as dictated by the signing physician. Alexia Gonsalves nurse practitioner acting as scribe for signing physician. Objective - Vital Signs Vital signs: Vital Signs Temp 98.5 F 08/25/21 07:00 Pulse 56 L 08/25/21 07:00 Resp 16 08/25/21 07:00 BP 163/81 08/25/21 07:00 Pulse Ox 97 08/25/21 07:00 Intake & Output 08/24/21 08/25/21 08/25/21 18:59 06:59 18:59 Intake Total 360 240 Output Total 351 Balance 9 240 Intake: Oral 360 240 Output: Urine 350 Stool 1 Other: Voiding Method Bedside Commode # Voids 1 1 # Bowel Movements 1 1 - Labs CBC & Chem 7: 08/22/21 04:38 08/24/21 05:09
[2021-08-25] MEDS: TEMAZEPAM 15 MG CAP PO PRN (22:20)
[2021-08-26] MEDS: MORPHINE SULFATE 4 MG/ML SYRINGE IV PRN ×2 (03:03→09:43)
[2021-08-26] MEDS: HYDROmorphone 1 MG/ML 1 ML SYRINGE IVP PRN (04:52)
[2021-08-26 07:55] VITALS: BP 151/76; PULSE 59; RESP 19; TEMP 98.1
--- NOTE | 2021-08-26 08:26 | P.DS ---
Providers Date of admission: 08/23/21 08:34 Expected date of discharge: 08/26/21 Attending physician: Tammy Hanson Primary care physician: Tammy Hanson Hospital Course: HISTORY OF PRESENT ILLNESS: This is a 70-year-old female with a previous medical history significant for hypertension and hypertensive cardiovascular disease, hyperlipidemia, GERD, history of pseudocyst of the pancreas that has been complaining of significant amount of abdominal pain with a significant weight loss and chronic diarrhea she ended up getting referred to have MRCP that documented a pancreatic mass was seen in consultation by senior php web developer at [facility] , and she ended up having a biopsy that was positive for Pancreatic cancer she ended up having a stent placed in the common bile duct, and she was started on chemotherapy and has had hospitalizations due to intractable nausea vomiting and diarrhea. She was recently hospitalized July 25 through July 29 and discharged home. She has not had any further chemotherapy since that time but presented to [facility] emergency center on 08/21 due to nausea, vomiting, diarrhea and generalized weakness. 09/18/2021 Patient's pain is better controlled patient will be on 37 g of fentanyl patch. Patient is able to tolerate diet patient had 1 episode of loose stool today serum sodium remains at 1:30 probably SIADH. Patient's serum sodium did not improve with IV fluids IV fluids will be discontinued. If serum sodium continues to be low patient need to be in fluid restriction. 08/23: Patient states that she is a little bit better today and nausea is coming and going which seems to be improving following the scopolamine patch. She is able to get a little bit of food. She states she still has diarrhea. No lower extremity edema. Abdomen is soft. She states that chemotherapy is on hold for now. Patient is afebrile, heart rate 60, blood pressure 108/71, pulse ox 95% on room air. Electrolytes are normal, BUN 12 and creatinine 0.5. Patient will be resumed on IV fluids 0.9 normal saline at 75 mL per hour. 08/24: Patient appears to not feel very well today. She states that she is having pain in the upper abdominal area, she was able to eat some food this morning. She denies vomiting. Plan will be to continue the same treatment including IV fluids at 75 mL per hour for another 24 hours and probable discharge tomorrow. She has been afebrile, blood pressure is higher today at 155/83 and heart rate 78. Patient has been off antihypertensive medications. We'll continue to monitor for now. 08/25: Patient is not feeling very well today. She continues to have diarrhea and not much appetite. Yesterday patient was complaining of left forearm pain after she slipped when she was getting up to the commode chair. X-ray was questionable fracture and orthopedics has evaluated and ruled out acute fracture at this time with plan for conservative management. IV fluids will be discontinued today and monitor patient overnight with plan for discharge tomorrow. Home care has been arranged by renal case manager. 08/26: Patient is seen today in follow-up. No active nausea or vomiting. She continues to have diarrhea. Developed pain is controlled. She is on a fentanyl patch which is new and new prescription will be sent from the office. Patient will be discharged home today in stable condition. ASSESSMENT AND PLAN: 1. Intractable nausea and vomiting due to due to underlying pancreatic cancer. 2. History of biliary/pancreatic cancer status post a stent placed in the common bile duct in January 2021 with last chemotherapy Monday. Oncology . 3. Hypertension and hypertensive cardiovascular disease. 4. Hyperlipidemia. 5. GERD. 6. Prior history of pancreatic pseudocyst now diagnosed with pancreatic cancer. DISCHARGE PLAN Home with [facility] Impression and plan of care have been directed as dictated by the signing physician. Alexia Gonsalves nurse practitioner acting as scribe for signing physician. Patient Condition at Discharge: Stable Plan - Discharge Summary Discharge Rx Participant: Yes New Discharge Prescriptions: New fentaNYL 25MCG/HR PATCH [Duragesic 25MCG/HR] 1 patch TRANSDERM Q72H patch Continue Atorvastatin [Lipitor] 10 mg PO HS Omeprazole 20 mg PO DAILY Lipase/Protease/Amylase [Nel Dr 25,000 Unit Capsule] 1 cap PO AC-TID Gabapentin [Neurontin] 300 mg PO DAILY #3 cap Acetaminophen Tab [Tylenol] 650 mg PO Q6HR PRN tab PRN Reason: Mild Pain Or Fever > 100.5 Dronabinol [Marinol] 2.5 mg PO AC-BID #6 cap DULoxetine HCL [Cymbalta] 30 mg PO DAILY Loperamide [Imodium] 2 mg PO QID PRN PRN Reason: Loose Stool Lidocaine-Prilocaine Cream [Emla Cream 2.5%/2.5%] 1 applic TOPICAL DIRECTED PRN PRN Reason: PORT ACCESS Prochlorperazine [Compazine] 10 mg PO Q6H PRN PRN Reason: Nausea Loratadine [Claritin] 10 mg PO DAILY Temazepam [Restoril] 15 mg PO HS PRN #3 cap PRN Reason: Insomnia Sennosides-Docusate Sodium [Senokot-S] 2 tab PO BID PRN PRN Reason: Constipation HYDROcodone/APAP 10-325MG [[place] 10-325] 1 tab PO Q4H PRN PRN Reason: Pain Morphine Sulfate ER [Ms Contin] 15 mg PO TID Diclofenac Sodium Gel [Voltaren Gel] 2 gm TOPICAL BID PRN PRN Reason: Pain Discharge Medication List Atorvastatin [Lipitor] 10 mg PO HS 07/06/20 [History] Lidocaine-Prilocaine Cream [Emla Cream 2.5%/2.5%] 1 applic TOPICAL DIRECTED PRN 05/07/21 [History] Lipase/Protease/Amylase [Zenpep Dr 25,000 Unit Capsule] 1 cap PO AC-TID 05/07/21 [History] Loperamide [Imodium] 2 mg PO QID PRN 05/07/21 [History] Loratadine [Claritin] 10 mg PO DAILY 05/07/21 [History] Omeprazole 20 mg PO DAILY 05/07/21 [History] Prochlorperazine [Compazine] 10 mg PO Q6H PRN 05/07/21 [History] Acetaminophen Tab [Tylenol] 650 mg PO Q6HR PRN tab 06/30/21 [Rx] Dronabinol [Marinol] 2.5 mg PO AC-BID #6 cap 06/30/21 [Rx] Gabapentin [Neurontin] 300 mg PO DAILY #3 cap 06/30/21 [Rx] Temazepam [Restoril] 15 mg PO HS PRN #3 cap 06/30/21 [Rx] Sennosides-Docusate Sodium [Senokot-S] 2 tab PO BID PRN 07/24/21 [History] DULoxetine HCL [Cymbalta] 30 mg PO DAILY 08/21/21 [History] Diclofenac Sodium Gel [Voltaren Gel] 2 gm TOPICAL BID PRN 08/21/21 [History] HYDROcodone/APAP 10-325MG [[place] 10-325] 1 tab PO Q4H PRN 08/21/21 [History] Morphine Sulfate ER [Ms Contin] 15 mg PO TID 08/21/21 [History] fentaNYL 25MCG/HR PATCH [Duragesic 25MCG/HR] 1 patch TRANSDERM Q72H patch 08/26/21 [Rx] Follow up Appointment(s)/Referral(s): Tammy Hanson MD [Primary Care Provider] - 1 Week
[2021-08-26] MEDS: ENOXAPARIN 40 MG/0.4 ML SYRINGE SQ SCH (08:29)
[2021-08-26] MEDS: LIPASE 5,000/PROTEASE 17,000/AMYLASE 24,000 PO SCH (08:29)
[2021-08-26] MEDS: DULoxetine HCL 30 MG CAPSULE.DR PO SCH (08:30)
[2021-08-26] MEDS: GABAPENTIN 300 MG CAP PO SCH (08:30)
[2021-08-26] MEDS: PANTOPRAZOLE 40 MG TABLET PO SCH (08:30)
[2021-08-26] MEDS: LORATADINE 10 MG TAB PO SCH (08:30)
[2021-08-26 11:36] VITALS: BMI 20.9
== END 2021-08-26 11:37 | disposition home or self-care (01) | DRG 948 ==
LOC: EC 02:19 → 6NMEDSUR 04:13 → OBSVTOIN 08-23 08:34
PROVIDERS: ADMIT Internal Medicine; ATTEND Internal Medicine
DX: G89.3 Neoplasm related pain (acute) (chronic) (principal); C25.9 Malignant neoplasm of pancreas, unspecified; C78.7 Secondary malignant neoplasm of liver and intrahepatic bile duct; E22.2 Syndrome of inappropriate secretion of antidiuretic hormone; I25.10 Atherosclerotic heart disease of native coronary artery without angina pectoris; E78.5 Hyperlipidemia, unspecified; K21.9 Gastro-esophageal reflux disease without esophagitis; E11.9 Type 2 diabetes mellitus without complications; E86.0 Dehydration; E86.1 Hypovolemia; J43.9 Emphysema, unspecified; S50.02XA Contusion of left elbow, initial encounter; Z20.822 Contact with and (suspected) exposure to COVID-19; G62.9 Polyneuropathy, unspecified; N18.30 Chronic kidney disease, stage 3 unspecified; W19.XXXA Unspecified fall, initial encounter; T38.0X5A Adverse effect of glucocorticoids and synthetic analogues, initial encounter; I25.2 Old myocardial infarction; Z95.5 Presence of coronary angioplasty implant and graft; Z87.442 Personal history of urinary calculi; Z79.899 Other long term (current) drug therapy; Y92.009 Unspecified place in unspecified non-institutional (private) residence as the place of occurrence of the external cause
CPT/HCPCS: 36415; 80048; 80053; 81001; 82150; 83605; 83690; 85025; 87635; 96361; 96374; 96375; 99285

== ENCOUNTER 2021-09-20 03:48 | Inpatient (IN) | payer MEDICARE ==
[2021-09-20] MEDS ORDERED: ONDANSETRON 4 MG/2 ML VIAL IVP STA (04:15)
[2021-09-20] MEDS ORDERED: HYDROmorphone 1 MG/ML 1 ML SYRINGE IVP STA ×2 (04:15→06:29)
--- NOTE | 2021-09-20 04:46 | ED ---
Fall HPI - General Source: patient, EMS Mode of arrival: EMS <Sherita Villanueva - Last Filed: 09/20/21 05:52> <Donnie Bennett - Last Filed: 09/20/21 06:30> - General Chief Complaint: Fall Stated Complaint: Fall Time Seen by Provider: 09/20/21 04:00 - History of Present Illness Initial Comments: 70-year-old female patient presents to the emergency department today for evaluation of left-sided rib pain after a fall. Patient was using her walker when she lost her balance and fell landing on a pile of boxes. Patient states she had immediate onset of left mid back pain. States it hurts to take a deep breath. Denies hitting her head or losing consciousness. Denies any cough or hemoptysis. Denies any abdominal pain. Denies any lower extremity or upper extremity injury. Patient denies any headache, chest pain, shortness of breath, dizziness, weakness, abdominal pain, nausea, vomiting, or difficulties with bowel movements or urination. (Sherita Villanueva) - Related Data Home Medications Medication Instructions Recorded Confirmed Atorvastatin [Lipitor] 10 mg PO HS 07/06/20 08/21/21 Lidocaine-Prilocaine Cream [Emla 1 applic TOPICAL DIRECTED PRN 05/07/21 08/21/21 Cream 2.5%/2.5%] Lipase/Protease/Amylase [Zenpep Dr 1 cap PO AC-TID 05/07/21 08/21/21 25,000 Unit Capsule] Loperamide [Imodium] 2 mg PO QID PRN 05/07/21 08/21/21 Loratadine [Claritin] 10 mg PO DAILY 05/07/21 08/21/21 Omeprazole 20 mg PO DAILY 05/07/21 08/21/21 Prochlorperazine [Compazine] 10 mg PO Q6H PRN 05/07/21 08/21/21 Sennosides-Docusate Sodium 2 tab PO BID PRN 07/24/21 08/21/21 [Senokot-S] DULoxetine HCL [Cymbalta] 30 mg PO DAILY 08/21/21 08/21/21 Diclofenac Sodium Gel [Voltaren 2 gm TOPICAL BID PRN 08/21/21 08/21/21 Gel] HYDROcodone/APAP 10-325MG [[place] 1 tab PO Q4H PRN 08/21/21 08/21/21 10-325] Morphine Sulfate ER [Ms Contin] 15 mg PO TID 08/21/21 08/21/21 Previous Rx's Medication Instructions Recorded Acetaminophen Tab [Tylenol] 650 mg PO Q6HR PRN tab 06/30/21 Dronabinol [Marinol] 2.5 mg PO AC-BID #6 cap 06/30/21 Gabapentin [Neurontin] 300 mg PO DAILY #3 cap 06/30/21 Temazepam [Restoril] 15 mg PO HS PRN #3 cap 06/30/21 fentaNYL 25MCG/HR PATCH [Duragesic 1 patch TRANSDERM Q72H patch 08/26/21 25MCG/HR] Allergies Allergy/AdvReac Type Severity Reaction Status Date / Time No Known Allergies Allergy Verified 08/21/21 09:11 Review of Systems ROS Other: All systems not noted in ROS Statement are negative. <Sherita Villanueva - Last Filed: 09/20/21 05:52> ROS Other: All systems not noted in ROS Statement are negative. <Donnie Bennett - Last Filed: 09/20/21 06:30> ROS Statement: Those systems with pertinent positive or pertinent negative responses have been documented in the HPI. Past Medical History Past Medical History: Cancer, COPD, GERD/Reflux, Hypertension, Osteoarthritis (OA) Additional Past Medical History / Comment(s): emphysema, lesion on kidneys. kidney stones, Pancreatic cancer with stent placement History of Any Multi-Drug Resistant Organisms: None Reported Past Surgical History: Appendectomy, Cholecystectomy, Hernia Repair, Orthopedic Surgery Additional Past Surgical History / Comment(s): corrective eye surg., sinus surg., jaw surg., foot surg. rt knee surgery meniscus repair, rt shoulder rotator cuff repair Past Anesthesia/Blood Transfusion Reactions: Motion Sickness, Postoperative Nausea & Vomiting (PONV) Past Psychological History: No Psychological Hx Reported Smoking Status: Never smoker Past Alcohol Use History: None Reported Past Drug Use History: None Reported - Past Family History Mother Family Medical History: Cancer <Sherita Villanueva - Last Filed: 09/20/21 05:52> General Exam Limitations: no limitations General appearance: alert, in no apparent distress, other (Physical well- developed, well-nourished adult female patient in no acute distress.) ENT exam: Present: normal exam, normal oropharynx, mucous membranes moist Respiratory exam: Present: normal lung sounds bilaterally, other (Left posterior rib tenderness. Left posterior rib crepitus.). Absent: respiratory distress, wheezes, rales, rhonchi, stridor Cardiovascular Exam: Present: normal rhythm, tachycardia, normal heart sounds. Absent: systolic murmur, diastolic murmur, rubs, gallop, clicks GI/Abdominal exam: Present: soft, normal bowel sounds. Absent: distended, tenderness, guarding, rebound, rigid Neurological exam: Present: alert, oriented X3, CN II-XII intact Psychiatric exam: Present: normal affect, normal mood Skin exam: Present: warm, dry, intact, normal color. Absent: rash <Sherita Villanueva - Last Filed: 09/20/21 05:52> Course Vital Signs 09/20/21 03:55 Temperature 97.8 F Pulse Rate 110 H Respiratory 17 Rate Blood Pressure 156/81 O2 Sat by Pulse 94 L Oximetry Medical Decision Making - EKG Data -: EKG Interpreted by Me - Radiology Data Radiology results: report reviewed, image reviewed <Sherita Villanueva - Last Filed: 09/20/21 05:52> - Lab Data Result diagrams: 09/20/21 05:48 09/20/21 05:48 <Donnie Bennett - Last Filed: 09/20/21 06:30> - Medical Decision Making 70-year-old female patient currently being treated for pancreatic cancer, presents to the emergency department today for evaluation of left rib pain after fall. Physical examination did reveal crepitus over the left posterior chest wall, tenderness. CT chest was obtained and showed multiple rib fractures, left-sided pneumothorax, probable flail chest. Patient is given pain medication . She'll be admitted to the hospital for pain management, further evaluation and monitoring. She is admitted to trauma service. Case discussed with my attending Dr. Bennett. (Sherita Villanueva) - Lab Data Lab Results 09/20/21 09/20/21 09/20/21 Range/Units 05:48 05:48 05:48 WBC 7.9 (3.8-10.6) k/uL RBC 3.83 (3.80-5.40) m/uL Hgb 12.0 (11.4-16.0) gm/dL Hct 37.0 (34.0-46.0) % MCV 96.6 (80.0-100.0) fL MCH 31.4 (25.0-35.0) pg MCHC 32.5 (31.0-37.0) g/dL RDW 12.0 (11.5-15.5) % Plt Count 175 (150-450) k/uL MPV 8.3 Neutrophils % 89 % Lymphocytes % 6 % Monocytes % 4 % Eosinophils % 0 % Basophils % 0 % Neutrophils # 7.0 (1.3-7.7) k/uL Lymphocytes # 0.5 L (1.0-4.8) k/uL Monocytes # 0.3 (0-1.0) k/uL Eosinophils # 0.0 (0-0.7) k/uL Basophils # 0.0 (0-0.2) k/uL PT 10.8 (9.0-12.0) sec INR 1.0 (<1.2) APTT 21.5 L (22.0-30.0) sec Sodium 134 L (137-145) mmol/L Potassium 3.5 (3.5-5.1) mmol/L Chloride 100 (98-107) mmol/L Carbon Dioxide 30 (22-30) mmol/L Anion Gap 4 mmol/L BUN 12 (7-17) mg/dL Creatinine 0.24 L (0.52-1.04) mg/dL Est GFR (CKD-EPI)AfAm >90 (>60 ml/min/1.73 sqM) Est GFR (CKD-EPI)NonAf >90 (>60 ml/min/1.73 sqM) Glucose 117 H (74-99) mg/dL Calcium 8.8 (8.4-10.2) mg/dL Total Bilirubin 0.6 (0.2-1.3) mg/dL AST 24 (14-36) U/L ALT 15 (4-34) U/L Alkaline Phosphatase 196 H (38-126) U/L Total Protein 5.5 L (6.3-8.2) g/dL Albumin 3.0 L (3.5-5.0) g/dL Coronavirus (PCR) (Not Detectd) 11/01/21 Range/Units 05:48 WBC (3.8-10.6) k/uL RBC (3.80-5.40) m/uL Hgb (11.4-16.0) gm/dL Hct (34.0-46.0) % MCV (80.0-100.0) fL MCH (25.0-35.0) pg MCHC (31.0-37.0) g/dL RDW (11.5-15.5) % Plt Count (150-450) k/uL MPV Neutrophils % % Lymphocytes % % Monocytes % % Eosinophils % % Basophils % % Neutrophils # (1.3-7.7) k/uL Lymphocytes # (1.0-4.8) k/uL Monocytes # (0-1.0) k/uL Eosinophils # (0-0.7) k/uL Basophils # (0-0.2) k/uL PT (9.0-12.0) sec INR (<1.2) APTT (22.0-30.0) sec Sodium (137-145) mmol/L Potassium (3.5-5.1) mmol/L Chloride (98-107) mmol/L Carbon Dioxide (22-30) mmol/L Anion Gap mmol/L BUN (7-17) mg/dL Creatinine (0.52-1.04) mg/dL Est GFR (CKD-EPI)AfAm (>60 ml/min/1.73 sqM) Est GFR (CKD-EPI)NonAf (>60 ml/min/1.73 sqM) Glucose (74-99) mg/dL Calcium (8.4-10.2) mg/dL Total Bilirubin (0.2-1.3) mg/dL AST (14-36) U/L ALT (4-34) U/L Alkaline Phosphatase (38-126) U/L Total Protein (6.3-8.2) g/dL Albumin (3.5-5.0) g/dL Coronavirus (PCR) Not Detected (Not Detectd) - EKG Data EKG Comments: EKG obtained at 05 39 shows sinus tachycardia with a ventricular rate of 109, MS interval 156, QRS duration 86, QT 350, QTC 471. No evidence of ST elevation or depression. (Bantle,Sherita M) - Radiology Data CT chest without contrast was obtained. Report was reviewed in its entirety. Impression by Dr. Skaggs shows multiple posterior left-sided lower rib fractures with comminution and probable flail chest. There is left lower lobe posterior infiltrate and atelectasis adjacent pleural fluid. There is tiny left-sided pneumothorax. No pneumothorax seen adjacent to the fractures. Soft tissue in the left posterior chest wall. (Sherita Villanueva) Disposition Decision to Admit Reason: Admit from EC Decision Date: 09/20/21 Decision Time: 05:23 <Sherita Villanueva - Last Filed: 09/20/21 05:52> <Donnie Bennett - Last Filed: 09/20/21 06:30> Clinical Impression: Pneumothorax, left, Flail chest, Multiple rib fractures Disposition: ADMITTED IP TO THIS [facility] Condition: Serious
--- NOTE | 2021-09-20 05:14 | CT ---
EXAMINATION TYPE: CT chest wo con DATE OF EXAM: 09/20/2021 COMPARISON: 11/26/2020 HISTORY: fall. left posterior rib pain. CT DLP: 377.4 mGycm Automated exposure control for dose reduction was used. Images obtained without contrast from the thoracic inlet to the diaphragm. There is soft tissue air on the posterior left side chest wall. There is a very small left side pneum othorax less than 20%. This is adjacent to the left posterior rib fractures. There is fracture of lef t posterior 11th and 10th and ninth ribs with comminution. Flail chest is possible. There is some air space consolidation and atelectasis in the left lower lobe posteriorly adjacent to the rib fractures. This measures up to 2.5 cm in thickness. The right lung is clear. Heart size is normal. There is no pericardial effusion. Trachea is midline. Thoracic aorta appears intact. There is no mediastinal deena opathy. There are no hilar masses. There is 6 mm calculus lower pole left kidney. There is small calc ulus posterior left kidney. The thoracic spine is intact. There is no compression fracture. Sternum is intact. There is some air in the biliary tree. There is biliary stent noted. There are clips from cholecystectomy. IMPRESSION: Multiple posterior left side lower rib fractures with comminution and probable flail chest. There is left lower lobe posterior infiltrate and atelectasis is adjacent to the pleural fluid. There is tiny left-sided pneumothorax. Pneumothorax seen adjacent to the fractures. Soft tissue air on the left pos terior lower chest wall.
[2021-09-20] MEDS ORDERED: ONDANSETRON 4 MG/2 ML VIAL IVP PRN (05:20)
[2021-09-20] MEDS ORDERED: NALOXONE 0.4 MG/ML 1 ML VIAL IV PRN (05:20)
[2021-09-20] MEDS ORDERED: IPRATROPIUM-ALBUTEROL 3 ML NEB INHALATION PRN (05:55)
[2021-09-20] MEDS ORDERED: IPRATROPIUM-ALBUTEROL 3 ML NEB INHALATION STA (05:55)
[2021-09-20 05:59] LABS: Basophils % (A) 0 %; Eosinophils % (A) 0 %; Lymphocytes # (A) 0.5 k/uL (1.0-4.8); Lymphocytes % (A) 6 %; MCH 31.4 pg (25.0-35.0); MCHC 32.5 g/dL (31.0-37.0); MCV 96.6 fL (80.0-100.0); Mean Platelet Volume 8.3; Monocytes # (A) 0.3 k/uL (0-1.0); Monocytes % (A) 4 %; Neutrophils % (A) 89 %; Platelet Count 175 k/uL (150-450); RBC 3.83 m/uL (3.80-5.40); WBC 7.9 k/uL (3.8-10.6)
[2021-09-20 06:11] LABS: Chloride 100 mmol/L (98-107)
[2021-09-20 06:13] LABS: Prothrombin Time 10.8 sec (9.0-12.0)
[2021-09-20 06:14] LABS: ALT 15 U/L (4-34); AST 24 U/L (14-36); African American GFR (CKD) >90 (>60 ml/min/1.73 sqM); Alkaline Phosphatase 196 U/L (38-126); Anion Gap 4 mmol/L; Blood Urea Nitrogen 12 mg/dL (7-17); Calcium 8.8 mg/dL (8.4-10.2); Carbon Dioxide 30 mmol/L (22-30); Glucose 117 mg/dL (74-99); Non-African American GFR(CKD) >90 (>60 ml/min/1.73 sqM); Partial Thromboplastin Time 21.5 sec (22.0-30.0); Potassium 3.5 mmol/L (3.5-5.1); Sodium 134 mmol/L (137-145); Total Bilirubin 0.6 mg/dL (0.2-1.3); Total Protein 5.5 g/dL (6.3-8.2)
[2021-09-20] MEDS ORDERED: KETOROLAC 15 MG/ML 1 ML VIAL IVP STA (06:31)
[2021-09-20] MEDS ORDERED: ACETAMINOPHEN TAB 500 MG TAB PO PRN (06:31)
[2021-09-20] MEDS ORDERED: ACETAMINOPHEN TAB 500 MG TAB PO STA (06:31)
[2021-09-20] MEDS: SODIUM CHLORIDE 0.9% 1,000 ML IV SCH ×2 (06:48→18:54)
[2021-09-20] MEDS: HYDROmorphone 1 MG/ML 1 ML SYRINGE IVP PRN ×4 (06:49→16:04)
[2021-09-20 08:02] LABS: Amorphous Sediment,Urine Few /hpf; Appearance,Urine Cloudy (Clear); Bacteria,Urine Many /hpf; Bilirubin,Urine Negative (Negative); Blood,Urine Negative (Negative); Calcium Oxalate Crystals,Urine Rare /hpf; Color,Urine Yellow; Glucose,Urine (UA) Negative (Negative); Ketones,Urine Negative (Negative); Leukocyte Esterase,Urine Large (Negative); Mucus,Urine Rare /hpf; Nitrite,Urine Positive (Negative); PH, Urine 6.5 (5.0-8.0); Protein,Urine Trace (Negative); RBC,Urine 5 /hpf (0-5); Specific Gravity,Urine 1.018 (1.001-1.035); Squamous Epithelial Cell,Urine 11 /hpf (0-4); WBC,Urine 21 /hpf (0-5)
--- NOTE | 2021-09-20 08:16 | P.CONS ---
History of Present Illness - Reason for Consult Consult date: 09/20/21 Medical management - History of Present Illness HISTORY OF PRESENT ILLNESS: This is a 70-year-old female with a previous medical history significant for hypertension and hypertensive cardiovascular disease, hyperlipidemia, GERD, history of pseudocyst of the pancreas that has been complaining of significant amount of abdominal pain with a significant weight loss and chronic diarrhea she ended up getting referred to have MRCP that documented a pancreatic mass was seen in consultation by manager hardware at [facility], and she ended up having a biopsy that was positive for Pancreatic cancer status post stent placed in the common bile duct, and started on chemotherapy. She has had several admissions due to chemotherapy-induced nausea and vomiting as well as diarrhea, stabilized and discharged back home. Patient now presents status post fall at home where she lost her balance landing on boxes with complaints of left mid back pain, pain with deep inspiration, no loss of consciousness, no head injury noted. CAT scan of the chest revealed multiple posterior left side lower rib fractures with comminution and probable flail chest. There is left lower lobe posterior infiltrate and atelectasis adjacent to the pleural fluid. Tiny left-sided pneumothorax. No more thorax seen adjacent to the fractures. Soft tissue air on the left posterior lower chest wall. EKG sinus tachycardia at 190s beats per minute, no ST changes. Afebrile, blood pressure 156/81, pulse ox 94% on room air. Patient admitted to the cardiac stepdown unit under general surgery and we are following for medical management. REVIEW OF SYSTEMS: Constitutional: No documented fever, no chills, no night sweats. significant weight change and poor appetite and moderate fatigue, no lethargy. HEENT: No headache. No blurred vision or double vision, no loss of vision. No loss of Hearing, no ringing in the ears, no dizziness. No nasal drainage or congestion. No epistaxis. No sore throat. Lungs: No shortness of breath, no cough, no sputum production. No wheezing. Reports dyspnea with activity chronic. Cardiovascular: Complains of severe left-sided rib, no lower extremity edema. No palpitations. No paroxysmal nocturnal dyspnea. No orthopnea. No lightheadedness or dizziness. No syncopal episodes. Abdominal: Reports chronic abdominal pain. Denies for nausea, denies for vomiting. Denies for diarrhea. No constipation. No bloody or tarry stools reports loss of appetite. Genitourinary: No dysuria, increased frequency, urgency. No urinary retention. Musculoskeletal: No myalgias. generalized muscle weakness, no gait dysfunction, no frequent falls. No back pain. No neck pain. Integumentary: No wounds, no lesions. No rash or pruritus. No unusual bruising. No change in hair or nails. Neurologic: No aphasia. No facial droop. No change in mentation. No head injury. No headache. No paralysis. No paresthesia. Psychiatric: No depression. No anxiety. No mood swings. Endocrine: No abnormal blood sugars. severe weight change. PAST MEDICAL HISTORY: HYPERTENSION AND HYPERTENSIVE CARDIO VASCULAR DISEASE. HYPERLIPIDEMIA. GERD. PANCREATIC CANCER STATUS POST STENT PLACEMENT ON CHEMOTHERAPY. Restless leg syndrome. Chronic pain. Cachexia. Chronic Opioid use PAST SURGICAL HISTORY: Appendectomy 1956 left and right jaw tumor removed in 1977 Left eye squint surgery in 1980 Sinus surgery 1981 and 2004 Partial hysterectomy 2000. Ganglionic cyst removed from the right thumb 2005 right foot bunionectomy and 3 hammertoes fixed 2013. Left foot hammertoes fixed 2014 Right shoulder rotator cuff tear repair 2015 Right knee torn meniscus 2017 Had a hernia repair 2016 Cholecystectomy 2019 EGD/colonoscopy 11/08/2020 Liver/pancreas biopsy stent placement January 2021 SOCIAL HISTORY: Patient denies any history of smoking, no history of drinking, no history of abuse. FAMILY HISTORY: Father at age of 78 from pneumonia and had COPD, mother at age of 68 from some sort of cancer, patient had one brother who at age of 59 from [place], patient had 3 sisters one of natural causes and one with MVA one is living and doing fine, patient has 3 sons one at the age of 18 from suicide and the other 2 are okay patient has 3 daughters who are okay. PHYSICAL EXAMINATION: General: this is a 70-year-old white female cachectic appears to be in mild distress, seen today in the emergency center, 2 daughters are at bedside. HEENT: Head is atraumatic, normocephalic, pupils were equal round reactive to li ght and recommendation, extraocular muscle movement were intact, sclera nonicteric, conjunctivae were pale, mucous membranes of the mouth are somewhat dry. Neck: Supple, no JVP, normal carotid upstroke bilaterally, no lymphadenopathy. Chest: Decreased breath sounds at the bases, few rhonchi, no expiratory wheezes, left-sided chest wall tenderness, no intercostal retractions. Heart: First heart sound is normal, second heart sounds normal, there is systolic ejection murmur 2/6 located in the left sternal border. Abdomen: Soft, mild tenderness to the epigastric area, nondistended, positive bowel sounds. Extremities: There is no edema no calf tenderness DP +2 bilaterally. Neurologic examination: Patient is awake alert and oriented x3 , cranial nerves II-12 appear grossly intact, muscle power were 5 out of 5 in upper extremities and 5 out of 5 in bilateral lower extremities, deep tendon reflexes normal bilaterally. ASSESSMENT AND PLAN: 1. Fall with left sided rib fractures, possible flail chest, tiny pneumothorax. Consult added for cardiothoracic surgery to evaluate possible flail chest. Continue Dilaudid 1 mg every 3 hours, Toradol as needed for pain. 2. History of biliary/pancreatic cancer status post a stent placed in the common bile duct in January 2021 with chemotherapy currently on hold. Oncology . Patient will be resumed on fentanyl patch 25 g per hour every 72 hours, MS Contin 15 mg 3 times daily, Zenpep 13 times daily, Forest 10 one every 4 hours as needed. 3. Hypertension and hypertensive cardiovascular disease. Continue lisinopril 20/12.5 mg orally once every day. 4. Hyperlipidemia. Continue Lipitor 10 mg orally once every day. 5. GERD. Continue omeprazole 40 mg orally once every day. 6. Prior history of pancreatic pseudocyst now diagnosed with pancreatic cancer. 7. DVT prophylaxis. Heparin 5000 units subcutaneously every 8 hours. 8. GI prophylaxis. Continue PPI . 9. Admit to inpatient. Estimate a length of stay 2 midnights. 10. Patient is full code. DISCHARGE PLAN: TBD, Home most likely Impression and plan of care have been directed as dictated by the signing phys ician. Alexia Gonsalves nurse practitioner acting as scribe for signing physician. Past Medical History Past Medical History: Cancer, COPD, GERD/Reflux, Hypertension, Osteoarthritis (OA) Additional Past Medical History / Comment(s): emphysema, lesion on kidneys. kidney stones, Pancreatic cancer with stent placement History of Any Multi-Drug Resistant Organisms: None Reported Past Surgical History: Appendectomy, Cholecystectomy, Hernia Repair, Orthopedic Surgery Additional Past Surgical History / Comment(s): corrective eye surg., sinus surg., jaw surg., foot surg. rt knee surgery meniscus repair, rt shoulder rotator cuff repair Past Anesthesia/Blood Transfusion Reactions: Motion Sickness, Postoperative Nausea & Vomiting (PONV) Past Psychological History: No Psychological Hx Reported Smoking Status: Never smoker Past Alcohol Use History: None Reported Past Drug Use History: None Reported - Past Family History Mother Family Medical History: Cancer Medications and Allergies Home Medications Medication Instructions Recorded Confirmed Type Atorvastatin [Lipitor] 10 mg PO HS 07/06/20 08/21/21 History Lidocaine-Prilocaine Cream [Emla 1 applic TOPICAL DIRECTED PRN 05/07/21 08/21/21 History Cream 2.5%/2.5%] Lipase/Protease/Amylase [Zenpep Dr 1 cap PO AC-TID 05/07/21 08/21/21 History 25,000 Unit Capsule] Loperamide [Imodium] 2 mg PO QID PRN 05/07/21 08/21/21 History Loratadine [Claritin] 10 mg PO DAILY 05/07/21 08/21/21 History Omeprazole 20 mg PO DAILY 05/07/21 08/21/21 History Prochlorperazine [Compazine] 10 mg PO Q6H PRN 05/07/21 08/21/21 History Acetaminophen Tab [Tylenol] 650 mg PO Q6HR PRN tab 06/30/21 08/21/21 Rx Dronabinol [Marinol] 2.5 mg PO AC-BID #6 cap 06/30/21 08/21/21 Rx Gabapentin [Neurontin] 300 mg PO DAILY #3 cap 06/30/21 08/21/21 Rx Temazepam [Restoril] 15 mg PO HS PRN #3 cap 06/30/21 08/21/21 Rx Sennosides-Docusate Sodium 2 tab PO BID PRN 07/24/21 08/21/21 History [Senokot-S] DULoxetine HCL [Cymbalta] 30 mg PO DAILY 08/21/21 08/21/21 History Diclofenac Sodium Gel [Voltaren 2 gm TOPICAL BID PRN 08/21/21 08/21/21 History Gel] HYDROcodone/APAP 10-325MG [[place] 1 tab PO Q4H PRN 08/21/21 08/21/21 History 10-325] Morphine Sulfate ER [Ms Contin] 15 mg PO TID 08/21/21 08/21/21 History fentaNYL 25MCG/HR PATCH [Duragesic 1 patch TRANSDERM Q72H patch 08/26/21 Rx 25MCG/HR] Allergies Allergy/AdvReac Type Severity Reaction Status Date / Time No Known Allergies Allergy Verified 08/21/21 09:11 Physical Exam Vitals: Vital Signs Temp Pulse Resp BP Pulse Ox 09/20/21 06:53 118 H 18 164/98 98 09/20/21 03:55 97.8 F 110 H 17 156/81 94 L Intake and Output 09/19/21 09/20/21 09/20/21 22:59 06:59 14:59 Other: Weight 54.431 kg Results CBC & Chem 7: 09/20/21 05:48 09/20/21 05:48 Labs: Abnormal Lab Results - Last 24 Hours (Table) 09/20/21 09/20/21 09/20/21 Range/Units 05:48 05:48 05:48 Lymphocytes # 0.5 L (1.0-4.8) k/uL APTT 21.5 L (22.0-30.0) sec Sodium 134 L (137-145) mmol/L Creatinine 0.24 L (0.52-1.04) mg/dL Glucose 117 H (74-99) mg/dL Alkaline Phosphatase 196 H (38-126) U/L Total Protein 5.5 L (6.3-8.2) g/dL Albumin 3.0 L (3.5-5.0) g/dL
[2021-09-20] MEDS ORDERED: SENNOSIDES-DOCUSATE SODIUM 1 EACH TAB PO PRN (08:57)
[2021-09-20] MEDS ORDERED: PROCHLORPERAZINE 10 MG TAB PO PRN (08:57)
[2021-09-20] MEDS ORDERED: LOPERAMIDE 2 MG CAP PO PRN (08:57)
[2021-09-20] MEDS ORDERED: ACETAMINOPHEN TAB 325 MG TAB PO PRN (08:57)
--- NOTE | 2021-09-20 10:49 | P.GSCN ---
History of Present Illness Consult date: 09/20/21 Reason for Consult: Rib fractures with possible flail chest, left pneumothorax Requesting physician: Alexia Gonsalves History of present illness: This is a 70-year-old cachectic, frail female who follows on an outpatient basis with Dr. Hanson for primary care. She has a history of pancreatic cancer (stage IV according to her daughter) status post chemotherapy along with stent placement to her common bile duct, hypertension, hyperlipidemia, GERD, chronic pain on chronic opioids, and multiple surgeries. She presented to [facility] emergency room after a fall at home after losing her balance when walking. She landed on her left side against some boxes, denies headache injury, denies loss of consciousness. She noticed immediate left-sided mid back pain as well as pain with deep inspiration so she presented to the hospital for evaluation and treatment. CT scan of the chest was completed demonstrating rib fractures to the ninth, 10th, and 11th rib with possible flail chest and small left-sided pneumothorax adjacent to the fractures. The patient is tachycardic in the low 100s, afebrile, with excellent oxygen saturation on 2 L nasal cannula. Lab work demonstrated no leukocytosis, no anemia, creatinine 0.24, no covid detected on PCR, and positive urinary tract infection. She will be admitted for evaluation and treatment, consultation was placed to cardiothoracic surgery for recommendations. Review of Systems Review of systems was completed and was negative except as noted - Respiratory Reports as per HPI, Reports dyspnea, Reports pain, Reports pain on inspiration Past Medical History Past Medical History: Cancer, COPD, GERD/Reflux, Hyperlipidemia, Hypertension, Osteoarthritis (OA) Additional Past Medical History / Comment(s): emphysema, lesion on kidneys. kidney stones, Pancreatic cancer with common bile duct stent placement, with ongoing chemotherapy History of Any Multi-Drug Resistant Organisms: None Reported Past Surgical History: Appendectomy, Cholecystectomy, Hernia Repair, Orthopedic Surgery Additional Past Surgical History / Comment(s): corrective eye surg., sinus surg., jaw surg., foot surg. rt knee surgery meniscus repair, rt shoulder rotator cuff repair Past Anesthesia/Blood Transfusion Reactions: Motion Sickness, Postoperative Nausea & Vomiting (PONV) Past Psychological History: No Psychological Hx Reported Smoking Status: Never smoker Past Alcohol Use History: None Reported Past Drug Use History: None Reported - Past Family History Mother Family Medical History: Cancer Medications and Allergies Home Medications Medication Instructions Recorded Confirmed Type Atorvastatin [Lipitor] 10 mg PO HS 07/06/20 09/20/21 History Lidocaine-Prilocaine Cream [Emla 1 applic TOPICAL DIRECTED PRN 05/07/21 09/20/21 History Cream 2.5%/2.5%] Lipase/Protease/Amylase [Zenpep Dr 1 cap PO AC-TID 05/07/21 09/20/21 History 25,000 Unit Capsule] Loperamide [Imodium] 2 mg PO QID PRN 05/07/21 09/20/21 History Loratadine [Claritin] 10 mg PO DAILY 05/07/21 09/20/21 History Omeprazole 20 mg PO DAILY 05/07/21 09/20/21 History Prochlorperazine [Compazine] 10 mg PO Q6H PRN 05/07/21 09/20/21 History Acetaminophen Tab [Tylenol] 650 mg PO Q6HR PRN tab 06/30/21 09/20/21 Rx Dronabinol [Marinol] 2.5 mg PO AC-BID #6 cap 06/30/21 09/20/21 Rx Gabapentin [Neurontin] 300 mg PO DAILY #3 cap 06/30/21 09/20/21 Rx Temazepam [Restoril] 15 mg PO HS PRN #3 cap 06/30/21 09/20/21 Rx Sennosides-Docusate Sodium 2 tab PO BID PRN 07/24/21 09/20/21 History [Senokot-S] DULoxetine HCL [Cymbalta] 30 mg PO DAILY 08/21/21 09/20/21 History Diclofenac Sodium Gel [Voltaren 2 gm TOPICAL BID PRN 08/21/21 09/20/21 History Gel] HYDROcodone/APAP 10-325MG [[place] 1 tab PO Q4H PRN 08/21/21 09/20/21 History 10-325] Morphine Sulfate ER [Ms Contin] 15 mg PO TID 08/21/21 09/20/21 History fentaNYL 25MCG/HR PATCH [Duragesic 1 patch TRANSDERM Q72H patch 08/26/21 09/20/21 Rx 25MCG/HR] Allergies Allergy/AdvReac Type Severity Reaction Status Date / Time No Known Allergies Allergy Verified 08/21/21 09:11 Surgical - Exam Vital Signs Temp Pulse Resp BP Pulse Ox 97.8 F 110 H 17 156/81 94 L 09/20/21 03:55 09/20/21 03:55 09/20/21 03:55 09/20/21 03:55 09/20/21 03:55 CONSTITUTIONAL: Awake and alert, appears in pain, cooperative, cachectic and frail EYES: Pupils equal, round, reactive to light, normal ocular movement ENT: Moist mucous membranes without oral lesions present NECK: No masses, no bruits, trachea midline RESPIRATORY: Lungs sounds diminished on the left. Respirations even, nonlabored. Currently on 2 L nasal cannula with oxygen saturation in the mid to high 90s. Weak cough. No paradoxical movement of the chest CARDIOVASCULAR: S1, S2 present. Tachycardic but regular rate and rhythm, sinus tach on telemetry. Palpable peripheral pulses bilaterally. No edema present. GASTROINTESTINAL: Abdomen soft, nontender, nondistended without masses or organomegaly noted. There is no rebound or guarding present. Active bowel sounds present 4 quadrants. GENITOURINARY: Deferred INTEGUMENTARY: Skin is warm and dry with evidence of good perfusion. NEUROLOGIC: Cranial nerves II through XII intact, normal coordination, no obvious motor or sensory deficits, speech is normal MUSKULOSKELETAL: Able to move all extremities, strength equal bilaterally, normal posture PSYCHIATRIC: Alert and oriented to person place and time, appropriate affect, intact judgment and insight Results - Labs 09/20/21 05:48 09/20/21 05:48 Abnormal Lab Results - Last 24 Hours (Table) 09/20/21 09/20/21 09/20/21 Range/Units 05:48 05:48 05:48 Lymphocytes # 0.5 L (1.0-4.8) k/uL APTT 21.5 L (22.0-30.0) sec Sodium 134 L (137-145) mmol/L Creatinine 0.24 L (0.52-1.04) mg/dL Glucose 117 H (74-99) mg/dL Alkaline Phosphatase 196 H (38-126) U/L Total Protein 5.5 L (6.3-8.2) g/dL Albumin 3.0 L (3.5-5.0) g/dL Urine Appearance (Clear) Urine Protein (Negative) Urine Nitrite (Negative) Ur Leukocyte Esterase (Negative) Urine WBC (0-5) /hpf Ur Squamous Epith Cells (0-4) /hpf Calcium Oxalate Crystal (None) /hpf Amorphous Sediment (None) /hpf Urine Bacteria (None) /hpf Urine Mucus (None) /hpf 09/20/21 Range/Units 05:48 Lymphocytes # (1.0-4.8) k/uL APTT (22.0-30.0) sec Sodium (137-145) mmol/L Creatinine (0.52-1.04) mg/dL Glucose (74-99) mg/dL Alkaline Phosphatase (38-126) U/L Total Protein (6.3-8.2) g/dL Albumin (3.5-5.0) g/dL Urine Appearance Cloudy H (Clear) Urine Protein Trace H (Negative) Urine Nitrite Positive H (Negative) Ur Leukocyte Esterase Large H (Negative) Urine WBC 21 H (0-5) /hpf Ur Squamous Epith Cells 11 H (0-4) /hpf Calcium Oxalate Crystal Rare H (None) /hpf Amorphous Sediment Few H (None) /hpf Urine Bacteria Many H (None) /hpf Urine Mucus Rare H (None) /hpf Diabetes panel 09/20/21 Range/Units 05:48 Sodium 134 L (137-145) mmol/L Potassium 3.5 (3.5-5.1) mmol/L Chloride 100 (98-107) mmol/L Carbon Dioxide 30 (22-30) mmol/L BUN 12 (7-17) mg/dL Creatinine 0.24 L (0.52-1.04) mg/dL Glucose 117 H (74-99) mg/dL Calcium 8.8 (8.4-10.2) mg/dL AST 24 (14-36) U/L ALT 15 (4-34) U/L Alkaline Phosphatase 196 H (38-126) U/L Total Protein 5.5 L (6.3-8.2) g/dL Albumin 3.0 L (3.5-5.0) g/dL Calcium panel 09/20/21 Range/Units 05:48 Calcium 8.8 (8.4-10.2) mg/dL Albumin 3.0 L (3.5-5.0) g/dL Pituitary panel 09/20/21 Range/Units 05:48 Sodium 134 L (137-145) mmol/L Potassium 3.5 (3.5-5.1) mmol/L Chloride 100 (98-107) mmol/L Carbon Dioxide 30 (22-30) mmol/L BUN 12 (7-17) mg/dL Creatinine 0.24 L (0.52-1.04) mg/dL Glucose 117 H (74-99) mg/dL Calcium 8.8 (8.4-10.2) mg/dL Adrenal panel 09/20/21 Range/Units 05:48 Sodium 134 L (137-145) mmol/L Potassium 3.5 (3.5-5.1) mmol/L Chloride 100 (98-107) mmol/L Carbon Dioxide 30 (22-30) mmol/L BUN 12 (7-17) mg/dL Creatinine 0.24 L (0.52-1.04) mg/dL Glucose 117 H (74-99) mg/dL Calcium 8.8 (8.4-10.2) mg/dL Total Bilirubin 0.6 (0.2-1.3) mg/dL AST 24 (14-36) U/L ALT 15 (4-34) U/L Alkaline Phosphatase 196 H (38-126) U/L Total Protein 5.5 L (6.3-8.2) g/dL Albumin 3.0 L (3.5-5.0) g/dL - Imaging CT scan - chest: report reviewed, image reviewed Assessment and Plan Assessment: 1. Fall from standing, 9th through 11th posterior left-sided rib fractures, small left-sided pneumothorax adjacent to fractures 2. Acute on chronic pain secondary to above 3. History of pancreatic cancer (stage IV according to her daughter) status post chemotherapy along with stent placement to her common bile duct 4. History of hypertension 5. History of hyperlipidemia 6. GERD 7. Chronic pain on chronic opioids 8. Multiple surgeries Plan: The patient was seen and examined in the emergency room at the bedside. Chart/diagnostics were reviewed. The case was discussed in detail with Dr. Jenkins from cardiothoracic surgery. No surgical intervention is warranted at this time. We will repeat chest x-ray [address] scan to evaluate for enlarging pneumothorax. Incentive spirometry was ordered and should be encouraged. Wean O2 as tolerated. Pain control per primary care service. Medical management of other comorbidities per primary care. The patient's daughter does state the patient's pancreatic cancer is stage IV, she has received chemotherapy for palliation, last dose was in July and she was due to discuss continuing chemotherapy this week with her oncologist. More recommendations to follow as patient progresses. Thank you for this consult. We will follow along with you. Time with Patient: Greater than 30
[2021-09-20] MEDS: LORATADINE 10 MG TAB PO SCH (10:53)
[2021-09-20] MEDS: DULoxetine HCL 30 MG CAPSULE.DR PO SCH (10:53)
[2021-09-20] MEDS: GABAPENTIN 300 MG CAP PO SCH (10:53)
[2021-09-20] MEDS: MORPHINE SULFATE ER 15 MG TABLET PO SCH ×3 (10:53→22:09)
[2021-09-20] MEDS: PANTOPRAZOLE 40 MG TABLET PO SCH (10:53)
--- NOTE | 2021-09-20 11:56 | XR ---
EXAMINATION TYPE: XR chest 1V portable DATE OF EXAM: 09/20/2021 COMPARISON: Chest x-ray dated 06/27/[address] chest 09/20/2021 pneumothorax is not well seen on plain film. HISTORY: Pneumothorax, posterior rib pain TECHNIQUE: Single frontal view of the chest is obtained. FINDINGS: There is a port coursing via a jugular approach, distal tip is overlying the superior vena cava. There is basilar increased density greater on the left, there is blunting of the left chest ph renic angle. Cardiac mediastinal silhouette is stable. Patient's left-sided rib fractures are not see n. IMPRESSION: Left lower lobe atelectasis, associated effusion. Minimal pneumothorax seen on CT not se en with certainty on plain film.
--- NOTE | 2021-09-20 12:47 | P.GSHP ---
History of Present Illness H&P Date: 09/20/21 CHIEF COMPLAINT: Fall HISTORY OF PRESENT ILLNESS: This is a 70-year-old female with a known history of pancreatic cancer with biliary stent and had undergone chemotherapy. Patient came into the emergency room with left-sided rib pain after a fall. Patient had been using her walker at home she lost balance and fell onto a pile of boxes. She does report left mid back pain. Denies any new abdominal pain. She reports that she always chronically has abdominal pain from her pancreatic cancer. She denies hitting her head or any loss of consciousness. Denies any cough. She does have some shortness of breath. Denies any nausea or vomiting. Denies any difficulty with bowel movements or urination. Denies any burning with urination. Denies any fever chills or sweats. Patient is remained afebrile. She did have tachycardia and hypertension. She is on 2 L satting at 98% PAST MEDICAL HISTORY: See list. PAST SURGICAL HISTORY: See list. MEDICATIONS: See list. ALLERGIES: See list. SOCIAL HISTORY: No illicit drug use. REVIEW OF SYSTEMS: CONSTITUTIONAL: Denies fever or chills. HEENT: Denies blurred vision, vision changes, or eye pain. Denies hemoptysis ENDOCRINE: Denies heat or cold intolerance. CARDIOVASCULAR: Denies chest pain or pressure. RESPIRATORY: No shortness of breath. GASTROINTESTINAL: Please refer to HPI NEURO: Denies history of seizures. PSYCH: No depression or suicidal ideation HEMATOLOGIC: Denies bleeding disorders. LYMPHATIC: The patient denies any lumps and bumps around the neck. GENITOURINARY: Denies any blood in urine or increased urinary frequency. MUSCULOSKELETAL: Denies myalgias. Denies joint swelling. Denies decreased range of motion beyond patients baseline. SKIN: Denies pruitis. Denies rash. PHYSICAL EXAM: VITAL SIGNS: Reviewed GENERAL: Well-developed in no acute distress. HEENT: No sclera icterus. Extraocular movements grossly intact. Moist buccal mucosa. Head is atraumatic, normocephalic. Hears conversational speech. No nasal drainage. NECK: Supple without lymphadenopathy. CHEST: Non-labored respirations and equal bilateral excursions. CARDIOVASCULAR: Palpable 2+ radial pulses. ABDOMEN: Soft. Nondistended. Minimal epigastric tenderness with palpation MUSCULOSKELETAL: No clubbing or cyanosis. NEUROLOGIC: No focal or lateralizing signs. Cranial nerves II through XII grossly intact. PSYCH: Appropriate affect. Alert and oriented to person, place and time. SKIN: Well perfused. Good skin turgor. LABORATORY DATA: WBC is 7.9 hemoglobin is 12 plt 175 INR 1.0 Sodium 134 potassium 3.5 BUN 12 creatinine 0.24 Urinalysis large leukocyte esterase with squamous epithelial cells. Urine culture pending COVID-19 not detected IMAGING: CT chest multiple posterior left-sided lower rib fractures with comminution and probable flail chest. There is left lower lobe posterior infiltrate and atelectasis is adjacent to the pleural fluid. There is tiny left-sided pneumothorax. Pneumothorax seen adjacent to rib fractures. Soft tissue air on the left posterior lower chest wall. Fracture of left posterior 11th, 10th and ninth ribs. Thoracic spine is intact. No compression fracture noted. Chest x-ray left lower lobe atelectasis, associated fusion. Minimal pneumothorax seen on CT not seen with certainty on plain film ASSESSMENT: 1. Fall with trauma to ribs 2. Left posterior 11th, 10th and ninth rib fractures with possible flail chest 3. Small left-sided pneumothorax secondary to rib fractures 4. History of pancreatic cancer status post chemotherapy and with placement of stent to common bile duct 5. History of chronic pain on chronic opioids 6. Hyperlipidemia 7. Hypertension PLAN: -Consult cardiothoracic service for pneumothorax and flail chest with rib fractures -Consult medical service for medical management -Continue to monitor patient's pulse ox -Encouraged patient to use incentive spirometer -Continue pain medication as needed. Patient's home pain medications have been resumed by medicine service -Continue DuoNeb updraft treatments -Continue to monitor daily chest x-rays -Start regular diet -GI prophylaxis Protonix and DVT prophylaxis subcu heparin Physician Authorization Manager note has been reviewed by physician. Signing provider agrees with the documented findings, assessment, and plan of care. Past Medical History Past Medical History: Cancer, COPD, GERD/Reflux, Hyperlipidemia, Hypertension, Osteoarthritis (OA) Additional Past Medical History / Comment(s): emphysema, lesion on kidneys. kidney stones, Pancreatic cancer with common bile duct stent placement, with ongoing chemotherapy History of Any Multi-Drug Resistant Organisms: None Reported Past Surgical History: Appendectomy, Cholecystectomy, Hernia Repair, Orthopedic Surgery Additional Past Surgical History / Comment(s): corrective eye surg., sinus surg., jaw surg., foot surg. rt knee surgery meniscus repair, rt shoulder rotator cuff repair Past Anesthesia/Blood Transfusion Reactions: Motion Sickness, Postoperative Nausea & Vomiting (PONV) Past Psychological History: No Psychological Hx Reported Smoking Status: Never smoker Past Alcohol Use History: None Reported Past Drug Use History: None Reported - Past Family History Mother Family Medical History: Cancer Medications and Allergies Home Medications Medication Instructions Recorded Confirmed Type Atorvastatin [Lipitor] 10 mg PO HS 07/06/20 09/20/21 History Lidocaine-Prilocaine Cream [Emla 1 applic TOPICAL DIRECTED PRN 05/07/21 09/20/21 History Cream 2.5%/2.5%] Lipase/Protease/Amylase [Zenpep Dr 1 cap PO AC-TID 05/07/21 09/20/21 History 25,000 Unit Capsule] Loperamide [Imodium] 2 mg PO QID PRN 05/07/21 09/20/21 History Loratadine [Claritin] 10 mg PO DAILY 05/07/21 09/20/21 History Omeprazole 20 mg PO DAILY 05/07/21 09/20/21 History Prochlorperazine [Compazine] 10 mg PO Q6H PRN 05/07/21 09/20/21 History Acetaminophen Tab [Tylenol] 650 mg PO Q6HR PRN tab 06/30/21 09/20/21 Rx Dronabinol [Marinol] 2.5 mg PO AC-BID #6 cap 06/30/21 09/20/21 Rx Gabapentin [Neurontin] 300 mg PO DAILY #3 cap 06/30/21 09/20/21 Rx Temazepam [Restoril] 15 mg PO HS PRN #3 cap 06/30/21 09/20/21 Rx Sennosides-Docusate Sodium 2 tab PO BID PRN 07/24/21 09/20/21 History [Senokot-S] DULoxetine HCL [Cymbalta] 30 mg PO DAILY 08/21/21 09/20/21 History Diclofenac Sodium Gel [Voltaren 2 gm TOPICAL BID PRN 08/21/21 09/20/21 History Gel] HYDROcodone/APAP 10-325MG [Coin 1 tab PO Q4H PRN 08/21/21 09/20/21 History 10-325] Morphine Sulfate ER [Ms Contin] 15 mg PO TID 08/21/21 09/20/21 History fentaNYL 25MCG/HR PATCH [Duragesic 1 patch TRANSDERM Q72H patch 08/26/21 09/20/21 Rx 25MCG/HR] Allergies Allergy/AdvReac Type Severity Reaction Status Date / Time No Known Allergies Allergy Verified 08/21/21 09:11 Surgical - Exam Vital Signs Temp Pulse Resp BP Pulse Ox 97.8 F 110 H 17 156/81 94 L 09/20/21 03:55 09/20/21 03:55 09/20/21 03:55 09/20/21 03:55 09/20/21 03:55 Results - Labs 09/20/21 05:48 09/20/21 05:48 Abnormal Lab Results - Last 24 Hours (Table) 09/20/21 09/20/21 09/20/21 Range/Units 05:48 05:48 05:48 Lymphocytes # 0.5 L (1.0-4.8) k/uL APTT 21.5 L (22.0-30.0) sec Sodium 134 L (137-145) mmol/L Creatinine 0.24 L (0.52-1.04) mg/dL Glucose 117 H (74-99) mg/dL Alkaline Phosphatase 196 H (38-126) U/L Total Protein 5.5 L (6.3-8.2) g/dL Albumin 3.0 L (3.5-5.0) g/dL Urine Appearance (Clear) Urine Protein (Negative) Urine Nitrite (Negative) Ur Leukocyte Esterase (Negative) Urine WBC (0-5) /hpf Ur Squamous Epith Cells (0-4) /hpf Calcium Oxalate Crystal (None) /hpf Amorphous Sediment (None) /hpf Urine Bacteria (None) /hpf Urine Mucus (None) /hpf 09/20/21 Range/Units 05:48 Lymphocytes # (1.0-4.8) k/uL APTT (22.0-30.0) sec Sodium (137-145) mmol/L Creatinine (0.52-1.04) mg/dL Glucose (74-99) mg/dL Alkaline Phosphatase (38-126) U/L Total Protein (6.3-8.2) g/dL Albumin (3.5-5.0) g/dL Urine Appearance Cloudy H (Clear) Urine Protein Trace H (Negative) Urine Nitrite Positive H (Negative) Ur Leukocyte Esterase Large H (Negative) Urine WBC 21 H (0-5) /hpf Ur Squamous Epith Cells 11 H (0-4) /hpf Calcium Oxalate Crystal Rare H (None) /hpf Amorphous Sediment Few H (None) /hpf Urine Bacteria Many H (None) /hpf Urine Mucus Rare H (None) /hpf Diabetes panel 09/20/21 Range/Units 05:48 Sodium 134 L (137-145) mmol/L Potassium 3.5 (3.5-5.1) mmol/L Chloride 100 (98-107) mmol/L Carbon Dioxide 30 (22-30) mmol/L BUN 12 (7-17) mg/dL Creatinine 0.24 L (0.52-1.04) mg/dL Glucose 117 H (74-99) mg/dL Calcium 8.8 (8.4-10.2) mg/dL AST 24 (14-36) U/L ALT 15 (4-34) U/L Alkaline Phosphatase 196 H (38-126) U/L Total Protein 5.5 L (6.3-8.2) g/dL Albumin 3.0 L (3.5-5.0) g/dL Calcium panel 09/20/21 Range/Units 05:48 Calcium 8.8 (8.4-10.2) mg/dL Albumin 3.0 L (3.5-5.0) g/dL Pituitary panel 09/20/21 Range/Units 05:48 Sodium 134 L (137-145) mmol/L Potassium 3.5 (3.5-5.1) mmol/L Chloride 100 (98-107) mmol/L Carbon Dioxide 30 (22-30) mmol/L BUN 12 (7-17) mg/dL Creatinine 0.24 L (0.52-1.04) mg/dL Glucose 117 H (74-99) mg/dL Calcium 8.8 (8.4-10.2) mg/dL Adrenal panel 09/20/21 Range/Units 05:48 Sodium 134 L (137-145) mmol/L Potassium 3.5 (3.5-5.1) mmol/L Chloride 100 (98-107) mmol/L Carbon Dioxide 30 (22-30) mmol/L BUN 12 (7-17) mg/dL Creatinine 0.24 L (0.52-1.04) mg/dL Glucose 117 H (74-99) mg/dL Calcium 8.8 (8.4-10.2) mg/dL Total Bilirubin 0.6 (0.2-1.3) mg/dL AST 24 (14-36) U/L ALT 15 (4-34) U/L Alkaline Phosphatase 196 H (38-126) U/L Total Protein 5.5 L (6.3-8.2) g/dL Albumin 3.0 L (3.5-5.0) g/dL
[2021-09-20] MEDS: ZENPEP 25000 UNIT PO SCH ×2 (15:32→18:53)
[2021-09-20] MEDS: METOCLOPRAMIDE 5 MG/ML 2 ML VIAL IVP SCH (16:03)
[2021-09-20] MEDS: ATORVASTATIN 10 MG TAB PO SCH (20:22)
[2021-09-20] MEDS: HEPARIN SODIUM,PORCINE/PF 5,000 UNIT/0.5 ML SYRINGE SQ SCH (20:25)
[2021-09-21] MEDS: METOCLOPRAMIDE 5 MG/ML 2 ML VIAL IVP SCH ×2 (00:27→06:42)
[2021-09-21] MEDS: HYDROmorphone 1 MG/ML 1 ML SYRINGE IVP PRN ×4 (05:31→20:18)
[2021-09-21] MEDS: ZENPEP 25000 UNIT PO SCH ×3 (06:42→17:18)
[2021-09-21] MEDS: SODIUM CHLORIDE 0.9% 1,000 ML IV SCH (06:43)
[2021-09-21] MEDS: HEPARIN SODIUM,PORCINE/PF 5,000 UNIT/0.5 ML SYRINGE SQ SCH ×2 (09:10→22:15)
[2021-09-21] MEDS: PANTOPRAZOLE 40 MG TABLET PO SCH (09:10)
[2021-09-21] MEDS: DULoxetine HCL 30 MG CAPSULE.DR PO SCH (09:10)
[2021-09-21] MEDS: LORATADINE 10 MG TAB PO SCH (09:11)
[2021-09-21] MEDS: GABAPENTIN 300 MG CAP PO SCH (09:11)
[2021-09-21] MEDS: MORPHINE SULFATE ER 15 MG TABLET PO SCH ×4 (09:13→22:14)
--- NOTE | 2021-09-21 09:13 | P.PN ---
Subjective Progress Note Date: 09/21/21 HISTORY OF PRESENT ILLNESS: This is a 70-year-old female with a previous medical history significant for hypertension and hypertensive cardiovascular disease, hyperlipidemia, GERD, history of pseudocyst of the pancreas that has been complaining of significant amount of abdominal pain with a significant weight loss and chronic diarrhea she ended up getting referred to have MRCP that documented a pancreatic mass was seen in consultation by child welfare director at [facility], and she ended up having a biopsy that was positive for Pancreatic cancer status post stent placed in the common bile duct, and started on chemotherapy. She has had several admissions due to chemotherapy-induced nausea and vomiting as well as diarrhea, stabilized and discharged back home. Patient now presents status post fall at home where she lost her balance landing on boxes with complaints of left mid back pain, pain with deep inspiration, no loss of consciousness, no head injury noted. CAT scan of the chest revealed multiple posterior left side lower rib fractures with comminution and probable flail chest. There is left lower lobe posterior infiltrate and atelectasis adjacent to the pleural fluid. Tiny left-sided pneumothorax. No more thorax seen adjacent to the fractures. Soft tissue air on the left posterior lower chest wall. EKG sinus tachycardia at 190s beats per minute, no ST changes. Afebrile, blood pressure 156/81, pulse ox 94% on room air. Patient admitted to the cardiac stepdown unit under general surgery and we are following for medical management. 09/21: Patient has been seen by cardiothoracic surgery and no surgical intervention is warranted at that time. Repeat chest x-ray in 6 hours post computed tomography scan to evaluate for enlarging pneumothorax. Repeat chest x-ray reveals left lower lobe atelectasis, associated effusion. Minimal pn eumothorax seen on CT not seen with certainty on plain film. Patient states that current pain management is not holding her and she has been taking her MS Contin 4 times daily at home which was increased by her oncologist. Patient has been afebrile, heart rate 81, blood pressure 140/75, pulse ox 97% on 3 L nasal cannula. Patient is reaching 500 ML's on incentive spirometry. Urine culture is in progress. Repeat chest x-ray this morning report is pending. REVIEW OF SYSTEMS: Constitutional: No documented fever, no chills, no night sweats. significant weight change and poor appetite and moderate fatigue, no lethargy. HEENT: No headache. No blurred vision or double vision, no loss of vision. No loss of Hearing, no ringing in the ears, no dizziness. No nasal drainage or congestion. No epistaxis. No sore throat. Lungs: No shortness of breath, no cough, no sputum production. No wheezing. Reports dyspnea with activity chronic. Cardiovascular: Complains of severe left-sided rib which is continued , no lower extremity edema. No palpitations. No paroxysmal nocturnal dyspnea. No orthopnea. No lightheadedness or dizziness. No syncopal episodes. Abdominal: Reports chronic abdominal pain. Denies for nausea, denies for vomiting. Denies for diarrhea. No constipation. No bloody or tarry stools reports loss of appetite. Genitourinary: No dysuria, increased frequency, urgency. No urinary retention. Musculoskeletal: No myalgias. generalized muscle weakness, no gait dysfunction, no frequent falls. No back pain. No neck pain. Integumentary: No wounds, no lesions. No rash or pruritus. No unusual bruising. No change in hair or nails. Neurologic: No aphasia. No facial droop. No change in mentation. No head injury. No headache. No paralysis. No paresthesia. Psychiatric: No depression. No anxiety. No mood swings. Endocrine: No abnormal blood sugars. severe weight change. PHYSICAL EXAMINATION: General: this is a 70-year-old white female cachectic appears to be in mild distress secondary to pain, patient is resting in bed on the cardiac stepdown unit. HEENT: Head is atraumatic, normocephalic, pupils were equal round reactive to light and recommendation, sclera nonicteric, conjunctivae were pale, mucous membranes of the mouth are somewhat dry. Neck: Supple, no JVP, normal carotid upstroke bilaterally, no lymphadenopathy. Chest: Decreased breath sounds at the bases, few rhonchi, no expiratory wheezes, left-sided chest wall tenderness, no intercostal retractions. Heart: First heart sound is normal, second heart sounds normal, there is systolic ejection murmur 2/6 located in the left sternal border. Abdomen: Soft, mild tenderness to the epigastric area, nondistended, positive bowel sounds. Extremities: There is no edema no calf tenderness DP +2 bilaterally. Neurologic examination: Patient is awake alert and oriented x3 , cranial nerves II-12 appear grossly intact, muscle power were 5 out of 5 in upper extremities and 5 out of 5 in bilateral lower extremities, deep tendon reflexes normal bi laterally. ASSESSMENT AND PLAN: 1. Fall with left sided rib fractures, possible flail chest, tiny pneumothorax. Consult added for cardiothoracic surgery appreciated. Repeat chest x-ray this morning. Continue Dilaudid 1 mg every 3 hours, Toradol as needed for pain. Cont inue incentive spirometry. 2. History of biliary/pancreatic cancer status post a stent placed in the common bile duct in January 2021 with chemotherapy currently on hold. Oncology . Patient will be resumed on fentanyl patch 25 g per hour every 72 hours, MS Contin 15 mg 3 times daily, Zenpep 13 times daily, [place] 10 one every 4 hours as needed. 3. Hypertension and hypertensive cardiovascular disease. Continue lisinopril 20/12.5 mg orally once every day. 4. Hyperlipidemia. Continue Lipitor 10 mg orally once every day. 5. GERD. Continue omeprazole 40 mg orally once every day. 6. Prior history of pancreatic pseudocyst now diagnosed with pancreatic cancer. 7. DVT prophylaxis. Heparin 5000 units subcutaneously every 8 hours. 8. GI prophylaxis. Continue PPI . 9. Patient is full code. DISCHARGE PLAN: TBD, Home most likely Impression and plan of care have been directed as dictated by the signing physician. Alexia Gonsalves nurse practitioner acting as scribe for signing physician. Objective - Vital Signs Vital signs: Vital Signs Temp 98.3 F 09/21/21 03:34 Pulse 81 09/21/21 03:34 Resp 14 09/21/21 03:34 BP 140/75 09/21/21 03:34 Pulse Ox 97 09/21/21 03:34 Intake & Output 09/20/21 09/21/21 09/21/21 18:59 06:59 18:59 Weight 54.431 kg 50 kg Other: Voiding Method External Catheter # Voids 1 - Labs CBC & Chem 7: 09/20/21 05:48 09/20/21 05:48 Labs: Abnormal Lab Results - Last 24 Hours (Table) 09/20/21 Range/Units 05:48 Urine Appearance Cloudy H (Clear) Urine Protein Trace H (Negative) Urine Nitrite Positive H (Negative) Ur Leukocyte Esterase Large H (Negative) Urine WBC 21 H (0-5) /hpf Ur Squamous Epith Cells 11 H (0-4) /hpf Calcium Oxalate Crystal Rare H (None) /hpf Amorphous Sediment Few H (None) /hpf Urine Bacteria Many H (None) /hpf Urine Mucus Rare H (None) /hpf Microbiology - Last 24 Hours (Table) 09/20/21 05:48 Urine Culture - Preliminary Urine,Clean Catch
--- NOTE | 2021-09-21 09:22 | XR ---
EXAMINATION TYPE: XR chest 1V portable DATE OF EXAM: 09/21/2021 COMPARISON: 09/20/2021, CT 09/20/2021 INDICATION: Trauma, rib fracture TECHNIQUE: Single frontal view of the chest is obtained. FINDINGS: The heart size is normal The pulmonary vasculature is normal. Small bilateral pleural effusions are present, slightly greater on the left. Left lower lobe infiltra te is present. Port is present on the right with the tip in the superior vena cava region. Left lo wer lobe rib fracture is present. Rib fractures less well visualized than the CT examination. IMPRESSION: 1. Small bilateral pleural effusions, stable. 2. Left lower lobe infiltrate. Correlate for worsening pneumonia or pulmonary contusion.
--- NOTE | 2021-09-21 09:36 | P.PN ---
Subjective Progress Note Date: 09/21/21 Principal diagnosis: Left rib fractures, ninth through 11th posterior, small left-sided pneumothorax. Past medical history significant for pancreatic cancer (stage IV according to her daughter) status post chemotherapy along with stent placement to her common bile duct, hypertension, hyperlipidemia, GERD, chronic pain on chronic opioids, and multiple surgeries. The patient was seen today 09/21/2021 at her bedside on the cardiac stepdown unit. Currently she is lying in bed, is awake, alert and oriented 3 and is in no acute apparent distress. She denies any complaints of shortness of breath although is complaining of some left-sided chest discomfort at the site of her rib fractures. Oxygen saturations are 97% on 3 L nasal cannula and she is achieving 500 mL on her incentive spirometry with much encouragement. Chest x- ray this morning shows no sizable pneumothorax, small bilateral pleural effusions and a left lower lobe infiltrate possibly pulmonary contusion. Objective - Vital Signs Vital signs: Vital Signs Temp 98.3 F 09/21/21 03:34 Pulse 81 09/21/21 03:34 Resp 14 09/21/21 03:34 BP 140/75 09/21/21 03:34 Pulse Ox 97 09/21/21 08:34 Intake & Output 09/20/21 09/21/21 09/21/21 18:59 06:59 18:59 Weight 54.431 kg 50 kg Other: Voiding Method External Catheter # Voids 1 - Exam CONSTITUTIONAL: Laying in bed on the cardiac stepdown unit, appears comfortable, cooperative, no apparent acute distress. HEENT: Neck is supple, no JVD, no lymphadenopathy. RESPIRATORY: Lungs sounds essentially clear throughout, diminished to his bilateral bases, left greater than right. No wheezes, rhonchi or crackles. Respirations are symmetrical and nonlabored. Currently on 3 L nasal cannula with oxygen saturations 97%. Able to achieve 500 mL on her incentive spirometry. CARDIOVASCULAR: Regular rhythm and rate. S1 and S2 present, negative for S3, gallop or murmur. No calf pain or tenderness noted. Remote telemetry showing normal sinus rhythm heart rate 85 BPM. GASTROINTESTINAL: Abdomen soft, nontender, nondistended. Hypoactive bowel sounds present 4 quadrants. Tolerating diet. Passing flatus. No guarding or rigidity. GENITOURINARY: External catheter. INTEGUMENTARY: Skin is warm and dry with no evidence of clubbing or cyanosis. NEUROLOGIC: Cranial nerves II through XII intact. No focal or motor deficits. MUSKULOSKELETAL: Able to move all extremities, strength equal bilaterally, generalized weakness. Guarding her left side, chest. PSYCHIATRIC: Alert and oriented to person place and time, appropriate affect, intact judgment and insight. - Allied health notes Allied health notes reviewed: nursing - Labs CBC & Chem 7: 09/20/21 05:48 09/20/21 05:48 Labs: Microbiology - Last 24 Hours (Table) 09/20/21 05:48 Urine Culture - Preliminary Urine,Clean Catch - Imaging and Cardiology Chest x-ray: report reviewed, image reviewed Assessment and Plan Assessment: 1. Fall from standing, 9th through 11th posterior left-sided rib fractures, small left-sided pneumothorax adjacent to fractures 2. History of pancreatic cancer (stage IV according to her daughter) status post chemotherapy along with stent placement to her common bile duct 3. Acute on chronic pain secondary to above 4. History of hypertension 5. History of hyperlipidemia 6. GERD 7. Chronic pain on chronic opioids 8. Multiple surgeries Plan: 1. Continue to monitor daily chest x-rays. 2. Continue to encourage use of her incentive spirometry 10 times every hour while awake. 3. Pain management per current when necessary orders, managed by primary care service. 4. Medical management and other comorbidities per primary care service. 5. No surgical intervention is warranted at this time. 6. Increase activity as tolerated. 7. More recommendations to follow based on patient's clinical course. Time with Patient: Greater than 30
[2021-09-21] MEDS: METOCLOPRAMIDE 5 MG TAB PO SCH ×2 (11:00→17:18)
--- NOTE | 2021-09-21 13:18 | P.PN ---
Subjective Progress Note Date: 09/21/21 CHIEF COMPLAINT: Fall HISTORY OF PRESENT ILLNESS: This is a 70-year-old female with a known history of pancreatic cancer with biliary stent and had undergone chemotherapy. Patient came into the emergency room with left-sided rib pain after a fall. Patient had been using her walker at home she lost balance and fell onto a pile of boxes. Patient denies any new pain. She is still having some left sided rib pain. Reports discomfort when taking a deep breath. She's on 3 L satting at 97%. Chest x-ray shows small bilateral pleural effusions, stable. Left lower lobe infiltrate. Correlate for worsening pneumonia or pulmonary contusion. On medicine service did place patient on antibiotics. Patient is currently lying in bed comfortably. She does report the pain medication is helping. She has not been out of bed yet. Afebrile urine culture pending PHYSICAL EXAM: VITAL SIGNS: Reviewed GENERAL: Well-developed in no acute distress. HEENT: No sclera icterus. Extraocular movements grossly intact. Moist buccal mucosa. Head is atraumatic, normocephalic. Hears conversational speech. No nasal drainage. NECK: Supple without lymphadenopathy. CHEST: Non-labored respirations and equal bilateral excursions. CARDIOVASCULAR: Palpable 2+ radial pulses. ABDOMEN: Soft. Nondistended. Nontender. MUSCULOSKELETAL: No clubbing or cyanosis. NEUROLOGIC: No focal or lateralizing signs. Cranial nerves II through XII grossly intact. PSYCH: Appropriate affect. Alert and oriented to person, place and time. SKIN: Well perfused. Good skin turgor. ASSESSMENT: 1. Fall with trauma to ribs 2. Left posterior 11th, 10th and ninth rib fractures with possible flail chest 3. Small left-sided pneumothorax secondary to rib fractures 4. History of pancreatic cancer status post chemotherapy and with placement of stent to common bile duct 5. History of chronic pain on chronic opioids 6. Hyperlipidemia 7. Hypertension 8. Possible pneumonia versus pulmonary contusion PLAN: -Continue to monitor daily chest x-rays -Await further recommendations per cardiothoracic team -Continue pain medication as needed -Continue to monitor oxygen saturation -Encouraged patient to use incentive spirometer -Encouraged patient to increase activity -Consult PT OT Physician Loan Documentation Specialist note has been reviewed by physician. Signing provider agrees with the documented findings, assessment, and plan of care. Objective - Vital Signs Vital signs: Vital Signs Temp 97.6 F 09/21/21 08:00 Pulse 84 09/21/21 08:00 Resp 18 09/21/21 08:00 BP 103/50 09/21/21 08:00 Pulse Ox 97 09/21/21 08:34 Intake & Output 09/20/21 09/21/21 09/21/21 18:59 06:59 18:59 Weight 54.431 kg 50 kg 50 kg Other: Voiding Method External Catheter External Catheter # Voids 1 0 # Bowel Movements 0 - Labs CBC & Chem 7: 09/20/21 05:48 09/20/21 05:48 Labs: Microbiology - Last 24 Hours (Table) 09/20/21 05:48 Urine Culture - Preliminary Urine,Clean Catch Gram Neg Bacilli
[2021-09-21] MEDS: ATORVASTATIN 10 MG TAB PO SCH (22:14)
[2021-09-22] MEDS: METOCLOPRAMIDE 5 MG TAB PO SCH ×4 (00:10→17:27)
[2021-09-22] MEDS: HYDROmorphone 1 MG/ML 1 ML SYRINGE IVP PRN ×4 (00:10→12:22)
[2021-09-22] MEDS: SODIUM CHLORIDE 0.9% 1,000 ML IV SCH ×2 (00:18→13:30)
[2021-09-22] MEDS: HYDROcodone/APAP 10-325MG 1 EACH TAB PO PRN (06:02)
[2021-09-22] MEDS: ZENPEP 25000 UNIT PO SCH ×3 (06:41→17:30)
--- NOTE | 2021-09-22 07:29 | XR ---
EXAMINATION TYPE: XR chest 1V portable DATE OF EXAM: 09/22/2021 Comparison: 09/21/2021 Clinical History: 70-year-old female Left-sided pneumothorax Findings: Right anterior chest wall injection port catheter tip at the lower SVC. Heart upper limits of normal in size. Left mid and lower lung opacity and trace right pleural effusion remain. Density at the left base slightly decreasing. Displaced 10th posterolateral rib fracture. Impression: Slight worsening [id number] left pleural effusion with prominent adjacent left basilar atelect asis and/or consolidation. Continued trace right effusion with adjacent patchy density. Redemonstrated displaced posterolateral left 10th rib fracture.
[2021-09-22] MEDS: GABAPENTIN 300 MG CAP PO SCH (08:16)
[2021-09-22] MEDS: DULoxetine HCL 30 MG CAPSULE.DR PO SCH (08:16)
[2021-09-22] MEDS: PANTOPRAZOLE 40 MG TABLET PO SCH (08:16)
[2021-09-22] MEDS: HEPARIN SODIUM,PORCINE/PF 5,000 UNIT/0.5 ML SYRINGE SQ SCH ×2 (08:16→20:59)
[2021-09-22] MEDS: LORATADINE 10 MG TAB PO SCH (08:16)
--- NOTE | 2021-09-22 09:04 | P.PN ---
Subjective Progress Note Date: 09/22/21 HISTORY OF PRESENT ILLNESS: This is a 70-year-old female with a previous medical history significant for hypertension and hypertensive cardiovascular disease, hyperlipidemia, GERD, history of pseudocyst of the pancreas that has been complaining of significant amount of abdominal pain with a significant weight loss and chronic diarrhea she ended up getting referred to have MRCP that documented a pancreatic mass was seen in consultation by patient's librarian at [facility], and she ended up having a biopsy that was positive for Pancreatic cancer status post stent placed in the common bile duct, and started on chemotherapy. She has had several admissions due to chemotherapy-induced nausea and vomiting as well as diarrhea, stabilized and discharged back home. Patient now presents status post fall at home where she lost her balance landing on boxes with complaints of left mid back pain, pain with deep inspiration, no loss of consciousness, no head injury noted. CAT scan of the chest revealed multiple posterior left side lower rib fractures with comminution and probable flail chest. There is left lower lobe posterior infiltrate and atelectasis adjacent to the pleural fluid. Tiny left-sided pneumothorax. No more thorax seen adjacent to the fractures. Soft tissue air on the left posterior lower chest wall. EKG sinus tachycardia at 190s beats per minute, no ST changes. Afebrile, blood pressure 156/81, pulse ox 94% on room air. Patient admitted to the cardiac stepdown unit under general surgery and we are following for medical management. 09/21: Patient has been seen by cardiothoracic surgery and no surgical intervention is warranted at that time. Repeat chest x-ray in 6 hours post computed tomography scan to evaluate for enlarging pneumothorax. Repeat chest x-ray reveals left lower lobe atelectasis, associated effusion. Minimal pn eumothorax seen on CT not seen with certainty on plain film. Patient states that current pain management is not holding her and she has been taking her MS Contin 4 times daily at home which was increased by her oncologist. Patient has been afebrile, heart rate 81, blood pressure 140/75, pulse ox 97% on 3 L nasal cannula. Patient is reaching 500 ML's on incentive spirometry. Urine culture is in progress. Repeat chest x-ray this morning report is pending. 09/22: She continues to have significant pain in the left chest overnight running between 6-07/30. Patient has been receiving Dilaudid 1 mg IV every 4 hours on top of her home pain medications. Urine culture is in process with gram-nega tive bacilli and patient is continued on ceftriaxone. business transformation manager has discussed discharge planning with the patient and she is adamant that she wants to return home. [facility] care is in place and we have added in palliative care with Laura. Repeat chest x-ray reveals slight worsening small to moderate left pleural effusion with prominent adjacent left basilar atelectasis and/or consolidation. Continue trace right effusion with adjacent patchy density. Jan demonstrated displaced posterior lateral left 10th rib fracture. Patient will be started on Levaquin and Zosyn for possible pneumonia. No change in pain medications. Patient will be transferred to [facility] floor without telemetry. REVIEW OF SYSTEMS: Constitutional: No documented fever, no chills, no night sweats. significant weight change and poor appetite and moderate fatigue, no lethargy. HEENT: No headache. No blurred vision or double vision, no loss of vision. No loss of Hearing, no ringing in the ears, no dizziness. No nasal drainage or congestion. No epistaxis. No sore throat. Lungs: No shortness of breath, no cough, no sputum production. No wheezing. Reports dyspnea with activity chronic. Cardiovascular: Complains of severe left-sided rib, no lower extremity edema. No palpitations. No paroxysmal nocturnal dyspnea. No orthopnea. No lightheadedness or dizziness. No syncopal episodes. Abdominal: Reports chronic abdominal pain. Denies for nausea, denies for vomiting. Denies for diarrhea. No constipation. No bloody or tarry stools reports loss of appetite. Genitourinary: No dysuria, increased frequency, urgency. No urinary retention. Musculoskeletal: No myalgias. generalized muscle weakness, no gait dysfunction, no frequent falls. No back pain. No neck pain. Integumentary: No wounds, no lesions. No rash or pruritus. No unusual bruising. Neurologic: No aphasia. No facial droop. No change in mentation. No head injury. No headache. No paralysis. No paresthesia. Psychiatric: No depression. No anxiety. Endocrine: No abnormal blood sugars. Significant weight change. PHYSICAL EXAMINATION: General: this is a 70-year-old white female cachectic appears to be in mild distress secondary to pain, patient is resting in bed on the cardiac stepdown unit. HEENT: Head is atraumatic, normocephalic, pupils were equal round reactive to light and recommendation, sclera nonicteric, conjunctivae were pale, mucous membranes of the mouth are somewhat dry. Neck: Supple, no JVP, normal carotid upstroke bilaterally, no lymphadenopathy. Chest: Decreased breath sounds at the bases, few rhonchi, no expiratory wheezes, egophony bilateral bases, left-sided chest wall tenderness, no intercostal retractions. Heart: First heart sound is normal, second heart sounds normal, there is systolic ejection murmur 2/6 located in the left sternal border. Abdomen: Soft, mild tenderness to the epigastric area, nondistended, positive bowel sounds. Extremities: There is no edema no calf tenderness DP +2 bilaterally. Neurologic examination: Patient is awake alert and oriented x3 , cranial nerves II-12 appear grossly intact, muscle power were 5 out of 5 in upper extremities and 5 out of 5 in bilateral lower extremities, deep tendon reflexes normal bilaterally. ASSESSMENT AND PLAN: 1. Fall with left sided rib fractures, possible flail chest, tiny pneumothorax. Consult added for cardiothoracic surgery appreciated. Repeat chest x-ray this morning. Continue Dilaudid 1 mg every 3 hours, Toradol as needed for pain. Continue incentive spirometry. 2. Possible pneumonia, gram-negative. Patient started on Levaquin and Zosyn, continue DuoNeb treatments scheduled 3 times daily. 3. Acute urinary tract infection (POA). She continued on ceftriaxone, await urine culture. 4. History of biliary/pancreatic cancer status post a stent placed in the common bile duct in January 2021 with chemotherapy currently on hold. Oncology . Patient will be resumed on fentanyl patch 25 g per hour every 72 hours, MS Contin 15 mg 3 times daily, Zenpep 13 times daily, [place] 10 one every 4 hours as needed. Continue Dilaudid 1 mg every 4 hours. 5. Hyperlipidemia. Continue Lipitor 10 mg orally once every day. 6. GERD. Continue omeprazole 40 mg orally once every day. 7. Prior history of pancreatic pseudocyst now diagnosed with pancreatic cancer. 8. Hypertension and hypertensive cardiovascular disease. Continue lisinopril 20/12.5 mg orally once every day. 9. DVT prophylaxis. Heparin 5000 units subcutaneously every 8 hours. 10. GI prophylaxis. Continue PPI . 11. Patient is full code. DISCHARGE PLAN: Home with [facility] and [facility] Palliative care on Monday. Impression and plan of care have been directed as dictated by the signing physician. Alexia Gonsalves nurse practitioner acting as scribe for signing physician. Objective - Vital Signs Vital signs: Vital Signs Temp 97.8 F 09/22/21 04:00 Pulse 101 H 09/22/21 04:00 Resp 15 09/22/21 04:00 BP 132/74 09/22/21 04:00 Pulse Ox 98 09/22/21 04:00 Intake & Output 09/21/21 09/22/21 09/22/21 18:59 06:59 18:59 Intake Total 420 Balance 420 Weight 50 kg 51.5 kg Intake: Oral 420 Other: Voiding Method External Catheter # Voids 1 1 # Bowel Movements 0 - Labs CBC & Chem 7: 09/20/21 05:48 09/20/21 05:48 Labs: Microbiology - Last 24 Hours (Table) 09/20/21 05:48 Urine Culture - Preliminary Urine,Clean Catch Gram Neg Bacilli
[2021-09-22] MEDS: PIPERACILLIN-TAZOBACTAM 3.375 GM in SODIUM CHLORIDE 0.9% 100 ML IVPB SCH ×2 (10:08→15:44)
[2021-09-22] MEDS: MORPHINE SULFATE ER 15 MG TABLET PO SCH ×4 (10:09→21:00)
--- NOTE | 2021-09-22 11:14 | P.PN ---
Subjective Progress Note Date: 09/22/21 Principal diagnosis: Left rib fractures, ninth through 11th posterior, small left-sided pneumothorax. Past medical history significant for pancreatic cancer (stage IV according to her daughter) status post chemotherapy along with stent placement to her common bile duct, hypertension, hyperlipidemia, GERD, chronic pain on chronic opioids, and multiple surgeries. The patient was seen today 09/22/2021 at her bedside on the cardiac stepdown unit. Currently she is lying in bed, is awake, alert and oriented 3 and is in no acute apparent distress. She denies any complaints of shortness of breath although continues to complain of left-sided chest discomfort at the site of her rib fractures with taking deep breaths. The patient does although reports she is feeling somewhat improved today. Oxygen saturations are 98% on 2 L nasal cannula and she is achieving 750 mL on her incentive spirometry with much encouragement. Chest x-ray this morning shows no sizable pneumothorax, with a [id number] left pleural effusion with prominent adjacent left basilar atelectasis and/or consolidation per the x-ray report. Objective - Vital Signs Vital signs: Vital Signs Temp 97.5 F L 09/22/21 08:00 Pulse 102 H 09/22/21 08:00 Resp 20 09/22/21 08:00 BP 120/75 09/22/21 08:00 Pulse Ox 98 09/22/21 08:29 Intake & Output 09/21/21 09/22/21 09/22/21 18:59 06:59 18:59 Intake Total 420 118 Balance 420 118 Weight 50 kg 51.5 kg Intake: Oral 420 118 Other: Voiding Method External Catheter External Catheter # Voids 1 1 # Bowel Movements 0 - Exam CONSTITUTIONAL: Laying in bed on the cardiac stepdown unit, appears comfortable, cooperative, no apparent acute distress. HEENT: Neck is supple, no JVD, no lymphadenopathy. RESPIRATORY: Lungs sounds essentially clear throughout, diminished to his bilateral bases, left greater than right. No wheezes, rhonchi or crackles. Respirations are symmetrical and nonlabored. Currently on 2 L nasal cannula with oxygen saturations 98%. Able to achieve 750 mL on her incentive spirometry. CARDIOVASCULAR: Regular rhythm and rate. S1 and S2 present, negative for S3, gallop or murmur. No calf pain or tenderness noted. Remote telemetry showing normal sinus rhythm heart rate 91 BPM. GASTROINTESTINAL: Abdomen soft, nontender, nondistended. Active bowel sounds present 4 quadrants. Tolerating diet. Passing flatus. No guarding or rigidity. GENITOURINARY: External catheter. INTEGUMENTARY: Skin is warm and dry with no evidence of clubbing or cyanosis. NEUROLOGIC: Cranial nerves II through XII intact. No focal or motor deficits. MUSKULOSKELETAL: Able to move all extremities, strength equal bilaterally, generalized weakness. Guarding her left side, chest. PSYCHIATRIC: Alert and oriented to person place and time, appropriate affect, intact judgment and insight. - Allied health notes Allied health notes reviewed: nursing - Labs CBC & Chem 7: 09/20/21 05:48 09/20/21 05:48 Labs: Microbiology - Last 24 Hours (Table) 09/20/21 05:48 Urine Culture - Final Urine,Clean Catch Klebsiella pneumoniae - Imaging and Cardiology Chest x-ray: report reviewed, image reviewed Assessment and Plan Assessment: 1. Fall from standing, 9th through 11th posterior left-sided rib fractures, small left-sided pneumothorax adjacent to fractures 2. History of pancreatic cancer (stage IV according to her daughter) status post chemotherapy along with stent placement to her common bile duct 3. Acute on chronic pain secondary to above 4. History of hypertension 5. History of hyperlipidemia 6. GERD 7. Chronic pain on chronic opioids 8. Multiple surgeries Plan: 1. Continue to monitor daily chest x-rays. 2. Continue to encourage use of her incentive spirometry 10 times every hour while awake. 3. Pain management per current when necessary orders, managed by primary care service. 4. Medical management and other comorbidities per primary care service. 5. No surgical intervention is warranted at this time. 6. Increase activity as tolerated. Out of bed for all meals. 7. We will continue to follow the patient on an as-needed basis. Please reconsult for any further questions. Time with Patient: Less than 30
[2021-09-22] MEDS: IPRATROPIUM-ALBUTEROL 3 ML NEB INHALATION SCH ×2 (11:42→19:57)
[2021-09-22] MEDS: LEVOFLOXACIN 750 MG TAB PO SCH (12:21)
--- NOTE | 2021-09-22 14:27 | P.PN ---
Subjective Progress Note Date: 09/22/21 CHIEF COMPLAINT: Fall HISTORY OF PRESENT ILLNESS: This is a 70-year-old female with a known history of pancreatic cancer with biliary stent and had undergone chemotherapy. Patient came into the emergency room with left-sided rib pain after a fall. Patient had been using her walker at home she lost balance and fell onto a pile of boxes. Patient denies any new pain. She is still having some left sided rib pain. She denies any abdominal pain. She is sitting at bedside chair. She is on antibiotics for UTI and possible pneumonia. Chest x-ray demonstrates slight worsening small to moderate left pleural effusion with prominent adjacent left basilar atelectasis and/or consolidation. Continued trace right effusion with adjacent patchy density. Redemonstrated displaced posterior lateral left 10th rib fracture. Patient reports her pain is controlled. She is tolerating diet. She is having flatus. Denies bowel movement. Afebrile. She's on 2 L satting at 97%. Patient reports that she is using her incentive spirometer. Cardiothoracic team has signed off. PHYSICAL EXAM: VITAL SIGNS: Reviewed GENERAL: Well-developed in no acute distress. HEENT: No sclera icterus. Extraocular movements grossly intact. Moist buccal mucosa. Head is atraumatic, normocephalic. Hears conversational speech. No nasal drainage. NECK: Supple without lymphadenopathy. CHEST: Non-labored respirations and equal bilateral excursions. CARDIOVASCULAR: Palpable 2+ radial pulses. ABDOMEN: Soft. Nondistended. Nontender. MUSCULOSKELETAL: No clubbing or cyanosis. NEUROLOGIC: No focal or lateralizing signs. Cranial nerves II through XII grossly intact. PSYCH: Appropriate affect. Alert and oriented to person, place and time. SKIN: Well perfused. Good skin turgor. ASSESSMENT: 1. Fall with trauma to ribs 2. Left posterior 11th, 10th and ninth rib fractures with possible flail chest 3. Small left-sided pneumothorax secondary to rib fractures 4. History of pancreatic cancer status post chemotherapy and with placement of stent to common bile duct 5. History of chronic pain on chronic opioids 6. Hyperlipidemia 7. Hypertension 8. Possible pneumonia versus pulmonary contusion PLAN: -Continue supportive care -No surgical intervention planned -Continue pain medication as needed -Encouraged patient to use incentive spirometer -Encouraged patient to increase activity -Antibiotics per medicine service Physician Visual Manager note has been reviewed by physician. Signing provider agrees with the documented findings, assessment, and plan of care. Objective - Vital Signs Vital signs: Vital Signs Temp 97.6 F 09/22/21 11:32 Pulse 73 09/22/21 11:52 Resp 20 09/22/21 11:32 BP 126/61 09/22/21 11:32 Pulse Ox 99 09/22/21 11:32 Intake & Output 09/21/21 09/22/21 09/22/21 18:59 06:59 18:59 Intake Total 420 668 Balance 420 668 Weight 50 kg 51.5 kg Intake: Intake, IV Titration 430 Amount Sodium Chloride 0.9% 1, 380 000 ml @ 20 mls/hr IV . Q24H [facility] Rx#:[id number] cefTRIAXone 1 gm In 50 Sodium Chloride 0.9% 50 ml @ 100 mls/hr IVPB Q24HR [facility] Rx#:[id number] Oral 420 238 Other: Voiding Method External Catheter External Catheter # Voids 1 1 # Bowel Movements 0 - Labs CBC & Chem 7: 09/20/21 05:48 09/20/21 05:48 Labs: Microbiology - Last 24 Hours (Table) 09/20/21 05:48 Urine Culture - Final Urine,Clean Catch Klebsiella pneumoniae
[2021-09-22] MEDS: ATORVASTATIN 10 MG TAB PO SCH (20:59)
[2021-09-23] MEDS: METOCLOPRAMIDE 5 MG TAB PO SCH ×5 (00:04→23:00)
[2021-09-23] MEDS: PIPERACILLIN-TAZOBACTAM 3.375 GM in SODIUM CHLORIDE 0.9% 100 ML IVPB SCH ×4 (00:04→23:00)
[2021-09-23] MEDS: HYDROmorphone 1 MG/ML 1 ML SYRINGE IVP PRN ×6 (00:04→22:28)
[2021-09-23] MEDS: TEMAZEPAM 15 MG CAP PO PRN ×2 (02:30→23:00)
[2021-09-23] MEDS: ZENPEP 25000 UNIT PO SCH ×3 (06:33→17:35)
[2021-09-23] MEDS: IPRATROPIUM-ALBUTEROL 3 ML NEB INHALATION SCH ×3 (08:18→21:19)
--- NOTE | 2021-09-23 08:43 | P.PN ---
Subjective Progress Note Date: 09/23/21 HISTORY OF PRESENT ILLNESS: This is a 70-year-old female with a previous medical history significant for hypertension and hypertensive cardiovascular disease, hyperlipidemia, GERD, history of pseudocyst of the pancreas that has been complaining of significant amount of abdominal pain with a significant weight loss and chronic diarrhea she ended up getting referred to have MRCP that documented a pancreatic mass was seen in consultation by interactive developer at [facility], and she ended up having a biopsy that was positive for Pancreatic cancer status post stent placed in the common bile duct, and started on chemotherapy. She has had several admissions due to chemotherapy-induced nausea and vomiting as well as diarrhea, stabilized and discharged back home. Patient now presents status post fall at home where she lost her balance landing on boxes with complaints of left mid back pain, pain with deep inspiration, no loss of consciousness, no head injury noted. CAT scan of the chest revealed multiple posterior left side lower rib fractures with comminution and probable flail chest. There is left lower lobe posterior infiltrate and atelectasis adjacent to the pleural fluid. Tiny left-sided pneumothorax. No more thorax seen adjacent to the fractures. Soft tissue air on the left posterior lower chest wall. EKG sinus tachycardia at 190s beats per minute, no ST changes. Afebrile, blood pressure 156/81, pulse ox 94% on room air. Patient admitted to the cardiac stepdown unit under general surgery and we are following for medical management. 09/21: Patient has been seen by cardiothoracic surgery and no surgical intervention is warranted at that time. Repeat chest x-ray in 6 hours post computed tomography scan to evaluate for enlarging pneumothorax. Repeat chest x-ray reveals left lower lobe atelectasis, associated effusion. Minimal pn eumothorax seen on CT not seen with certainty on plain film. Patient states that current pain management is not holding her and she has been taking her MS Contin 4 times daily at home which was increased by her oncologist. Patient has been afebrile, heart rate 81, blood pressure 140/75, pulse ox 97% on 3 L nasal cannula. Patient is reaching 500 ML's on incentive spirometry. Urine culture is in progress. Repeat chest x-ray this morning report is pending. 09/22: She continues to have significant pain in the left chest overnight running between 6-07/30. Patient has been receiving Dilaudid 1 mg IV every 4 hours on top of her home pain medications. Urine culture is in process with gram-nega tive bacilli and patient is continued on ceftriaxone. manager export has discussed discharge planning with the patient and she is adamant that she wants to return home. [facility] care is in place and we have added in palliative care with Laura. Repeat chest x-ray reveals slight worsening small to moderate left pleural effusion with prominent adjacent left basilar atelectasis and/or consolidation. Continue trace right effusion with adjacent patchy density. Jan demonstrated displaced posterior lateral left 10th rib fracture. Patient will be started on Levaquin and Zosyn for possible pneumonia. No change in pain medications. Patient will be transferred to [facility] floor without telemetry. 09/23: Patient has been afebrile, heart rate 68, blood pressure 150/70, pulse ox 98% on 2 L. Patient is seen today sitting up in bed. She appears to be little more comfortable today. She is only reaching 500 ML's on incentive spirometry. Urine culture is positive for Klebsiella pneumoniae pansensitive. Patient is continued on Zosyn and Levaquin for possible gram-negative pneumonia. Plan is to continue IV antibiotics today and discharge home tomorrow. Patient is waiting for [facility] bed. REVIEW OF SYSTEMS: Constitutional: No documented fever, no chills, no night sweats. significant weight change and poor appetite and moderate fatigue, no lethargy. HEENT: No headache. No blurred vision or double vision, no loss of vision. No loss of Hearing, no ringing in the ears, no dizziness. No nasal drainage or congestion. No epistaxis. No sore throat. Lungs: No shortness of breath, no cough, no sputum production. No wheezing. Reports dyspnea with activity chronic. Cardiovascular: Complains of severe left-sided rib, no lower extremity edema. No palpitations. No paroxysmal nocturnal dyspnea. No orthopnea. No lightheadedness or dizziness. No syncopal episodes. Abdominal: Reports chronic abdominal pain. Denies for nausea, denies for vomiting. Denies for diarrhea. No constipation. No bloody or tarry stools reports loss of appetite. Genitourinary: No dysuria, increased frequency, urgency. No urinary retention. Musculoskeletal: No myalgias. generalized muscle weakness, no gait dysfunction, no frequent falls. No back pain. No neck pain. Integumentary: No wounds, no lesions. No rash or pruritus. Neurologic: No aphasia. No facial droop. No change in mentation. No head injury. No headache. No paralysis. No paresthesia. Psychiatric: No depression. No anxiety. Endocrine: No abnormal blood sugars. Significant weight change. PHYSICAL EXAMINATION: General: this is a 70-year-old white female cachectic appears to be in fairly comfortable. HEENT: Head is atraumatic, normocephalic, pupils were equal round reactive to light and recommendation, sclera nonicteric, conjunctivae were pale, mucous membranes of the mouth are somewhat dry. Neck: Supple, no JVP, normal carotid upstroke bilaterally, no lymphadenopathy. Chest: Decreased breath sounds at the bases, few rhonchi, no expiratory wheezes, egophony bilateral bases, left-sided chest wall tenderness, no intercostal retractions. Heart: First heart sound is normal, second heart sounds normal, there is systolic ejection murmur 2/6 located in the left sternal border. Abdomen: Soft, mild tenderness to the epigastric area, nondistended, positive bowel sounds. Extremities: There is no edema no calf tenderness DP +2 bilaterally. Neurologic examination: Patient is awake alert and oriented x3 , cranial nerves II-12 appear grossly intact, muscle power were 5 out of 5 in upper extremities and 5 out of 5 in bilateral lower extremities, deep tendon reflexes normal bilaterally. ASSESSMENT AND PLAN: 1. Fall with left sided rib fractures, possible flail chest, tiny pneumothorax. Consult added for cardiothoracic surgery appreciated. Continue Dilaudid 1 mg every 3 hours, Toradol as needed for pain. Continue incentive spirometry. 2. Possible pneumonia, gram-negative. Patient started on Levaquin and Zosyn, continue DuoNeb treatments scheduled 3 times daily. 3. Acute urinary tract infection (POA). Levaquin and Zosyn, await urine culture. 4. History of biliary/pancreatic cancer status post a stent placed in the common bile duct in January 2021 with chemotherapy currently on hold. Oncology . Patient will be resumed on fentanyl patch 25 g per hour every 72 hours, MS Contin 15 mg 3 times daily, Zenpep 13 times daily, [place] 10 one every 4 hours as needed. Continue Dilaudid 1 mg every 4 hours. 5. Hyperlipidemia. Continue Lipitor 10 mg orally once every day. 6. GERD. Continue omeprazole 40 mg orally once every day. 7. Prior history of pancreatic pseudocyst now diagnosed with pancreatic cancer. 8. Hypertension and hypertensive cardiovascular disease. Continue lisinopril 20/12.5 mg orally once every day. 9. DVT prophylaxis. Heparin 5000 units subcutaneously every 8 hours. 10. GI prophylaxis. Continue PPI . 11. Patient is full code. DISCHARGE PLAN: Home with [facility] and [facility] on Monday. Impression and plan of care have been directed as dictated by the signing physician. Alexia Gonsalves nurse practitioner acting as scribe for signing physician. Objective - Vital Signs Vital signs: Vital Signs Temp 98.0 F 09/22/21 20:00 Pulse 68 09/23/21 08:20 Resp 18 09/23/21 04:00 BP 150/70 09/23/21 04:00 Pulse Ox 98 09/23/21 04:00 Intake & Output 09/22/21 09/23/21 09/23/21 18:59 06:59 18:59 Intake Total 786 Output Total 100 Balance 786 -100 Weight 53 kg Intake: Intake, IV Titration 430 Amount Sodium Chloride 0.9% 1, 380 000 ml @ 20 mls/hr IV . Q24H [facility] Rx#:[id number] cefTRIAXone 1 gm In 50 Sodium Chloride 0.9% 50 ml @ 100 mls/hr IVPB Q24HR [facility] Rx#:[id number] Oral 356 Output: Urine 100 Other: Voiding Method External Catheter External Catheter # Voids 2 - Labs CBC & Chem 7: 09/20/21 05:48 09/20/21 05:48 Labs: Microbiology - Last 24 Hours (Table) 09/20/21 05:48 Urine Culture - Final Urine,Clean Catch Klebsiella pneumoniae
[2021-09-23] MEDS: MORPHINE SULFATE ER 15 MG TABLET PO SCH ×4 (08:56→21:05)
[2021-09-23] MEDS: LEVOFLOXACIN 750 MG TAB PO SCH (08:56)
[2021-09-23] MEDS: LORATADINE 10 MG TAB PO SCH (08:56)
[2021-09-23] MEDS: GABAPENTIN 300 MG CAP PO SCH (08:56)
[2021-09-23] MEDS: DULoxetine HCL 30 MG CAPSULE.DR PO SCH (08:56)
[2021-09-23] MEDS: PANTOPRAZOLE 40 MG TABLET PO SCH (08:56)
[2021-09-23] MEDS: HEPARIN SODIUM,PORCINE/PF 5,000 UNIT/0.5 ML SYRINGE SQ SCH ×2 (09:00→21:05)
[2021-09-23] MEDS: SODIUM CHLORIDE 0.9% 1,000 ML IV SCH (10:28)
--- NOTE | 2021-09-23 12:21 | P.PN ---
Subjective Progress Note Date: 09/23/21 CHIEF COMPLAINT: Fall HISTORY OF PRESENT ILLNESS: This is a 70-year-old female with a known history of pancreatic cancer with biliary stent and had undergone chemotherapy. Patient came into the emergency room with left-sided rib pain after a fall. Patient had been using her walker at home she lost balance and fell onto a pile of boxes. Patient denies any new pain. She is still having some left sided rib pain. She reports that her rib pain is controlled. She is sitting up in bed. She is requiring 2 L of oxygen. Cardiothoracic service has signed off. She is complaining of constipation-type pain. She is having flatus. She denies any new abdominal pain. She is on antibiotics for UTI and possible pneumonia. Afebrile PHYSICAL EXAM: VITAL SIGNS: Reviewed GENERAL: Well-developed in no acute distress. HEENT: No sclera icterus. Extraocular movements grossly intact. Moist buccal mucosa. Head is atraumatic, normocephalic. Hears conversational speech. No nasal drainage. NECK: Supple without lymphadenopathy. CHEST: Non-labored respirations and equal bilateral excursions. CARDIOVASCULAR: Palpable 2+ radial pulses. ABDOMEN: Soft. Nondistended. Nontender. MUSCULOSKELETAL: No clubbing or cyanosis. NEUROLOGIC: No focal or lateralizing signs. Cranial nerves II through XII gr ossly intact. PSYCH: Appropriate affect. Alert and oriented to person, place and time. SKIN: Well perfused. Good skin turgor. ASSESSMENT: 1. Fall with trauma to ribs 2. Left posterior 11th, 10th and ninth rib fractures with possible flail chest 3. Small left-sided pneumothorax secondary to rib fractures 4. History of pancreatic cancer status post chemotherapy and with placement of stent to common bile duct 5. History of chronic pain on chronic opioids 6. Hyperlipidemia 7. Hypertension 8. Possible pneumonia versus pulmonary contusion 9. UTI PLAN: -Continue supportive care -No surgical intervention planned -Continue pain medication as needed -Encouraged patient to use incentive spirometer -Encouraged patient to increase activity -Antibiotics per medicine service -Anticipating discharge possibly tomorrow Physician Crabber note has been reviewed by physician. Signing provider agrees with the documented findings, assessment, and plan of care. Objective - Vital Signs Vital signs: Vital Signs Temp 98.0 F 09/23/21 11:56 Pulse 83 09/23/21 11:56 Resp 18 09/23/21 11:56 BP 111/71 09/23/21 11:56 Pulse Ox 98 09/23/21 11:56 Intake & Output 09/22/21 09/23/21 09/23/21 18:59 06:59 18:59 Intake Total 786 120 Output Total 100 Balance 786 -100 120 Weight 53 kg Intake: Intake, IV Titration 430 Amount Sodium Chloride 0.9% 1, 380 000 ml @ 20 mls/hr IV . Q24H [facility] Rx#:[id number] cefTRIAXone 1 gm In 50 Sodium Chloride 0.9% 50 ml @ 100 mls/hr IVPB Q24HR [facility] Rx#:[id number] Oral 356 120 Output: Urine 100 Other: Voiding Method External Catheter External Catheter External Catheter # Voids 2 - Labs CBC & Chem 7: 09/20/21 05:48 09/20/21 05:48 Labs: Microbiology - Last 24 Hours (Table) 09/20/21 05:48 Urine Culture - Final Urine,Clean Catch Klebsiella pneumoniae
[2021-09-23 13:26] VITALS: BMI 18.3
[2021-09-23] MEDS: DOCUSATE 100 MG CAP PO SCH ×2 (14:38→21:05)
[2021-09-23] MEDS: ATORVASTATIN 10 MG TAB PO SCH (21:05)
[2021-09-24] MEDS: HYDROmorphone 1 MG/ML 1 ML SYRINGE IVP PRN ×4 (02:59→21:23)
[2021-09-24] MEDS: HYDROcodone/APAP 10-325MG 1 EACH TAB PO PRN (04:47)
[2021-09-24] MEDS: METOCLOPRAMIDE 5 MG TAB PO SCH ×3 (06:32→17:26)
[2021-09-24] MEDS: ZENPEP 25000 UNIT PO SCH ×3 (06:32→17:33)
[2021-09-24] MEDS: IPRATROPIUM-ALBUTEROL 3 ML NEB INHALATION SCH ×3 (08:15→19:52)
[2021-09-24] MEDS: PIPERACILLIN-TAZOBACTAM 3.375 GM in SODIUM CHLORIDE 0.9% 100 ML IVPB SCH ×3 (08:29→23:19)
[2021-09-24] MEDS: DULoxetine HCL 30 MG CAPSULE.DR PO SCH (08:29)
[2021-09-24] MEDS: HEPARIN SODIUM,PORCINE/PF 5,000 UNIT/0.5 ML SYRINGE SQ SCH ×2 (08:29→21:19)
[2021-09-24] MEDS: DOCUSATE 100 MG CAP PO SCH ×2 (08:29→21:18)
[2021-09-24] MEDS: PANTOPRAZOLE 40 MG TABLET PO SCH (08:30)
[2021-09-24] MEDS: MORPHINE SULFATE ER 15 MG TABLET PO SCH ×4 (08:30→23:13)
[2021-09-24] MEDS: GABAPENTIN 300 MG CAP PO SCH (08:30)
[2021-09-24] MEDS: LORATADINE 10 MG TAB PO SCH (08:30)
[2021-09-24] MEDS: LEVOFLOXACIN 750 MG TAB PO SCH (08:30)
[2021-09-24] MEDS: SODIUM CHLORIDE 0.9% 1,000 ML IV SCH (09:32)
[2021-09-24 10:12] LABS: ALT 15 U/L (4-34); AST 22 U/L (14-36); African American GFR (CKD) >90 (>60 ml/min/1.73 sqM); Albumin 2.5 g/dL (3.5-5.0); Alkaline Phosphatase 148 U/L (38-126); Anion Gap 3 mmol/L; Blood Urea Nitrogen 10 mg/dL (7-17); Calcium 8.7 mg/dL (8.4-10.2); Carbon Dioxide 30 mmol/L (22-30); Chloride 99 mmol/L (98-107); Glucose 156 mg/dL (74-99); Non-African American GFR(CKD) >90 (>60 ml/min/1.73 sqM); Potassium 4.4 mmol/L (3.5-5.1); Sodium 132 mmol/L (137-145); Total Bilirubin 0.5 mg/dL (0.2-1.3); Total Protein 4.9 g/dL (6.3-8.2)
[2021-09-24 10:18] LABS: Basophils % (A) 1 %; Eosinophils % (A) 1 %; HCT 30.6 % (34.0-46.0); Lymphocytes # (A) 0.7 k/uL (1.0-4.8); Lymphocytes % (A) 17 %; MCH 31.1 pg (25.0-35.0); MCHC 32.2 g/dL (31.0-37.0); MCV 96.8 fL (80.0-100.0); Mean Platelet Volume 8.6; Monocytes # (A) 0.2 k/uL (0-1.0); Monocytes % (A) 5 %; Neutrophils # (A) 3.2 k/uL (1.3-7.7); Neutrophils % (A) 76 %; Platelet Count 151 k/uL (150-450); RBC 3.16 m/uL (3.80-5.40); RDW 12.8 % (11.5-15.5); WBC 4.3 k/uL (3.8-10.6)
[2021-09-24 10:30] LABS: HGB 9.8 gm/dL (11.4-16.0)
--- NOTE | 2021-09-24 11:58 | P.PN ---
Subjective Progress Note Date: 09/24/21 CHIEF COMPLAINT: Fall HISTORY OF PRESENT ILLNESS: This is a 70-year-old female with a known history of pancreatic cancer with biliary stent and had undergone chemotherapy. Patient came into the emergency room with left-sided rib pain after a fall. Patient had been using her walker at home she lost balance and fell onto a pile of boxes. Patient denies any new pain. She is still having some left sided rib pain. She reports that her rib pain is controlled. She is sitting up in bed. She is off nasal cannula on room air satting at 93%. She is having flatus. She denies any new abdominal pain. She is getting about 500-1000 on incentive spirometer. She is on antibiotics for UTI and possible pneumonia. Afebrile PHYSICAL EXAM: VITAL SIGNS: Reviewed GENERAL: Well-developed in no acute distress. HEENT: No sclera icterus. Extraocular movements grossly intact. Moist buccal mucosa. Head is atraumatic, normocephalic. Hears conversational speech. No nasal drainage. NECK: Supple without lymphadenopathy. CHEST: Non-labored respirations and equal bilateral excursions. CARDIOVASCULAR: Palpable 2+ radial pulses. ABDOMEN: Soft. Nondistended. Nontender. MUSCULOSKELETAL: No clubbing or cyanosis. NEUROLOGIC: No focal or lateralizing signs. Cranial nerves II through XII grossly intact. PSYCH: Appropriate affect. Alert and oriented to person, place and time. SKIN: Well perfused. Good skin turgor. ASSESSMENT: 1. Fall with trauma to ribs 2. Left posterior 11th, 10th and ninth rib fractures with possible flail chest 3. Small left-sided pneumothorax secondary to rib fractures 4. History of pancreatic cancer status post chemotherapy and with placement of stent to common bile duct 5. History of chronic pain on chronic opioids 6. Hyperlipidemia 7. Hypertension 8. Possible pneumonia versus pulmonary contusion 9. UTI PLAN: -Continue supportive care -No surgical intervention planned -Continue pain medication as needed -Encouraged patient to use incentive spirometer -Encouraged patient to increase activity -Antibiotics per medicine service -Patient can be discharged from Trauma surgical standpoint when medically cleared Physician Veterinary Technician Assistant note has been reviewed by physician. Signing provider agrees with the documented findings, assessment, and plan of care. Objective - Vital Signs Vital signs: Vital Signs Temp 98.1 F 09/24/21 08:36 Pulse 82 09/24/21 11:44 Resp 16 09/24/21 11:44 BP 108/72 09/24/21 08:36 Pulse Ox 93 L 09/24/21 08:36 Intake & Output 09/23/21 09/24/21 09/24/21 18:59 06:59 18:59 Intake Total 840 240 Output Total 400 Balance 440 240 Weight 53 kg 70 kg Intake: Oral 840 240 Output: Urine 400 Other: Voiding Method External Catheter External Catheter External Catheter # Voids 0 1 - Labs CBC & Chem 7: 09/24/21 08:24 09/24/21 08:24 Labs: Abnormal Lab Results - Last 24 Hours (Table) 09/24/21 09/24/21 Range/Units 08:24 08:24 RBC 3.16 L (3.80-5.40) m/uL Hgb 9.8 L D (11.4-16.0) gm/dL Hct 30.6 L (34.0-46.0) % Lymphocytes # 0.7 L (1.0-4.8) k/uL Sodium 132 L (137-145) mmol/L Creatinine 0.34 L (0.52-1.04) mg/dL Glucose 156 H (74-99) mg/dL Alkaline Phosphatase 148 H (38-126) U/L Total Protein 4.9 L (6.3-8.2) g/dL Albumin 2.5 L (3.5-5.0) g/dL
--- NOTE | 2021-09-24 14:38 | P.PN ---
Subjective Progress Note Date: 09/24/21 HISTORY OF PRESENT ILLNESS: This is a 70-year-old female with a previous medical history significant for hypertension and hypertensive cardiovascular disease, hyperlipidemia, GERD, history of pseudocyst of the pancreas that has been complaining of significant amount of abdominal pain with a significant weight loss and chronic diarrhea she ended up getting referred to have MRCP that documented a pancreatic mass was seen in consultation by guard captain at [facility], and she ended up having a biopsy that was positive for Pancreatic cancer status post stent placed in the common bile duct, and started on chemotherapy. She has had several admissions due to chemotherapy-induced nausea and vomiting as well as diarrhea, stabilized and discharged back home. Patient now presents status post fall at home where she lost her balance landing on boxes with complaints of left mid back pain, pain with deep inspiration, no loss of consciousness, no head injury noted. CAT scan of the chest revealed multiple posterior left side lower rib fractures with comminution and probable flail chest. There is left lower lobe posterior infiltrate and atelectasis adjacent to the pleural fluid. Tiny left-sided pneumothorax. No more thorax seen adjacent to the fractures. Soft tissue air on the left posterior lower chest wall. EKG sinus tachycardia at 190s beats per minute, no ST changes. Afebrile, blood pressure 156/81, pulse ox 94% on room air. Patient admitted to the cardiac stepdown unit under general surgery and we are following for medical management. 09/21: Patient has been seen by cardiothoracic surgery and no surgical intervention is warranted at that time. Repeat chest x-ray in 6 hours post computed tomography scan to evaluate for enlarging pneumothorax. Repeat chest x-ray reveals left lower lobe atelectasis, associated effusion. Minimal pn eumothorax seen on CT not seen with certainty on plain film. Patient states that current pain management is not holding her and she has been taking her MS Contin 4 times daily at home which was increased by her oncologist. Patient has been afebrile, heart rate 81, blood pressure 140/75, pulse ox 97% on 3 L nasal cannula. Patient is reaching 500 ML's on incentive spirometry. Urine culture is in progress. Repeat chest x-ray this morning report is pending. 09/22: She continues to have significant pain in the left chest overnight running between 6-07/30. Patient has been receiving Dilaudid 1 mg IV every 4 hours on top of her home pain medications. Urine culture is in process with gram-nega tive bacilli and patient is continued on ceftriaxone. manager law has discussed discharge planning with the patient and she is adamant that she wants to return home. [facility] care is in place and we have added in palliative care with Laura. Repeat chest x-ray reveals slight worsening small to moderate left pleural effusion with prominent adjacent left basilar atelectasis and/or consolidation. Continue trace right effusion with adjacent patchy density. Jan demonstrated displaced posterior lateral left 10th rib fracture. Patient will be started on Levaquin and Zosyn for possible pneumonia. No change in pain medications. Patient will be transferred to [facility] floor without telemetry. 09/23: Patient has been afebrile, heart rate 68, blood pressure 150/70, pulse ox 98% on 2 L. Patient is seen today sitting up in bed. She appears to be little more comfortable today. She is only reaching 500 ML's on incentive spirometry. Urine culture is positive for Klebsiella pneumoniae pansensitive. Patient is continued on Zosyn and Levaquin for possible gram-negative pneumonia. Plan is to continue IV antibiotics today and discharge home tomorrow. Patient is waiting for [facility] bed. 09/24: Patient remains afebrile, heart rate 82, blood pressure 135/75, pulse ox 92% on room air. athletic monitor sinus rhythm. Pain is running anywhere from 2-8/10. Repeat blood work reveals WBC 4.3, hemoglobin 9.8, platelet count 151. Sodium 132 otherwise elect lites are normal, creatinine 0.34. Blood sugar 156. Alkaline phosphatase 148. Albumin 2.5. Patient states that she does not think she is ready to go home. She states she has not been out of her bed the patient has been seen by PT and OT. Patient states that she is too weak to go home but is refusing to go to rehab. She states that her daughters will be rotating will be staying with her at home. manager law has been updated and will discuss plan with her. Plan to monitor patient overnight and probable discharge tomorr ow REVIEW OF SYSTEMS: Constitutional: No documented fever, no chills, no night sweats. significant weight change and poor appetite and moderate fatigue, no lethargy. HEENT: No headache. No blurred vision or double vision, no loss of vision. No loss of Hearing, no ringing in the ears, no dizziness. No nasal drainage or congestion. No epistaxis. No sore throat. Lungs: No shortness of breath, no cough, no sputum production. No wheezing. Reports dyspnea with activity chronic. Cardiovascular: Complains of severe left-sided rib, no lower extremity edema. No palpitations. No paroxysmal nocturnal dyspnea. No orthopnea. No lightheadedness or dizziness. No syncopal episodes. Abdominal: Reports chronic abdominal pain. Denies for nausea, denies for vomiting. Denies for diarrhea. No constipation. No bloody or tarry stools reports loss of appetite. Genitourinary: No dysuria, increased frequency, urgency. No urinary retention. Musculoskeletal: No myalgias. generalized muscle weakness, no gait dysfunction, no frequent falls. No back pain. No neck pain. Integumentary: No wounds, no lesions. No rash or pruritus. Neurologic: No aphasia. No facial droop. No change in mentation. No head injury. No headache. No paralysis. No paresthesia. Psychiatric: No depression. No anxiety. Endocrine: No abnormal blood sugars. Significant weight change with significant malnutrition. PHYSICAL EXAMINATION: General: this is a 70-year-old white female cachectic appears to be in comfortable. HEENT: Head is atraumatic, normocephalic, pupils were equal round reactive to light and recommendation, sclera nonicteric, conjunctivae were pale, mucous membranes of the mouth are somewhat dry. Neck: Supple, no JVP, normal carotid upstroke bilaterally, no lymphadenopathy. Chest: Decreased breath sounds at the bases, few rhonchi, no expiratory wheezes, egophony bilateral bases, left-sided chest wall tenderness, no intercostal retractions. Heart: First heart sound is normal, second heart sounds normal, there is systolic ejection murmur 2/6 located in the left sternal border. Abdomen: Soft, mild tenderness to the epigastric area, nondistended, positive bowel sounds. Extremities: There is no edema no calf tenderness DP +2 bilaterally. Neurologic examination: Patient is awake alert and oriented x3 , cranial nerves II-12 appear grossly intact, muscle power were 5 out of 5 in upper extremities and 5 out of 5 in bilateral lower extremities, deep tendon reflexes normal bilaterally. ASSESSMENT AND PLAN: 1. Fall with left sided rib fractures, possible flail chest, tiny pneumothorax. Consult with cardiothoracic surgery appreciated. Continue Dilaudid 1 mg every 3 hours. Continue incentive spirometry. 2. Possible pneumonia, gram-negative. Patient started on Levaquin and Zosyn, continue DuoNeb treatments scheduled 3 times daily. 3. Acute urinary tract infection (POA). Levaquin and Zosyn, await urine culture. 4. History of biliary/pancreatic cancer status post a stent placed in the common bile duct in January 2021 with chemotherapy currently on hold. Oncology . Patient will be resumed on fentanyl patch 25 g per hour every 72 hours, MS Contin 15 mg 3 times daily, Zenpep 13 times daily, [place] 10 one every 4 hours as needed. Continue Dilaudid 1 mg every 4 hours. 5. Hyperlipidemia. Continue Lipitor 10 mg orally once every day. 6. GERD. Continue omeprazole 40 mg orally once every day. 7. Prior history of pancreatic pseudocyst now diagnosed with pancreatic cancer. 8. Hypertension and hypertensive cardiovascular disease. Continue lisinopril 20/12.5 mg orally once every day. 9. Severe protein calorie malnutrition with significant weight loss. Continue supplements, regular diet. 10. DVT prophylaxis. Heparin 5000 units subcutaneously every 8 hours. 11. GI prophylaxis. Continue PPI . 12. Patient is full code. DISCHARGE PLAN: Home with [facility] and [facility] Palliative care on Monday. Impression and plan of care have been directed as dictated by the signing physician. Alexia Gonsalves nurse practitioner acting as scribe for signing physician. Objective - Vital Signs Vital signs: Vital Signs Temp 97.8 F 09/24/21 12:39 Pulse 100 09/24/21 12:39 Resp 18 09/24/21 13:26 BP 108/56 09/24/21 12:39 Pulse Ox 94 L 09/24/21 12:39 Intake & Output 09/23/21 09/24/21 09/24/21 18:59 06:59 18:59 Intake Total 840 360 Output Total 400 Balance 440 360 Weight 53 kg 70 kg Intake: Oral 840 360 Output: Urine 400 Other: Voiding Method External Catheter External Catheter External Catheter # Voids 0 1 - Labs CBC & Chem 7: 09/24/21 08:24 09/24/21 08:24 Labs: Abnormal Lab Results - Last 24 Hours (Table) 09/24/21 09/24/21 Range/Units 08:24 08:24 RBC 3.16 L (3.80-5.40) m/uL Hgb 9.8 L D (11.4-16.0) gm/dL Hct 30.6 L (34.0-46.0) % Lymphocytes # 0.7 L (1.0-4.8) k/uL Sodium 132 L (137-145) mmol/L Creatinine 0.34 L (0.52-1.04) mg/dL Glucose 156 H (74-99) mg/dL Alkaline Phosphatase 148 H (38-126) U/L Total Protein 4.9 L (6.3-8.2) g/dL Albumin 2.5 L (3.5-5.0) g/dL
[2021-09-24] MEDS ORDERED: bisacodyL 10 MG SUPP RECTAL STA (19:10)
[2021-09-24] MEDS: ATORVASTATIN 10 MG TAB PO SCH (21:18)
[2021-09-24] MEDS: LACTULOSE 20 GM/30 ML CUP PO SCH (21:19)
[2021-09-24] MEDS: TEMAZEPAM 15 MG CAP PO PRN (23:17)
[2021-09-25] MEDS: METOCLOPRAMIDE 5 MG TAB PO SCH ×5 (00:31→23:32)
[2021-09-25] MEDS: HYDROmorphone 1 MG/ML 1 ML SYRINGE IVP PRN ×6 (02:26→20:55)
[2021-09-25] MEDS: MORPHINE SULFATE ER 15 MG TABLET PO SCH ×4 (08:05→22:25)
[2021-09-25] MEDS: PIPERACILLIN-TAZOBACTAM 3.375 GM in SODIUM CHLORIDE 0.9% 100 ML IVPB SCH ×3 (08:06→23:32)
[2021-09-25] MEDS: LORATADINE 10 MG TAB PO SCH (08:06)
[2021-09-25] MEDS: GABAPENTIN 300 MG CAP PO SCH (08:06)
[2021-09-25] MEDS: DOCUSATE 100 MG CAP PO SCH ×2 (08:06→20:54)
[2021-09-25] MEDS: PANTOPRAZOLE 40 MG TABLET PO SCH (08:06)
[2021-09-25] MEDS: LACTULOSE 20 GM/30 ML CUP PO SCH ×2 (08:06→20:54)
[2021-09-25] MEDS: HEPARIN SODIUM,PORCINE/PF 5,000 UNIT/0.5 ML SYRINGE SQ SCH ×2 (08:06→20:54)
[2021-09-25] MEDS: ZENPEP 25000 UNIT PO SCH ×3 (08:07→17:12)
[2021-09-25] MEDS: SODIUM CHLORIDE 0.9% 1,000 ML IV SCH (08:08)
[2021-09-25] MEDS: DULoxetine HCL 30 MG CAPSULE.DR PO SCH (08:45)
[2021-09-25] MEDS: LEVOFLOXACIN 750 MG TAB PO SCH (08:45)
[2021-09-25] MEDS: IPRATROPIUM-ALBUTEROL 3 ML NEB INHALATION SCH ×3 (08:57→19:48)
--- NOTE | 2021-09-25 10:49 | P.PN ---
Subjective Progress Note Date: 09/25/21 Progress Note Date: 09/25/21 HISTORY OF PRESENT ILLNESS: This is a 70-year-old female with a previous medical history significant for hypertension and hypertensive cardiovascular disease, hyperlipidemia, GERD, history of pseudocyst of the pancreas that has been complaining of significant amount of abdominal pain with a significant weight loss and chronic diarrhea she ended up getting referred to have MRCP that documented a pancreatic mass was seen in consultation by sole skiver at [facility], and she ended up having a biopsy that was positive for Pancreatic cancer status post stent placed in the common bile duct, and started on chemotherapy. She has had several admissions due to chemotherapy-induced nausea and vomiting as well as diarrhea, stabilized and discharged back home. Patient now presents status post fall at home where she lost her balance landing on boxes with complaints of left mid back pain, pain with deep inspiration, no loss of consciousness, no head injury noted. CAT scan of the chest revealed multiple posterior left side lower rib fractures with comminution and probable flail chest. There is left lower lobe posterior infiltrate and atelectasis adjacent to the pleural fluid. Tiny left-sided pneumothorax. No more thorax seen adjacent to the fractures. Soft tissue air on the left posterior lower chest wall. EKG sinus tachycardia at 190s beats per minute, no ST changes. Afebrile, blood pressure 156/81, pulse ox 94% on room air. Patient admitted to the cardiac stepdown unit under general surgery and we are following for medical management. 09/21: Patient has been seen by cardiothoracic surgery and no surgical intervention is warranted at that time. Repeat chest x-ray in 6 hours post computed tomography scan to evaluate for enlarging pneumothorax. Repeat chest x-ray reveals left lower lobe atelectasis, associated effusion. Minimal pneumothorax seen on CT not seen with certainty on plain film. Patient states that current pain management is not holding her and she has been taking her MS Contin 4 times daily at home which was increased by her oncologist. Patient has been afebrile, heart rate 81, blood pressure 140/75, pulse ox 97% on 3 L nasal cannula. Patient is reaching 500 ML's on incentive spirometry. Urine culture is in progress. Repeat chest x-ray this morning report is pending. 09/22: She continues to have significant pain in the left chest overnight running between 6-07/30. Patient has been receiving Dilaudid 1 mg IV every 4 hours on top of her home pain medications. Urine culture is in process with gram- negative bacilli and patient is continued on ceftriaxone. manager sales training has discussed discharge planning with the patient and she is adamant that she wants to return home. [facility] care is in place and we have added in palliative care with Laura. Repeat chest x-ray reveals slight worsening small to moderate left pleural effusion with prominent adjacent left basilar atelectasis and/or consolidation. Continue trace right effusion with adjacent patchy density. Jan demonstrated displaced posterior lateral left 10th rib fracture. Patient will be started on Levaquin and Zosyn for possible pneumonia. No change in pain medications. Patient will be transferred to [facility] floor without telemetry. 09/23: Patient has been afebrile, heart rate 68, blood pressure 150/70, pulse ox 98% on 2 L. Patient is seen today sitting up in bed. She appears to be little more comfortable today. She is only reaching 500 ML's on incentive spirometry. Urine culture is positive for Klebsiella pneumoniae pansensitive. Patient is continued on Zosyn and Levaquin for possible gram-negative pneumonia. Plan is to continue IV antibiotics today and discharge home tomorrow. Patient is waiting for [facility] bed. 09/24: Patient remains afebrile, heart rate 82, blood pressure 135/75, pulse ox 92% on room air. pocket cutter sinus rhythm. Pain is running anywhere from 2-8/10. Repeat blood work reveals WBC 4.3, hemoglobin 9.8, platelet count 151. Sodium 132 otherwise elect lites are normal, creatinine 0.34. Blood sugar 156. Alkaline phosphatase 148. Albumin 2.5. Patient states that she does not think she is ready to go home. She states she has not been out of her bed the patient has been seen by PT and OT. Patient states that she is too weak to go home but is refusing to go to rehab. She states that her daughters will be rotating will be staying with her at home. manager sales training has been updated and will discuss plan with her. Plan to monitor patient overnight and probable discharge tomorrow 09/25: Patient sitting up in the recliner she continues to be extremely weak, she is feeding a bit better today, she has not had a bowel movement in the last 5 days, we'll add Dulcolax suppository 10 mg as well as lactulose 20 g orally twice every day, continue with Senokot as well, if no results we will do a rectal enema, patient Lantus in the hospital over the next day or so and when to transition the patient home with palliative care. REVIEW OF SYSTEMS: Constitutional: No documented fever, no chills, no night sweats. significant weight change and poor appetite and moderate fatigue, no lethargy. HEENT: No headache. No blurred vision or double vision, no loss of vision. No loss of Hearing, no ringing in the ears, no dizziness. No nasal drainage or congestion. No epistaxis. No sore throat. Lungs: No shortness of breath, no cough, no sputum production. No wheezing. Reports dyspnea with activity chronic. Cardiovascular: Complains of severe left-sided rib, no lower extremity edema. No palpitations. No paroxysmal nocturnal dyspnea. No orthopnea. No lightheadedness or dizziness. No syncopal episodes. Abdominal: Reports chronic abdominal pain. Denies for nausea, denies for vomiting. Denies for diarrhea. No constipation. No bloody or tarry stools reports loss of appetite. Genitourinary: No dysuria, increased frequency, urgency. No urinary retention. Musculoskeletal: No myalgias. generalized muscle weakness, no gait dysfunction, no frequent falls. No back pain. No neck pain. Integumentary: No wounds, no lesions. No rash or pruritus. Neurologic: No aphasia. No facial droop. No change in mentation. No head injury. No headache. No paralysis. No paresthesia. Psychiatric: No depression. No anxiety. Endocrine: No abnormal blood sugars. Significant weight change with significant malnutrition. PHYSICAL EXAMINATION: General: this is a 70-year-old white female cachectic appears to be in comfortable. HEENT: Head is atraumatic, normocephalic, pupils were equal round reactive to light and recommendation, sclera nonicteric, conjunctivae were pale, mucous membranes of the mouth are somewhat dry. Neck: Supple, no JVP, normal carotid upstroke bilaterally, no lymphadenopathy. Chest: Decreased breath sounds at the bases, few rhonchi, no expiratory wheezes, egophony bilateral bases, left-sided chest wall tenderness, no intercostal retractions. Heart: First heart sound is normal, second heart sounds normal, there is systolic ejection murmur 2/6 located in the left sternal border. Abdomen: Soft, mild tenderness to the epigastric area, nondistended, positive bowel sounds. Extremities: There is no edema no calf tenderness DP +2 bilaterally. Neurologic examination: Patient is awake alert and oriented x3 , cranial nerves II-12 appear grossly intact, muscle power were 5 out of 5 in upper extremities and 5 out of 5 in bilateral lower extremities, deep tendon reflexes normal bilaterally. ASSESSMENT AND PLAN: 1. Fall with left sided rib fractures, possible flail chest, tiny pneumothorax. Consult with cardiothoracic surgery appreciated. Continue Dilaudid 1 mg every 3 hours. Continue incentive spirometry. 2. gram-negative pneumoniat is on Levaquin and Zosyn, continue DuoNeb treatments scheduled 3 times daily. 3. Acute urinary tract infection (POA). Levaquin and Zosyn, Urine cultures positive for Klebsiella pneumoniae that is sensitive to Zosyn. 4. History of biliary/pancreatic cancer status post a stent placed in the common bile duct in January 2021 with chemotherapy currently on hold. Oncology . Patient will be resumed on fentanyl patch 25 g per hour every 72 hours, MS Contin 15 mg 3 times daily, Zenpep 13 times daily, [place] 10 one every 4 hours as needed. Continue Dilaudid 1 mg every 4 hours. 5. Hyperlipidemia. Continue Lipitor 10 mg orally once every day. 6. GERD. Continue omeprazole 40 mg orally once every day. 7. Prior history of pancreatic pseudocyst now diagnosed with pancreatic cancer. 8. Hypertension and hypertensive cardiovascular disease. Continue lisinopril 20/12.5 mg orally once every day. 9. Severe protein calorie malnutrition with significant weight loss. Continue supplements, regular diet. 10. DVT prophylaxis. Heparin 5000 units subcutaneously every 8 hours. 11. GI prophylaxis. Continue PPI . 12. Home in 1-2 days 13. No code Objective - Vital Signs Vital signs: Vital Signs Temp 97.7 F 09/25/21 08:00 Pulse 84 09/25/21 09:06 Resp 17 09/25/21 08:00 BP 137/72 09/25/21 08:00 Pulse Ox 91 L 09/25/21 08:00 Intake & Output 09/24/21 09/25/21 09/25/21 18:59 06:59 18:59 Intake Total 840 660 118 Output Total 600 Balance 840 660 -482 Intake: Intake, IV Titration 180 Amount Piperacillin-Tazobactam 3 100 .375 gm In Sodium Chloride 0.9% 100 ml @ 25 mls/hr IVPB Q8HR [facility] Rx# :[id number] Sodium Chloride 0.9% 1, 80 000 ml @ 20 mls/hr IV . Q24H [facility] Rx#:[id number] Oral 840 480 118 Output: Urine 600 Other: Voiding Method External Catheter External Catheter External Catheter # Voids 1 2 1 # Bowel Movements 1 - Labs CBC & Chem 7: 09/24/21 08:24 09/24/21 08:24 Labs: Abnormal Lab Results - Last 24 Hours (Table) 09/24/21 09/24/21 Range/Units 08:24 08:24 RBC 3.16 L (3.80-5.40) m/uL Hgb 9.8 L D (11.4-16.0) gm/dL Hct 30.6 L (34.0-46.0) % Lymphocytes # 0.7 L (1.0-4.8) k/uL Sodium 132 L (137-145) mmol/L Creatinine 0.34 L (0.52-1.04) mg/dL Glucose 156 H (74-99) mg/dL Alkaline Phosphatase 148 H (38-126) U/L Total Protein 4.9 L (6.3-8.2) g/dL Albumin 2.5 L (3.5-5.0) g/dL
[2021-09-25 11:48] LABS: Basophils # (A) 0.03 X 10*3/uL (0.00-0.10); Basophils % (A) 0.5 %; Eosinophils # (A) 0.17 X 10*3/uL (0.04-0.35); Eosinophils % (A) 2.8 %; HCT 31.4 % (37.2-46.3); HGB 9.7 g/dL (12.0-15.0); Lymphocytes # (A) 1.04 X 10*3/uL (0.90-5.00); Lymphocytes % (A) 17.4 %; MCH 29.9 pg (27.0-32.0); MCHC 30.9 g/dL (32.0-37.0); MCV 96.9 fL (80.0-97.0); Mean Platelet Volume 10.6 fL (9.5-12.2); Monocytes # (A) 0.46 X 10*3/uL (0.20-1.00); Monocytes % (A) 7.7 %; Neutrophils # (A) 4.26 X 10*3/uL (1.80-7.70); Neutrophils % (A) 71.3 %; Platelet Count 191 X 10*3/uL (140-440); RBC 3.24 X 10*6/uL (4.10-5.20); RDW 12.8 % (11.5-14.5); WBC 5.98 X 10*3/uL (4.50-10.00)
[2021-09-25 13:37] LABS: African American GFR (CKD) 135.4 (60.0-200.0); Albumin 2.9 g/dL (3.8-4.9); Albumin/Globulin Ratio 1.38 (1.60-3.17); Anion Gap 11.2 mmol/L (4.00-12.00); Blood Urea Nitrogen 7.5 mg/dL (9.0-27.0); Calcium 8.7 mg/dL (8.7-10.3); Carbon Dioxide 24.8 mmol/L (21.6-31.8); Globulin 2.1 g/dL (1.6-3.3); Non-African American GFR(CKD) 116.8 (60.0-200.0); Potassium 4.3 mmol/L (3.5-5.5); Total Bilirubin 0.5 mg/dL (0.30-1.20)
[2021-09-25] MEDS: HYDROcodone/APAP 10-325MG 1 EACH TAB PO PRN (17:27)
[2021-09-25] MEDS: ATORVASTATIN 10 MG TAB PO SCH (20:54)
[2021-09-25] MEDS: TEMAZEPAM 15 MG CAP PO PRN (22:25)
[2021-09-26] MEDS: HYDROmorphone 1 MG/ML 1 ML SYRINGE IVP PRN ×7 (01:46→20:40)
[2021-09-26] MEDS: METOCLOPRAMIDE 5 MG TAB PO SCH ×3 (05:13→17:32)
[2021-09-26] MEDS: IPRATROPIUM-ALBUTEROL 3 ML NEB INHALATION SCH ×3 (07:51→19:38)
[2021-09-26] MEDS: LEVOFLOXACIN 750 MG TAB PO SCH (08:21)
[2021-09-26] MEDS: DOCUSATE 100 MG CAP PO SCH ×2 (08:21→20:39)
[2021-09-26] MEDS: LACTULOSE 20 GM/30 ML CUP PO SCH ×2 (08:21→20:40)
[2021-09-26] MEDS: PIPERACILLIN-TAZOBACTAM 3.375 GM in SODIUM CHLORIDE 0.9% 100 ML IVPB SCH (08:21)
[2021-09-26] MEDS: DULoxetine HCL 30 MG CAPSULE.DR PO SCH (08:21)
[2021-09-26] MEDS: LORATADINE 10 MG TAB PO SCH (08:21)
[2021-09-26] MEDS: HEPARIN SODIUM,PORCINE/PF 5,000 UNIT/0.5 ML SYRINGE SQ SCH ×2 (08:21→20:40)
[2021-09-26] MEDS: PANTOPRAZOLE 40 MG TABLET PO SCH (08:21)
[2021-09-26] MEDS: GABAPENTIN 300 MG CAP PO SCH (08:21)
[2021-09-26] MEDS: MORPHINE SULFATE ER 15 MG TABLET PO SCH ×4 (08:22→22:05)
[2021-09-26] MEDS: SODIUM CHLORIDE 0.9% 1,000 ML IV SCH (08:23)
[2021-09-26] MEDS: ZENPEP 25000 UNIT PO SCH ×3 (08:23→17:26)
--- NOTE | 2021-09-26 11:06 | P.PN ---
Subjective Progress Note Date: 09/26/21 Progress Note Date: 09/25/21 HISTORY OF PRESENT ILLNESS: This is a 70-year-old female with a previous medical history significant for hypertension and hypertensive cardiovascular disease, hyperlipidemia, GERD, history of pseudocyst of the pancreas that has been complaining of significant amount of abdominal pain with a significant weight loss and chronic diarrhea she ended up getting referred to have MRCP that documented a pancreatic mass was seen in consultation by insurance sales executive at [facility], and she ended up having a biopsy that was positive for Pancreatic cancer status post stent placed in the common bile duct, and started on chemotherapy. She has had several admissions due to chemotherapy-induced nausea and vomiting as well as diarrhea, stabilized and discharged back home. Patient now presents status post fall at home where she lost her balance landing on boxes with complaints of left mid back pain, pain with deep inspiration, no loss of consciousness, no head injury noted. CAT scan of the chest revealed multiple posterior left side lower rib fractures with comminution and probable flail chest. There is left lower lobe posterior infiltrate and atelectasis adjacent to the pleural fluid. Tiny left-sided pneumothorax. No more thorax seen adjacent to the fractures. Soft tissue air on the left posterior lower chest wall. EKG sinus tachycardia at 190s beats per minute, no ST changes. Afebrile, blood pressure 156/81, pulse ox 94% on room air. Patient admitted to the cardiac stepdown unit under general surgery and we are following for medical management. 09/21: Patient has been seen by cardiothoracic surgery and no surgical intervention is warranted at that time. Repeat chest x-ray in 6 hours post computed tomography scan to evaluate for enlarging pneumothorax. Repeat chest x-ray reveals left lower lobe atelectasis, associated effusion. Minimal pneumothorax seen on CT not seen with certainty on plain film. Patient states that current pain management is not holding her and she has been taking her MS Contin 4 times daily at home which was increased by her oncologist. Patient has been afebrile, heart rate 81, blood pressure 140/75, pulse ox 97% on 3 L nasal cannula. Patient is reaching 500 ML's on incentive spirometry. Urine culture is in progress. Repeat chest x-ray this morning report is pending. 09/22: She continues to have significant pain in the left chest overnight running between 6-07/30. Patient has been receiving Dilaudid 1 mg IV every 4 hours on top of her home pain medications. Urine culture is in process with gram- negative bacilli and patient is continued on ceftriaxone. assistant distribution manager has discussed discharge planning with the patient and she is adamant that she wants to return home. [facility] care is in place and we have added in palliative care with Laura. Repeat chest x-ray reveals slight worsening small to moderate left pleural effusion with prominent adjacent left basilar atelectasis and/or consolidation. Continue trace right effusion with adjacent patchy density. Jan demonstrated displaced posterior lateral left 10th rib fracture. Patient will be started on Levaquin and Zosyn for possible pneumonia. No change in pain medications. Patient will be transferred to [facility] floor without telemetry. 09/23: Patient has been afebrile, heart rate 68, blood pressure 150/70, pulse ox 98% on 2 L. Patient is seen today sitting up in bed. She appears to be little more comfortable today. She is only reaching 500 ML's on incentive spirometry. Urine culture is positive for Klebsiella pneumoniae pansensitive. Patient is continued on Zosyn and Levaquin for possible gram-negative pneumonia. Plan is to continue IV antibiotics today and discharge home tomorrow. Patient is waiting for [facility] bed. 09/24: Patient remains afebrile, heart rate 82, blood pressure 135/75, pulse ox 92% on room air. steeping press tender sinus rhythm. Pain is running anywhere from 2-8/10. Repeat blood work reveals WBC 4.3, hemoglobin 9.8, platelet count 151. Sodium 132 otherwise elect lites are normal, creatinine 0.34. Blood sugar 156. Alkaline phosphatase 148. Albumin 2.5. Patient states that she does not think she is ready to go home. She states she has not been out of her bed the patient has been seen by PT and OT. Patient states that she is too weak to go home but is refusing to go to rehab. She states that her daughters will be rotating will be staying with her at home. assistant distribution manager has been updated and will discuss plan with her. Plan to monitor patient overnight and probable discharge tomorrow 09/25: Patient sitting up in the recliner she continues to be extremely weak, she is feeding a bit better today, she has not had a bowel movement in the last 5 days, we'll add Dulcolax suppository 10 mg as well as lactulose 20 g orally twice every day, continue with Senokot as well, if no results we will do a rectal enema, patient Lantus in the hospital over the next day or so and when to transition the patient home with palliative care. 09/26: Patient is feeling a bit better she continues to be generally weak, I had a long conversation with the patient with her CODE STATUS and she decided not to go for any resuscitation at this point in time, she probably will need to be transitioned to palliative care by tomorrow morning, we will switch her to oral Augmentin 875 mg orally twice every day discontinue Zosyn today, and we will follow-up with the patient in the next 24 hours patient would likely be okay to be discharged home tomorrow with palliative care. REVIEW OF SYSTEMS: Constitutional: No documented fever, no chills, no night sweats. significant weight change and poor appetite and moderate fatigue, no lethargy. HEENT: No headache. No blurred vision or double vision, no loss of vision. No loss of Hearing, no ringing in the ears, no dizziness. No nasal drainage or congestion. No epistaxis. No sore throat. Lungs: No shortness of breath, no cough, no sputum production. No wheezing. Reports dyspnea with activity chronic. Cardiovascular: Complains of mild left-sided rib pain , no lower extremity edema. No palpitations. No paroxysmal nocturnal dyspnea. No orthopnea. No lightheadedness or dizziness. No syncopal episodes. Abdominal: Reports chronic abdominal pain. positive for nausea, denies vomiting. Denies for diarrhea. positive for constipation. No bloody or tarry stools reports loss of appetite. Genitourinary: No dysuria, increased frequency, urgency. No urinary retention. Musculoskeletal: No myalgias. generalized muscle weakness, positive for gait dysfunction, no frequent falls. No back pain. No neck pain. Integumentary: No wounds, no lesions. No rash or pruritus. Neurologic: No aphasia. No facial droop. No change in mentation. No head injury. No headache. No paralysis. No paresthesia. Psychiatric: No depression. No anxiety. Endocrine: No abnormal blood sugars. Significant weight change with significant malnutrition. PHYSICAL EXAMINATION: General: this is a 70-year-old white female cachectic appears to be in comf ortable. HEENT: Head is atraumatic, normocephalic, pupils were equal round reactive to light and recommendation, sclera nonicteric, conjunctivae were pale, mucous membranes of the mouth are somewhat dry. Neck: Supple, no JVP, normal carotid upstroke bilaterally, no lymphadenopathy. Chest: Decreased breath sounds at the bases, few rhonchi, no expiratory wheezes, egophony bilateral bases, left-sided chest wall tenderness, no intercostal retractions. Heart: First heart sound is normal, second heart sounds normal, there is systolic ejection murmur 2/6 located in the left sternal border. Abdomen: Soft, mild tenderness to the epigastric area, nondistended, positive bowel sounds. Extremities: There is no edema no calf tenderness DP +2 bilaterally. Neurologic examination: Patient is awake alert and oriented x3 , cranial nerves II-12 appear grossly intact, muscle power were 5 out of 5 in upper extremities and 5 out of 5 in bilateral lower extremities, deep tendon reflexes normal bilaterally. ASSESSMENT AND PLAN: 1. Fall with left sided rib fractures, possible flail chest, tiny pneumothorax. Consult with cardiothoracic surgery appreciated. Continue Dilaudid 1 mg every 3 hours. Continue incentive spirometry. 2. Gram negative Pneumonia. Discontinue Zosyn and start the patient on Augmentin 875 mg orally twice every day continue nebulized treatment. 3. Klebsiella pneumoniae urinary tract infection. Discontinue Zosyn start the patient on Augmentin 875 mg orally twice every day for the next 7 days. 4. History of biliary/pancreatic cancer status post a stent placed in the common bile duct in January 2021 with chemotherapy currently on hold. Oncology . Patient will be resumed on fentanyl patch 25 g per hour every 72 hours, MS Contin 15 mg 3 times daily, Zenpep 13 times daily, [place] 10 one every 4 hours as needed. Continue Dilaudid 1 mg every 4 hours. 5. Hyperlipidemia. Continue Lipitor 10 mg orally once every day. 6. GERD. Continue omeprazole 40 mg orally once every day. 7. Prior history of pancreatic pseudocyst now diagnosed with pancreatic cancer. 8. Hypertension and hypertensive cardiovascular disease. Continue lisinopril 20/12.5 mg orally once every day. 9. Severe protein calorie malnutrition with significant weight loss. Continue supplements, regular diet. 10. DVT prophylaxis. Heparin 5000 units subcutaneously every 8 hours. 11. GI prophylaxis. Continue PPI . 12. Home in a.m. with palliative care 13. No code Objective - Vital Signs Vital signs: Vital Signs Temp 97.7 F 09/26/21 07:43 Pulse 88 09/26/21 08:02 Resp 19 09/26/21 07:43 BP 152/80 09/26/21 07:43 Pulse Ox 91 L 09/26/21 07:43 Intake & Output 09/25/21 09/26/21 09/26/21 19:59 06:59 18:59 Intake Total Output Total Balance Intake: Oral Output: Urine Emesis Other: Voiding Method External Catheter # Voids # Bowel Movements - Labs CBC & Chem 7: 09/25/21 07:48 09/25/21 07:48 Labs: Abnormal Lab Results - Last 24 Hours (Table) 09/25/21 09/25/21 Range/Units 07:48 07:48 RBC 3.24 L (4.10-5.20) X 10*6/uL Hgb 9.7 L (12.0-15.0) g/dL Hct 31.4 L (37.2-46.3) % MCHC 30.9 L (32.0-37.0) g/dL BUN 7.5 L (9.0-27.0) mg/dL Creatinine 0.3 L (0.6-1.5) mg/dL BUN/Creatinine Ratio 25.00 H (12.00-20.00) Ratio Glucose 113 H (70-110) mg/dL Alkaline Phosphatase 179 H (41-126) U/L Total Protein 5.0 L (6.2-8.2) g/dL Albumin 2.9 L (3.8-4.9) g/dL Albumin/Globulin Ratio 1.38 L (1.60-3.17) g/dL
[2021-09-26] MEDS: HYDROcodone/APAP 10-325MG 1 EACH TAB PO PRN (14:20)
[2021-09-26 19:43] VITALS: RESP 16
[2021-09-26] MEDS: AMOXIC-POT CLAV 875-125MG 1 EACH TAB PO SCH (20:39)
[2021-09-26] MEDS: ATORVASTATIN 10 MG TAB PO SCH (20:39)
[2021-09-26] MEDS: TEMAZEPAM 15 MG CAP PO PRN (22:07)
[2021-09-27] MEDS: METOCLOPRAMIDE 5 MG TAB PO SCH ×3 (01:11→12:08)
[2021-09-27] MEDS: HYDROmorphone 1 MG/ML 1 ML SYRINGE IVP PRN ×4 (01:11→12:08)
[2021-09-27] MEDS: IPRATROPIUM-ALBUTEROL 3 ML NEB INHALATION SCH ×2 (08:24→12:16)
[2021-09-27] MEDS: DOCUSATE 100 MG CAP PO SCH (08:35)
[2021-09-27] MEDS: PANTOPRAZOLE 40 MG TABLET PO SCH (08:35)
[2021-09-27] MEDS: DULoxetine HCL 30 MG CAPSULE.DR PO SCH (08:35)
[2021-09-27] MEDS: AMOXIC-POT CLAV 875-125MG 1 EACH TAB PO SCH (08:35)
[2021-09-27] MEDS: LEVOFLOXACIN 750 MG TAB PO SCH (08:35)
[2021-09-27] MEDS: GABAPENTIN 300 MG CAP PO SCH (08:35)
[2021-09-27] MEDS: MORPHINE SULFATE ER 15 MG TABLET PO SCH ×2 (08:35→12:08)
[2021-09-27] MEDS: LORATADINE 10 MG TAB PO SCH (08:35)
[2021-09-27] MEDS: HEPARIN SODIUM,PORCINE/PF 5,000 UNIT/0.5 ML SYRINGE SQ SCH (08:36)
[2021-09-27] MEDS: SODIUM CHLORIDE 0.9% 1,000 ML IV SCH (08:36)
[2021-09-27] MEDS: ZENPEP 25000 UNIT PO SCH ×2 (08:36→12:09)
[2021-09-27] MEDS: LACTULOSE 20 GM/30 ML CUP PO SCH (08:36)
--- NOTE | 2021-09-27 09:02 | P.DS ---
Providers Date of admission: 09/22/21 08:08 Expected date of discharge: 09/27/21 Attending physician: Tammy Hanson Consults: 09/20/21 05:22 Consult Physician Routine Consulting Provider: Tammy Hanson Consult Reason/Comments: Medical management Do you want consulting provider notified?: Yes 09/20/21 08:00 Consult Physician Routine Consulting Provider: Heidi Jenkins Consult Reason/Comments: possible flail chest Do you want consulting provider notified?: Yes Primary care physician: Tammy Hanson Hospital Course: HISTORY OF PRESENT ILLNESS: This is a 70-year-old female with a previous medical history significant for hypertension and hypertensive cardiovascular disease, hyperlipidemia, GERD, history of pseudocyst of the pancreas that has been complaining of significant amount of abdominal pain with a significant weight loss and chronic diarrhea she ended up getting referred to have MRCP that documented a pancreatic mass was seen in consultation by cableman at [facility], and she ended up having a biopsy that was positive for Pancreatic cancer status post stent placed in the common bile duct, and started on chemotherapy. She has had several admissions due to chemotherapy-induced nausea and vomiting as well as diarrhea, stabilized and discharged back home. Patient now presents status post fall at home where she lost her balance landing on boxes with complaints of left mid back pain, pain with deep inspiration, no loss of consciousness, no head injury noted. CAT scan of the chest revealed multiple posterior left side lower rib fractures with comminution and probable flail chest. There is left lower lobe posterior infiltrate and atelectasis adjacent to the pleural fluid. Tiny left-sided pneumothorax. No more thorax seen adjacent to the fractures. Soft tissue air on the left posterior lower chest wall. EKG sinus tachycardia at 190s beats per minute, no ST changes. Afebrile, blood pressure 156/81, pulse ox 94% on room air. Patient admitted to the cardiac stepdown unit under general surgery and we are following for medical management. 09/21: Patient has been seen by cardiothoracic surgery and no surgical intervention is warranted at that time. Repeat chest x-ray in 6 hours post computed tomography scan to evaluate for enlarging pneumothorax. Repeat chest x-ray reveals left lower lobe atelectasis, associated effusion. Minimal pneumothorax seen on CT not seen with certainty on plain film. Patient states that current pain management is not holding her and she has been taking her MS Contin 4 times daily at home which was increased by her oncologist. Patient has been afebrile, heart rate 81, blood pressure 140/75, pulse ox 97% on 3 L nasal cannula. Patient is reaching 500 ML's on incentive spirometry. Urine culture is in progress. Repeat chest x-ray this morning report is pending. 09/22: She continues to have significant pain in the left chest overnight running between 6-910. Patient has been receiving Dilaudid 1 mg IV every 4 hours on top of her home pain medications. Urine culture is in process with gram- negative bacilli and patient is continued on ceftriaxone. mid level project manager has discussed discharge planning with the patient and she is adamant that she wants to return home. [facility] care is in place and we have added in palliative care with Laura. Repeat chest x-ray reveals slight worsening small to moderate left pleural effusion with prominent adjacent left basilar atelectasis and/or consolidation. Continue trace right effusion with adjacent patchy de nsity. Jan demonstrated displaced posterior lateral left 10th rib fracture. Patient will be started on Levaquin and Zosyn for possible pneumonia. No change in pain medications. Patient will be transferred to [facility] floor without telemetry. 09/23: Patient has been afebrile, heart rate 68, blood pressure 150/70, pulse ox 98% on 2 L. Patient is seen today sitting up in bed. She appears to be little more comfortable today. She is only reaching 500 ML's on incentive spirometry. Urine culture is positive for Klebsiella pneumoniae pansensitive. Patient is continued on Zosyn and Levaquin for possible gram-negative pneumonia. Plan is to continue IV antibiotics today and discharge home tomorrow. Patient is waiting for [facility] bed. 09/24: Patient remains afebrile, heart rate 82, blood pressure 135/75, pulse ox 92% on room air. vehicle monitor technician sinus rhythm. Pain is running anywhere from 2-8. Repeat blood work reveals WBC 5, hemoglobin 9.1, platelet count 140. Electrolytes are normal, BUN 5.7 and creatinine 0.3. Blood sugar 120. Total bilirubin 0.4, AST 19, ALT 17, alkaline phosphatase 171. Patient was prepared for discharge home and she has changed her mind that she wishes to go to [facility]. Social work is following and making arrangements, patient will be discharged in stable condition once arrangements are completed. ASSESSMENT AND PLAN: 1. Fall with left sided rib fractures, possible flail chest, tiny pneumothorax. 2. Possible pneumonia, gram-negative. 3. Acute urinary tract infection (POA). 4. History of biliary/pancreatic cancer status post a stent placed in the common bile duct in January 2021 with chemotherapy currently on hold. Oncology . 5. Hyperlipidemia. 6. GERD. 7. Prior history of pancreatic pseudocyst now diagnosed with pancreatic cancer. 8. Hypertension and hypertensive cardiovascular disease. DISCHARGE PLAN: [facility]. Impression and plan of care have been directed as dictated by the signing physician. Alexia Gonsalves nurse practitioner acting as scribe for signing physician. Patient Condition at Discharge: Stable Plan - Discharge Summary Discharge Rx Participant: No New Discharge Prescriptions: New Amoxic-Pot Clav 875-125Mg [Augmentin 875-125] 1 each PO Q12HR #14 tab Lactulose [Cephulac] 20 gm PO BID #1800 ml Metoclopramide [Reglan] 5 mg PO Q6HR tab fentaNYL 12MCG/HR PATCH [Duragesic 12MCG/HR] 1 patch TRANSDERM Q72H 3 Days #1 patch Continue Atorvastatin [Lipitor] 10 mg PO HS Omeprazole 20 mg PO DAILY Lipase/Protease/Amylase [Zenpep Dr 25,000 Unit Capsule] 1 cap PO AC-TID Acetaminophen Tab [Tylenol] 650 mg PO Q6HR PRN tab PRN Reason: Mild Pain Or Fever > 100.5 Dronabinol [Marinol] 2.5 mg PO AC-BID #6 cap DULoxetine HCL [Cymbalta] 30 mg PO DAILY fentaNYL 25MCG/HR PATCH [Duragesic 25MCG/HR] 1 patch TRANSDERM Q72H #1 patch Gabapentin [Neurontin] 300 mg PO DAILY #3 cap HYDROcodone/APAP 10-325MG [[place] 10-325] 1 tab PO Q4H PRN #18 tab PRN Reason: Pain Temazepam [Restoril] 15 mg PO HS PRN #3 cap PRN Reason: Insomnia Loperamide [Imodium] 2 mg PO QID PRN PRN Reason: Loose Stool Lidocaine-Prilocaine Cream [Emla Cream 2.5%/2.5%] 1 applic TOPICAL DIRECTED PRN PRN Reason: PORT ACCESS Prochlorperazine [Compazine] 10 mg PO Q6H PRN PRN Reason: Nausea Loratadine [Claritin] 10 mg PO DAILY Sennosides-Docusate Sodium [Senokot-S] 2 tab PO BID PRN PRN Reason: Constipation Diclofenac Sodium Gel [Voltaren Gel] 2 gm TOPICAL BID PRN PRN Reason: Pain Morphine Sulfate ER [Ms Contin] 15 mg PO TID #9 tab Discharge Medication List Atorvastatin [Lipitor] 10 mg PO HS 07/06/20 [History] Lidocaine-Prilocaine Cream [Emla Cream 2.5%/2.5%] 1 applic TOPICAL DIRECTED PRN 05/07/21 [History] Lipase/Protease/Amylase [Zenpep Dr 25,000 Unit Capsule] 1 cap PO AC-TID 05/07/21 [History] Loperamide [Imodium] 2 mg PO QID PRN 05/07/21 [History] Loratadine [Claritin] 10 mg PO DAILY 05/07/21 [History] Omeprazole 20 mg PO DAILY 05/07/21 [History] Prochlorperazine [Compazine] 10 mg PO Q6H PRN 05/07/21 [History] Acetaminophen Tab [Tylenol] 650 mg PO Q6HR PRN tab 06/30/21 [Rx] Dronabinol [Marinol] 2.5 mg PO AC-BID #6 cap 06/30/21 [Rx] Sennosides-Docusate Sodium [Senokot-S] 2 tab PO BID PRN 07/24/21 [History] DULoxetine HCL [Cymbalta] 30 mg PO DAILY 08/21/21 [History] Diclofenac Sodium Gel [Voltaren Gel] 2 gm TOPICAL BID PRN 08/21/21 [History] Amoxic-Pot Clav 875-125Mg [Augmentin 875-125] 1 each PO Q12HR #14 tab 09/27/21 [Rx] Gabapentin [Neurontin] 300 mg PO DAILY #3 cap 09/27/21 [Rx] HYDROcodone/APAP 10-325MG [[place] 10-325] 1 tab PO Q4H PRN #18 tab 09/27/21 [Rx] Lactulose [Cephulac] 20 gm PO BID #1800 ml 09/27/21 [Rx] Metoclopramide [Reglan] 5 mg PO Q6HR tab 09/27/21 [Rx] Morphine Sulfate ER [Ms Contin] 15 mg PO TID #9 tab 09/27/21 [Rx] Temazepam [Restoril] 15 mg PO HS PRN #3 cap 09/27/21 [Rx] fentaNYL 12MCG/HR PATCH [Duragesic 12MCG/HR] 1 patch TRANSDERM Q72H 3 Days #1 patch 09/27/21 [Rx] fentaNYL 25MCG/HR PATCH [Duragesic 25MCG/HR] 1 patch TRANSDERM Q72H #1 patch 09/27/21 [Rx] Follow up Appointment(s)/Referral(s): [facility], [NON-STAFF] - Tammy Hanson MD [Primary Care Provider] - 1-2 days Care,[facility] [NON-STAFF] - Discharge Disposition: HOME WITH HOME HEALTH SERVICES
[2021-09-27 10:57] LABS: Basophils # (A) 0.02 X 10*3/uL (0.00-0.10); Basophils % (A) 0.4 %; Eosinophils # (A) 0.12 X 10*3/uL (0.04-0.35); Eosinophils % (A) 2.4 %; HCT 29.5 % (37.2-46.3); HGB 9.1 g/dL (12.0-15.0); Lymphocytes # (A) 0.79 X 10*3/uL (0.90-5.00); Lymphocytes % (A) 15.7 %; MCH 29.6 pg (27.0-32.0); MCHC 30.8 g/dL (32.0-37.0); MCV 96.1 fL (80.0-97.0); Mean Platelet Volume 10.7 fL (9.5-12.2); Monocytes # (A) 0.38 X 10*3/uL (0.20-1.00); Monocytes % (A) 7.6 %; Neutrophils % (A) 73.5 %; Platelet Count 140 X 10*3/uL (140-440); RBC 3.07 X 10*6/uL (4.10-5.20); RDW 13.2 % (11.5-14.5); WBC 5.03 X 10*3/uL (4.50-10.00)
[2021-09-27 11:08] LABS: African American GFR (CKD) 135.4 (60.0-200.0); Albumin 2.8 g/dL (3.8-4.9); Albumin/Globulin Ratio 1.33 (1.60-3.17); Anion Gap 8.3 mmol/L (4.00-12.00); Blood Urea Nitrogen 5.7 mg/dL (9.0-27.0); Calcium 8.7 mg/dL (8.7-10.3); Carbon Dioxide 24.7 mmol/L (21.6-31.8); Globulin 2.1 g/dL (1.6-3.3); Non-African American GFR(CKD) 116.8 (60.0-200.0); Potassium 4.1 mmol/L (3.5-5.5); Total Bilirubin 0.4 mg/dL (0.30-1.20); Total Protein 4.9 g/dL (6.2-8.2)
[2021-09-27] MEDS ORDERED: HYDROmorphone 1 MG/ML 1 ML SYRINGE IVP PRN (14:05)
[2021-09-27 15:38] VITALS: BP 101/65; PULSE 91; TEMP 98.3
[2021-09-27] MEDS: HYDROcodone/APAP 10-325MG 1 EACH TAB PO PRN (16:46)
== END 2021-09-27 16:57 | disposition home health service (06) | DRG 183 ==
LOC: EC 03:48 → 3SCARD 05:55 → OBSVTOIN 09-22 08:08 → 6NMEDSUR 09-24 18:13
PROVIDERS: ADMIT Internal Medicine; ATTEND Internal Medicine
DX: S22.5XXA Flail chest, initial encounter for closed fracture (principal); E43 Unspecified severe protein-calorie malnutrition; J15.6 Pneumonia due to other Gram-negative bacteria; S27.0XXA Traumatic pneumothorax, initial encounter; R64 Cachexia; C25.9 Malignant neoplasm of pancreas, unspecified; N39.0 Urinary tract infection, site not specified; Z20.822 Contact with and (suspected) exposure to COVID-19; J44.0 Chronic obstructive pulmonary disease with (acute) lower respiratory infection; S27.321A Contusion of lung, unilateral, initial encounter; W01.0XXA Fall on same level from slipping, tripping and stumbling without subsequent striking against object, initial encounter; E78.5 Hyperlipidemia, unspecified; G25.81 Restless legs syndrome; G89.11 Acute pain due to trauma; G89.29 Other chronic pain; I11.9 Hypertensive heart disease without heart failure; Z51.5 Encounter for palliative care; K21.9 Gastro-esophageal reflux disease without esophagitis; K52.9 Noninfective gastroenteritis and colitis, unspecified; M19.90 Unspecified osteoarthritis, unspecified site; B96.1 Klebsiella pneumoniae [K. pneumoniae] as the cause of diseases classified elsewhere; K59.00 Constipation, unspecified; Y92.009 Unspecified place in unspecified non-institutional (private) residence as the place of occurrence of the external cause; Z92.21 Personal history of antineoplastic chemotherapy; Z90.711 Acquired absence of uterus with remaining cervical stump; Z90.49 Acquired absence of other specified parts of digestive tract; Z87.442 Personal history of urinary calculi; Z82.5 Family history of asthma and other chronic lower respiratory diseases; Z79.899 Other long term (current) drug therapy; Z79.891 Long term (current) use of opiate analgesic
CPT/HCPCS: 36415; 71045; 71250; 80053; 81001; 85025; 85610; 85730; 87077; 87086; 87186; 87635; 93005; 94640; 94760; 96374; 99285